=== PATIENT | female | born 1955 | race Caucasian/White ===

== ENCOUNTER → 2016-11-24 | Outpatient (CLI) | payer OTHER ==
[~2016-11-24] MED LIST: ABL5 PO; ADVIN50/60 INH; ALBU0.5N2 NEB; ALBU1.257 NEB; AMB5 PO; AMLO5TAB2 PO; ASPI-461 PO; ASPI81TA28 PO; ATOR-26 PO; BUPR-266 PO; CHLO1LIQ21 PO; CITA20TA9 PO; CLX/20 PO; CLX40 PO; CYCL10TA6 PO; DYZ PO; EPP3/2 IM; FLUT0.0529 NAE; FURO-85 PO; GUAISYP4 PO; IPRASOL4 NEB; LEVO75TA5 PO; LEVO88TA3 PO; LORA-741 PO; MIRT45TA3 PO; MONT1TAB3 PO; NAPR220T PO; ONDA4TAB46 PO; POLY335019 PO; POTA-327 PO; POTA10CA28 PO; POTA20TA16 PO; SPRIN/30 INH; TRAM-10 PO; TRIATAB3 PO; ZOLP5TAB PO
[2016-11-24 13:34] LABS: ALT/SGPT 36 U/L (12-78); AST/SGOT 42 U/L (15-37); BLOOD UREA NITROGEN 10 mg/dl (7-18); BUN/CREATININE RATIO 11.2 (10-20); CALCIUM 9.4 mg/dl (8.5-10.1); CARBON DIOXIDE 27 mmol/L (21-32); CHLORIDE 107 mmol/L (98-107); CREATININE 0.93 mg/dl (0.60-1.20); GLUCOSE 107 mg/dl (70-99); POTASSIUM 3.8 mmol/L (3.5-5.1); SODIUM 141 mmol/L (136-145)
[2016-11-24 13:37] LABS: ALB/GLOB RATIO 1.1 (0.9-2); ALKALINE PHOSPHATASE 118 U/L (45-117)
--- NOTE | 2016-11-24 13:46 | DIAGNOSTIC IMAGING REPORT ---
PA CHEST RADIOGRAPH AND UPRIGHT AND SUPINE AP RADIOGRAPHS OF THE ABDOMEN CLINICAL HISTORY: Abdominal pain, diarrhea and weight loss. COMPARISON STUDY: Chest radiograph July 04, [address] of the abdomen and pelvis March 25, 2015. FINDINGS: Lung volumes are normal. There is no consolidation or evidence of pulmonary edema. No pneumothorax or pleural effusions are present. Radiodensities projecting over the upper abdomen likely reflect ingested tablets within the stomach. There is no free air. There is no evidence for a bowel obstruction. IMPRESSION: 1. No free air or evidence of bowel obstruction. 2. No acute cardiopulmonary findings. Electronically signed by: Lex Stanton M.D. 11/24/2016 1:43 PM Dictated Date/Time: 11/24/2016 1:37 PM
== END | disposition home or self-care (01) ==
LOC: C.RAD 12:27
PROVIDERS: ATTEND Physician Assistant
DX: R10.9 Unspecified abdominal pain (principal)

== ENCOUNTER → 2016-11-28 | Outpatient (CLI) | payer OTHER ==
--- NOTE | 2016-11-28 12:52 | DIAGNOSTIC IMAGING REPORT ---
ABDOMEN COMPLETE (US) CLINICAL HISTORY: R10.9 Abdominal pain COMPARISON STUDY: Biliary ultrasound dated June 14, 2010, CT scan abdomen pelvis dated 03/25/2015 FINDINGS: There are 2 echogenic foci within the right lobe of the liver measuring 21 mm and 10 mm respectively. The findings are consistent with although not specific for hepatic hemangiomas. The larger the 2 lesions measured 18 mm on the 2009 ultrasound. The small the 2 lesions was not visualized on that study. The gallbladder appears sonographically normal. The pancreas appears sonographically normal. No splenic lesions are visualized. There is no ductal dilatation. The common buttock measures 4 mm The right kidney measures 9 cm in length. The left kidney measures 9.9 cm in length. No solid renal masses are visualized. No abnormalities of the IVC or aorta are visualized. IMPRESSION: 1. There are 2 echogenic foci within the liver. These are consistent with although not specific for hepatic hemangiomas 2. Ultrasonographically unremarkable gallbladder pancreas and spleen 3. No evidence of ductal dilatation Electronically signed by: Balaji Cheek M.D. 11/28/2016 12:50 PM Dictated Date/Time: 11/28/2016 12:47 PM
== END | disposition home or self-care (01) ==
LOC: C.ULTR 11:59
PROVIDERS: ATTEND Physician Assistant
DX: R10.9 Unspecified abdominal pain (principal); R93.2 Abnormal findings on diagnostic imaging of liver and biliary tract

== ENCOUNTER 2016-11-29 17:07 | Inpatient (IN) | payer OTHER ==
[~2016-11-29] VITALS: Ht 162.6 cm; Wt 72.0 kg
[~2016-11-29 17:07] MED LIST changes: -ABL5 PO; -ADVIN50/60 INH; -ALBU1.257 NEB; -AMB5 PO; -AMLO5TAB2 PO; -ASPI81TA28 PO; -ATOR-26 PO; -BUPR-266 PO; -CHLO1LIQ21 PO; -CLX/20 PO; -CLX40 PO; -CYCL10TA6 PO; -EPP3/2 IM; -GUAISYP4 PO; -IPRASOL4 NEB; -LEVO75TA5 PO; -LORA-741 PO; -MIRT45TA3 PO; -MONT1TAB3 PO; -NAPR220T PO; -ONDA4TAB46 PO; -POLY335019 PO; -POTA10CA28 PO; -POTA20TA16 PO; -TRAM-10 PO; -TRIATAB3 PO
[2016-11-29] MEDS ORDERED: SODIUM CHLORIDE 0.9% 1000ML 500 ML IV STA (17:24)
[2016-11-29] MEDS ORDERED: SODIUM CHLORIDE 0.9% 1000ML 1,000 ML IV STA (17:24)
[2016-11-29] MEDS ORDERED: ONDANSETRON INJ 2 MG/ML 2 ML VIAL IV STA ×2 (17:24→19:15)
[2016-11-29] MEDS ORDERED: HYDROmorphone INJ 2 MG/ML SYR/VIAL IV PRN (17:30)
--- NOTE | 2016-11-29 17:40 | DIAGNOSTIC IMAGING REPORT ---
CHEST ONE VIEW PORTABLE CLINICAL HISTORY: ABDOMINAL PAIN/GI pain. Nausea. COMPARISON STUDY: 11/24/2016 FINDINGS: The bones soft tissues and hemidiaphragms are normal. The cardiomediastinal silhouette is normal. The lungs are clear. The pulmonary vasculature is normal. IMPRESSION: Negative chest. Electronically signed by: Rocco Syed M.D. 11/29/2016 5:38 PM Dictated Date/Time: 11/29/2016 5:38 PM
--- NOTE | 2016-11-29 17:52 | EMERGENCY ROOM VISIT NOTE ---
History Report prepared by Jake: Deandre Branch Under the Supervision of: Dr. Roel Garber M.D. First contact with patient: 17:13 Chief Complaint: ABDOMINAL PAIN Stated Complaint: SOB, STOMACH PAIN- PHYSICIAN REFERRED Nursing Triage Summary: Pt presents with c/o pain from chest to mid abd for a couple weeks, feels worse today. N/V/D. Pt reports diarrhea x 3 weeks. States she has lost approx 30 lbs. History of Present Illness The patient is a 61 year old female who presents to the Emergency Room with complaints of persistent periumbilical abdominal pain for the past three weeks. The pain is rated 7/10 in severity and is worse after she eats. The pain has not worsened since onset, but does now radiate to her upper chest. She is also short of breath. The patient has had diarrhea since the onset of her abdominal pain. She notes that the stools are watery and she often feels the urge to go shortly after eating. She denies fevers or vomiting. The patient lost her voice today. The patient has lost 30 pounds since the onset of her symptoms, and she has not been trying to lose weight. She had a breathing treatment earlier today when she saw her primary doctor, who referred her to the ED to role out pancreatitis or a blood clot. She is not on any blood thinners other than aspirin. The patient denies having any unusual foods or drinking contaminated water recently, and she has not been out of the country. She has a history of acid reflux for which she has had surgery. She no longer takes any medications for reflux. She also has a history of gastroparesis and is s/p tubal ligation and hysterectomy. The patient additionally has a history of COPD and asthma. The patient was seen five days ago and had an X-ray that was negative for any acute abdominal findings. She had an Ultrasound yesterday that showed a normal gallbladder and pancreas. Her kidneys, spleen, and aorta were also unremarkable. She had small hemangiomas within the liver. Source of History: patient Onset: three weeks ago Position: abdomen Symptom Intensity: 7/10 Timing: other (persistent) Modifying Factors (Worsening): eating Associated Symptoms: + SOB, + chest pain, + diarrhea, No fevers, No vomiting Review of Systems See HPI for pertinent positives & negatives. A total of 10 systems reviewed and were otherwise negative. Past Medical & Surgical Medical Problems: (1) Asthma (2) Bilateral pneumonia (3) COPD exacerbation (4) DVT (deep venous thrombosis) (5) HTN (hypertension) (6) Hyperlipidemia (7) Pulmonary embolism Family History Diabetes mellitus Social History Smoking Status: Former Smoker Drug Use: none Marital Status: Housing Status: lives with significant other Occupation Status: employed Current/Historical Medications Scheduled Aspirin (Aspirin), 81 MG PO QAM Atorvastatin (Lipitor), 1 TAB PO HS Citalopram Hydrobromide (Celexa), 20 MG PO HS Fluticasone Prop/Salmeterol (Advair Diskus 500/50 60 Dose), 1 PUFF INH BID Furosemide (Lasix), 20 MG PO QAM Levothyroxine Sodium (Levothyroxine Sodium), 88 MCG PO DAILY Montelukast Sodium (Singulair), 10 MG PO HS Polyethylene Glycol 3350 (Miralax), 17 GM PO DAILY Potassium Ext Rel (Klor-Con), 30 MEQ PO BID Triamterene/Hctz (Triamterene/Hctz 37.5-25MG), 1 TAB PO QAM Scheduled PRN Albuterol 0.5% Soln (Ventolin 0.5% Soln), 1 VIAL NEB Q4 PRN for PRN Epinephrine (Epipen), 0.3 MG IM UD PRN for ALLERGIC REACTION Naproxen Sodium (Aleve), 440 MG PO DAILY PRN for Pain Zolpidem Tartrate (Ambien), 1 TAB PO HS PRN for Sleep Allergies Coded Allergies: BEE STING (Verified Allergy, Severe, swelling, 11/29/16) Shrimp (Verified Allergy, Severe, SEVERE., 11/29/16) Cefuroxime (Verified Allergy, Intermediate, rash, 11/29/16) Clindamycin (Verified Allergy, Intermediate, rash, 11/29/16) Morphine (Verified Allergy, Intermediate, RASH, on hycodan from [id number] home med, 11/29/16) Pregabalin (Verified Allergy, Intermediate, swelling, 11/29/16) Clavulanic Acid (Verified Allergy, Mild, 11/29/16) Ketorolac (Verified Allergy, Mild, RASH ON ABDOMEN,NAPROXEN ONLY NSAID SHE TOLERATES, 11/29/16) Penicillins (Verified Allergy, Mild, 11/29/16) Erythromycin (Verified Allergy, Unknown, 11/29/16) Ibuprofen (Verified Allergy, Unknown, RASH,NAPROXEN ONLY NSAID SHE TOLERATES, 11/29/16) Imipenem (Verified Allergy, Unknown, 11/29/16) Iodine (Verified Allergy, Unknown, 11/29/16) Macrolides and Ketolides (Unverified Allergy, Unknown, RASH, 11/29/16) macrolides Metoclopramide (Verified Allergy, Unknown, 11/29/16) Psyllium (Verified Allergy, Unknown, 11/29/16) Sulfa Antibiotics (Verified Allergy, Unknown, "SULFA": "RASH", 11/29/16) Uncoded Allergies: MARCOLIDES (Allergy, Intermediate, rash, 07/19/16) Physical Exam Vital Signs Date Time Temp Pulse Resp B/P Pulse Ox O2 Delivery O2 Flow Rate FiO2 11/30/16 00:09 69 20 132/72 97 Nasal Cannula 2.0 11/29/16 22:22 69 20 132/72 97 Nasal Cannula 2.0 11/29/16 20:53 82 20 151/85 97 Room Air 11/29/16 20:28 74 11/29/16 19:01 66 20 158/69 98 Room Air 11/29/16 18:27 68 11/29/16 18:21 68 22 154/58 99 Room Air 11/29/16 17:19 163/85 11/29/16 17:11 36.5 72 18 99 Room Air Physical Exam GENERAL: Patient is in no acute distress. HEENT: No acute trauma, normocephalic atraumatic, mucous membranes moist, no nasal congestion, no scleral icterus. NECK: No stridor, no adenopathy, no meningismus, trachea is midline. LUNGS: Diminished breath sounds bilaterally, breath sounds are equal, no wheezing or rhonchi, no respiratory distress. HEART: Without murmurs gallops or rubs, regular rate and rhythm. ABDOMEN: Soft, diffusely midly to moderately tender, bowel sounds positive and hyperactive, no hernias, no peritonitis. EXTREMITIES: No cyanosis or edema, full range of motion of all the joints without pain or difficulty, no signs for acute trauma. NEUROLOGIC: Oriented x 3, no acute motor or sensory deficits, no focal weakness. SKIN: No rash, no jaundice, no diaphoresis. Medical Decision & Procedures ER Provider Diagnostic Interpretation: X ray results and stated below per my interpretation and radiologist interpretation. Other radiology results and stated below per my review and radiologist interpretation: CHEST ONE VIEW PORTABLE CLINICAL HISTORY: ABDOMINAL PAIN/GI pain. Nausea. COMPARISON STUDY: 11/24/2016 FINDINGS: The bones soft tissues and hemidiaphragms are normal. The cardiomediastinal silhouette is normal. The lungs are clear. The pulmonary vasculature is normal. IMPRESSION: Negative chest. Electronically signed by: Rocco Syed M.D. 11/29/2016 5:38 PM Dictated Date/Time: 11/29/2016 5:38 PM ABDOMEN AND PELVIS CT WITH IV AND ORAL CONTRAST CT DOSE: 395.56 mGy.cm HISTORY: Pain ABDOMINAL PAIN/GI--? DIVERTICULITIS--GIVE PO AND IV CONTRAST TECHNIQUE: Multiaxial CT images of the abdomen and pelvis were performed following the use of intravenous and oral contrast. COMPARISON STUDY: 03/25/2015 FINDINGS: Chronic interstitial change right base. Lung bases otherwise are clear. Small benign hemangioma of the right hepatic lobe unchanged. There is otherwise uniform. Small hiatal hernia unchanged. Spleen and pancreas are unremarkable. Mild cortical scarring of the kidneys. No evidence renal hydronephrosis. Bowel pattern within the abdomen and pelvis is nonobstructive. The appendix is unremarkable. Bladder is midline. There is no significant free fluid within the pelvic cul-de-sac. IMPRESSION: No significant abnormality identified within the abdomen or pelvis. Electronically signed by: Rocco Syed M.D. 11/29/2016 9:07 PM Dictated Date/Time: 11/29/2016 9:02 PM Laboratory Results 11/29/16 17:56 Red Blood Count 4.83, Mean Corpuscular Volume 88.0, Mean Corpuscular Hemoglobin 30.0, Mean Corpuscular Hemoglobin Concent 34.1, Mean Platelet Volume 10.7, Neutrophils (%) (Auto) 67.1, Lymphocytes (%) (Auto) 23.1, Monocytes (%) (Auto) 8.3, Eosinophils (%) (Auto) 1.1, Basophils (%) (Auto) 0.3, Neutrophils # (Auto) 4.92, Lymphocytes # (Auto) 1.69, Monocytes # (Auto) 0.61, Eosinophils # (Auto) 0.08, Basophils # (Auto) 0.02 11/29/16 17:56 Test 11/29/16 17:56 11/29/16 18:15 White Blood Count 7.33 K/uL (4.8-10.8) Red Blood Count 4.83 M/uL (4.2-5.4) Hemoglobin 14.5 g/dL (12.0-16.0) Hematocrit 42.5 % (37-47) Mean Corpuscular Volume 88.0 fL (80-100) Mean Corpuscular Hemoglobin 30.0 pg (25-34) Mean Corpuscular Hemoglobin Concent 34.1 g/dl (32-36) Platelet Count 262 K/uL (130-400) Mean Platelet Volume 10.7 fL (7.4-10.4) Neutrophils (%) (Auto) 67.1 % Lymphocytes (%) (Auto) 23.1 % Monocytes (%) (Auto) 8.3 % Eosinophils (%) (Auto) 1.1 % Basophils (%) (Auto) 0.3 % Neutrophils # (Auto) 4.92 K/uL (1.4-6.5) Lymphocytes # (Auto) 1.69 K/uL (1.2-3.4) Monocytes # (Auto) 0.61 K/uL (0.11-0.59) Eosinophils # (Auto) 0.08 K/uL (0-0.5) Basophils # (Auto) 0.02 K/uL (0-0.2) RDW Standard Deviation 46.4 fL (36.4-46.3) RDW Coefficient of Variation 14.3 % (11.5-14.5) Immature Granulocyte % (Auto) 0.1 % Immature Granulocyte # (Auto) 0.01 K/uL (0.00-0.02) Prothrombin Time 9.7 SECONDS (9.0-12.0) Prothromb Time International Ratio 0.9 (0.9-1.1) Activated Partial Thromboplast Time 26.0 SECONDS (21.0-31.0) Partial Thromboplastin Ratio 1.0 Anion Gap 6.0 mmol/L (3-11) Est Creatinine Clear Calc Drug Dose 60.2 ml/min Estimated GFR () 74.4 Estimated GFR (Non- 64.2 BUN/Creatinine Ratio 10.0 (10-20) Lactic Acid Level 1.2 mmol/L (0.4-2.0) Calcium Level 9.4 mg/dl (8.5-10.1) Magnesium Level 2.0 mg/dl (1.8-2.4) Total Bilirubin 0.8 mg/dl (0.2-1) Aspartate Amino Transf (AST/SGOT) 54 U/L (15-37) Alanine Aminotransferase (ALT/SGPT) 47 U/L (12-78) Alkaline Phosphatase 109 U/L (45-117) Troponin I < 0.015 ng/ml (0-0.045) Total Protein 7.8 gm/dl (6.4-8.2) Albumin 3.8 gm/dl (3.4-5.0) Globulin 4.0 gm/dl (2.5-4.0) Albumin/Globulin Ratio 1.0 (0.9-2) Lipase 406 U/L (73-393) Thyroid Stimulating Hormone (TSH) 0.125 uIu/ml (0.300-4.500) Free Thyroxine 1.52 ng/dl (0.80-1.60) Urine Color YELLOW Urine Appearance CLEAR (CLEAR) Urine pH 5.0 (4.5-7.5) Urine Specific [place] 1.007 (1.000-1.030) Urine Protein NEG (NEG) Urine Glucose (UA) NEG (NEG) Urine Ketones NEG (NEG) Urine Occult Blood NEG (NEG) Urine Nitrite NEG (NEG) Urine Bilirubin NEG (NEG) Urine Urobilinogen NEG (NEG) Urine Leukocyte Esterase SMALL (NEG) Urine WBC (Auto) 1-5 /hpf (0-5) Urine RBC (Auto) 0-4 /hpf (0-4) Urine Hyaline Casts (Auto) 1-5 /lpf (0-5) Urine Epithelial Cells (Auto) 10-20 /lpf (0-5) Urine Bacteria (Auto) NEG (NEG) Laboratory results reviewed by me. Medications Administered Medications (Trade) Dose Ordered Sig/Vale Route Start Time Stop Time Status Last Admin Dose Admin Sodium Chloride (Nss 1000ml) 500 ml @ 999 mls/hr Q31M STAT IV 11/29/16 17:24 11/29/16 17:54 DC 11/29/16 18:10 999 MLS/HR Ondansetron HCl 4 mg 4 mg NOW STAT IV 11/29/16 17:24 11/29/16 17:27 DC 11/29/16 18:09 4 MG Sodium Chloride (Nss 1000ml) 1,000 ml @ 200 mls/hr Q5H STAT IV 11/29/16 17:24 11/29/16 22:23 DC 11/29/16 18:11 200 MLS/HR Hydromorphone HCl (Dilaudid Inj) 0.5 mg Q15M PRN IV 11/29/16 17:30 12/13/16 17:29 11/29/16 18:09 0.5 MG Ondansetron HCl (Zofran Inj) 4 mg NOW STAT IV 11/29/16 19:15 11/29/16 19:17 DC 11/29/16 19:15 4 MG Diphenhydramine HCl (Benadryl Inj) 50 mg NOW STAT IV 11/29/16 19:47 11/29/16 19:49 DC 11/29/16 20:00 50 MG Methylprednisolone Sodium Succinate (Solu-Medrol IV) 125 mg NOW STAT IV 11/29/16 19:47 11/29/16 19:49 DC 11/29/16 20:00 125 MG ECG Indication: chest pain Rate (beats per minute): 66 Rhythm: normal sinus Findings: no acute ischemic change, no ectopy ED Course 171: The patient was evaluated in room C3. A complete history and physical exam was performed. 1724: NSS 1000 ml @ 200 mls/hr, Zofran 4 mg IV, NSS 500 ml @ 999 mls/hr. 1730: Dilaudid 0.5 mg IV. 1914: Zofran 4 mg IV. 1954: Updated the patient. 1946: Solu-Medrol 125 mg IV, Benadryl 50 mg IV. 2131: Discussed the case with Dr. Liu, [facility]ist. The patient will be evaluated. 2154: Updated the patient. Medical Decision Differential diagnosis includes diverticulitis or colitis, appendicitis, pancreatitis, acute cholecystitis, reflux, cardiac ischemia, malignancy, bacterial intestinal infection, viral intestinal infection. There is no leukocytosis or concerning anemia. No significant electrolyte abnormality, kidney failure or hepatitis. Lipase is somewhat elevated consistent with possible early pancreatitis. Thyroid testing is consistent with someone using thyroid medication. Urinalysis does not show infection. Lactic acid level is not elevated making bowel ischemia less likely. Chest film shows no pneumonia or free air. EKG shows a normal sinus rhythm, no acute ischemia. Cardiac enzyme testing times one is not consistent with acute cardiac injury. Abdominal and pelvis CT does not show evidence for bowel obstruction, mass, diverticulitis or any acute surgical process. The patient has been having difficulty now for weeks. She has lost weight. She is failing outpatient treatment. She did receive IV saline, IV Dilaudid, IV Zofran. She required a second dose of IV Zofran. The patient did receive IV Solu-Medrol and IV Benadryl in preparation for her CT scan. The patient is still feeling poorly. I think admission/observation is warranted. Certainly, she may have pancreatitis. Her laboratories suggest pancreatitis and her history is somewhat suggestive of pancreatitis. I spoke to the patient and case management. The on-call hospitalist was consulted. Consults Time Called: 2124 Consulting Physician: Dr. Liu, [facility] Returned Call: [phone]: Discussed the case with Dr. Liu, [facility]ist. The patient will be evaluated. Impression Primary Impression: Dehydration Additional Impressions: Weight loss Pancreatitis Epigastric abdominal pain Scribe Attestation The scribe's documentation has been prepared under my direction and personally reviewed by me in its entirety. I confirm that the note above accurately reflects all work, treatment, procedures, and medical decision making performed by me. Departure Information Dispostion Being Evaluated By Hospitalist Referrals Gary Renteria M.D. (PCP) Patient Instructions My [facility] Problem Qualifiers
[2016-11-29 18:07] LABS: BASO % 0.3 %; BASO ABS # 0.02 K/uL (0-0.2); COMPLETE YES; EOS % 1.1 %; HEMATOCRIT 42.5 % (37-47); IG% 0.1 %; LYMPH % 23.1 %; LYMPH ABS # 1.69 K/uL (1.2-3.4); MEAN CORPUSCULAR HGB CONC 34.1 g/dl (32-36); MEAN PLATELET VOLUME 10.7 fL (7.4-10.4); MONO % 8.3 %; NEUT % 67.1 %; PLATELET COUNT 262 K/uL (130-400); RED BLOOD COUNT 4.83 M/uL (4.2-5.4); WHITE BLOOD COUNT 7.33 K/uL (4.8-10.8)
[2016-11-29 18:19] LABS: INR 0.9 (0.9-1.1); PROTHROMBIN TIME (PATIENT) 9.7 SECONDS (9.0-12.0)
[2016-11-29] MEDS ORDERED: POTA20TA16 PO (18:24)
[2016-11-29 18:25] LABS: BLOOD UREA NITROGEN 10 mg/dl (7-18); CALCIUM 9.4 mg/dl (8.5-10.1); CARBON DIOXIDE 29 mmol/L (21-32); CHLORIDE 104 mmol/L (98-107); CREATININE 0.95 mg/dl (0.60-1.20); GLUCOSE 100 mg/dl (70-99); POTASSIUM 3.4 mmol/L (3.5-5.1); SODIUM 139 mmol/L (136-145)
[2016-11-29 18:37] LABS: ALKALINE PHOSPHATASE 109 U/L (45-117); ALT/SGPT 47 U/L (12-78); AST/SGOT 54 U/L (15-37); THYROID STIMULATING HORMONE 0.125 uIu/ml (0.300-4.500)
[2016-11-29 18:37] LABS: URINE APPEARANCE CLEAR (CLEAR); URINE BILIRUBIN NEG (NEG); URINE COLOR YELLOW; URINE NITRITE NEG (NEG); URINE SPECIFIC GRAVITY 1.007 (1.000-1.030); UROBILINOGEN NEG (NEG); ZZUR CULT IF INDIC CLEAN CATCH NO
[2016-11-29 18:38] LABS: MANUAL MICROSCOPIC REQUIRED? NO; REVIEW REQ? NO
[2016-11-29] MEDS ORDERED: DiphenhydrAMINE HCL 50 MG/ML VIAL IV STA (19:47)
[2016-11-29] MEDS ORDERED: METHYLPREDNISOLONE 125 MG VIAL IV STA (19:47)
[2016-11-29] MEDS ORDERED: OPTIRAY 320 IV PRN (20:00)
--- NOTE | 2016-11-29 21:09 | DIAGNOSTIC IMAGING REPORT ---
ABDOMEN AND PELVIS CT WITH IV AND ORAL CONTRAST CT DOSE: 395.56 mGy.cm HISTORY: Pain ABDOMINAL PAIN/GI--? DIVERTICULITIS--GIVE PO AND IV CONTRAST TECHNIQUE: Multiaxial CT images of the abdomen and pelvis were performed following the use of intravenous and oral contrast. COMPARISON STUDY: 03/25/2015 FINDINGS: Chronic interstitial change right base. Lung bases otherwise are clear. Small benign hemangioma of the right hepatic lobe unchanged. There is otherwise uniform. Small hiatal hernia unchanged. Spleen and pancreas are unremarkable. Mild cortical scarring of the kidneys. No evidence renal hydronephrosis. Bowel pattern within the abdomen and pelvis is nonobstructive. The appendix is unremarkable. Bladder is midline. There is no significant free fluid within the pelvic cul-de-sac. IMPRESSION: No significant abnormality identified within the abdomen or pelvis. Electronically signed by: Rocco Syde M.D. 11/29/2016 9:07 PM Dictated Date/Time: 11/29/2016 9:02 PM
[2016-11-29] MEDS ORDERED: ALUMINUM/MAGNESIUM/SIMETH (MAALOX MAX) 30 ML UDC PO PRN (23:00)
[2016-11-29] MEDS ORDERED: MAGNESIUM HYDROXIDE SUSP 30 ML UDC PO PRN (23:00)
[2016-11-29] MEDS ORDERED: NITROGLYCERIN 0.4 MG SL PER TAB CHARGE SL PRN (23:00)
[2016-11-29] MEDS ORDERED: MoRPHine SULFATE 2 MG/ML CARP IV PRN (23:00)
[2016-11-29] MEDS ORDERED: POLYETHYLENE (MIRALAX) 17 GM PACK PO PRN (23:00)
[2016-11-29] MEDS ORDERED: ALBUTEROL 0.5% NEB SOLN 2.5 MG/0.5 ML VIAL INH PRN (23:15)
[2016-11-29] MEDS ORDERED: EPINEPHRINE ADULT AUTO-INJECT 0.3 MG SYR IM PRN (23:15)
[2016-11-29] MEDS ORDERED: ZOLPIDEM TARTRATE 5 MG TAB PO PRN (23:15)
--- NOTE | 2016-11-29 23:15 | History and Physical ---
History & Physical Date & Time of Service: Nov 29, 2016 at 23:14 Chief Complaint: Sob, Stomach Pain- Physician Referred Primary Care Physician: Gary Renteria M.D. History of Present Illness 61-year-old female with past medical history of asthma, COPD, gastroparesis, history of acid reflux surgery presented to the ER with complaints of periumbilical abdominal pain and diarrhea which started about 3 weeks ago and worsened this morning. The abdominal pain is periumbilical with no radiation, constant, 3/10 in severity and 7/10 when worse, worsened with food. She has also had diarrhea about 3-4 times per day, mostly watery and nonbloody which started about 3 weeks ago. She has some nausea and dry heaves but denied any vomiting. Denied any fevers with chills, coughing, upper respiratory infection. She was seen by her PCP today and was recommended to go to the ER to rule out pancreatitis. She denied any recent traveling, eating unusual food. She does have a history of gastroparesis and had used to domperidone in the past but is currently not using anything. She had" acid reflux surgery" for GERD. She was seen by her PCP 5 days ago for abdominal pain and her abdominal x-ray was negative for any acute findings. She also had an ultrasound yesterday that showed a normal gallbladder and pancreas. She denied any alcohol use but was a smoker and used to smoke 1-2 packs per day. Past Medical/Surgical History Medical Problems: (1) Asthma Status: Chronic (2) DVT (deep venous thrombosis) Status: Resolved (3) HTN (hypertension) Status: Chronic (4) Hyperlipidemia Status: Chronic (5) Pulmonary embolism Status: Resolved Family History Diabetes mellitus Social History Smoking Status: Former Smoker Drug Use: none Marital Status: Occupational Status: employed Immunizations History of Influenza Vaccine: Yes Influenza Vaccine Date: May 10, 2015 History of Tetanus Vaccine?: Yes Tetanus Immunization Date: Mar 26, 2014 History of Pneumococcal: Yes Pneumococcal Date: Jun 15, 2010 History of Hepatitis B Vaccine: Unknown Multi-Drug Resistant Organisms History of MDRO: No Allergies Coded Allergies: BEE STING (Verified Allergy, Severe, swelling, 11/29/16) Shrimp (Verified Allergy, Severe, SEVERE., 11/29/16) Cefuroxime (Verified Allergy, Intermediate, rash, 11/29/16) Clindamycin (Verified Allergy, Intermediate, rash, 11/29/16) Morphine (Verified Allergy, Intermediate, RASH, on hycodan from [id number] home med, 11/29/16) Pregabalin (Verified Allergy, Intermediate, swelling, 11/29/16) Clavulanic Acid (Verified Allergy, Mild, 11/29/16) Ketorolac (Verified Allergy, Mild, RASH ON ABDOMEN,NAPROXEN ONLY NSAID SHE TOLERATES, 11/29/16) Penicillins (Verified Allergy, Mild, 11/29/16) Erythromycin (Verified Allergy, Unknown, 11/29/16) Ibuprofen (Verified Allergy, Unknown, RASH,NAPROXEN ONLY NSAID SHE TOLERATES, 11/29/16) Imipenem (Verified Allergy, Unknown, 11/29/16) Iodine (Verified Allergy, Unknown, 11/29/16) Macrolides and Ketolides (Unverified Allergy, Unknown, RASH, 11/29/16) macrolides Metoclopramide (Verified Allergy, Unknown, 11/29/16) Psyllium (Verified Allergy, Unknown, 11/29/16) Sulfa Antibiotics (Verified Allergy, Unknown, "SULFA": "RASH", 11/29/16) Uncoded Allergies: MARCOLIDES (Allergy, Intermediate, rash, 07/19/16) Home Medications Scheduled Aspirin (Aspirin), 81 MG PO QAM Atorvastatin (Lipitor), 1 TAB PO HS Citalopram Hydrobromide (Celexa), 20 MG PO HS Fluticasone Prop/Salmeterol (Advair Diskus 500/50 60 Dose), 1 PUFF INH BID Furosemide (Lasix), 20 MG PO QAM Levothyroxine Sodium (Levothyroxine Sodium), 88 MCG PO DAILY Montelukast Sodium (Singulair), 10 MG PO HS Polyethylene Glycol 3350 (Miralax), 17 GM PO DAILY Potassium Ext Rel (Klor-Con), 30 MEQ PO BID Triamterene/Hctz (Triamterene/Hctz 37.5-25MG), 1 TAB PO QAM Scheduled PRN Albuterol 0.5% Soln (Ventolin 0.5% Soln), 1 VIAL NEB Q4 PRN for PRN Epinephrine (Epipen), 0.3 MG IM UD PRN for ALLERGIC REACTION Naproxen Sodium (Aleve), 440 MG PO DAILY PRN for Pain Zolpidem Tartrate (Ambien), 1 TAB PO HS PRN for Sleep Review of Systems Constitutional: + weight loss (30 pounds in about a month), No chills, No fever Eyes: No worsening of vision ENT: No hearing loss Respiratory: + problem reported (losing voice), + shortness of breath, No cough , No sputum Abdomen: + diarrhea, + nausea, + pain Genitourinary - Female: No dysuria, No urinary frequency, No urinary urgency Neurologic: No memory loss, No paralysis Psychiatric: No depression symptoms Endocrine: No fatigue Hematologic / Lymphatic: No abnormal bleeding/bruising Physical Exam Vital Signs Date Time Temp Pulse Resp B/P Pulse Ox O2 Delivery O2 Flow Rate FiO2 11/29/16 22:22 69 20 132/72 97 Nasal Cannula 2.0 11/29/16 20:53 82 20 151/85 97 Room Air 11/29/16 20:28 74 11/29/16 19:01 66 20 158/69 98 Room Air 11/29/16 18:27 68 11/29/16 18:21 68 22 154/58 99 Room Air 11/29/16 17:19 163/85 11/29/16 17:11 36.5 72 18 99 Room Air General Appearance: WD/WN, no apparent distress Head: normocephalic Eyes: normal inspection ENT: hearing grossly normal Neck: supple, no adenopathy Respiratory/Chest: chest non-tender, normal breath sounds, no respiratory distress, no accessory muscle use, + wheezing (scattered) Cardiovascular: regular rate, rhythm, + systolic murmur Abdomen/GI: normal bowel sounds, soft, + tenderness (mid abdominal area) Back: normal inspection Extremities/Musculoskelatal: normal inspection, no calf tenderness, normal range of motion Neurologic/Psych: alert, normal mood/affect, oriented x 3 Skin: normal color Diagnostics Laboratory Results Results Past 24 Hours Test 11/29/16 17:56 11/29/16 18:15 Range/Units White Blood Count 7.33 4.8-10.8 K/uL Red Blood Count 4.83 4.2-5.4 M/uL Hemoglobin 14.5 12.0-16.0 g/dL Hematocrit 42.5 37-47 % Mean Corpuscular Volume 88.0 80-100 fL Mean Corpuscular Hemoglobin 30.0 25-34 pg Mean Corpuscular Hemoglobin Concent 34.1 32-36 g/dl Platelet Count 262 130-400 K/uL Mean Platelet Volume 10.7 7.4-10.4 fL Neutrophils (%) (Auto) 67.1 % Lymphocytes (%) (Auto) 23.1 % Monocytes (%) (Auto) 8.3 % Eosinophils (%) (Auto) 1.1 % Basophils (%) (Auto) 0.3 % Neutrophils # (Auto) 4.92 1.4-6.5 K/uL Lymphocytes # (Auto) 1.69 1.2-3.4 K/uL Monocytes # (Auto) 0.61 0.11-0.59 K/uL Eosinophils # (Auto) 0.08 0-0.5 K/uL Basophils # (Auto) 0.02 0-0.2 K/uL RDW Standard Deviation 46.4 36.4-46.3 fL RDW Coefficient of Variation 14.3 11.5-14.5 % Immature Granulocyte % (Auto) 0.1 % Immature Granulocyte # (Auto) 0.01 0.00-0.02 K/uL Prothrombin Time 9.7 9.0-12.0 SECONDS Prothromb Time International Ratio 0.9 0.9-1.1 Activated Partial Thromboplast Time 26.0 21.0-31.0 SECONDS Partial Thromboplastin Ratio 1.0 Sodium Level 139 136-145 mmol/L Potassium Level 3.4 3.5-5.1 mmol/L Chloride Level 104 98-107 mmol/L Carbon Dioxide Level 29 21-32 mmol/L Anion Gap 6.0 3-11 mmol/L Blood Urea Nitrogen 10 7-18 mg/dl Creatinine 0.95 0.60-1.20 mg/dl Est Creatinine Clear Calc Drug Dose 60.2 ml/min Estimated GFR () 74.4 Estimated GFR (Non- 64.2 BUN/Creatinine Ratio 10.0 10-20 Random Glucose 100 70-99 mg/dl Lactic Acid Level 1.2 0.4-2.0 mmol/L Calcium Level 9.4 8.5-10.1 mg/dl Total Bilirubin 0.8 0.2-1 mg/dl Aspartate Amino Transf (AST/SGOT) 54 15-37 U/L Alanine Aminotransferase (ALT/SGPT) 47 12-78 U/L Alkaline Phosphatase 109 45-117 U/L Troponin I < 0.015 0-0.045 ng/ml Total Protein 7.8 6.4-8.2 gm/dl Albumin 3.8 3.4-5.0 gm/dl Globulin 4.0 2.5-4.0 gm/dl Albumin/Globulin Ratio 1.0 0.9-2 Lipase 406 73-393 U/L Thyroid Stimulating Hormone (TSH) 0.125 0.300-4.500 uIu/ml Free Thyroxine 1.52 0.80-1.60 ng/dl Urine Color YELLOW Urine Appearance CLEAR CLEAR Urine pH 5.0 4.5-7.5 Urine Specific [place] 1.007 1.000-1.030 Urine Protein NEG NEG Urine Glucose (UA) NEG NEG Urine Ketones NEG NEG Urine Occult Blood NEG NEG Urine Nitrite NEG NEG Urine Bilirubin NEG NEG Urine Urobilinogen NEG NEG Urine Leukocyte Esterase SMALL NEG Urine WBC (Auto) 1-5 0-5 /hpf Urine RBC (Auto) 0-4 0-4 /hpf Urine Hyaline Casts (Auto) 1-5 0-5 /lpf Urine Epithelial Cells (Auto) 10-20 0-5 /lpf Urine Bacteria (Auto) NEG NEG Microbiology Results 11/29/16 Shiga Toxin Test, Received Pending 11/29/16 Stool Culture, Received Pending 11/29/16 C.difficile Toxin B Gene (PCR) - Final, Complete No C. difficile toxin B gene detected Diagnostic Radiology [~ rep ct add3]] CHEST ONE VIEW PORTABLE CLINICAL HISTORY: ABDOMINAL PAIN/GI pain. Nausea. COMPARISON STUDY: 11/24/2016 FINDINGS: The bones soft tissues and hemidiaphragms are normal. The cardiomediastinal silhouette is normal. The lungs are clear. The pulmonary vasculature is normal. IMPRESSION: Negative chest. ABDOMEN AND PELVIS CT WITH IV AND ORAL CONTRAST CT DOSE: 395.56 mGy.cm HISTORY: Pain ABDOMINAL PAIN/GI--? DIVERTICULITIS--GIVE PO AND IV CONTRAST TECHNIQUE: Multiaxial CT images of the abdomen and pelvis were performed following the use of intravenous and oral contrast. COMPARISON STUDY: 03/25/2015 FINDINGS: Chronic interstitial change right base. Lung bases otherwise are clear. Small benign hemangioma of the right hepatic lobe unchanged. There is otherwise uniform. Small hiatal hernia unchanged. Spleen and pancreas are unremarkable. Mild cortical scarring of the kidneys. No evidence renal hydronephrosis. Bowel pattern within the abdomen and pelvis is nonobstructive. The appendix is unremarkable. Bladder is midline. There is no significant free fluid within the pelvic cul-de-sac. IMPRESSION: No significant abnormality identified within the abdomen or pelvis. CXR normal EKG Normal sinus rhythm Normal ECG When compared with ECG of 01-JUN-2016 19:28, No significant change was found Confirmed by VLADISLAV GARCIA ([id number]) on 2016 7:53:20 PM Impression Assessment and Plan 61-year-old female with past medical history of asthma, COPD, gastroparesis, history of acid reflux surgery presented to the ER with complaints of periumbilical abdominal pain and diarrhea which started about 3 weeks ago and worsened this morning. Ultrasound and CT abdomen are negative for pancreatitis or gallbladder disease. However her lipase is elevated at 406. She also had 30 pound weight loss within the last month - consider work up for any underlying malignancy. Periumbilical abdominal pain with persistent diarrhea: - Nothing by mouth - Ultrasound done yesterday by PCP: Negative - CT abdomen/pelvis : Negative - C. difficile negative -Stool culture pending -UA positive for small leuko esterase, urine culture pending -Lipase elevated at 406, trend lipase -Gastroenterology consult Unintentional weight loss: - Lost about 30 pounds in the last month - Consider Workup for underlying malignancy though CT abdomen and pelvis was negative COPD: - Continue home inhalers Possible UTI: - UA positive for small leuk esterase - Urine culture pending Chronic lower extremity swelling: - Uses Lasix and triamterene Hypothyroidism -Synthroid Depression: Continue Celexa Hyperlipidemia - Continue statin DVT prophylaxis: Heparin subcutaneous Full code Disposition: Admitted to telemetry. Level of Care Telemetry Advanced Directives Existing Living Will: Yes Resuscitation Status FULL RESUSCITATION VTE Prophylaxis VTE Risk Assessment Done? Y/N: Yes Risk Level: Moderate Given or contraindicated: Unfractionated heparin SQ Resident Tracking Resident Involvement: Resident Care Provided Care Provided: Adult [facility] Medicine Assessment and Plan Attending Addendum: I have physically seen and examined this patient, have directed their medical care, have supervised the medical residents activities, and agree with the H&P as noted above, with the following changes: NONE
[2016-11-30 00:48] VITALS: BP 139/76; PULSE 64; TEMP 36.6; O2SAT 97; Ht 162.6 cm; Wt 72.0 kg
[2016-11-30] MEDS ORDERED: PANTOprazole INJ 40 MG in SYRINGE 0 ML IV STA (00:59)
[2016-11-30] MEDS ORDERED: MoRPHine SULFATE 4 MG/ML 1 ML CARP\\VIAL IV PRN (01:00)
[2016-11-30] MEDS ORDERED: MoRPHine SULFATE 2 MG/ML CARP IV PRN (01:00)
[2016-11-30] MEDS ORDERED: HYDROmorphone INJ 1 MG/ML SYR IV PRN (01:15)
[2016-11-30] MEDS: ONDANSETRON INJ 2 MG/ML 2 ML VIAL IV PRN (01:19)
[2016-11-30] MEDS: NSS + 20MEQ KCL 1000ML 1,000 ML IV SCH ×3 (01:20→21:02)
[2016-11-30 04:00] VITALS: BP 110/56; PULSE 67; TEMP 36.5; O2SAT 95
[2016-11-30 05:41] LABS: COMPLETE YES; IG% 0.2 %; LYMPH % 9.2 %; LYMPH ABS # 0.42 K/uL (1.2-3.4); MEAN CELL VOLUME 89.6 fL (80-100); MEAN CORPUSCULAR HEMOGLOBIN 29.8 pg (25-34); MEAN CORPUSCULAR HGB CONC 33.3 g/dl (32-36); MEAN PLATELET VOLUME 11.2 fL (7.4-10.4); MONO % 0.4 %; NEUT % 90.2 %; PLATELET COUNT 223 K/uL (130-400); WHITE BLOOD COUNT 4.57 K/uL (4.8-10.8)
[2016-11-30 06:27] LABS: BLOOD UREA NITROGEN 9 mg/dl (7-18); BUN/CREATININE RATIO 9.5 (10-20); CALCIUM 8.6 mg/dl (8.5-10.1); CARBON DIOXIDE 29 mmol/L (21-32); CHLORIDE 107 mmol/L (98-107); CREATININE 0.96 mg/dl (0.60-1.20); GLUCOSE 160 mg/dl (70-99); POTASSIUM 4.5 mmol/L (3.5-5.1); SODIUM 143 mmol/L (136-145)
[2016-11-30] MEDS ORDERED: LEVOTHYROXINE 88 MCG TAB PO SCH (06:30)
[2016-11-30 07:25] VITALS: BP 122/72; PULSE 62; TEMP 36.5; O2SAT 93
[2016-11-30] MEDS: FLUTICASONE/SALMETEROL (ADVAIR) 500/50 INH 14 PUFF INH SCH ×2 (08:07→21:02)
[2016-11-30] MEDS: PANTOprazole INJ 40 MG in SYRINGE 0 ML IV SCH ×2 (08:07→21:02)
[2016-11-30] MEDS: LEVOTHYROXINE SODIUM INJ 44 MCG in SYRINGE 0 ML IV SCH (08:23)
[2016-11-30] MEDS: HEPARIN SOD 5000 UNIT/0.5 ML CARP SQ SCH ×2 (08:28→16:19)
[2016-11-30] MEDS ORDERED: FUROSEMIDE 20 MG TAB PO SCH (09:00)
[2016-11-30] MEDS ORDERED: TRIAMTERENE/HCTZ 37.5/25MG TAB PO SCH (09:00)
[2016-11-30] MEDS ORDERED: HEPARIN SOD 5000 UNIT/0.5 ML CARP SQ SCH (09:00)
[2016-11-30] MEDS ORDERED: POLYETHYLENE (MIRALAX) 17 GM PACK PO SCH (09:00)
[2016-11-30] MEDS: POTASSIUM CHLORIDE 10 MEQ TABCR PO SCH ×2 (10:12→21:04)
[2016-11-30] MEDS: ASPIRIN 81 MG ECTAB PO SCH (10:12)
[2016-11-30 11:16] VITALS: BP 107/64; PULSE 63; TEMP 36.5; O2SAT 98
[2016-11-30] MEDS ORDERED: LOPERAMIDE HCL 2 MG CAP PO PRN (12:15)
--- NOTE | 2016-11-30 12:23 | Gastrointestinal Consultation ---
Gastrointestinal Consultation Date of Consultation: Nov 30, 2016 Attending Physician: Galindo Kessler Consulting Physician: Flaquito aLm Reason for Consultation: Abd pain, diarrhea History of Present Illness Patient is a 61 year old female w PMHx of asthma, COPD, gastroparesis, Mitchell' s esophagus, GERD s/p lap Santos in 2005, DVT, HTN, hyperlipidemia, PE, Depression who presented to ED w c/o abd pain and diarrhea x 3 weeks. She experienced severe periumbilical abd pain about 30 mins after eating, pain would radiate up her abd area and to the upper quadrants. She has associated nausea but not vomiting. Denies reflux symptoms. She also have been having diarrhea for weeks. Denies any blood in stools. Denies any sick contact, recent antibx, travels. Appetite low, reportedly lost 30 lbs in 3-4 weeks. No fever, but having chills. She is also not sleeping very well and reported having more depressive symptoms lately. She is on Celexa 20mg daily. She feels that her nausea from gastroparesis was well controlled on Zofran. She has had multiple workup prior to admission including abd u/s and chest/abd xray which are unremarkable. Admission labs w/o signs of leukocytosis, anemia, coagulopathy. Normal LFTs, Lipase mildly up to 403 on admission now 130. CXR, CT abd/pelvis, Cdiff negative. Stool cx, urine culture pending. She is a smoker but quit for a while now, denies ETOH or illicit drugs intake. She had multiple EGD evals in the past which revealed gastritis, Micthell's esophagus. Last EGD in 2011. Also EUS on 07/22/12 + peripancreatic lymph nodes too small to FNA, gallbladder sludge. Colonoscopy in 2009, negative exam. Past Medical/Surgical History Medical Problems: (1) Acute chest pain Status: Acute (2) Acute kidney injury Status: Acute (3) Dehydration Status: Acute (4) Elevated d-dimer Status: Acute (5) Epigastric abdominal pain Status: Acute (6) Failure of outpatient treatment Status: Acute (7) Leukocytosis Status: Acute (8) Pancreatitis Status: Acute (9) Trapezius muscle strain Status: Acute (10) Weight loss Status: Acute Past Surgical History: BONE DEBRIDEMENT, FIRST 20 CM2 03/30/2014 DEBRIDEMENT SKIN SUBCUTANEOUS TISSUE MUSCLE AND BONE performed by Raudel Mock MD [place] [facility] [place] USING COMPUTER 05/14/08 STEREOTACTIC COMPUTER ASSISTED VOLUMETRIC PROCEDURE performed by GALINDO SOTO at [place] [facility] [place] PROCEDURE NEC wisdom teeth DRAINAGE OF FOREARM/WRIST LESION 03/27/2014 INCISION AND DRAINAGE FOREARM WRIST DEEP performed by Raudel Felder MD at [place] [facility] [place], W/ENDOSCOPIC US 07/22/2012 UPPER GI ENDOSCOPY ENDOSCOPIC ULTRASOUND performed by Redd Diego MD at [place] [facility] LIGATE/CUT OVIDUCT(S) 1977 MAXIL SINUS ENDOSCOPY W/TISS REMOVE 05/14/08 NASAL SINUS ENDOSCOPY MAXILLA ANTROSTOMY REMOVE TISSUE performed by GALINDO SOTO at [place] [facility] MISCELLANEOUS ORDER 01/02/07 EUA/Fistulotomy- NASAL ENDOSCOPY,TOTAL ETHMOIDECTOMY 05/14/08 NASAL SINUS ENDOSCOPY WITH ETHMOIDECTOMY TOTAL performed by GALINDO SOTO at [place] [facility] NASAL/SINUS ENDOSCOPY, SURGICAL 1999 NASAL/SINUS ENDOSCOPY, SURGICAL 05/14/08 NASAL SINUS ENDOSCOPY SURGICAL WITH SPHENOIDOTOMY performed by GALINDO SOTO at [place] [facility] [place]AL/SINUS ENDOSCOPY, SURGICAL 05/14/08 NASAL SINUS ENDOSCOPY FRONTAL SINUS EXPLORATION performed by GALINDO SOTO at [place] [facility] OTHER 12/15/05 allyssa Gordon OTHER 1989 Dr. Arvizu - fistula repair REMOVAL OF TONSILS, AGE 12+ TOTAL HYSTERECTOMY 1988 ovaries present, fibroids Family History Diabetes mellitus Social History Smoking Status: Former Smoker Drug Use: none Marital Status: Housing Status: lives with significant other Occupation Status: employed Allergies Coded Allergies: BEE STING (Verified Allergy, Severe, swelling, 11/29/16) Shrimp (Verified Allergy, Severe, SEVERE., 11/29/16) Cefuroxime (Verified Allergy, Intermediate, rash, 11/29/16) Clindamycin (Verified Allergy, Intermediate, rash, 11/29/16) Morphine (Verified Allergy, Intermediate, RASH, on hycodan from [id number] home med, 11/29/16) Pregabalin (Verified Allergy, Intermediate, swelling, 11/29/16) Clavulanic Acid (Verified Allergy, Mild, 11/29/16) Ketorolac (Verified Allergy, Mild, RASH ON ABDOMEN,NAPROXEN ONLY NSAID SHE TOLERATES, 11/29/16) Penicillins (Verified Allergy, Mild, 11/29/16) Erythromycin (Verified Allergy, Unknown, 11/29/16) Ibuprofen (Verified Allergy, Unknown, RASH,NAPROXEN ONLY NSAID SHE TOLERATES, 11/29/16) Imipenem (Verified Allergy, Unknown, 11/29/16) Iodine (Verified Allergy, Unknown, 11/29/16) Macrolides and Ketolides (Unverified Allergy, Unknown, RASH, 11/29/16) macrolides Metoclopramide (Verified Allergy, Unknown, 11/29/16) Psyllium (Verified Allergy, Unknown, 11/29/16) Sulfa Antibiotics (Verified Allergy, Unknown, "SULFA": "RASH", 11/29/16) Uncoded Allergies: MARCOLIDES (Allergy, Intermediate, rash, 07/19/16) Current Medications Home Meds and Scripts Medications Dose Route/Sig Max Daily Dose Days Date Category Klor-Con (Potassium Chloride) 20 Meq Tabcr 30 Meq PO BID 11/29/16 Reported Triamterene/Hctz 37.5-25MG (Triamterene/HCTZ) 1 Tab Tab 1 Tab PO QAM 11/29/16 Reported Ambien (Zolpidem Tartrate) 5 Mg Tab 1 Tab PO HS PRN 30 07/19/16 Reported Spiriva [place] (Tiotropium [place]) 30 Puff/540 Mcg Aerp 2 Puffs INH DAILY 30 07/19/16 Reported Aleve (Naproxen Sodium) 220 Mg Tab 440 Mg PO DAILY PRN 05/31/16 Reported Advair Diskus 500/50 60 Dose (Fluticasone Prop/Salmeterol) 1 Ea Aerp 1 Puff INH BID 05/31/16 Reported Levothyroxine Sodium 88 Mcg Tab 88 Mcg PO DAILY 05/31/16 Reported Lipitor (Atorvastatin Calcium) 80 Mg Tab 1 Tab PO HS 30 10/06/15 Reported Celexa (Citalopram Hydrobromide) 20 Mg Tab 20 Mg PO HS 06/27/15 Reported Singulair (Montelukast Sodium) 10 Mg Tab 10 Mg PO HS 03/02/15 Reported Miralax (Polyethylene Glycol 3350) 1 Pow Pow 17 Gm PO DAILY 03/02/15 Reported Ventolin 0.5% Soln (Albuterol Sulfate) Nebu 1 Vial NEB Q4 PRN 03/02/15 Reported Aspirin 81 Mg Tab 81 Mg PO QAM 10/26/13 Reported Lasix (Furosemide) 20 Mg Tab 20 Mg PO QAM 10/26/13 Reported Epipen (Epinephrine) 0.3 Mg/0.3 Ml Inj 0.3 Mg IM UD PRN 07/26/12 Reported Review of Systems Constitutional: + chills, No fever Respiratory: No cough, No shortness of breath Cardiac: No chest pain, No edema Abdomen: + diarrhea, + nausea, + pain, No GI bleeding, No vomiting Physical Exam Date Time Temp Pulse Resp B/P Pulse Ox O2 Delivery O2 Flow Rate FiO2 11/30/16 11:16 36.5 63 18 107/64 98 11/30/16 08:00 Room Air 11/30/16 07:25 36.5 62 18 122/72 93 11/30/16 04:05 Room Air 11/30/16 04:00 36.5 67 20 110/56 95 Room Air 11/30/16 00:48 36.6 64 18 139/76 97 Room Air 11/30/16 00:09 69 20 132/72 97 Nasal Cannula 2.0 11/29/16 22:22 69 20 132/72 97 Nasal Cannula 2.0 11/29/16 20:53 82 20 151/85 97 Room Air 11/29/16 20:28 74 11/29/16 19:01 66 20 158/69 98 Room Air 11/29/16 18:27 68 11/29/16 18:21 68 22 154/58 99 Room Air 11/29/16 17:19 163/85 11/29/16 17:11 36.5 72 18 99 Room Air General Appearance: WD/WN, no apparent distress Eyes: normal inspection, PERRL, EOMI Neck: supple, no JVD, trachea midline Respiratory/Chest: normal breath sounds, no respiratory distress, no accessory muscle use Cardiovascular: regular rate, rhythm, no gallop, no murmur Abdomen: normal bowel sounds, soft, + tenderness (periumbilical, epigastric) Neurologic/Psych: alert, normal mood/affect, oriented x 3 Skin: normal color, no jaundice, no rash Laboratory Results Last 24 Hours Test 11/29/16 17:56 11/29/16 18:15 11/30/16 05:26 White Blood Count 7.33 K/uL 4.57 K/uL Red Blood Count 4.83 M/uL 4.80 M/uL Hemoglobin 14.5 g/dL 14.3 g/dL Hematocrit 42.5 % 43.0 % Mean Corpuscular Volume 88.0 fL 89.6 fL Mean Corpuscular Hemoglobin 30.0 pg 29.8 pg Mean Corpuscular Hemoglobin Concent 34.1 g/dl 33.3 g/dl Platelet Count 262 K/uL 223 K/uL Mean Platelet Volume 10.7 fL 11.2 fL Neutrophils (%) (Auto) 67.1 % 90.2 % Lymphocytes (%) (Auto) 23.1 % 9.2 % Monocytes (%) (Auto) 8.3 % 0.4 % Eosinophils (%) (Auto) 1.1 % 0.0 % Basophils (%) (Auto) 0.3 % 0.0 % Neutrophils # (Auto) 4.92 K/uL 4.12 K/uL Lymphocytes # (Auto) 1.69 K/uL 0.42 K/uL Monocytes # (Auto) 0.61 K/uL 0.02 K/uL Eosinophils # (Auto) 0.08 K/uL 0.00 K/uL Basophils # (Auto) 0.02 K/uL 0.00 K/uL RDW Standard Deviation 46.4 fL 46.7 fL RDW Coefficient of Variation 14.3 % 14.1 % Immature Granulocyte % (Auto) 0.1 % 0.2 % Immature Granulocyte # (Auto) 0.01 K/uL 0.01 K/uL Prothrombin Time 9.7 SECONDS Prothromb Time International Ratio 0.9 Activated Partial Thromboplast Time 26.0 SECONDS Partial Thromboplastin Ratio 1.0 Sodium Level 139 mmol/L 143 mmol/L Potassium Level 3.4 mmol/L 4.5 mmol/L Chloride Level 104 mmol/L 107 mmol/L Carbon Dioxide Level 29 mmol/L 29 mmol/L Anion Gap 6.0 mmol/L 7.0 mmol/L Blood Urea Nitrogen 10 mg/dl 9 mg/dl Creatinine 0.95 mg/dl 0.96 mg/dl Est Creatinine Clear Calc Drug Dose 60.2 ml/min 59.1 ml/min Estimated GFR () 74.4 73.5 Estimated GFR (Non- 64.2 63.4 BUN/Creatinine Ratio 10.0 9.5 Random Glucose 100 mg/dl 160 mg/dl Lactic Acid Level 1.2 mmol/L Calcium Level 9.4 mg/dl 8.6 mg/dl Magnesium Level 2.0 mg/dl Total Bilirubin 0.8 mg/dl Aspartate Amino Transf (AST/SGOT) 54 U/L Alanine Aminotransferase (ALT/SGPT) 47 U/L Alkaline Phosphatase 109 U/L Troponin I < 0.015 ng/ml < 0.015 ng/ml Total Protein 7.8 gm/dl Albumin 3.8 gm/dl Globulin 4.0 gm/dl Albumin/Globulin Ratio 1.0 Lipase 406 U/L 130 U/L Thyroid Stimulating Hormone (TSH) 0.125 uIu/ml Free Thyroxine 1.52 ng/dl Urine Color YELLOW Urine Appearance CLEAR Urine pH 5.0 Urine Specific [place] 1.007 Urine Protein NEG Urine Glucose (UA) NEG Urine Ketones NEG Urine Occult Blood NEG Urine Nitrite NEG Urine Bilirubin NEG Urine Urobilinogen NEG Urine Leukocyte Esterase SMALL Urine WBC (Auto) 1-5 /hpf Urine RBC (Auto) 0-4 /hpf Urine Hyaline Casts (Auto) 1-5 /lpf Urine Epithelial Cells (Auto) 10-20 /lpf Urine Bacteria (Auto) NEG Chemistry Specimen Hemolysis Impression Patient is a 61 year old female w hx of GERD s/p lap Santos in 2005, Mitchell's esophagus, gastroparesis, gastritis currently admitted w postprandial periumbilical abd pain, nausea, diarrhea; reported weight loss of 30lbs in 3-4 weeks. Several diagnostic studies including Cdiff, abd u/s, CT abd/pelvis all unremarkable so far. Unclear etiology of symptoms. Differential diagnoses include: viral gastroenteritis, PUD, gastritis, Hpylori, mesentery artery stenosis, functional abd pain ? psych component. Plan - Protonix 40mg IV BID - NPO since she can't tolerate even water for now - Obtain mesentery u/s - Trial Dicyclomine 20mg BID - Imodium 2mg prn diarrhea, no more than 16mg a day - Symptomatic management - Offered psych eval for depression management and med adjustments if needed, but pt refused at this time. - Will discuss w Dr. Lam if EGD or Colonoscopy eval is indicated at this time. Addendum: U/S mesentery showed moderate velocity increase of the celiac axis and superior mesenteric arteries. Specific CT angiography is suggested as follow -up. CTA abd/pelvis w contrast ordered. No plans for inpt colonoscopy at this time; will help arrange in outpt setting once pt is discharged. I have personally seen and examined the patient with ROCÍO Farmer. Her note reflects my exam and findings. I agree with her impression and plan. Out patient colonoscopy and follow up CTA. Flaquito Lam M.D.
[2016-11-30] MEDS ORDERED: DICYCLOMINE HCL 20 MG TAB PO ONE (12:30)
--- NOTE | 2016-11-30 14:07 | DIAGNOSTIC IMAGING REPORT ---
Duplex mesenteric arterial Doppler DUPLEX MESENTERIC CLINICAL HISTORY: post prandial abd pain ; r/o mesentery artery stenosis TECHNIQUE: Doppler COMPARISON STUDY: None FINDINGS: Velocity increase involving the superior mesenteric and celiac axis as. This indicate a moderate degree of stenotic change. This is not well seen on the patient's CT study. CT angiography is suggested. IMPRESSION: Moderate velocity increase of the celiac axis and superior mesenteric arteries. Specific CT angiography is suggested as follow-up. Electronically signed by: Rocco Syed M.D. 11/30/2016 2:05 PM Dictated Date/Time: 11/30/2016 2:02 PM
[2016-11-30] MEDS ORDERED: HydrALAZINE HCL 20 MG/ML VIAL IV. PRN (14:30)
[2016-11-30 14:34] VITALS: BP 111/68; PULSE 61; TEMP 36.5; O2SAT 98
--- NOTE | 2016-11-30 14:35 | Hospitalist Progress Note ---
Hospitalist Progress Note Date of Service Nov 30, 2016. (Alexia Flores PA-C) Subjective Pt evaluation today including: conversation w/ patient, physical exam, chart review, lab review, review of studies, review of inpatient medication list Patient seen and evaluated. She reports feeling about the same as when she was admitted. She now reports the diarrhea has become so frequent that she has had some incontinence. She states the pain is present in the epigastric region with some radiation into the chest. She states yesterday the sensation made her short of breath but denies current SOB. She states pain worsens approximately 30 minutes after eating and therefore has decreased appetite. She does have intermittent nausea and dry heaves but no actual vomiting. Lipase was mildly elevated at 406 but repeat of 130. She denies knowledge of any similar symptoms. She denies personal history of ulcerative colitis/Crohn's. States her mother had colitis secondary to "complication of surgery" She has a history of gastroparesis but states this is normally controlled and doesn't feel like this. Additional Comments: REVIEW OF SYSTEMS: General/Constitutional: +chills, +unintentional weight loss; Denies fever, fatigue, weakness ENT: Denies visual changes, nasal drainage, hearing loss, sore throat, trouble swallowing Cardiovascular: Denies chest pain, palpitations, edema Respiratory: Denies cough, sputum, SOB, wheezing, orthopnea GI: +periumbilical abdominal pain with radiation into chest, +diarrhea, +loss of bowel control; Denies nausea, vomiting, constipation, melena/hematochezia : Denies dysuria, frequency, hematuria Musculoskeletal: Denies joint/muscle aches, weakness, swelling Neurologic: Denies dizziness/lightheadedness, numbness/tingling, weakness Psychiatric: Deferred Endocrine: Deferred Hematologic/Lymphatic: Denies bleeding/clotting abnormalities Skin: Denies rash, itch, new skin changes, easy bruising Allergy/Immunologic: Deferred (Alexia Flores, SONIDOC) Medications Current Inpatient Medications Medications (Trade) Dose Ordered Sig/Vale Route Start Time Stop Time Status Last Admin Dose Admin Ioversol 100 ml 100 ml UD PRN IV 11/29/16 20:00 12/03/16 19:59 Potassium Chloride/Sodium Chloride (Nss + 20meq KCl 1000ml) 1,000 ml @ 100 mls/hr Q10H IV 11/30/16 01:00 12/30/16 00:59 11/30/16 10:08 100 MLS/HR Acetaminophen (Tylenol Tab) 650 mg Q4H PRN PO 11/29/16 23:00 12/29/16 22:59 Al Hydrox/Mg Hydrox/Simethicone (Maalox Max Susp) 15 ml Q4H PRN PO 11/29/16 23:00 12/29/16 22:59 Magnesium Hydroxide (Milk Of Magnesia Susp) 30 ml Q12H PRN PO 11/29/16 23:00 12/29/16 22:59 Ondansetron HCl (Zofran Inj) 4 mg Q6H PRN IV 11/29/16 23:00 11/30/16 01:19 4 MG Nitroglycerin (Nitrostat Tab) 0.4 mg UD PRN SL 11/29/16 23:00 12/29/16 22:59 Albuterol Sulfate (Ventolin 0.5% 2.5MG/0.5ML Neb) 2 mg Q4 PRN INH 11/29/16 23:15 12/29/16 23:14 Aspirin (Ecotrin Tab) 81 mg QAM PO 11/30/16 09:00 12/30/16 08:59 11/30/16 10:12 81 MG Atorvastatin Calcium (Lipitor Tab) 80 mg HS PO 11/30/16 21:00 12/30/16 20:59 Citalopram Hydrobromide (celeXA TAB) 20 mg HS PO 11/30/16 21:00 12/30/16 20:59 Epinephrine (Epipen) 0.3 mg UD PRN IM 11/29/16 23:15 12/29/16 23:14 Salmeterol Xinafoate/ Fluticasone (Advair Diskus 500/50 Inh) 1 puff BID INH 11/30/16 09:00 12/30/16 08:59 11/30/16 08:07 1 PUFF Furosemide (Lasix Tab) 20 mg QAM PO 11/30/16 09:00 12/30/16 08:59 11/30/16 10:12 20 MG Levothyroxine Sodium (Synthroid Tab) 88 mcg DAILYBB PO 11/30/16 06:30 12/30/16 06:59 Future Hold Montelukast Sodium (Singulair Tab) 10 mg HS PO 11/30/16 21:00 12/30/16 20:59 Potassium Chloride (Klor-Con M10) 30 meq BID PO 11/30/16 09:00 12/30/16 08:59 11/30/16 10:12 30 MEQ Triamterene/HCTZ (Maxzide 37.5/25 Tab) 1 tab QAM PO 11/30/16 09:00 12/30/16 08:59 11/30/16 10:11 1 TAB Zolpidem Tartrate (Ambien Tab) 5 mg HS PRN PO 11/29/16 23:15 12/29/16 23:14 Polyethylene 17 gm 17 gm DAILY PO 11/30/16 09:00 12/30/16 08:59 Pantoprazole Sodium/Syringe (Protonix Inj/ Syringe) 10 ml @ 5 mls/min DAILY@,21 IV 11/30/16 09:00 12/30/16 08:59 11/30/16 08:07 5 MLS/MIN Hydromorphone HCl (Dilaudid Inj) 1 mg Q2H PRN IV 11/30/16 01:15 12/14/16 01:14 Hydromorphone HCl 0.5 mg 0.5 mg Q2H PRN IV 11/30/16 01:15 12/14/16 01:14 Levothyroxine Sodium/Syringe (Synthroid Inj/ Syringe) 2.2 ml @ 2 mls/min DAILY@09 IV 11/30/16 09:00 12/30/16 08:59 11/30/16 08:23 2 MLS/MIN Heparin Sodium (Porcine) (Heparin Sq 5000 Unit/0.5ml) 5,000 unit Q8H SQ 11/30/16 09:00 12/30/16 08:59 11/30/16 08:28 5,000 UNIT Dicyclomine HCl (Bentyl Tab) 20 mg BID PO 11/30/16 21:00 12/30/16 20:59 Loperamide HCl (Imodium Cap) 2 mg DAILY PRN PO 11/30/16 12:15 12/30/16 12:14 (Alexia Flores, MARINA) Objective Vital Signs Date Time Temp Pulse Resp B/P Pulse Ox O2 Delivery O2 Flow Rate FiO2 11/30/16 12:00 Room Air 11/30/16 11:16 36.5 63 18 107/64 98 11/30/16 08:00 Room Air 11/30/16 07:25 36.5 62 18 122/72 93 11/30/16 04:05 Room Air 11/30/16 04:00 36.5 67 20 110/56 95 Room Air 11/30/16 00:48 36.6 64 18 139/76 97 Room Air 11/30/16 00:09 69 20 132/72 97 Nasal Cannula 2.0 11/29/16 22:22 69 20 132/72 97 Nasal Cannula 2.0 11/29/16 20:53 82 20 151/85 97 Room Air 11/29/16 20:28 74 11/29/16 19:01 66 20 158/69 98 Room Air 11/29/16 18:27 68 11/29/16 18:21 68 22 154/58 99 Room Air 11/29/16 17:19 163/85 11/29/16 17:11 36.5 72 18 99 Room Air (Alexia Flores, PA-C) Physical Exam Notes: PHYSICAL EXAM:: General Appearance: WDWN in NAD who is A&O x 3; flat affect HEENT: Head is normocephalic/atraumatic; EOMI; PERRLA; Hearing grossly intact; Mucous membranes moist; Pharynx negative for exudate/lesions Neck: Supple; Trachea midline; Neg JVD; Neg lymphadenopathy Heart: RRR with systolic murmur II/ with no G/R Lungs: CTA in all lung barillas bilaterally; Respirations unlabored; Neg accessory muscle use Abdomen: Soft, mildly tender in epigastric region, non-distended; Positive BS x 4 quadrants; Neg organomegaly Extremities: Capillary refill < 2 seconds; Neg cyanosis or edema Neurological: Speech clear; Gross motor/sensory function intact; Neg focal neurologic deficits Psychiatric: Appropriate mood/affect Skin: Normal Color; Warm/Dry; Neg rashes, ecchymosis, lacerations/ulcerations (Alexia Flores, PA-C) Laboratory Results Last 24 Hours Test 11/29/16 17:56 11/29/16 18:15 11/30/16 05:26 11/30/16 12:45 White Blood Count 7.33 K/uL 4.57 K/uL Red Blood Count 4.83 M/uL 4.80 M/uL Hemoglobin 14.5 g/dL 14.3 g/dL Hematocrit 42.5 % 43.0 % Mean Corpuscular Volume 88.0 fL 89.6 fL Mean Corpuscular Hemoglobin 30.0 pg 29.8 pg Mean Corpuscular Hemoglobin Concent 34.1 g/dl 33.3 g/dl Platelet Count 262 K/uL 223 K/uL Mean Platelet Volume 10.7 fL 11.2 fL Neutrophils (%) (Auto) 67.1 % 90.2 % Lymphocytes (%) (Auto) 23.1 % 9.2 % Monocytes (%) (Auto) 8.3 % 0.4 % Eosinophils (%) (Auto) 1.1 % 0.0 % Basophils (%) (Auto) 0.3 % 0.0 % Neutrophils # (Auto) 4.92 K/uL 4.12 K/uL Lymphocytes # (Auto) 1.69 K/uL 0.42 K/uL Monocytes # (Auto) 0.61 K/uL 0.02 K/uL Eosinophils # (Auto) 0.08 K/uL 0.00 K/uL Basophils # (Auto) 0.02 K/uL 0.00 K/uL RDW Standard Deviation 46.4 fL 46.7 fL RDW Coefficient of Variation 14.3 % 14.1 % Immature Granulocyte % (Auto) 0.1 % 0.2 % Immature Granulocyte # (Auto) 0.01 K/uL 0.01 K/uL Prothrombin Time 9.7 SECONDS Prothromb Time International Ratio 0.9 Activated Partial Thromboplast Time 26.0 SECONDS Partial Thromboplastin Ratio 1.0 Sodium Level 139 mmol/L 143 mmol/L Potassium Level 3.4 mmol/L 4.5 mmol/L Chloride Level 104 mmol/L 107 mmol/L Carbon Dioxide Level 29 mmol/L 29 mmol/L Anion Gap 6.0 mmol/L 7.0 mmol/L Blood Urea Nitrogen 10 mg/dl 9 mg/dl Creatinine 0.95 mg/dl 0.96 mg/dl Est Creatinine Clear Calc Drug Dose 60.2 ml/min 59.1 ml/min Estimated GFR () 74.4 73.5 Estimated GFR (Non- 64.2 63.4 BUN/Creatinine Ratio 10.0 9.5 Random Glucose 100 mg/dl 160 mg/dl Lactic Acid Level 1.2 mmol/L Calcium Level 9.4 mg/dl 8.6 mg/dl Magnesium Level 2.0 mg/dl Total Bilirubin 0.8 mg/dl Aspartate Amino Transf (AST/SGOT) 54 U/L Alanine Aminotransferase (ALT/SGPT) 47 U/L Alkaline Phosphatase 109 U/L Troponin I < 0.015 ng/ml < 0.015 ng/ml < 0.015 ng/ml Total Protein 7.8 gm/dl Albumin 3.8 gm/dl Globulin 4.0 gm/dl Albumin/Globulin Ratio 1.0 Lipase 406 U/L 130 U/L Thyroid Stimulating Hormone (TSH) 0.125 uIu/ml Free Thyroxine 1.52 ng/dl Urine Color YELLOW Urine Appearance CLEAR Urine pH 5.0 Urine Specific [place] 1.007 Urine Protein NEG Urine Glucose (UA) NEG Urine Ketones NEG Urine Occult Blood NEG Urine Nitrite NEG Urine Bilirubin NEG Urine Urobilinogen NEG Urine Leukocyte Esterase SMALL Urine WBC (Auto) 1-5 /hpf Urine RBC (Auto) 0-4 /hpf Urine Hyaline Casts (Auto) 1-5 /lpf Urine Epithelial Cells (Auto) 10-20 /lpf Urine Bacteria (Auto) NEG Chemistry Specimen Hemolysis (Alexia Flores, PA-C) Assessment and Plan 61-year-old female with past medical history of asthma, COPD, gastroparesis, history of acid reflux surgery presented to the ER with complaints of periumbilical abdominal pain and diarrhea which started about 3 weeks ago and worsened this morning. Periumbilical Abdominal Pain with Persistent Diarrhea: Lipase Normalized - Continue trending lipase - home medications switched to IV as not tolerating oral intake - Mesentery U/S suggestive of stenosis - will order CTA for further evaluation - Protonix 40 mg IV BID - GI following - recommendations reviewed - Protonix BID, mesentery U/S, trial dicyclomine, Imodium -- Consideration for EGD/Colonoscopy Unintentional Weight Loss: Approx. 30 lbs - Will await imaging per GI and consideration for scope COPD without Exacerbation: - Ventolin Q4H PRN, Singulair 10 mg daily, and Advair 1 puff BID UTI?: - UA positive for small leuk esterase - UCx pending HTN/Chronic Lower Extremity Edema: - Hold Lasix and Maxide in setting of fluids ordered, diarrhea, and contrast Hypothyroidism: - Synthroid 44 mcg IV daily Depression: - Celexa 20 mg daily - reviewed GI note of worsening depression symptoms but no interest in psych referral for medication adjustments Hyperlipidemia: - Atorvastatin 80 mg daily DVT Prophylaxis: Heparin 5000 units SC Q8H Code Status: FULL RESUSCITATION Disposition: Transfer to Med/Surg - pending GI work-up possible D/C tomorrow Continued [facility] stay due to: multiple IV medications needed (Alexia Flores, PAMagdalenoC) PA Physician Supervision Note: I interviewed and examined the patient. Discussed with Alexia Flores PAC and agree with findings and plan as documented in the note. Any exceptions or clarifications are listed here: None Pt continues with abdominal pain, supra pubic and radiation to both lower quadrants, worsened with eating and associated with watery diarrhea vitals stable car reg lungs clear, no distress abd is with hyperactive BS soft and tender without rebound acute lower abdominal pain and diarrhea, c diff negative, pending stool cultures , GI eval ordered mesenteric dopplers with suggestion of SMA stenosis pending CT angiogram, supportive care Documented By: Galindo Kessler (Galindo Kessler M.D.) (Galindo Kessler M.D.)
[2016-11-30] MEDS ORDERED: DiphenhydrAMINE INJ 50 MG in SYRINGE 0 ML IV ONE (15:00)
[2016-11-30] MEDS ORDERED: METHYLPREDNISOLONE IV 125 MG in SYRINGE 0 ML IV SCH (16:00)
[2016-11-30] MEDS ORDERED: DiphenhydrAMINE HCL 50 MG/ML VIAL IV SCH (16:00)
[2016-11-30] MEDS: ACETAMINOPHEN 325 MG TAB PO PRN (19:49)
--- NOTE | 2016-11-30 20:50 | DIAGNOSTIC IMAGING REPORT ---
ABDOMEN AND PELVIS CTA WITH IV CONTRAST CT DOSE: 357.20 mGy.cm HISTORY: Abnormal ultrasound. Mesenteric artery stenosis. Generalized abdominal pain. TECHNIQUE: Multiaxial CT images of the abdomen and pelvis were performed following the use of intravenous contrast. COMPARISON STUDY: Duplex mesenteric ultrasound 11/30/2016. Abdomen and pelvis CT 11/29/2016. FINDINGS: Mild to moderate calcified plaque within the abdominal aorta. This results in approximately 30% narrowing at the distal abdominal aorta. The bilateral iliac arteries are patent. There is approximately 60-70% stenosis at the origin of the celiac artery. This is best seen on the coronal views. There is approximate 80% stenosis at the origin of the right renal artery. No significant stenosis within the left renal artery. No significant stenosis within the superior mesenteric artery and inferior mesenteric arteries. Mild dependent changes seen within the right lung base. Stable hypodense lesion within the right hepatic lobe which is incompletely characterized on this single phase study. The spleen, adrenal glands, and pancreas are unremarkable. Hyperdense material within the gallbladder likely represents vicarious excretion of contrast from the prior study. Bilateral cortical renal scarring. No hydronephrosis. Suggestion of prior Santos fundoplication. No retroperitoneal lymphadenopathy. Bladder is now well-distended. Hysterectomy. Trace pelvic free fluid. Colonic diverticulosis. No bowel wall thickening or obstruction. IMPRESSION: 1. 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 2. 80% stenosis at the origin of the right renal artery. 3. Mild narrowing at the distal abdominal aorta due to the atherosclerotic plaque. 4. No bowel wall thickening or obstruction. 5. Additional findings as described above. Electronically signed by: Jorge Tompkins M.D. 11/30/2016 8:48 PM Dictated Date/Time: 11/30/2016 8:39 PM
[2016-11-30] MEDS: DICYCLOMINE HCL 20 MG TAB PO SCH (21:02)
[2016-11-30] MEDS: MONTELUKAST SOD 10 MG TAB PO SCH (21:03)
[2016-11-30] MEDS: CITALOPRAM 20 MG TAB PO SCH (21:03)
[2016-11-30] MEDS: ATORVASTATIN 40 MG TAB PO SCH (21:03)
[2016-12-01 00:01] VITALS: BP 95/60; PULSE 66; TEMP 36.5; O2SAT 97
[2016-12-01] MEDS: HEPARIN SOD 5000 UNIT/0.5 ML CARP SQ SCH ×3 (02:07→17:06)
[2016-12-01] MEDS: NSS + 20MEQ KCL 1000ML 1,000 ML IV SCH ×2 (06:06→17:03)
[2016-12-01 07:39] VITALS: BP 124/67; PULSE 71; TEMP 36.5; O2SAT 99
[2016-12-01] MEDS: ONDANSETRON INJ 2 MG/ML 2 ML VIAL IV PRN (07:42)
[2016-12-01 07:46] LABS: HEMATOCRIT 45.1 % (37-47); MEAN CELL VOLUME 89.5 fL (80-100); MEAN CORPUSCULAR HEMOGLOBIN 30.6 pg (25-34); MEAN CORPUSCULAR HGB CONC 34.1 g/dl (32-36); MEAN PLATELET VOLUME 11.6 fL (7.4-10.4); PLATELET COUNT 231 K/uL (130-400); RED BLOOD COUNT 5.04 M/uL (4.2-5.4); WHITE BLOOD COUNT 8.89 K/uL (4.8-10.8)
[2016-12-01 08:00] VITALS: O2SAT 99
[2016-12-01 08:23] LABS: BUN/CREATININE RATIO 14.4 (10-20); POTASSIUM 4.3 mmol/L (3.5-5.1)
[2016-12-01 08:45] LABS: CALCIUM 9.2 mg/dl (8.5-10.1)
[2016-12-01] MEDS: FLUTICASONE/SALMETEROL (ADVAIR) 500/50 INH 14 PUFF INH SCH ×2 (09:02→21:15)
[2016-12-01] MEDS: PANTOprazole INJ 40 MG in SYRINGE 0 ML IV SCH ×2 (09:02→21:14)
[2016-12-01] MEDS: ASPIRIN 81 MG ECTAB PO SCH (09:03)
[2016-12-01] MEDS: POTASSIUM CHLORIDE 10 MEQ TABCR PO SCH ×2 (09:03→21:39)
[2016-12-01] MEDS: LEVOTHYROXINE SODIUM INJ 44 MCG in SYRINGE 0 ML IV SCH (09:04)
[2016-12-01] MEDS: DICYCLOMINE HCL 20 MG TAB PO SCH ×2 (09:05→21:40)
--- NOTE | 2016-12-01 09:08 | Gastroenterology Progress Note ---
Progress Note Date of Service: Dec 01, 2016 Subjective Pt evaluation today including: conversation w/ patient, physical exam, chart review, lab review, review of studies, review of inpatient medication list Pt appears comfortable laying in bed, but c/o nausea and diffuse abd pain. Still having loose stools w/o blood as well. Reviewed studies: 1. Mesentery u/s: Moderate velocity increase of the celiac axis and superior mesenteric arteries. Specific CT angiography is suggested as follow-up. 2. CTA abd/pelvis: 1. 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 2. 80% stenosis at the origin of the right renal artery. 3. Mild narrowing at the distal abdominal aorta due to the atherosclerotic plaque. 4. No bowel wall thickening or obstruction. Review of Systems Constitutional: No chills, No fever Respiratory: No cough, No shortness of breath Cardiac: No chest pain, No edema Abdomen: + diarrhea, + nausea, + pain, No vomiting Medications Current Inpatient Medications Medications (Trade) Dose Ordered Sig/Vale Route Start Time Stop Time Status Last Admin Dose Admin Ioversol 100 ml 100 ml UD PRN IV 11/29/16 20:00 12/03/16 19:59 Potassium Chloride/Sodium Chloride (Nss + 20meq KCl 1000ml) 1,000 ml @ 100 mls/hr Q10H IV 11/30/16 01:00 12/30/16 00:59 12/01/16 06:06 100 MLS/HR Acetaminophen (Tylenol Tab) 650 mg Q4H PRN PO 11/29/16 23:00 12/29/16 22:59 11/30/16 19:49 650 MG Al Hydrox/Mg Hydrox/Simethicone (Maalox Max Susp) 15 ml Q4H PRN PO 11/29/16 23:00 12/29/16 22:59 Magnesium Hydroxide (Milk Of Magnesia Susp) 30 ml Q12H PRN PO 11/29/16 23:00 12/29/16 22:59 Ondansetron HCl (Zofran Inj) 4 mg Q6H PRN IV 11/29/16 23:00 12/01/16 07:42 4 MG Nitroglycerin (Nitrostat Tab) 0.4 mg UD PRN SL 11/29/16 23:00 12/29/16 22:59 Albuterol Sulfate (Ventolin 0.5% 2.5MG/0.5ML Neb) 2 mg Q4 PRN INH 11/29/16 23:15 12/29/16 23:14 Aspirin (Ecotrin Tab) 81 mg QAM PO 11/30/16 09:00 12/30/16 08:59 11/30/16 10:12 81 MG Atorvastatin Calcium (Lipitor Tab) 80 mg HS PO 11/30/16 21:00 12/30/16 20:59 11/30/16 21:03 80 MG Citalopram Hydrobromide (celeXA TAB) 20 mg HS PO 11/30/16 21:00 12/30/16 20:59 11/30/16 21:03 20 MG Epinephrine (Epipen) 0.3 mg UD PRN IM 11/29/16 23:15 12/29/16 23:14 Salmeterol Xinafoate/ Fluticasone (Advair Diskus 500/50 Inh) 1 puff BID INH 11/30/16 09:00 12/30/16 08:59 11/30/16 21:02 1 PUFF Montelukast Sodium (Singulair Tab) 10 mg HS PO 11/30/16 21:00 12/30/16 20:59 11/30/16 21:03 10 MG Potassium Chloride (Klor-Con M10) 30 meq BID PO 11/30/16 09:00 12/30/16 08:59 11/30/16 21:04 30 MEQ Zolpidem Tartrate 5 mg 5 mg HS PRN PO 11/29/16 23:15 12/29/16 23:14 Pantoprazole Sodium/Syringe (Protonix Inj/ Syringe) 10 ml @ 5 mls/min DAILY@ IV 11/30/16 09:00 12/30/16 08:59 11/30/16 21:02 5 MLS/MIN Hydromorphone HCl (Dilaudid Inj) 1 mg Q2H PRN IV 11/30/16 01:15 12/14/16 01:14 Hydromorphone HCl 0.5 mg 0.5 mg Q2H PRN IV 11/30/16 01:15 12/14/16 01:14 Levothyroxine Sodium/Syringe (Synthroid Inj/ Syringe) 2.2 ml @ 2 mls/min DAILY@09 IV 11/30/16 09:00 12/30/16 08:59 11/30/16 08:23 2 MLS/MIN Heparin Sodium (Porcine) (Heparin Sq 5000 Unit/0.5ml) 5,000 unit Q8H SQ 11/30/16 09:00 12/30/16 08:59 12/01/16 02:07 5,000 UNIT Dicyclomine HCl (Bentyl Tab) 20 mg BID PO 11/30/16 21:00 12/30/16 20:59 11/30/16 21:02 20 MG Loperamide HCl (Imodium Cap) 2 mg DAILY PRN PO 11/30/16 12:15 12/30/16 12:14 11/30/16 19:44 2 MG Hydralazine HCl (HydrALAZINE INJ) 10 mg Q6 PRN IV. 11/30/16 14:30 12/30/16 14:29 Objective Vital Signs Date Time Temp Pulse Resp B/P Pulse Ox O2 Delivery O2 Flow Rate FiO2 12/01/16 07:39 36.5 71 18 124/67 99 12/01/16 00:05 Room Air 12/01/16 00:01 36.5 66 20 95/60 97 Room Air 11/30/16 17:35 Room Air 11/30/16 14:34 36.5 61 20 111/68 98 11/30/16 12:00 Room Air 11/30/16 11:16 36.5 63 18 107/64 98 Physical Exam General Appearance: WD/WN, no apparent distress Eyes: normal inspection, PERRL, EOMI Neck: supple, no JVD, trachea midline Respiratory/Chest: normal breath sounds, no respiratory distress, no accessory muscle use Cardiovascular: regular rate, rhythm, no gallop, no murmur Abdomen: soft, + abnormal bowel sounds (hypoactive), + tenderness (diffuse) Extremities: normal inspection, no pedal edema, no calf tenderness Neurologic/Psych: alert, normal mood/affect, oriented x 3 Skin: normal color, no jaundice, no rash Laboratory Results Last 24 Hours Test 11/30/16 12:45 12/01/16 07:16 Troponin I < 0.015 ng/ml White Blood Count 8.89 K/uL Red Blood Count 5.04 M/uL Hemoglobin 15.4 g/dL Hematocrit 45.1 % Mean Corpuscular Volume 89.5 fL Mean Corpuscular Hemoglobin 30.6 pg Mean Corpuscular Hemoglobin Concent 34.1 g/dl RDW Standard Deviation 47.3 fL RDW Coefficient of Variation 14.6 % Platelet Count 231 K/uL Mean Platelet Volume 11.6 fL Sodium Level 142 mmol/L Potassium Level 4.3 mmol/L Chloride Level 107 mmol/L Carbon Dioxide Level 28 mmol/L Anion Gap 7.0 mmol/L Blood Urea Nitrogen 14 mg/dl Creatinine 1.00 mg/dl Est Creatinine Clear Calc Drug Dose 56.7 ml/min Estimated GFR () 69.9 Estimated GFR (Non- 60.3 BUN/Creatinine Ratio 14.4 Random Glucose 138 mg/dl Calcium Level 9.2 mg/dl Total Bilirubin 0.6 mg/dl Aspartate Amino Transf (AST/SGOT) 33 U/L Alanine Aminotransferase (ALT/SGPT) 37 U/L Alkaline Phosphatase 100 U/L Total Protein 6.7 gm/dl Albumin 3.3 gm/dl Globulin 3.4 gm/dl Albumin/Globulin Ratio 1.0 Lipase 110 U/L Assessment and Plan Patient is a 61 year old female w hx of GERD s/p lap Santos in 2005, Mitchell's esophagus, gastroparesis, gastritis currently admitted w postprandial periumbilical abd pain, nausea, diarrhea; reported weight loss of 30lbs in 3-4 weeks. Several diagnostic studies including Cdiff, abd u/s, CT abd/pelvis all unremarkable so far. Unclear etiology of symptoms. Differential diagnoses include: viral gastroenteritis, PUD, gastritis, Hpylori, mesentery artery stenosis, functional abd pain ? psych component. 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 Plan - Protonix 40mg IV BID - NPO except sips and chips; may advance diet as tolerated if no procedures planned todya. - Consult Vascular Surgery for the celiac artery stenosis. ? contributing to her GI symptoms. - Continue Dicyclomine 20mg BID; Imodium 2mg prn diarrhea, no more than 16mg a day - Symptomatic management - Offered psych eval for depression management and med adjustments if needed, but pt refused at this time. - Outpt colonoscopy after discharged. I performed a history and physical examination of the patient. I have discussed the patient's case, impression and plan with ROCÍO Farmer. Her note reflects my findings and plan. CTA w/o significant occlusion. Out patient colonoscopy. Flaquito Lam MD
[2016-12-01] MEDS: ACETAMINOPHEN 325 MG TAB PO PRN (09:14)
[2016-12-01] MEDS ORDERED: ONDANSETRON INJ 2 MG/ML 2 ML VIAL IV ONE (10:30)
[2016-12-01] MEDS: PROMETHAZINE HCL INJ 12.5 MG in SODIUM CHLORIDE 0.9% 50ML 50 ML IV PRN ×2 (13:40→21:38)
--- NOTE | 2016-12-01 14:30 | Surgery Consultation ---
Consultation Date of Service Dec 01, 2016. Chief Complaint abd pain, celiac art stenosis History of Present Illness The patient is a 61 year old female with multiple medical problems, including carotid stenosis, severe GERD s/p funmi fundoplication, HTN, hypercholesterolemia, severe asthma, seen in consultation today during admission for abd pain. 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 States upper abd pain associated with nausea, dry heaves, and severe diarrhea. Seems to occur during/ after eating, however, pain lingers for hours after. States has not eaten anything for 48 hrs at this time, but continues to have the pain. Has had similar pains in past. States her overall appetite has been significantly decreased over past 1 month. Admits BLE calf claudication at 100 yds. Denies BARBOSA, fever, chills, chest pain, SOB, rest pain, ulcerations, other complaints. CTA demonstrates approx 60% stenosis of celiac art and 70% stenosis of renal art. Vitals Vital Signs Past 12 Hours Date Time Temp Pulse Resp B/P Pulse Ox O2 Delivery O2 Flow Rate FiO2 12/01/16 08:00 99 Room Air 2.0 12/01/16 07:39 36.5 71 18 124/67 99 Allergies Coded Allergies: BEE STING (Verified Allergy, Severe, swelling, 11/29/16) Shrimp (Verified Allergy, Severe, SEVERE., 11/29/16) Cefuroxime (Verified Allergy, Intermediate, rash, 11/29/16) Clindamycin (Verified Allergy, Intermediate, rash, 11/29/16) Morphine (Verified Allergy, Intermediate, RASH, on hycodan from [id number] home med, 11/29/16) Pregabalin (Verified Allergy, Intermediate, swelling, 11/29/16) Clavulanic Acid (Verified Allergy, Mild, 11/29/16) Ketorolac (Verified Allergy, Mild, RASH ON ABDOMEN,NAPROXEN ONLY NSAID SHE TOLERATES, 11/29/16) Penicillins (Verified Allergy, Mild, 11/29/16) Erythromycin (Verified Allergy, Unknown, 11/29/16) Ibuprofen (Verified Allergy, Unknown, RASH,NAPROXEN ONLY NSAID SHE TOLERATES, 11/29/16) Imipenem (Verified Allergy, Unknown, 11/29/16) Iodine (Verified Allergy, Unknown, 11/29/16) Macrolides and Ketolides (Unverified Allergy, Unknown, RASH, 11/29/16) macrolides Metoclopramide (Verified Allergy, Unknown, 11/29/16) Psyllium (Verified Allergy, Unknown, 11/29/16) Sulfa Antibiotics (Verified Allergy, Unknown, "SULFA": "RASH", 11/29/16) Uncoded Allergies: MARCOLIDES (Allergy, Intermediate, rash, 07/19/16) Home Medications Scheduled Aspirin (Aspirin), 81 MG PO QAM Atorvastatin (Lipitor), 1 TAB PO HS Citalopram Hydrobromide (Celexa), 20 MG PO HS Fluticasone Prop/Salmeterol (Advair Diskus 500/50 60 Dose), 1 PUFF INH BID Furosemide (Lasix), 20 MG PO QAM Levothyroxine Sodium (Levothyroxine Sodium), 88 MCG PO DAILY Montelukast Sodium (Singulair), 10 MG PO HS Polyethylene Glycol 3350 (Miralax), 17 GM PO DAILY Potassium Ext Rel (Klor-Con), 30 MEQ PO BID Triamterene/Hctz (Triamterene/Hctz 37.5-25MG), 1 TAB PO QAM Scheduled PRN Albuterol 0.5% Soln (Ventolin 0.5% Soln), 1 VIAL NEB Q4 PRN for PRN Epinephrine (Epipen), 0.3 MG IM UD PRN for ALLERGIC REACTION Naproxen Sodium (Aleve), 440 MG PO DAILY PRN for Pain Zolpidem Tartrate (Ambien), 1 TAB PO HS PRN for Sleep Problem List Medical Problems: (1) Asthma (2) Bilateral pneumonia (3) COPD exacerbation (4) DVT (deep venous thrombosis) (5) HTN (hypertension) (6) Hyperlipidemia (7) Pulmonary embolism Surgical / Medical History Hx Cardiac Surgery: No Hx Abdominal Surgery: Yes (See below) Hx Cancer Surgery: No Hx Thoracic Surgery: No Hx Orthopedic: Yes (See below) Hx Urinary Tract Surgery: No Past Medical/Surgical History: Asthma, High Cholesterol, Hypertension, Pulmonary Emboli Family History Diabetes mellitus Social History Smoking Status: Former Smoker Hx Tobacco Use In Past Year?: No Hx Alcohol Use - Type & Amnt: No Hx Substance Use -Type & Amnt: No Review of Systems Constitutional: + malaise, No chills, No fever Skin: No change in color Eyes: No visual changes ENMT: No sore throat Respiratory: No HEREDIA, No cough, No hemoptysis, No short of breath Cardiovascular: + intermittent claudication, No chest pain, No chest pressure, No edema, No palpitations, No syncope Gastrointestinal: + abdominal pain, + diarrhea, + nausea, + vomiting Genitourinary - Female: No dysuria, No hematuria Neurologic: + lethargy, No headache, No numbness, No tingling, No weakness Physical Exam Constitutional: General Apperance: well-nourished, well-developed Level of Distress: NAD, acutely ill Psychiatric: Mental Status: active & alert, normal mood, normal affect Orientation: oriented except where noted, to time, to place, to person Memory: recent memory normal, remote memory normal Head: normocephalic, atraumatic Eyes: EOM: EOMI ENMT: normal ENT inspection, hearing grossly normal Neck: supple, trachea midline Lungs: Respiratory effort: no dyspnea Auscultation: no wheezing, no rales/crackles, no rhonchi, decreased breath sounds Cardiovascular: Apical Impulse: not displaced Heart Auscultation: RRR, no murmurs, no rubs, no gallops Peripheral Pulses: Pulses: full and equal, in all extremities except if noted Bruits: none appreciated Carotid Pulse: normal on the left, normal on the right Brachial Pulses: normal on the left, normal on the right Radial Pulse: normal on the left, normal on the right Femoral Pulse: normal on the left, normal on the right Posterior Tibialis Pulse: decreased on the left, absent on the right Dorsalis Pedis Pulse: decreased on the left, absent on the right Abdomen: Bowel Sounds: normal Inspection & Palpation: soft, non-distended, pertinent finding (epigastric tenderness) Musculoskeletal: normal strength (5/5 throughout), normal tone Extremities: Upper Right: no cyanosis, no edema, no varicosities Upper Left: no cyanosis, no edema, no varicosities Lower Right: no cyanosis, no edema, no varicosities Lower Left: no cyanosis, no edema, no varicosities Neurologic: Cranial Nerves: grossly intact Sensation: grossly intact Assessment and Plan ASSESSMENT and PLAN: ABD pain celiac art stenosis renal art stenosis hx carotid stenosis, vertebral art stenosis, L subclavian art stenosis Claudication Pt with likely multiple vascular issues, none of which require urgent intervention at this time. Pt discussed at length with Dr Wick. Pt's sx and abd tenderness inconsistent with mesenteric ischemia. Recommends pt f/u with her regular vascular surgeon as scheduled and possibly take copies of her imaging with her to appt. Please call if needed.
[2016-12-01 14:47] VITALS: BP 95/59; PULSE 71; TEMP 36.7; O2SAT 98
--- NOTE | 2016-12-01 15:28 | Progress Note ---
Subjective Date of Service: Dec 01, 2016. Subjective pt is having intolerance of diet, initially no plan of inpatient workup per GI but that was before she was intolerant of diet, Dr Wick did see and recommends no intervention, pt previous follow up with vascular surgery in [facility] in december Problem List Medical Problems: (1) Acute chest pain Status: Acute (2) Acute kidney injury Status: Acute (3) Dehydration Status: Acute (4) Elevated d-dimer Status: Acute (5) Epigastric abdominal pain Status: Acute (6) Failure of outpatient treatment Status: Acute (7) Leukocytosis Status: Acute (8) Pancreatitis Status: Acute (9) Trapezius muscle strain Status: Acute (10) Weight loss Status: Acute Review of Systems Constitutional: + fatigue, + weakness, No chills, No fever ENT: No hearing loss, No unusual epistaxis Respiratory: No cough, No sputum Cardiac: No chest pain, No orthopnea Abdomen: + nausea, + pain Musculoskeletal: No joint pain, No muscle pain Female : No dysuria, No urinary frequency Neurologic: No memory loss, No paralysis Psychiatric: + depression symptoms, No anhedonism Objective Vital Signs Date Time Temp Pulse Resp B/P Pulse Ox O2 Delivery O2 Flow Rate FiO2 12/01/16 14:47 36.7 71 18 95/59 98 12/01/16 08:00 99 Room Air 2.0 12/01/16 07:39 36.5 71 18 124/67 99 12/01/16 00:05 Room Air 12/01/16 00:01 36.5 66 20 95/60 97 Room Air 11/30/16 17:35 Room Air Physical Exam General Appearance: WD/WN, + mild distress Neck: supple, no JVD Respiratory/Chest: chest non-tender, lungs clear, normal breath sounds Cardiovascular: regular rate, rhythm, no murmur Abdomen: + distended, + guarding, + tenderness Extremities: no pedal edema, no calf tenderness Neurologic/Psychiatric: alert, oriented x 3 Laboratory Results Last 24 Hours Test 12/01/16 07:16 White Blood Count 8.89 K/uL Red Blood Count 5.04 M/uL Hemoglobin 15.4 g/dL Hematocrit 45.1 % Mean Corpuscular Volume 89.5 fL Mean Corpuscular Hemoglobin 30.6 pg Mean Corpuscular Hemoglobin Concent 34.1 g/dl RDW Standard Deviation 47.3 fL RDW Coefficient of Variation 14.6 % Platelet Count 231 K/uL Mean Platelet Volume 11.6 fL Sodium Level 142 mmol/L Potassium Level 4.3 mmol/L Chloride Level 107 mmol/L Carbon Dioxide Level 28 mmol/L Anion Gap 7.0 mmol/L Blood Urea Nitrogen 14 mg/dl Creatinine 1.00 mg/dl Est Creatinine Clear Calc Drug Dose 56.7 ml/min Estimated GFR () 69.9 Estimated GFR (Non- 60.3 BUN/Creatinine Ratio 14.4 Random Glucose 138 mg/dl Calcium Level 9.2 mg/dl Total Bilirubin 0.6 mg/dl Aspartate Amino Transf (AST/SGOT) 33 U/L Alanine Aminotransferase (ALT/SGPT) 37 U/L Alkaline Phosphatase 100 U/L Total Protein 6.7 gm/dl Albumin 3.3 gm/dl Globulin 3.4 gm/dl Albumin/Globulin Ratio 1.0 Lipase 110 U/L Assessment and Plan 61-year-old female with past medical history of asthma, COPD, gastroparesis, history of acid reflux surgery presented to the ER with complaints of periumbilical abdominal pain and diarrhea which started about 3 weeks ago, pt found to have modest celiac artery stenosis and significant renal artery stenosis, without distress of renal function or bowel ischemia, maybe having intestinal angina Pt was intolerant of lunch 12/01 due to pain and nausea - Protonix 40 mg IV BID - GI following - recommendations reviewed - Protonix BID, trial dicyclomine, Imodium - stool cultures are negative, tenative plans for outpt colonoscopy COPD without Exacerbation:continues to be stable- Ventolin Q4H PRN, Singulair 10 mg daily, and Advair 1 puff BID HTN/Chronic Lower Extremity Edema:resume Lasix and Maxide on discharge or if edema returns, but since not eating continue fluids Hypothyroidism:- Synthroid 44 mcg IV daily Depression:- Celexa 20 mg daily - reviewed GI note of worsening depression symptoms but no interest in psych referral for medication adjustments Hyperlipidemia:- Atorvastatin 80 mg daily DVT Prophylaxis: Heparin 5000 units SC Q8H Code Status: FULL RESUSCITATION (Galindo Kessler M.D.) Continued [facility] stay due to: multiple IV medications needed
[2016-12-01 16:00] VITALS: O2SAT 99
[2016-12-01] MEDS: MONTELUKAST SOD 10 MG TAB PO SCH (21:40)
[2016-12-01] MEDS: CITALOPRAM 20 MG TAB PO SCH (21:41)
[2016-12-01] MEDS: ATORVASTATIN 40 MG TAB PO SCH (21:41)
[2016-12-02 00:30] VITALS: BP 98/49; PULSE 67; TEMP 36.5; O2SAT 96
[2016-12-02] MEDS: HEPARIN SOD 5000 UNIT/0.5 ML CARP SQ SCH ×3 (01:41→17:31)
[2016-12-02] MEDS: NSS + 20MEQ KCL 1000ML 1,000 ML IV SCH ×3 (03:26→22:07)
[2016-12-02 07:25] VITALS: BP 124/65; PULSE 68; TEMP 36.4; O2SAT 98
[2016-12-02] MEDS: DICYCLOMINE HCL 20 MG TAB PO SCH ×2 (08:12→21:11)
[2016-12-02] MEDS: ASPIRIN 81 MG ECTAB PO SCH (08:12)
[2016-12-02] MEDS: FLUTICASONE/SALMETEROL (ADVAIR) 500/50 INH 14 PUFF INH SCH ×2 (08:12→21:09)
[2016-12-02] MEDS: POTASSIUM CHLORIDE 10 MEQ TABCR PO SCH ×2 (08:13→21:10)
[2016-12-02] MEDS: ONDANSETRON INJ 2 MG/ML 2 ML VIAL IV PRN ×2 (08:13→22:06)
[2016-12-02] MEDS: PANTOprazole INJ 40 MG in SYRINGE 0 ML IV SCH ×2 (08:13→21:09)
[2016-12-02] MEDS: LEVOTHYROXINE SODIUM INJ 44 MCG in SYRINGE 0 ML IV SCH (08:39)
[2016-12-02 15:42] VITALS: BP 103/50; PULSE 63; TEMP 36.7; O2SAT 96
--- NOTE | 2016-12-02 15:51 | Progress Note ---
Subjective Date of Service: Dec 02, 2016. Problem List Medical Problems: (1) Acute chest pain Status: Acute (2) Acute kidney injury Status: Acute (3) Dehydration Status: Acute (4) Elevated d-dimer Status: Acute (5) Epigastric abdominal pain Status: Acute (6) Failure of outpatient treatment Status: Acute (7) Leukocytosis Status: Acute (8) Pancreatitis Status: Acute (9) Trapezius muscle strain Status: Acute (10) Weight loss Status: Acute Objective Vital Signs Date Time Temp Pulse Resp B/P Pulse Ox O2 Delivery O2 Flow Rate FiO2 12/02/16 15:42 36.7 63 16 103/50 96 12/02/16 08:00 Room Air 12/02/16 07:25 36.4 68 16 124/65 98 Room Air 12/02/16 00:30 36.5 67 18 98/49 96 Room Air 12/02/16 00:05 Room Air 12/01/16 20:05 Room Air 12/01/16 16:00 99 Room Air 2.0 Assessment and Plan 61 F PMHx of asthma, COPD, gastroparesis, Mitchell's esophagus, GERD s/p lap Santos in 2005, DVT, HTN, hyperlipidemia, PE, Depression who presented to ED w c /o abd pain and diarrhea x 3 weeks. She has had multiple workup prior to admission including abd u/s and chest/abd xray which are unremarkable. Admission labs w/o signs of leukocytosis, anemia, coagulopathy. Normal LFTs, Lipase mildly up to 403 on admission now 130. CXR, CT abd/pelvis, Cdiff negative. Stool cx, urine culture pending. 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% and 80 right renal artery stenosis evaluation but vascular surgery feels no immediate intervention needed, gi planning on c scope as outpt Pt was intolerant of liquid diet since admission, mostly due to pain - Protonix 40 mg IV BID - GI following - recommendations - Protonix BID, trial dicyclomine, Imodium - stool cultures are negative, I personally discussed with Dr Arguello on , he will see and decide if further treatment is available here such as using emend for nausea COPD without Exacerbation:continues to be stable- Ventolin Q4H PRN, Singulair 10 mg daily, and Advair 1 puff BID HTN/Chronic Lower Extremity Edema:resume Lasix and Maxide on discharge or if edema returns, but since not eating continue fluids Hypothyroidism:- Synthroid 44 mcg IV daily Depression:- Celexa 20 mg daily - reviewed GI note of worsening depression symptoms but no interest in psych referral for medication adjustments Hyperlipidemia:- Atorvastatin 80 mg daily DVT Prophylaxis: Heparin 5000 units SC Q8H Code Status: FULL RESUSCITATION (Galindo Kessler M.D.) Continued [facility] stay due to: multiple IV medications needed
[2016-12-02] MEDS ORDERED: FOSAPREPITANT DIMEGLUMINE INJ 150 MG in SODIUM CHLORIDE 0.9% 150ML 145 ML IV ONE ×2 (16:00→17:15)
--- NOTE | 2016-12-02 20:04 | Progress Note ---
Progress Note Date of Service Dec 02, 2016. Progress Note Pt continues to have immediate post prandial abd pain and loose urgent, frequent stool that is persistent despite fasting. Symptoms are different from her chronic gastroparesis symptoms - denies nausea. No relief with Lomotil. Exam unremarkable, labs urnemarkable. A/P: Etiology of her symptoms unclear - possible that she has functional disease/ dysmotility? Her symptoms may be c/w mesenteric angina, although imaging only shows single vessel disease. Differntial may includes obscure or uncommon conditions, such as Giardiasis, median arcuate ligament syndrome. Will cont Bentyl over the weekend, and add single dose of cholestyramine tonite. Would consider repeat EGD and cscopy on Sunday.
[2016-12-02] MEDS ORDERED: CHLORDIAZEPOXIDE/CLIDINIUM CAP PO ONE (20:30)
[2016-12-02] MEDS: CITALOPRAM 20 MG TAB PO SCH (21:11)
[2016-12-02] MEDS: MONTELUKAST SOD 10 MG TAB PO SCH (21:11)
[2016-12-02] MEDS: ATORVASTATIN 40 MG TAB PO SCH (21:12)
[2016-12-03 00:02] VITALS: BP 105/65; PULSE 65; TEMP 36.4; O2SAT 94
[2016-12-03] MEDS: HEPARIN SOD 5000 UNIT/0.5 ML CARP SQ SCH ×3 (01:18→16:35)
[2016-12-03 07:27] VITALS: BP 116/52; PULSE 75; TEMP 36.4; O2SAT 95
[2016-12-03] MEDS: DICYCLOMINE HCL 20 MG TAB PO SCH ×2 (07:56→21:28)
[2016-12-03] MEDS: POTASSIUM CHLORIDE 10 MEQ TABCR PO SCH ×2 (07:57→21:29)
[2016-12-03] MEDS: FLUTICASONE/SALMETEROL (ADVAIR) 500/50 INH 14 PUFF INH SCH ×2 (07:57→21:31)
[2016-12-03] MEDS: PANTOprazole INJ 40 MG in SYRINGE 0 ML IV SCH ×2 (07:57→21:27)
[2016-12-03] MEDS: ASPIRIN 81 MG ECTAB PO SCH (07:58)
[2016-12-03] MEDS: NSS + 20MEQ KCL 1000ML 1,000 ML IV SCH ×2 (07:58→17:58)
[2016-12-03] MEDS: LEVOTHYROXINE SODIUM INJ 44 MCG in SYRINGE 0 ML IV SCH (09:03)
[2016-12-03 15:02] VITALS: BP 137/63; PULSE 69; TEMP 36.4; O2SAT 94
--- NOTE | 2016-12-03 15:56 | Progress Note ---
Subjective Date of Service: Dec 03, 2016. Subjective pt states she may feels somewhat better and did tolerate some liquid po intake, Problem List Medical Problems: (1) Acute chest pain Status: Acute (2) Acute kidney injury Status: Acute (3) Dehydration Status: Acute (4) Elevated d-dimer Status: Acute (5) Epigastric abdominal pain Status: Acute (6) Failure of outpatient treatment Status: Acute (7) Leukocytosis Status: Acute (8) Pancreatitis Status: Acute (9) Trapezius muscle strain Status: Acute (10) Weight loss Status: Acute Review of Systems Constitutional: No chills, No fever Respiratory: No cough, No sputum Cardiac: No chest pain, No edema Abdomen: + diarrhea, + nausea, + pain, No constipation, No vomiting Musculoskeletal: No joint pain, No muscle pain Female : No dysuria, No urinary frequency Objective Vital Signs Date Time Temp Pulse Resp B/P Pulse Ox O2 Delivery O2 Flow Rate FiO2 12/03/16 15:45 Room Air 12/03/16 15:02 36.4 69 16 137/63 94 Room Air 12/03/16 08:00 Room Air 12/03/16 07:27 36.4 75 16 116/52 95 Room Air 12/03/16 00:05 Room Air 12/03/16 00:02 36.4 65 18 105/65 94 Room Air 12/02/16 20:05 Room Air Physical Exam General Appearance: WD/WN, + moderate distress Neck: supple, no JVD Respiratory/Chest: chest non-tender, lungs clear, normal breath sounds Cardiovascular: regular rate, rhythm, no murmur Abdomen: normal bowel sounds, soft, + guarding, + tenderness Extremities: no pedal edema, no calf tenderness Assessment and Plan 61 F PMHx of asthma, COPD, gastroparesis, Mitchell's esophagus, GERD s/p lap Santos in 2006, DVT, HTN, hyperlipidemia, PE, Depression who presented to ED w c /o abd pain and diarrhea x 3 weeks. She has had multiple workup prior to admission including abd u/s and chest/abd xray which are unremarkable. Admission labs w/o signs of leukocytosis, anemia, coagulopathy. Normal LFTs, Lipase mildly up to 403 on admission now 130. CXR, CT abd/pelvis, Cdiff negative. Stool cx, urine culture pending. 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% and 80 right renal artery stenosis evaluation but vascular surgery feels no immediate intervention needed, gi planning on c scope as outpt Dr Triana recommended Emend and some librax with mild symptom improvement 12/02-, will await further recommendations from him at this time - Protonix 40 mg IV BID - stool cultures are negative, awaiting additional testing results COPD without Exacerbation: remains stable- Ventolin Q4H PRN, Singulair 10 mg daily, and Advair 1 puff BID HTN/Chronic Lower Extremity Edema: stable Lasix and Maxide on discharge or if edema returns, but since not eating continue fluids Hypothyroidism:- clinically stable Synthroid 44 mcg IV daily Depression:- seems depressed but does not want med change unless may help primary problem, Celexa 20 mg daily - reviewed GI note of worsening depression symptoms but no interest in psych referral for medication adjustments Hyperlipidemia:- Atorvastatin 80 mg daily DVT Prophylaxis: Heparin 5000 units SC Q8H Code Status: FULL RESUSCITATION (Galindo Kessler M.D.) Continued [facility] stay due to: multiple IV medications needed
--- NOTE | 2016-12-03 16:57 | Progress Note ---
Progress Note Date of Service Dec 03, 2016. Progress Note Pt without pain or diarrhea today, however with minimal PO intake. On exam, she appears quite comfortable. Abd is soft and ND. A/P: Abdominal pain and diarrhea that most likely seem functional, possibly related to dysmotility. - Will begin scheduled Librax and decrease Bentyl dose. Adv diet as tolerated. Defer endoscopy for now.
[2016-12-03] MEDS: CHLORDIAZEPOXIDE/CLIDINIUM CAP PO SCH (21:28)
[2016-12-03] MEDS: ATORVASTATIN 40 MG TAB PO SCH (21:29)
[2016-12-03] MEDS: MONTELUKAST SOD 10 MG TAB PO SCH (21:30)
[2016-12-03] MEDS: CITALOPRAM 20 MG TAB PO SCH (21:30)
[2016-12-04 00:12] VITALS: BP 104/60; PULSE 65; TEMP 36.5; O2SAT 96
[2016-12-04] MEDS: HEPARIN SOD 5000 UNIT/0.5 ML CARP SQ SCH ×3 (01:00→17:28)
[2016-12-04] MEDS: NSS + 20MEQ KCL 1000ML 1,000 ML IV SCH ×2 (05:00→14:42)
[2016-12-04 07:38] VITALS: BP 120/55; PULSE 64; TEMP 36.5; O2SAT 95
[2016-12-04] MEDS: ONDANSETRON INJ 2 MG/ML 2 ML VIAL IV PRN (07:42)
[2016-12-04] MEDS: PANTOprazole INJ 40 MG in SYRINGE 0 ML IV SCH (08:27)
[2016-12-04] MEDS: CHLORDIAZEPOXIDE/CLIDINIUM CAP PO SCH ×2 (08:27→21:01)
[2016-12-04] MEDS: DICYCLOMINE HCL 20 MG TAB PO SCH ×3 (08:28→21:00)
[2016-12-04] MEDS: POTASSIUM CHLORIDE 10 MEQ TABCR PO SCH ×2 (08:29→21:01)
[2016-12-04] MEDS: FLUTICASONE/SALMETEROL (ADVAIR) 500/50 INH 14 PUFF INH SCH ×2 (08:29→21:00)
[2016-12-04] MEDS: ASPIRIN 81 MG ECTAB PO SCH (08:30)
[2016-12-04] MEDS: LEVOTHYROXINE SODIUM INJ 44 MCG in SYRINGE 0 ML IV SCH (09:05)
[2016-12-04] MEDS ORDERED: FOSAPREPITANT DIMEGLUMINE INJ 115 MG in SODIUM CHLORIDE 0.9% 100ML 111.2 ML IV ONE (14:00)
[2016-12-04 14:56] VITALS: BP 114/68; PULSE 78; TEMP 37; O2SAT 96
--- NOTE | 2016-12-04 16:36 | Gastroenterology Progress Note ---
Progress Note Date of Service: Dec 04, 2016 Subjective Pt evaluation today including: conversation w/ patient, physical exam, chart review, lab review, review of inpatient medication list Pt reports abd pain is improved, but still having some nausea, cannot tolerate much solid food. Diarrhea frequency slowed down though stools still liquid consistency. Review of Systems Constitutional: No chills, No fever Respiratory: No cough, No shortness of breath Cardiac: No chest pain, No edema Abdomen: + diarrhea, + nausea, No pain, No vomiting Medications Current Inpatient Medications Medications (Trade) Dose Ordered Sig/Vale Route Start Time Stop Time Status Last Admin Dose Admin Potassium Chloride/Sodium Chloride (Nss + 20meq KCl 1000ml) 1,000 ml @ 100 mls/hr Q10H IV 11/30/16 01:00 12/30/16 00:59 12/04/16 14:42 100 MLS/HR Acetaminophen (Tylenol Tab) 650 mg Q4H PRN PO 11/29/16 23:00 12/29/16 22:59 12/01/16 09:14 650 MG Al Hydrox/Mg Hydrox/Simethicone (Maalox Max Susp) 15 ml Q4H PRN PO 11/29/16 23:00 12/29/16 22:59 Magnesium Hydroxide (Milk Of Magnesia Susp) 30 ml Q12H PRN PO 11/29/16 23:00 12/29/16 22:59 Ondansetron HCl (Zofran Inj) 4 mg Q6H PRN IV 11/29/16 23:00 12/04/16 07:42 4 MG Nitroglycerin (Nitrostat Tab) 0.4 mg UD PRN SL 11/29/16 23:00 12/29/16 22:59 Albuterol Sulfate (Ventolin 0.5% 2.5MG/0.5ML Neb) 2 mg Q4 PRN INH 11/29/16 23:15 12/29/16 23:14 Aspirin (Ecotrin Tab) 81 mg QAM PO 11/30/16 09:00 12/30/16 08:59 12/04/16 08:30 81 MG Atorvastatin Calcium (Lipitor Tab) 80 mg HS PO 11/30/16 21:00 12/30/16 20:59 12/03/16 21:29 80 MG Citalopram Hydrobromide (celeXA TAB) 20 mg HS PO 11/30/16 21:00 12/30/16 20:59 12/03/16 21:30 20 MG Epinephrine (Epipen) 0.3 mg UD PRN IM 11/29/16 23:15 12/29/16 23:14 Salmeterol Xinafoate/ Fluticasone (Advair Diskus 500/50 Inh) 1 puff BID INH 11/30/16 09:00 12/30/16 08:59 12/04/16 08:29 1 PUFF Montelukast Sodium (Singulair Tab) 10 mg HS PO 11/30/16 21:00 12/30/16 20:59 12/03/16 21:30 10 MG Potassium Chloride (Klor-Con M10) 30 meq BID PO 11/30/16 09:00 12/30/16 08:59 12/04/16 08:29 30 MEQ Zolpidem Tartrate 5 mg 5 mg HS PRN PO 11/29/16 23:15 12/29/16 23:14 Pantoprazole Sodium/Syringe (Protonix Inj/ Syringe) 10 ml @ 5 mls/min DAILY@ IV 11/30/16 09:00 12/30/16 08:59 12/04/16 08:27 5 MLS/MIN Hydromorphone HCl (Dilaudid Inj) 1 mg Q2H PRN IV 11/30/16 01:15 12/14/16 01:14 Hydromorphone HCl 0.5 mg 0.5 mg Q2H PRN IV 11/30/16 01:15 12/14/16 01:14 Levothyroxine Sodium/Syringe (Synthroid Inj/ Syringe) 2.2 ml @ 2 mls/min DAILY@09 IV 11/30/16 09:00 12/30/16 08:59 12/04/16 09:05 2 MLS/MIN Heparin Sodium (Porcine) (Heparin Sq 5000 Unit/0.5ml) 5,000 unit Q8H SQ 11/30/16 09:00 12/30/16 08:59 12/04/16 08:32 5,000 UNIT Loperamide HCl (Imodium Cap) 2 mg DAILY PRN PO 11/30/16 12:15 12/30/16 12:14 11/30/16 19:44 2 MG Hydralazine HCl 10 mg 10 mg Q6 PRN IV. 11/30/16 14:30 12/30/16 14:29 Promethazine HCl/ Sodium Chloride (Phenergan Inj/ Nss 50ml) 50.5 ml @ 204 mls/hr Q6H PRN IV 12/01/16 10:30 12/31/16 10:29 12/01/16 21:38 204 MLS/HR Dicyclomine HCl (Bentyl Tab) 10 mg TID PO 12/03/16 21:00 01/02/17 20:59 12/04/16 13:51 10 MG Chlordiazepoxide/ Clidinium (Librax Cap) 1 cap BID PO 12/03/16 21:00 01/02/17 20:59 12/04/16 08:27 1 CAP Objective Vital Signs Date Time Temp Pulse Resp B/P Pulse Ox O2 Delivery O2 Flow Rate FiO2 12/04/16 14:56 37.0 78 18 114/68 96 Room Air 12/04/16 08:00 Room Air 12/04/16 07:38 36.5 64 16 120/55 95 Room Air 12/04/16 00:12 36.5 65 16 104/60 96 Room Air 12/04/16 00:05 Room Air 12/03/16 20:05 Room Air Physical Exam General Appearance: WD/WN, no apparent distress Eyes: normal inspection, PERRL, EOMI Neck: supple, no JVD, trachea midline Respiratory/Chest: normal breath sounds, no respiratory distress, no accessory muscle use Cardiovascular: regular rate, rhythm, no gallop, no murmur Abdomen: normal bowel sounds, soft, + tenderness (across mid abd) Extremities: normal inspection, no pedal edema, no calf tenderness Neurologic/Psych: alert, normal mood/affect, oriented x 3 Skin: normal color, no jaundice, no rash Laboratory Results Last 24 Hours Test 12/03/16 20:00 Assessment and Plan Patient is a 61 year old female w hx of GERD s/p lap Santos in 2005, Mitchell's esophagus, gastroparesis, gastritis currently admitted w postprandial periumbilical abd pain, nausea, diarrhea; reported weight loss of 30lbs in 3-4 weeks. Several diagnostic studies including Cdiff, abd u/s, CT abd/pelvis all unremarkable so far. Unclear etiology of symptoms. Differential diagnoses include: viral gastroenteritis, PUD, gastritis, Hpylori, mesentery artery stenosis, functional abd pain ? psych component. 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 Vascular surgery consulted - deferring intervention at this time. Plans - Protonix 40mg IV BID - OK to advance diet as tolerated. - Continue Dicyclomine and Librax as dosed - Add Emend 115mg IV x 1 dose for nausea today. She didn't get complete relief w Zofran or Phenergan. Hx of allergy reaction towards Reglan. - Symptomatic management - Offered psych eval for depression management and med adjustments if needed, but pt refused at this time. - Outpt colonoscopy after discharged. Will sign off at this time; pls call if new questions or concerns arise.
[2016-12-04] MEDS: HYDROmorphone INJ 0.5 MG/0.5 ML SYR IV PRN ×2 (17:24→23:43)
--- NOTE | 2016-12-04 18:47 | Hospitalist Progress Note ---
Hospitalist Progress Note Date of Service Dec 04, 2016. Subjective Pt evaluation today including: conversation w/ patient, physical exam, chart review poor oral intake. C/o Nausea. Occasional diarrhea Medications Medications (Trade) Dose Ordered Sig/Vale Route Start Time Stop Time Status Last Admin Dose Admin Dicyclomine HCl (Bentyl Tab) 10 mg TID PO 12/03/16 21:00 01/02/17 20:59 12/04/16 13:51 10 MG Chlordiazepoxide/ Clidinium 1 cap 1 cap BID PO 12/03/16 21:00 01/02/17 20:59 12/04/16 08:27 1 CAP Fosaprepitant/ Sodium Chloride (Emend Inj/Nss 100ml) 115.0333 ml @ 450 mls/hr ONE ONCE IV 12/04/16 14:00 12/04/16 14:15 DC 12/04/16 13:52 450 MLS/HR Objective Vital Signs Date Time Temp Pulse Resp B/P Pulse Ox O2 Delivery O2 Flow Rate FiO2 12/04/16 14:56 37.0 78 18 114/68 96 Room Air 12/04/16 08:00 Room Air 12/04/16 07:38 36.5 64 16 120/55 95 Room Air 12/04/16 00:12 36.5 65 16 104/60 96 Room Air 12/04/16 00:05 Room Air 12/03/16 20:05 Room Air Physical Exam General Appearance: WD/WN Eyes: normal inspection ENT: normal ENT inspection Neck: supple, no adenopathy, thyroid normal Respiratory/Chest: chest non-tender, lungs clear, normal breath sounds Cardiovascular: regular rate, rhythm, no edema, no gallop, no JVD Abdomen: normal bowel sounds, + tenderness (RLQ.) Extremities: normal range of motion Neurologic/Psychiatric: digital imager II-XII nml as tested, alert, normal mood/affect Laboratory Results Last 24 Hours Test 12/03/16 20:00 Assessment and Plan 61 F PMHx of asthma, COPD, gastroparesis, Mitchell's esophagus, GERD s/p lap Santos in 2006, DVT, HTN, hyperlipidemia, PE, Depression who presented to ED w c /o abd pain and diarrhea x 3 weeks. She has had multiple workup prior to admission including abd u/s and chest/abd xray which are unremarkable. Admission labs w/o signs of leukocytosis, anemia, coagulopathy. Normal LFTs, Lipase mildly up to 403 on admission now 130. CXR, CT abd/pelvis, Cdiff negative. Stool cx, urine culture pending. 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% and 80 right renal artery stenosis evaluation but vascular surgery feels no immediate intervention needed, gi planning on c scope as outpt Dr Triana recommended Emend and some librax with mild symptom improvement 12/02-, will await further recommendations from him at this time - Protonix 40 mg IV BID - stool cultures are negative, awaiting additional testing results COPD without Exacerbation: remains stable- Ventolin Q4H PRN, Singulair 10 mg daily, and Advair 1 puff BID HTN/Chronic Lower Extremity Edema: stable Lasix and Maxide on discharge or if edema returns, but since not eating continue fluids Hypothyroidism:- clinically stable Synthroid 44 mcg IV daily. Switch to oral tomorrow. Depression:- seems depressed but does not want med change unless may help primary problem, Celexa 20 mg daily - reviewed GI note of worsening depression symptoms but no interest in psych referral for medication adjustments Hyperlipidemia:- Atorvastatin 80 mg daily DVT Prophylaxis: Heparin 5000 units SC Q8H Code Status: FULL RESUSCITATION
[2016-12-04] MEDS: MONTELUKAST SOD 10 MG TAB PO SCH (21:02)
[2016-12-04] MEDS: CITALOPRAM 20 MG TAB PO SCH (21:03)
[2016-12-04] MEDS: ATORVASTATIN 40 MG TAB PO SCH (21:03)
[2016-12-04] MEDS: PANTOprazole SOD 40 MG TAB PO SCH (21:06)
[2016-12-05 00:28] VITALS: BP 125/62; PULSE 95; TEMP 38.4; O2SAT 89
[2016-12-05] MEDS: NSS + 20MEQ KCL 1000ML 1,000 ML IV SCH ×3 (00:36→21:11)
[2016-12-05] MEDS: HEPARIN SOD 5000 UNIT/0.5 ML CARP SQ SCH ×3 (00:36→18:36)
[2016-12-05 05:55] LABS: COMPLETE YES; EOS % 1.3 %; IG% 0.1 %; LYMPH ABS # 1.18 K/uL (1.2-3.4); MEAN CELL VOLUME 89.9 fL (80-100); MEAN CORPUSCULAR HEMOGLOBIN 28.8 pg (25-34); MEAN PLATELET VOLUME 11.4 fL (7.4-10.4); MONO % 7.2 %; NEUT % 74.4 %; PLATELET COUNT 206 K/uL (130-400); RED BLOOD COUNT 4.45 M/uL (4.2-5.4); WHITE BLOOD COUNT 6.95 K/uL (4.8-10.8)
[2016-12-05 06:36] LABS: BUN/CREATININE RATIO 5.6 (10-20); CALCIUM 7.6 mg/dl (8.5-10.1)
[2016-12-05 06:39] LABS: ALB/GLOB RATIO 0.9 (0.9-2)
[2016-12-05] MEDS: HYDROmorphone INJ 0.5 MG/0.5 ML SYR IV PRN ×2 (07:17→13:16)
[2016-12-05 07:41] VITALS: BP 91/55; PULSE 85; TEMP 36.6; O2SAT 98
[2016-12-05] MEDS: FLUTICASONE/SALMETEROL (ADVAIR) 500/50 INH 14 PUFF INH SCH ×2 (08:22→21:13)
[2016-12-05] MEDS: DICYCLOMINE HCL 20 MG TAB PO SCH ×3 (08:23→21:14)
[2016-12-05] MEDS: LEVOTHYROXINE SODIUM INJ 44 MCG in SYRINGE 0 ML IV SCH (08:23)
[2016-12-05] MEDS: ASPIRIN 81 MG ECTAB PO SCH (08:23)
[2016-12-05] MEDS: POTASSIUM CHLORIDE 10 MEQ TABCR PO SCH ×2 (08:24→21:15)
[2016-12-05] MEDS: CHLORDIAZEPOXIDE/CLIDINIUM CAP PO SCH ×2 (08:24→21:15)
[2016-12-05] MEDS: PANTOprazole SOD 40 MG TAB PO SCH ×2 (08:25→21:16)
[2016-12-05 15:49] VITALS: BP 110/66; PULSE 74; TEMP 36.8; O2SAT 96
[2016-12-05 16:00] VITALS: O2SAT 96
[2016-12-05 18:07] LABS: O&P GIARDIA AG NOT DETECTED (NOT DETECTED)
--- NOTE | 2016-12-05 18:40 | Hospitalist Progress Note ---
Hospitalist Progress Note Date of Service Dec 05, 2016. Subjective Pt evaluation today including: conversation w/ patient, physical exam, chart review noted erythematous rash over the trunk, abdomen and extremities. Occasional itching. No wheezing, sob, cp, stridor improved abd pain but poor oral intake Medications Medications (Trade) Dose Ordered Sig/Vale Route Start Time Stop Time Status Last Admin Dose Admin Pantoprazole Sodium (Protonix Tab) 40 mg BID PO 12/04/16 21:00 01/03/17 20:59 12/05/16 08:25 40 MG Objective Vital Signs Date Time Temp Pulse Resp B/P Pulse Ox O2 Delivery O2 Flow Rate FiO2 12/05/16 16:00 96 Room Air 12/05/16 15:49 36.8 74 18 110/66 96 Room Air 12/05/16 08:00 Room Air 12/05/16 07:41 36.6 85 16 91/55 98 Room Air 12/05/16 00:28 38.4 95 16 125/62 89 Room Air 12/05/16 00:05 Room Air 12/04/16 20:05 Room Air Physical Exam General Appearance: WD/WN Eyes: normal inspection ENT: normal ENT inspection Neck: supple, no adenopathy Respiratory/Chest: chest non-tender, lungs clear Cardiovascular: regular rate, rhythm, no edema Abdomen: normal bowel sounds, non tender, soft Extremities: normal range of motion Neurologic/Psychiatric: rug cleaner II-XII nml as tested, alert Skin: + rash (erythematous rash over the back, abdomen.) Laboratory Results Last 24 Hours Test 12/05/16 05:17 White Blood Count 6.95 K/uL Red Blood Count 4.45 M/uL Hemoglobin 12.8 g/dL Hematocrit 40.0 % Mean Corpuscular Volume 89.9 fL Mean Corpuscular Hemoglobin 28.8 pg Mean Corpuscular Hemoglobin Concent 32.0 g/dl Platelet Count 206 K/uL Mean Platelet Volume 11.4 fL Neutrophils (%) (Auto) 74.4 % Lymphocytes (%) (Auto) 17.0 % Monocytes (%) (Auto) 7.2 % Eosinophils (%) (Auto) 1.3 % Basophils (%) (Auto) 0.0 % Neutrophils # (Auto) 5.17 K/uL Lymphocytes # (Auto) 1.18 K/uL Monocytes # (Auto) 0.50 K/uL Eosinophils # (Auto) 0.09 K/uL Basophils # (Auto) 0.00 K/uL RDW Standard Deviation 49.5 fL RDW Coefficient of Variation 15.1 % Immature Granulocyte % (Auto) 0.1 % Immature Granulocyte # (Auto) 0.01 K/uL Sodium Level 142 mmol/L Potassium Level 4.0 mmol/L Chloride Level 109 mmol/L Carbon Dioxide Level 27 mmol/L Anion Gap 6.0 mmol/L Blood Urea Nitrogen 6 mg/dl Creatinine 1.00 mg/dl Est Creatinine Clear Calc Drug Dose 56.7 ml/min Estimated GFR () 69.9 Estimated GFR (Non- 60.3 BUN/Creatinine Ratio 5.6 Random Glucose 87 mg/dl Calcium Level 7.6 mg/dl Total Bilirubin 0.8 mg/dl Aspartate Amino Transf (AST/SGOT) 33 U/L Alanine Aminotransferase (ALT/SGPT) 37 U/L Alkaline Phosphatase 84 U/L Total Protein 5.0 gm/dl Albumin 2.4 gm/dl Globulin 2.6 gm/dl Albumin/Globulin Ratio 0.9 Assessment and Plan 61 F PMHx of asthma, COPD, gastroparesis, Mitchell's esophagus, GERD s/p lap Santos in 2005, DVT, HTN, hyperlipidemia, PE, Depression who presented to ED w c /o abd pain and diarrhea x 3 weeks. She has had multiple workup prior to admission including abd u/s and chest/abd xray which are unremarkable. Admission labs w/o signs of leukocytosis, anemia, coagulopathy. Normal LFTs, Lipase mildly up to 403 on admission now 130. CXR, CT abd/pelvis, Cdiff negative. Stool cx, urine culture pending. 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 No signs of anaphylaxis. Will monitor COPD without Exacerbation: remains stable- Ventolin Q4H PRN, Singulair 10 mg daily, and Advair 1 puff BID HTN/Chronic Lower Extremity Edema: stable Lasix and Maxide on discharge or if edema returns, but since not eating continue fluids Hypothyroidism:- clinically stable Synthroid 44 mcg IV daily. Switched to oral synthroid Depression:- seems depressed but does not want med change unless may help primary problem, Celexa 20 mg daily - reviewed GI note of worsening depression symptoms but no interest in psych referral for medication adjustments Hyperlipidemia:- Atorvastatin 80 mg daily DVT Prophylaxis: Heparin 5000 units SC Q8H Code Status: FULL RESUSCITATION
[2016-12-05] MEDS: CITALOPRAM 20 MG TAB PO SCH (21:14)
[2016-12-05] MEDS: ATORVASTATIN 40 MG TAB PO SCH (21:16)
[2016-12-05] MEDS: MONTELUKAST SOD 10 MG TAB PO SCH (21:16)
[2016-12-06] MEDS: HEPARIN SOD 5000 UNIT/0.5 ML CARP SQ SCH ×2 (00:41→08:34)
[2016-12-06] MEDS: NSS + 20MEQ KCL 1000ML 1,000 ML IV SCH (06:04)
[2016-12-06] MEDS: HYDROmorphone INJ 0.5 MG/0.5 ML SYR IV PRN (06:26)
[2016-12-06] MEDS ORDERED: LEVOTHYROXINE 88 MCG TAB PO SCH (06:30)
[2016-12-06 07:23] VITALS: BP 108/66; PULSE 81; TEMP 36.7; O2SAT 93
[2016-12-06] MEDS: FLUTICASONE/SALMETEROL (ADVAIR) 500/50 INH 14 PUFF INH SCH (08:25)
[2016-12-06] MEDS: ASPIRIN 81 MG ECTAB PO SCH (08:26)
[2016-12-06] MEDS: DICYCLOMINE HCL 20 MG TAB PO SCH ×2 (08:26→14:44)
[2016-12-06] MEDS: PANTOprazole SOD 40 MG TAB PO SCH (08:27)
[2016-12-06] MEDS: CHLORDIAZEPOXIDE/CLIDINIUM CAP PO SCH (08:27)
[2016-12-06] MEDS: POTASSIUM CHLORIDE 10 MEQ TABCR PO SCH (08:27)
--- NOTE | 2016-12-06 15:02 | Discharge Instructions ---
Discharge Instructions Date of Service Dec 06, 2016. Admission Reason for Admission: Abdominal Pain Discharge Discharge Diagnosis / Problem: Abdominal pain Discharge Goals Goal(s): Decrease discomfort Activity Recommendations Activity Limitations: resume your previous activity Lifting Limitations: gradually increase as tolerated Exercise/Sports Limitations: gradually increase as tolerated May Resume Sexual Activity: when tolerated Shower/Bathe: no limitations Driving or Machine Use: no limitations . Instructions / Follow-Up Instructions / Follow-Up GI in one to two weeks Current Hospital Diet Patient's current hospital diet: Low Lactose Diet, Regular Diet Discharge Diet Recommended Diet: Low Lactose Diet Pending Studies Studies pending at discharge: no Laboratory Results 12/05/16 05:17 Red Blood Count 4.45, Mean Corpuscular Volume 89.9, Mean Corpuscular Hemoglobin 28.8, Mean Corpuscular Hemoglobin Concent 32.0, Mean Platelet Volume 11.4, Neutrophils (%) (Auto) 74.4, Lymphocytes (%) (Auto) 17.0, Monocytes (%) (Auto) 7.2, Eosinophils (%) (Auto) 1.3, Basophils (%) (Auto) 0.0, Neutrophils # (Auto) 5.17, Lymphocytes # (Auto) 1.18, Monocytes # (Auto) 0.50, Eosinophils # (Auto) 0.09, Basophils # (Auto) 0.00 12/05/16 05:17 Test 11/29/16 17:56 11/29/16 18:15 11/30/16 05:26 11/30/16 12:45 Prothrombin Time 9.7 SECONDS (9.0-12.0) Prothromb Time International Ratio 0.9 (0.9-1.1) Activated Partial Thromboplast Time 26.0 SECONDS (21.0-31.0) Partial Thromboplastin Ratio 1.0 Lactic Acid Level 1.2 mmol/L (0.4-2.0) Magnesium Level 2.0 mg/dl (1.8-2.4) Thyroid Stimulating Hormone (TSH) 0.125 uIu/ml (0.300-4.500) Free Thyroxine 1.52 ng/dl (0.80-1.60) Urine Color YELLOW Urine Appearance CLEAR (CLEAR) Urine pH 5.0 (4.5-7.5) Urine Specific [place] 1.007 (1.000-1.030) Urine Protein NEG (NEG) Urine Glucose (UA) NEG (NEG) Urine Ketones NEG (NEG) Urine Occult Blood NEG (NEG) Urine Nitrite NEG (NEG) Urine Bilirubin NEG (NEG) Urine Urobilinogen NEG (NEG) Urine Leukocyte Esterase SMALL (NEG) Urine WBC (Auto) 1-5 /hpf (0-5) Urine RBC (Auto) 0-4 /hpf (0-4) Urine Hyaline Casts (Auto) 1-5 /lpf (0-5) Urine Epithelial Cells (Auto) 10-20 /lpf (0-5) Urine Bacteria (Auto) NEG (NEG) Chemistry Specimen Hemolysis Troponin I < 0.015 ng/ml (0-0.045) Test 12/01/16 07:16 12/03/16 20:00 12/05/16 05:17 Lipase 110 U/L (73-393) Giardia Antigen NOT DETECTED (NOT DETECTED) White Blood Count 6.95 K/uL (4.8-10.8) Red Blood Count 4.45 M/uL (4.2-5.4) Hemoglobin 12.8 g/dL (12.0-16.0) Hematocrit 40.0 % (37-47) Mean Corpuscular Volume 89.9 fL (80-100) Mean Corpuscular Hemoglobin 28.8 pg (25-34) Mean Corpuscular Hemoglobin Concent 32.0 g/dl (32-36) Platelet Count 206 K/uL (130-400) Mean Platelet Volume 11.4 fL (7.4-10.4) Neutrophils (%) (Auto) 74.4 % Lymphocytes (%) (Auto) 17.0 % Monocytes (%) (Auto) 7.2 % Eosinophils (%) (Auto) 1.3 % Basophils (%) (Auto) 0.0 % Neutrophils # (Auto) 5.17 K/uL (1.4-6.5) Lymphocytes # (Auto) 1.18 K/uL (1.2-3.4) Monocytes # (Auto) 0.50 K/uL (0.11-0.59) Eosinophils # (Auto) 0.09 K/uL (0-0.5) Basophils # (Auto) 0.00 K/uL (0-0.2) RDW Standard Deviation 49.5 fL (36.4-46.3) RDW Coefficient of Variation 15.1 % (11.5-14.5) Immature Granulocyte % (Auto) 0.1 % Immature Granulocyte # (Auto) 0.01 K/uL (0.00-0.02) Anion Gap 6.0 mmol/L (3-11) Est Creatinine Clear Calc Drug Dose 56.7 ml/min Estimated GFR () 69.9 Estimated GFR (Non- 60.3 BUN/Creatinine Ratio 5.6 (10-20) Calcium Level 7.6 mg/dl (8.5-10.1) Total Bilirubin 0.8 mg/dl (0.2-1) Aspartate Amino Transf (AST/SGOT) 33 U/L (15-37) Alanine Aminotransferase (ALT/SGPT) 37 U/L (12-78) Alkaline Phosphatase 84 U/L (45-117) Total Protein 5.0 gm/dl (6.4-8.2) Albumin 2.4 gm/dl (3.4-5.0) Globulin 2.6 gm/dl (2.5-4.0) Albumin/Globulin Ratio 0.9 (0.9-2) Date/Time Source Procedure Growth Status 11/29/16 18:15 Stool Shiga Toxin Test - Final No E. Coli shiga toxin 1 or shiga tox... Complete 11/29/16 18:15 Stool Stool Culture - Final NO SALMONELLA ISOLATED,... Complete 11/30/16 00:00 Urine , Clean Catch Urine Culture - Final MORE THAN THREE TYPES OF ORGANISMS AK... Complete Medical Emergencies . Who to Call and When: Medical Emergencies: If at any time you feel your situation is an emergency, please call 911 immediately. . Non-Emergent Contact Non-Emergency issues call your: Primary Care Provider . Past History Medical & Surgical History: (1) COPD exacerbation (2) DVT (deep venous thrombosis) (3) Pulmonary embolism (4) HTN (hypertension) (5) Hyperlipidemia . "Provider Documentation" section prepared by Lubna Garcia. . VTE Core Measure Inpt VTE Proph given/why not?: Unfractionated heparin SQ
[2016-12-06 15:22] VITALS: BP 108/66; PULSE 81; TEMP 36.7; O2SAT 93
--- NOTE | 2016-12-06 16:37 | Discharge Summary ---
Discharge Summary Date of Service Dec 06, 2016. Discharge Summary Admission Date: Nov 29, 2016 at 23:10 Discharge Date: Dec 06, 2016 Discharge Disposition: Home Principal Diagnosis: Abdominal pain Problems/Secondary Diagnoses: Renal artery stenosis Celiac artery stenosis Immunizations: Have You Had Influenza Vaccine: Yes Influenza Vaccine Date: May 10, 2015 History of Tetanus Vaccine?: Yes Tetanus Immunization Date: Mar 26, 2014 History of Pneumococcal: Yes Pneumococcal Date: Jun 15, 2010 History of Hepatitis B Vaccine: Unknown Consultations: Gastroenterology Vascular Surgery Medication Reconciliation Continued Medications: Albuterol 0.5% Soln (Ventolin 0.5% Soln) Nebu 1 VIAL NEB Q4 PRN for PRN, #0 VIAL Aspirin (Aspirin) 81 Mg Tab 81 MG PO QAM Atorvastatin (Lipitor) 80 Mg Tab 1 TAB PO HS for 30 Days, TAB 5 Refills Citalopram Hydrobromide (Celexa) 20 Mg Tab 20 MG PO HS, TAB Epinephrine (Epipen) 0.3 Mg/0.3 Ml Inj 0.3 MG IM UD PRN for ALLERGIC REACTION, INJ Fluticasone Prop/Salmeterol (Advair Diskus 500/50 60 Dose) 1 Ea Aerp 1 PUFF INH BID Furosemide (Lasix) 20 Mg Tab 20 MG PO QAM, TAB Levothyroxine Sodium (Levothyroxine Sodium) 88 Mcg Tab 88 MCG PO DAILY Montelukast Sodium (Singulair) 10 Mg Tab 10 MG PO HS, TAB Naproxen Sodium (Aleve) 220 Mg Tab 440 MG PO DAILY PRN for Pain, TAB Polyethylene Glycol 3350 (Miralax) 1 Pow Pow 17 GM PO DAILY, #0 GM Potassium Ext Rel (Klor-Con) 20 Meq Tabcr 30 MEQ PO BID, TAB Triamterene/Hctz (Triamterene/Hctz 37.5-25MG) 1 Tab Tab 1 TAB PO QAM, TAB Zolpidem Tartrate (Ambien) 5 Mg Tab 1 TAB PO HS PRN for Sleep for 30 Days, #30 TAB 2 Refills Discharge Exam Physical Exam: General Appearance: WD/WN Eyes: normal inspection ENT: normal ENT inspection Neck: supple Respiratory/Chest: chest non-tender, lungs clear Cardiovascular: regular rate, rhythm, no edema, no murmur Abdomen / GI: normal bowel sounds, non tender, soft Extremities: normal inspection, no calf tenderness Neurologic/Psychiatric: poolroom/poolhall manager II-XII nml as tested, alert, oriented x 3 Skin: normal color Lymphatic: no adenopathy Hospital Course 61 F PMHx of asthma, COPD, gastroparesis, Mitchell's esophagus, GERD s/p lap Santos in 2005, DVT, HTN, hyperlipidemia, PE, Depression who presented to ED w c /o abd pain and diarrhea x 3 weeks. She has had multiple workup prior to admission including abd u/s and chest/abd xray which are unremarkable. Admission labs w/o signs of leukocytosis, anemia, coagulopathy. Normal LFTs, Lipase mildly up to 403 on admission now 130. CXR, CT abd/pelvis, Cdiff negative. Stool cx, urine culture pending. 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 - stool cultures are negative. Erythematous Rash- Appears to be medication related. No signs of anaphylaxis. Will monitor COPD without Exacerbation: remains stable- Ventolin Q4H PRN, Singulair 10 mg daily, and Advair 1 puff BID HTN/Chronic Lower Extremity Edema: stable Lasix and Maxide on discharge or if edema returns, but since not eating continue fluids Hypothyroidism:- clinically stable Synthroid 44 mcg IV daily. Switched to oral synthroid Depression:- seems depressed but does not want med change unless may help primary problem, Celexa 20 mg daily - reviewed GI note of worsening depression symptoms but no interest in psych referral for medication adjustments Hyperlipidemia:- Atorvastatin 80 mg daily DVT Prophylaxis: Heparin 5000 units SC Q8H Code Status: FULL RESUSCITATION Total Time Spent: Greater than 30 minutes This includes examination of the patient, discharge planning, medication reconciliation, and communication with other providers. Discharge Instructions Please refer to the electronic Patient Visit Report (Discharge Instructions) for additional information. Follow-Up Gastroenterology
[2016-12-21] MEDS ORDERED: CLX/20 PO (08:21)
[2016-12-21] MEDS ORDERED: POTA10CA28 PO (08:21)
[2016-12-21] MEDS ORDERED: TRAM-10 PO (08:21)
[2016-12-21] MEDS ORDERED: GUAISYP4 PO (08:26)
[2016-12-21] MEDS ORDERED: CHLO1LIQ21 PO (08:26)
[2017-05-29] MEDS ORDERED: ONDA4TAB46 PO (08:21)
[2017-05-29] MEDS ORDERED: IPRASOL4 NEB (08:21)
[2017-05-29] MEDS ORDERED: ALBU1.257 NEB (08:21)
[2017-05-29] MEDS ORDERED: ATOR-26 PO (11:07)
[2017-05-29] MEDS ORDERED: MONT1TAB3 PO (11:35)
[2017-05-29] MEDS ORDERED: POLY335019 PO (11:35)
[2017-05-29] MEDS ORDERED: ADVIN50/60 INH (11:49)
[2017-05-29] MEDS ORDERED: NAPR220T PO (12:59)
[2017-05-29] MEDS ORDERED: EPP3/2 IM (13:23)
[2017-06-13] MEDS ORDERED: LORA-741 PO (18:35)
[2017-06-17] MEDS ORDERED: ABL5 PO (12:42)
[2017-06-17] MEDS ORDERED: CLX40 PO (12:42)
[2017-06-17] MEDS ORDERED: AMB5 PO (12:42)
[2017-06-17] MEDS ORDERED: CITA20TA9 PO (15:08)
== END 2016-12-06 16:30 | disposition home or self-care (01) | DRG 699 ==
LOC: ENRESERVTM → ENRESERVDT → C.EDB 17:09 → C.MED 23:10
PROVIDERS: ADMIT Family Medicine; ATTEND Internal Medicine
DX: I70.1 Atherosclerosis of renal artery (principal); I77.4 Celiac artery compression syndrome; R10.33 Periumbilical pain; R19.7 Diarrhea, unspecified; R74.8 Abnormal levels of other serum enzymes; K59.8 Other specified functional intestinal disorders; R60.0 Localized edema; R63.4 Abnormal weight loss; L27.0 Generalized skin eruption due to drugs and medicaments taken internally; T50.905A Adverse effect of unspecified drugs, medicaments and biological substances, initial encounter; I10 Essential (primary) hypertension; E78.5 Hyperlipidemia, unspecified; J44.9 Chronic obstructive pulmonary disease, unspecified; J45.909 Unspecified asthma, uncomplicated; E03.9 Hypothyroidism, unspecified; F32.9 Major depressive disorder, single episode, unspecified; Z51.81 Encounter for therapeutic drug level monitoring; Z79.899 Other long term (current) drug therapy; Z79.82 Long term (current) use of aspirin; Z86.711 Personal history of pulmonary embolism; Z87.891 Personal history of nicotine dependence; Z86.718 Personal history of other venous thrombosis and embolism; Z87.19 Personal history of other diseases of the digestive system; Z98.890 Other specified postprocedural states; Z83.3 Family history of diabetes mellitus; Y92.239 Unspecified place in hospital as the place of occurrence of the external cause; Y99.8 Other external cause status

== ENCOUNTER → 2016-12-12 | Outpatient (CLI) | payer OTHER ==
[~2016-12-12] MED LIST changes: +ABL5 PO; +ADVIN50/60 INH; +ALBU1.257 NEB; +AMB5 PO; +AMLO5TAB2 PO; +ASPI81TA28 PO; +ATOR-26 PO; +BUPR-266 PO; +CHLO1LIQ21 PO; +CLX/20 PO; +CLX40 PO; +CYCL10TA6 PO; -DYZ PO; +EPP3/2 IM; -FLUT0.0529 NAE; +GUAISYP4 PO; +IPRASOL4 NEB; +LEVO75TA5 PO; +LORA-741 PO; +MIRT45TA3 PO; +MONT1TAB3 PO; +NAPR220T PO; +ONDA4TAB46 PO; +POLY335019 PO; -POTA-327 PO; +POTA10CA28 PO; +POTA20TA16 PO; -SPRIN/30 INH; +TRAM-10 PO; +TRIATAB3 PO
[2016-12-12 14:59] LABS: BASO % 0.5 %; BASO ABS # 0.04 K/uL (0-0.2); COMPLETE YES; EOS % 1.2 %; HEMATOCRIT 43.7 % (37-47); IG% 0.3 %; LYMPH % 14.9 %; LYMPH ABS # 1.28 K/uL (1.2-3.4); MEAN CELL VOLUME 89.5 fL (80-100); MEAN CORPUSCULAR HEMOGLOBIN 29.7 pg (25-34); MEAN CORPUSCULAR HGB CONC 33.2 g/dl (32-36); MEAN PLATELET VOLUME 11.8 fL (7.4-10.4); MONO % 10.7 %; NEUT % 72.4 %; PLATELET COUNT 331 K/uL (130-400); RED BLOOD COUNT 4.88 M/uL (4.2-5.4); WHITE BLOOD COUNT 8.61 K/uL (4.8-10.8)
[2016-12-12 15:22] LABS: ALT/SGPT 57 U/L (12-78); AST/SGOT 47 U/L (15-37); BLOOD UREA NITROGEN 12 mg/dl (7-18); BUN/CREATININE RATIO 10.7 (10-20); CALCIUM 9.3 mg/dl (8.5-10.1); CARBON DIOXIDE 28 mmol/L (21-32); CHLORIDE 102 mmol/L (98-107); GLUCOSE 85 mg/dl (70-99); POTASSIUM 3.4 mmol/L (3.5-5.1); SODIUM 139 mmol/L (136-145)
[2016-12-12 15:24] LABS: ALB/GLOB RATIO 0.9 (0.9-2); ALKALINE PHOSPHATASE 125 U/L (45-117); AMYLASE 65 U/L (25-115)
[2016-12-13 08:08] LABS: ESTIMATED AVERAGE GLUCOSE 140 mg/dl; HA1C FLAG Normal (Normal)
== END | disposition home or self-care (01) ==
LOC: C.LAB1850 13:05
PROVIDERS: ATTEND Internal Medicine
DX: E11.9 Type 2 diabetes mellitus without complications (principal); K55.9 Vascular disorder of intestine, unspecified

== ENCOUNTER → 2016-12-29 | Day surgery (SDC) | payer OTHER ==
[2016-12-21 08:23] VITALS: Ht 162.6 cm; Wt 66.8 kg
[~2016-12-29] VITALS: Ht 162.6 cm; Wt 66.8 kg
[~2016-12-29] MED LIST changes: -ALBU0.5N2 NEB; +KETAMINE HCL INJ 50 MG/ML 10 ML VIAL ONE; +LIDOCAINE HCL 2% 2 ML VIAL (20MG/ML) ONE; +MIDAZOLAM HCL 1 MG/ML 2ML VIAL ONE; -POTA20TA16 PO; +PROPOFOL IV EMULSION 10 MG/ML 20 ML VIAL IV ONE; +SODIUM CHLORIDE 0.9% 500ML 500 ML IV ONE; -ZOLP5TAB PO
[2016-12-29 08:57] VITALS: TEMP 36.5
--- NOTE | 2016-12-29 09:42 | Endo History and Physical ---
History & Physical Date of Service: December 29, 2016. Chief Complaint: Abd pain, diarrhea Referring Physician: Dr Gary Renteria History of Present Illness Abdominal pain and diarrhea with 30 lb weight loss. Past Medical History Diabetes, Blood Dyscrasias, High Cholesterol, COPD, Thyroid Disease, Depression Past Surgical History Hx Cardiac Surgery: No Hx Internal Defibrillator: No Hx Pacemaker: No Hx Abdominal Surgery: Yes (SCOTT FUNDIPLICATION, HYSTER, TUBAL LIGATION) Hx of Implantable Prosthesis: No Hx Post-Op Nausea and Vomiting: No Hx Cancer Surgery: No Hx Thoracic Surgery: Yes (BRONCHOSCOPIES) Hx Orthopedic: Yes (I&D RT HAND S/P CAT BITE) Hx Urinary Tract Surgery: No Family History IBD Social History Smoking Status: Former Smoker Hx Substance Use: No Hx Alcohol Use: No Allergies Coded Allergies: BEE STING (Verified Allergy, Severe, LOCAL SWELLING AT SITE, 12/21/16) Shrimp (Verified Allergy, Severe, EYE SWELLING, 12/21/16) Cefuroxime (Verified Allergy, Intermediate, RASH, 12/21/16) Clindamycin (Verified Allergy, Intermediate, RASH, 12/21/16) Macrolides and Ketolides (Verified Allergy, Intermediate, RASH, 12/21/16) macrolides Morphine (Verified Allergy, Intermediate, RASH, on hycodan from [id number] home med, 12/21/16) Pregabalin (Verified Allergy, Intermediate, FEET AND ANKLE SWELLING, ) Amoxicillin (Unverified Allergy, Mild, RASH, 12/29/16) Clavulanic Acid (Verified Allergy, Mild, RASH, 12/21/16) Ketorolac (Verified Allergy, Mild, RASH ON ABDOMEN,NAPROXEN ONLY NSAID SHE TOLERATES, 12/21/16) Penicillins (Verified Allergy, Mild, RASH, 12/21/16) Aprepitant (Verified Allergy, Unknown, RASH, 12/21/16) Erythromycin (Verified Allergy, Unknown, RASH, 12/21/16) Ibuprofen (Verified Allergy, Unknown, RASH,NAPROXEN ONLY NSAID SHE TOLERATES, 12/21/16) Imipenem (Verified Allergy, Unknown, RASH, 12/21/16) Iodine (Verified Allergy, Unknown, DIFFICULTY BREATHING, COUGHING, SNEEZING, RASH, 12/21/16) Metoclopramide (Verified Allergy, Unknown, RASH, 12/21/16) Nickel (Verified Allergy, Unknown, RASH, 12/21/16) Psyllium (Verified Allergy, Unknown, RASH, 12/21/16) Sulfa Antibiotics (Verified Allergy, Unknown, RASH, 12/21/16) Uncoded Allergies: SULFA (Allergy, Mild, RASH, 12/29/16) Current Medications Reported Home Medications Medications Dose Route/Sig Max Daily Dose Days Date Category Robitussin Nighttime Coug 1-7.5 mg/5Ml (Chlorpheniramine-Dm) 1 Liq Liq 1 Tsp PO HS PRN 12/21/16 Reported Robitussin-Ac Syrup (Codeine Phosphate/Guaifenesin) Syrp 1 Tsp PO AFTERNOON PRN 12/21/16 Reported Zofran (Ondansetron HCl) 4 Mg Tab 4 Mg PO Q6H PRN 12/21/16 Reported Albuterol Sulfate 1.25 Mg/3 Ml Neb 1 Vial NEB Q4 PRN 12/21/16 Reported Duoneb (Ipratropium-Albuterol) 3 Ml Nebu 1 Treatment INH Q4H PRN 12/21/16 Reported Micro-K Ext Rel (Potassium Chloride) 10 Meq Capcr 3 Tabs PO BID 12/21/16 Reported Citalopram Hydrobromide (Citalopram) 20 Mg Tab 30 Mg PO HS 12/21/16 Reported Triamterene/Hctz 37.5-25MG (Triamterene/HCTZ) 1 Tab Tab 1 Tab PO QAM 11/29/16 Reported Aleve (Naproxen Sodium) 220 Mg Tab 440 Mg PO DAILY PRN 05/31/16 Reported Advair Diskus 500/50 60 Dose (Fluticasone Prop/Salmeterol) 1 Ea Aerp 1 Puff INH BID 05/31/16 Reported Levothyroxine Sodium 88 Mcg Tab 88 Mcg PO QAM 05/31/16 Reported Lipitor (Atorvastatin Calcium) 80 Mg Tab 1 Tab PO HS 10/06/15 Reported Singulair (Montelukast Sodium) 10 Mg Tab 10 Mg PO HS 03/02/15 Reported Miralax (Polyethylene Glycol 3350) 1 Pow Pow 17 Gm PO DAILY PRN 03/02/15 Reported Aspirin 81 Mg Tab 81 Mg PO QAM 10/26/13 Reported Lasix (Furosemide) 20 Mg Tab 20 Mg PO QAM 10/26/13 Reported Epipen (Epinephrine) 0.3 Mg/0.3 Ml Inj 0.3 Mg IM UD PRN 07/26/12 Reported Vital Signs Weight (Kilograms): 66.82 Height (Feet): 5 Height (Inches): 4 Date Time Temp Pulse Resp B/P Pulse Ox O2 Delivery O2 Flow Rate FiO2 12/29/16 08:57 36.5 76 20 147/59 93 Room Air Physical Exam General Appearance: WD/WN, no apparent distress Respiratory/Chest: Auscultation: breath sounds normal, no wheezing Cardiovascular: Heart Auscultation: RRR, no murmurs Assessment and Plan Colonoscopy today.
--- NOTE | 2016-12-29 10:21 | GI REPORT ---
Procedure Date: 12/29/2016 9:28 AM Procedure: Colonoscopy Indications: Abdominal pain, Chronic diarrhea, Weight loss Medicines: Monitored Anesthesia Care Complications: No immediate complications. Estimated blood loss: None. Estimated Blood Loss: Estimated blood loss: none. Procedure: Pre-Anesthesia Assessment: - Prior to the procedure, a History and Physical was performed, and patient medications, allergies and sensitivities were reviewed. The patient's tolerance of previous anesthesia was reviewed. - ASA Grade Assessment: III - A patient with severe systemic disease. After I obtained informed consent, the scope was passed under direct vision. Throughout the procedure, the patient's blood pressure, pulse, and oxygen saturations were monitored continuously. The scope was introduced through the anus and advanced to the terminal ileum, with identification of the appendiceal orifice and IC valve. The colonoscopy was performed without difficulty. The patient tolerated the procedure well. The quality of the bowel preparation was fair. The bowel preparation used was split dose MIralax. Findings: Normal mucosa was found in the entire colon. Biopsies for histology were taken with a cold forceps from the entire colon for evaluation of microscopic colitis. Fluid aspiration was performed through the scope suction channel. The amount of fluid collected was 10 mL. Sample(s) were sent for bacterial cultures, Clostridium difficile and ova and parasites. Internal hemorrhoids were found during retroflexion. The hemorrhoids were small. Anal papilla(e) were hypertrophied. Verification of patient identification for the specimen was done by the physician and nurse using the patient's name, date and medical record number. Impression: - Normal mucosa in the entire examined colon to the terminal ileum. Biopsied. Fluid aspiration performed. - Internal hemorrhoids. - Anal papilla(e) were hypertrophied. Recommendation: - Await pathology results. - Discharge patient to home (with escort). Gary Molina M.D. Gary Molina MD 12/29/2016 10:22:18 AM This report has been signed electronically. Note Initiated On: 12/29/2016 9:28 AM I attest to the content of the Intraoperative Record and orders documented therein, exceptions below
--- NOTE | 2016-12-29 10:25 | Discharge Instructions ---
Endoscopy Patient Instructions Date / Procedure(s) Performed December 29, 2016. Colonoscopy Allergy Information Coded Allergies: BEE STING (Verified Allergy, Severe, LOCAL SWELLING AT SITE, 12/21/16) Shrimp (Verified Allergy, Severe, EYE SWELLING, 12/21/16) Cefuroxime (Verified Allergy, Intermediate, RASH, 12/21/16) Clindamycin (Verified Allergy, Intermediate, RASH, 12/21/16) Macrolides and Ketolides (Verified Allergy, Intermediate, RASH, 12/21/16) macrolides Morphine (Verified Allergy, Intermediate, RASH, on hycodan from [id number] home med, 12/21/16) Pregabalin (Verified Allergy, Intermediate, FEET AND ANKLE SWELLING, ) Amoxicillin (Unverified Allergy, Mild, RASH, 12/29/16) Clavulanic Acid (Verified Allergy, Mild, RASH, 12/21/16) Ketorolac (Verified Allergy, Mild, RASH ON ABDOMEN,NAPROXEN ONLY NSAID SHE TOLERATES, 12/21/16) Penicillins (Verified Allergy, Mild, RASH, 12/21/16) Aprepitant (Verified Allergy, Unknown, RASH, 12/21/16) Erythromycin (Verified Allergy, Unknown, RASH, 12/21/16) Ibuprofen (Verified Allergy, Unknown, RASH,NAPROXEN ONLY NSAID SHE TOLERATES, 12/21/16) Imipenem (Verified Allergy, Unknown, RASH, 12/21/16) Iodine (Verified Allergy, Unknown, DIFFICULTY BREATHING, COUGHING, SNEEZING, RASH, 12/21/16) Metoclopramide (Verified Allergy, Unknown, RASH, 12/21/16) Nickel (Verified Allergy, Unknown, RASH, 12/21/16) Psyllium (Verified Allergy, Unknown, RASH, 12/21/16) Sulfa Antibiotics (Verified Allergy, Unknown, RASH, 12/21/16) Uncoded Allergies: SULFA (Allergy, Mild, RASH, 12/29/16) Discharge Date / Findings December 29, 2016. Small internal hemorrhoids with hypertrophied anal papilla, Normal mucosa of colon and terminal ileum. Stool specimens sent for microbiology. Random colon biopsies pending. Medication Instructions Restart Stopped Medication(s): Restart all medications today. Provider Instructions Activity Restrictions - No exercising or heavy lifting for 24 hours. - Do not drink alcohol the day of the procedure. - Do not drive a car or operate machinery until the day after the procedure. - Do not make any important decisions or sign important papers in 24 hours after the procedure. Following Day: - Return to full activity which may include returning to work/school. Diet Start your diet with liquids and light foods (jello, soup, juice, toast). Then eat your usual diet if not nauseated. Treatment For Common After Affects For mild abdominal pain, bloating, or excessive gas: - Rest - Eat lightly - Lie on right side Follow-Up Information Follow-up with Dr Gary Renteria as scheduled Anesthesia Information What You Should Know You have had a procedure that required some medicine to reduce anxiety and discomfort. This treatment is called moderate sedation. After receiving the treatment, you may be sleepy, but you will be able to breathe on your own. The effects of the treatment may last for several hours. Follow these instructions along with Activity/Diet recommendations noted above: * Do NOT do anything where dizziness or clumsiness would be dangerous. * Rest quietly at home today, then you can be up and about tomorrow. * Have a responsible person stay with you the rest of today. * You may have had an I.V. today. If so, you may take the dressing off later today. Recommendations Call your doctor if: * Trouble breathing * Continuous vomiting for more than 24 hours * Temperature above 101 degrees * Severe abdominal pain or bloating * Pain not relieved by pain medicine ordered * There is increased drainage or redness from any incision * A large amount of rectal bleeding greater than 2-3 tablespoons. (If you had a polyp/s removed or have hemorrhoids, a small amount of blood - from the rectum is to be expected.) * You have any unanswered questions or concerns. IN THE EVENT OF A SERIOUS EMERGENCY, GO TO THE NEAREST EMERGENCY ROOM Your discharge instructions were prepared by provider Gary Molina. Patient Instructions Signature Page Mandy Simmsn Patient (or Guardian) Signature/Date: I have read and understand the instructions given to me by my caregivers. Caregiver/RN/Doctor Signature/Date: The above-named patient and/or guardian has received patient instructions on this date. + Original Patient Signature Page (only) stays with chart. Please make copy for patient.
[2016-12-29 10:37] VITALS: BP 119/51; PULSE 59; O2SAT 98
--- NOTE | 2016-12-29 13:45 | Anesthesiology Progress Note ---
Anesthesia Post Op Note Date & Time December 29, 2016 at 13:45 Vital Signs Pain Intensity: 0 Vital Signs Past 12 Hours Date Time Temp Pulse Resp B/P Pulse Ox O2 Delivery O2 Flow Rate FiO2 12/29/16 10:37 59 20 119/51 98 Room Air 12/29/16 10:28 62 20 120/47 96 Room Air 12/29/16 10:20 66 20 112/49 93 Room Air 12/29/16 08:57 36.5 76 20 147/59 93 Room Air Notes Mental Status: alert / awake / arousable, participated in evaluation Pt Amnestic to Procedure: Yes Nausea / Vomiting: adequately controlled Pain: adequately controlled Airway Patency, RR, SpO2: stable & adequate BP & HR: stable & adequate Hydration State: stable & adequate Anesthetic Complications: no major complications apparent
== END | disposition home or self-care (01) ==
LOC: C.GI 08:26
PROVIDERS: ATTEND Internal Medicine Gastroenterology
DX: R10.9 Unspecified abdominal pain (principal); D12.6 Benign neoplasm of colon, unspecified; R19.7 Diarrhea, unspecified; K64.8 Other hemorrhoids; D12.9 Benign neoplasm of anus and anal canal; E11.9 Type 2 diabetes mellitus without complications; E78.00 Pure hypercholesterolemia, unspecified; J44.9 Chronic obstructive pulmonary disease, unspecified; F32.9 Major depressive disorder, single episode, unspecified; E07.9 Disorder of thyroid, unspecified; Z90.710 Acquired absence of both cervix and uterus; Z87.891 Personal history of nicotine dependence

== ENCOUNTER 2016-12-31 14:27 | Emergency (ER) | payer OTHER ==
[~2016-12-31] VITALS: Ht 162.6 cm; Wt 71.9 kg
[~2016-12-31 14:27] MED LIST changes: -ABL5 PO; -ADVIN50/60 INH; -ALBU1.257 NEB; -AMB5 PO; -AMLO5TAB2 PO; -ASPI81TA28 PO; -ATOR-26 PO; -BUPR-266 PO; -CITA20TA9 PO; -CLX40 PO; -CYCL10TA6 PO; -EPP3/2 IM; -IPRASOL4 NEB; -KETAMINE HCL INJ 50 MG/ML 10 ML VIAL ONE; -LEVO75TA5 PO; -LIDOCAINE HCL 2% 2 ML VIAL (20MG/ML) ONE; -LORA-741 PO; -MIDAZOLAM HCL 1 MG/ML 2ML VIAL ONE; -MIRT45TA3 PO; -MONT1TAB3 PO; -NAPR220T PO; -ONDA4TAB46 PO; -POLY335019 PO; -PROPOFOL IV EMULSION 10 MG/ML 20 ML VIAL IV ONE; -SODIUM CHLORIDE 0.9% 500ML 500 ML IV ONE; -TRIATAB3 PO
[2016-12-31 14:58] VITALS: TEMP 36.7; Ht 162.6 cm; Wt 71.9 kg
[2016-12-31] MEDS ORDERED: CEFAZOLIN SOD 1000MG/55 ML D5W IV STA (15:11)
[2016-12-31] MEDS ORDERED: DIPHTHERIA/TETANUS/PERTUSSIS 0.5 ML SYR/VIAL IM. ONE (15:15)
[2016-12-31] MEDS ORDERED: FENTANYL CITRATE INJ 50 MCG/1 ML 2 ML VIAL IV STA ×2 (15:18→16:53)
[2016-12-31] MEDS ORDERED: ONDANSETRON INJ 2 MG/ML 2 ML VIAL IV STA (15:27)
[2016-12-31] MEDS ORDERED: ONDANSETRON INJ 2 MG/ML 2 ML VIAL ONE (15:29)
[2016-12-31 15:36] LABS: BASO % 0.1 %; BASO ABS # 0.01 K/uL (0-0.2); COMPLETE YES; EOS % 0.8 %; HEMATOCRIT 44.2 % (37-47); IG% 0.6 %; LYMPH % 12.8 %; MEAN CELL VOLUME 88.9 fL (80-100); MEAN CORPUSCULAR HEMOGLOBIN 28.8 pg (25-34); MEAN CORPUSCULAR HGB CONC 32.4 g/dl (32-36); MEAN PLATELET VOLUME 10.8 fL (7.4-10.4); MONO % 7.4 %; NEUT % 78.3 %; PLATELET COUNT 321 K/uL (130-400); RED BLOOD COUNT 4.97 M/uL (4.2-5.4); WHITE BLOOD COUNT 13.25 K/uL (4.8-10.8)
[2016-12-31 15:49] LABS: INR 0.9 (0.9-1.1); PARTIAL THROMBOPLASTIN RATIO 0.9
[2016-12-31 15:50] LABS: ALT/SGPT 34 U/L (12-78); AST/SGOT 36 U/L (15-37); BLOOD UREA NITROGEN 12 mg/dl (7-18); CALCIUM 8.9 mg/dl (8.5-10.1); CARBON DIOXIDE 31 mmol/L (21-32); CHLORIDE 103 mmol/L (98-107); GLUCOSE 129 mg/dl (70-99); SODIUM 141 mmol/L (136-145)
[2016-12-31 15:55] LABS: ALKALINE PHOSPHATASE 127 U/L (45-117); CKMB/CK RATIO 0.8 (0-3.0)
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
[2016-12-31 16:46] VITALS: BP 156/60; O2SAT 94
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
[2016-12-31 17:50] VITALS: PULSE 84
[2016-12-31 18:50] LABS: ISTAT CREATININE 1.4 mg/dl (0.6-1.3); ISTAT IONIZED CALCIUM 1.11 mmol/l (1.12-1.32)
[2017-05-29] MEDS ORDERED: ONDA4TAB46 PO (08:21)
[2017-05-29] MEDS ORDERED: ALBU1.257 NEB (08:21)
[2017-05-29] MEDS ORDERED: IPRASOL4 NEB (08:21)
[2017-05-29] MEDS ORDERED: ATOR-26 PO (11:07)
[2017-05-29] MEDS ORDERED: POLY335019 PO (11:35)
[2017-05-29] MEDS ORDERED: MONT1TAB3 PO (11:35)
[2017-05-29] MEDS ORDERED: ADVIN50/60 INH (11:49)
[2017-05-29] MEDS ORDERED: NAPR220T PO (12:59)
[2017-05-29] MEDS ORDERED: EPP3/2 IM (13:23)
[2017-06-13] MEDS ORDERED: LORA-741 PO (18:35)
[2017-06-17] MEDS ORDERED: ABL5 PO (12:42)
[2017-06-17] MEDS ORDERED: AMB5 PO (12:42)
[2017-06-17] MEDS ORDERED: CLX40 PO (12:42)
[2017-06-17] MEDS ORDERED: CITA20TA9 PO (15:08)
== END 2016-12-31 17:55 | disposition short-term general hospital (02) ==
LOC: EDBD 14:27 → C.EDC 14:28
DX: S22.43XA Multiple fractures of ribs, bilateral, initial encounter for closed fracture (principal); S22.20XA Unspecified fracture of sternum, initial encounter for closed fracture; J98.2 Interstitial emphysema; S27.321A Contusion of lung, unilateral, initial encounter; S32.019A Unspecified fracture of first lumbar vertebra, initial encounter for closed fracture; S32.029A Unspecified fracture of second lumbar vertebra, initial encounter for closed fracture; S32.039A Unspecified fracture of third lumbar vertebra, initial encounter for closed fracture; S32.049A Unspecified fracture of fourth lumbar vertebra, initial encounter for closed fracture; S81.012A Laceration without foreign body, left knee, initial encounter; S30.1XXA Contusion of abdominal wall, initial encounter; V43.62XA Car passenger injured in collision with other type car in traffic accident, initial encounter; Y92.410 Unspecified street and highway as the place of occurrence of the external cause; J45.909 Unspecified asthma, uncomplicated; Z87.01 Personal history of pneumonia (recurrent); J44.1 Chronic obstructive pulmonary disease with (acute) exacerbation; I10 Essential (primary) hypertension; E78.5 Hyperlipidemia, unspecified; Z86.718 Personal history of other venous thrombosis and embolism; Z86.711 Personal history of pulmonary embolism; Z83.3 Family history of diabetes mellitus; Z87.891 Personal history of nicotine dependence; Z79.82 Long term (current) use of aspirin; Z79.899 Other long term (current) drug therapy

== ENCOUNTER → 2017-03-07 | Outpatient (CLI) | payer OTHER ==
[~2017-03-07] MED LIST changes: +ADVIN50/60 INH; +ALBU1.257 NEB; +ATOR-26 PO; +EPP3/2 IM; +IPRASOL4 INH; +MONT1TAB3 PO; +NAPR220T PO; +ONDA4TAB46 PO; +POLY335019 PO; -TRAM-10 PO; +TRIATAB3 PO
[2017-03-07 13:25] LABS: HEMATOCRIT 39.4 % (37-47); MEAN CELL VOLUME 92.1 fL (80-100); MEAN CORPUSCULAR HGB CONC 31.5 g/dl (32-36); PLATELET COUNT 321 K/uL (130-400); RED BLOOD COUNT 4.28 M/uL (4.2-5.4); WHITE BLOOD COUNT 6.46 K/uL (4.8-10.8)
[2017-03-07 13:46] LABS: ESTIMATED AVERAGE GLUCOSE 123 mg/dl; HA1C FLAG Normal (Normal)
[2017-03-07 14:06] LABS: BLOOD UREA NITROGEN 12 mg/dl (7-18); BUN/CREATININE RATIO 10.2 (10-20); CALCIUM 9.5 mg/dl (8.5-10.1); CARBON DIOXIDE 31 mmol/L (21-32); CHLORIDE 102 mmol/L (98-107); GLUCOSE 71 mg/dl (70-99); POTASSIUM 3.2 mmol/L (3.5-5.1); SODIUM 141 mmol/L (136-145)
[2017-03-07 14:17] LABS: THYROID STIMULATING HORMONE 0.066 uIu/ml (0.300-4.500)
== END | disposition home or self-care (01) ==
LOC: C.LAB1850 11:34
PROVIDERS: ATTEND Internal Medicine
DX: E11.9 Type 2 diabetes mellitus without complications (principal); E53.8 Deficiency of other specified B group vitamins; S32.009A Unspecified fracture of unspecified lumbar vertebra, initial encounter for closed fracture; X58.XXXA Exposure to other specified factors, initial encounter; E03.9 Hypothyroidism, unspecified

== ENCOUNTER → 2017-04-05 | Outpatient (CLI) | payer OTHER ==
--- NOTE | 2017-04-06 13:35 | MAMMOGRAPHY REPORT ---
BILATERAL DIGITAL SCREENING MAMMOGRAM TOMOSYNTHESIS WITH CAD: 04/05/2017 CLINICAL HISTORY: Routine screening. Patient has no complaints. TECHNIQUE: Breast tomosynthesis in addition to standard 2D mammography was performed. Current study was also evaluated with a Computer Aided Detection (CAD) system. COMPARISON: Comparison is made to exams dated: 02/23/2016 mammogram, 02/17/2015 mammogram, 02/10/2014 [place] mogram, 02/05/2013 mammogram, 02/08/2012 mammogram, and 02/01/2012 mammogram - [facility]. BREAST COMPOSITION: The tissue of both breasts is heterogeneously dense, which may obscure small mas ses. FINDINGS: No suspicious masses, calcifications, or areas of architectural distortion are noted in ei ther breast. There has been no significant interval change compared to prior exams. IMPRESSION: ACR BI-RADS CATEGORY 1: NEGATIVE There is no mammographic evidence of malignancy. A 1 year screening mammogram is recommended. The pa tient will receive written notification of the results. Approximately 10% of breast cancers are not detected with mammography. A negative mammographic report should not delay biopsy if a clinically suggestive mass is present. Aissatou Gracia M.D. ah/:04/05/2017 16:22:12 Memory Care Director: Moraima Mcgowan RT([place])(Deep)(BD), [facility] letter sent: Normal 1/2 BI-RADS Code: ACR BI-RADS Category 1: Negative
== END | disposition home or self-care (01) ==
LOC: C.MAMM 15:18
PROVIDERS: ATTEND Internal Medicine
DX: Z12.31 Encounter for screening mammogram for malignant neoplasm of breast (principal)

== ENCOUNTER → 2017-04-05 | Outpatient (CLI) | payer OTHER ==
[2017-04-05 17:19] LABS: BLOOD UREA NITROGEN 15 mg/dl (7-18); BUN/CREATININE RATIO 11.5 (10-20); CALCIUM 9.2 mg/dl (8.5-10.1); CARBON DIOXIDE 28 mmol/L (21-32); CHLORIDE 106 mmol/L (98-107); GLUCOSE 141 mg/dl (70-99); POTASSIUM 3.4 mmol/L (3.5-5.1); SODIUM 139 mmol/L (136-145)
[2017-04-05 17:29] LABS: THYROID STIMULATING HORMONE 0.362 uIu/ml (0.300-4.500)
== END | disposition home or self-care (01) ==
LOC: C.LAB1850 15:03
PROVIDERS: ATTEND Internal Medicine
DX: E87.6 Hypokalemia (principal); E03.9 Hypothyroidism, unspecified

== ENCOUNTER 2017-05-29 18:11 | Emergency (ER) | payer OTHER ==
[~2017-05-29] VITALS: Ht 162.6 cm; Wt 68.0 kg
[~2017-05-29 18:11] MED LIST changes: -IPRASOL4 INH; +IPRASOL4 NEB; -TRIATAB3 PO
[2017-05-29 18:24] VITALS: TEMP 36.8; Ht 162.6 cm; Wt 68.0 kg
[2017-05-29] MEDS ORDERED: TRIATAB3 PO (18:24)
[2017-05-29] MEDS ORDERED: FENTANYL CITRATE INJ 50 MCG/1 ML 2 ML VIAL IV STA ×2 (19:05→21:03)
[2017-05-29] MEDS ORDERED: ONDANSETRON INJ 2 MG/ML 2 ML VIAL ONE (19:28)
[2017-05-29] MEDS ORDERED: ONDANSETRON INJ 2 MG/ML 2 ML VIAL IV STA ×2 (19:32→22:23)
[2017-05-29] MEDS ORDERED: ASPI81TA28 PO (19:41)
[2017-05-29] MEDS ORDERED: AMLO5TAB2 PO (19:41)
[2017-05-29] MEDS ORDERED: LEVO75TA5 PO (19:41)
[2017-05-29] MEDS ORDERED: MIRT45TA3 PO (19:41)
[2017-05-29] MEDS ORDERED: BUPR-266 PO (19:41)
[2017-05-29 19:43] LABS: ISTAT CREATININE 1.2 mg/dl (0.6-1.3); ISTAT HEMOGLOBIN 15.6 g/dl (12.0-16.0); ISTAT IONIZED CALCIUM 1.18 mmol/l (1.12-1.32)
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
[2017-05-29] MEDS ORDERED: CYCL10TA6 PO (22:49)
[2017-05-29 22:55] VITALS: BP 159/66; PULSE 69; O2SAT 99
== END 2017-05-29 22:56 | disposition home or self-care (01) ==
LOC: C.EDB 18:13 → C.EDC 22:56
DX: M54.2 Cervicalgia (principal); M54.9 Dorsalgia, unspecified; V43.52XA Car driver injured in collision with other type car in traffic accident, initial encounter; I10 Essential (primary) hypertension; E78.5 Hyperlipidemia, unspecified; J44.9 Chronic obstructive pulmonary disease, unspecified; J45.909 Unspecified asthma, uncomplicated; Z86.711 Personal history of pulmonary embolism; Z86.718 Personal history of other venous thrombosis and embolism; Z87.891 Personal history of nicotine dependence; Z79.82 Long term (current) use of aspirin; Z79.899 Other long term (current) drug therapy; Z88.0 Allergy status to penicillin; Z88.2 Allergy status to sulfonamides; Z88.1 Allergy status to other antibiotic agents; Z88.3 Allergy status to other anti-infective agents; Z88.5 Allergy status to narcotic agent; Z88.8 Allergy status to other drugs, medicaments and biological substances; Z91.018 Allergy to other foods; Z91.030 Bee allergy status; Z83.3 Family history of diabetes mellitus

== ENCOUNTER → 2017-06-27 | Outpatient (CLI) | payer OTHER ==
[~2017-06-27] MED LIST changes: +ABL5 PO; -ADVIN50/60 INH; +AMB5 PO; +AMLO5TAB2 PO; -ASPI-461 PO; +ASPI81TA28 PO; -CHLO1LIQ21 PO; +CITA20TA9 PO; -CLX/20 PO; -FURO-85 PO; -GUAISYP4 PO; +LEVO75TA5 PO; -LEVO88TA3 PO; +LORA-741 PO; +MIRT45TA3 PO; -POTA10CA28 PO; +TRIATAB3 PO
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
[2017-06-27 17:30] LABS: BASO % 0.5 %; BASO ABS # 0.04 K/uL (0-0.2); COMPLETE YES; EOS % 3.5 %; HEMATOCRIT 41.8 % (37-47); IG% 0.1 %; LYMPH % 19.7 %; LYMPH ABS # 1.46 K/uL (1.2-3.4); MEAN CELL VOLUME 91.5 fL (80-100); MEAN CORPUSCULAR HEMOGLOBIN 30.2 pg (25-34); MEAN PLATELET VOLUME 11.2 fL (7.4-10.4); MONO % 9.6 %; NEUT % 66.6 %; PLATELET COUNT 336 K/uL (130-400); RED BLOOD COUNT 4.57 M/uL (4.2-5.4); WHITE BLOOD COUNT 7.43 K/uL (4.8-10.8)
[2017-06-27 17:55] LABS: ALT/SGPT 31 U/L (12-78); BLOOD UREA NITROGEN 17 mg/dl (7-18); BUN/CREATININE RATIO 16.4 (10-20); CALCIUM 9.5 mg/dl (8.5-10.1); CARBON DIOXIDE 31 mmol/L (21-32); CHLORIDE 103 mmol/L (98-107); CREATININE 1.04 mg/dl (0.60-1.20); GLUCOSE 101 mg/dl (70-99); POTASSIUM 3.2 mmol/L (3.5-5.1); SODIUM 142 mmol/L (136-145)
[2017-06-27 18:04] LABS: ALKALINE PHOSPHATASE 127 U/L (45-117); AST/SGOT 27 U/L (15-37); TOTAL IRON BINDING CAPACITY 358 mcg/dl (250-450)
== END | disposition home or self-care (01) ==
LOC: C.LAB1850 15:57
PROVIDERS: ATTEND Physician Assistant
DX: S20.212A Contusion of left front wall of thorax, initial encounter (principal); X58.XXXA Exposure to other specified factors, initial encounter; F41.9 Anxiety disorder, unspecified; K55.1 Chronic vascular disorders of intestine

== ENCOUNTER → 2017-06-27 | Outpatient (CLI) | payer OTHER ==
[2017-06-27 09:59] LABS: GLUCOSE,FASTING 95 mg/dl (70-99)
[2017-06-27 10:05] LABS: CHOLESTEROL 171 mg/dl (0-200); HDL CHOLESTEROL 77 mg/dl; TRIGLYCERIDES 110 mg/dl (0-150)
== END | disposition home or self-care (01) ==
LOC: C.LAB1850 08:49
PROVIDERS: ATTEND Psychiatry & Neurology Psychiatry
DX: Z51.81 Encounter for therapeutic drug level monitoring (principal); Z79.899 Other long term (current) drug therapy

== ENCOUNTER → 2017-07-18 | Outpatient (CLI) | payer OTHER ==
[2017-07-18 18:00] LABS: URINE APPEARANCE CLEAR (CLEAR); URINE BILIRUBIN NEG (NEG); URINE COLOR YELLOW; URINE NITRITE NEG (NEG); URINE PH 5.5 (4.5-7.5); UROBILINOGEN NEG (NEG)
[2017-07-18 18:01] LABS: MANUAL MICROSCOPIC REQUIRED? NO; REVIEW REQ? NO
== END | disposition home or self-care (01) ==
LOC: C.LAB1850 17:05
PROVIDERS: ATTEND Physician Assistant
DX: R30.0 Dysuria (principal)

== ENCOUNTER → 2017-08-16 | Outpatient (CLI) | payer OTHER ==
[~2017-08-16] MED LIST changes: +IPRA-64 NEB; -IPRASOL4 NEB; +NAPR-1264 PO; -NAPR220T PO
== END | disposition home or self-care (01) ==
LOC: C.LAB1850 13:30
PROVIDERS: ATTEND Physician Assistant
DX: R30.0 Dysuria (principal)

== ENCOUNTER → 2017-08-30 | Outpatient (CLI) | payer OTHER ==
[~2017-08-30] MED LIST changes: -IPRA-64 NEB; +IPRASOL4 NEB; -NAPR-1264 PO; +NAPR220T PO
[2017-08-30 14:50] LABS: HEMATOCRIT 41.2 % (37-47); HEMOGLOBIN 13.6 g/dL (12.0-16.0); MEAN CELL VOLUME 91.6 fL (80-100); MEAN CORPUSCULAR HEMOGLOBIN 30.2 pg (25-34); MEAN PLATELET VOLUME 11.8 fL (7.4-10.4); PLATELET COUNT 263 K/uL (130-400); RED CELL DISTRIBUTION WIDTH CV 14.5 % (11.5-14.5); WHITE BLOOD COUNT 8.97 K/uL (4.8-10.8)
[2017-08-30 14:54] LABS: ALBUMIN 3.5 gm/dl (3.4-5.0); AST/SGOT 26 U/L (15-37); BLOOD UREA NITROGEN 15 mg/dl (7-18); CALCIUM 9.1 mg/dl (8.5-10.1); CARBON DIOXIDE 29 mmol/L (21-32); GLUCOSE 97 mg/dl (70-99); POTASSIUM 3.5 mmol/L (3.5-5.1); SODIUM 138 mmol/L (136-145)
[2017-08-30 15:05] LABS: ALKALINE PHOSPHATASE 113 U/L (45-117); ALT/SGPT 23 U/L (12-78); TOTAL PROTEIN 7.2 gm/dl (6.4-8.2)
[2017-08-31 06:22] LABS: HEMOGLOBIN A1C 5.9 % (4.5-5.6)
== END | disposition home or self-care (01) ==
LOC: C.LAB1850 13:23
PROVIDERS: ATTEND Internal Medicine
DX: E11.40 Type 2 diabetes mellitus with diabetic neuropathy, unspecified (principal); E03.9 Hypothyroidism, unspecified

== ENCOUNTER → 2017-09-10 | Outpatient (CLI) | payer OTHER ==
--- NOTE | 2017-09-10 14:01 | DIAGNOSTIC IMAGING REPORT ---
R EXTREMITY NONVASCULAR LIMITED CLINICAL HISTORY: 61 years-old Female presenting with R22.30 Skin lump of arm, unspecified lateralityRIGHT SHOULDERULT. TECHNIQUE: Real-time grayscale ultrasound imaging of the right shoulder was performed. Color Doppler was also performed. COMPARISON: Plain radiographs from 05/29/2017. FINDINGS: Centered in the subcutaneous fat of the right shoulder region at the site of clinical concern, a well-defined hypoechoic ovoid lesion is noted, which may have a fatty hilum. This is superficial to the right shoulder musculature. No associated hyperemia. No fluid collection. IMPRESSION: 1. Findings could represent a prominent superficial lymph node versus less likely a lipoma. A sebaceous cyst is felt to be unlikely given the lack of clear continuity with the overlying cutis. Electronically signed by: Arturo Brink M.D. 09/10/2017 2:00 PM Dictated Date/Time: 09/10/2017 1:58 PM
== END | disposition home or self-care (01) ==
LOC: C.ULTR 13:21
PROVIDERS: ATTEND Internal Medicine
DX: R22.30 Localized swelling, mass and lump, unspecified upper limb (principal)

== ENCOUNTER → 2017-10-30 | Outpatient (CLI) | payer OTHER ==
[2017-10-30 10:49] LABS: BLOOD UREA NITROGEN 20 mg/dl (7-18); CALCIUM 9.3 mg/dl (8.5-10.1); CARBON DIOXIDE 29 mmol/L (21-32); GLUCOSE 76 mg/dl (70-99); POTASSIUM 3.7 mmol/L (3.5-5.1); SODIUM 139 mmol/L (136-145)
== END | disposition home or self-care (01) ==
LOC: C.LAB1850 09:14
PROVIDERS: ATTEND Internal Medicine
DX: E87.70 Fluid overload, unspecified (principal)

== ENCOUNTER → 2017-12-25 | Outpatient (CLI) | payer OTHER ==
[~2017-12-25] MED LIST changes: +NAPR-1264 PO; -NAPR220T PO
[2017-12-25 10:14] LABS: HEMATOCRIT 40.7 % (37-47); HEMOGLOBIN 13.4 g/dL (12.0-16.0); MEAN CELL VOLUME 89.8 fL (80-100); MEAN CORPUSCULAR HEMOGLOBIN 29.6 pg (25-34); MEAN CORPUSCULAR HGB CONC 32.9 g/dl (32-36); MEAN PLATELET VOLUME 11.5 fL (7.4-10.4); PLATELET COUNT 248 K/uL (130-400); RED CELL DISTRIBUTION WIDTH CV 15.1 % (11.5-14.5); RED CELL DISTRIBUTION WIDTH SD 49.6 fL (36.4-46.3); WHITE BLOOD COUNT 7.03 K/uL (4.8-10.8)
[2017-12-25 11:44] LABS: HEMOGLOBIN A1C 6.1 % (4.5-5.6)
[2017-12-25 13:33] LABS: ALBUMIN 3.5 gm/dl (3.4-5.0); ALKALINE PHOSPHATASE 142 U/L (45-117); ALT/SGPT 19 U/L (12-78); AST/SGOT 17 U/L (15-37); BLOOD UREA NITROGEN 25 mg/dl (7-18); CARBON DIOXIDE 28 mmol/L (21-32); CHOLESTEROL 152 mg/dl (0-200); GLUCOSE 71 mg/dl (70-99); LDL CHOLESTEROL CALCULATED 70 mg/dl; POTASSIUM 3.8 mmol/L (3.5-5.1); SODIUM 142 mmol/L (136-145); TOTAL PROTEIN 7.2 gm/dl (6.4-8.2)
== END | disposition home or self-care (01) ==
LOC: C.LAB1850 09:15
PROVIDERS: ATTEND Internal Medicine
DX: E78.5 Hyperlipidemia, unspecified (principal); K55.9 Vascular disorder of intestine, unspecified; E03.9 Hypothyroidism, unspecified; G62.9 Polyneuropathy, unspecified; E11.9 Type 2 diabetes mellitus without complications

== ENCOUNTER → 2018-03-14 | Outpatient (CLI) | payer OTHER ==
[~2018-03-14] MED LIST changes: +IPRA-64 NEB; -IPRASOL4 NEB
[2018-03-14 17:51] LABS: ALBUMIN 3.5 gm/dl (3.4-5.0); TOTAL PROTEIN 7.4 gm/dl (6.4-8.2)
== END | disposition home or self-care (01) ==
LOC: C.LABPVFM 15:25
PROVIDERS: ATTEND Internal Medicine
DX: Z86.39 Personal history of other endocrine, nutritional and metabolic disease (principal)

== ENCOUNTER → 2018-04-08 | Outpatient (CLI) | payer OTHER ==
--- NOTE | 2018-04-09 14:47 | MAMMOGRAPHY REPORT ---
BILATERAL DIGITAL SCREENING MAMMOGRAM TOMOSYNTHESIS WITH CAD: 04/08/2018 CLINICAL HISTORY: Routine screening. Patient has no complaints. TECHNIQUE: Breast tomosynthesis in addition to standard 2D mammography was performed. Current study w as also evaluated with a Computer Aided Detection (CAD) system. COMPARISON: Comparison is made to exams dated: 04/05/2017 mammogram, 02/23/2016 mammogram, 02/17/2015 ma mmogram, 02/05/2013 mammogram, 02/08/2012 mammogram, and 02/08/2012 ultrasound - [facility] enter. BREAST COMPOSITION: The tissue of both breasts is heterogeneously dense, which may obscure small mass es. FINDINGS: No suspicious masses, calcifications, or areas of architectural distortion are noted in either breast . There has been no significant interval change compared to prior exams. IMPRESSION: ACR BI-RADS CATEGORY 1: NEGATIVE There is no mammographic evidence of malignancy. A 1 year screening mammogram is recommended.( 019) The patient will receive written notification of the results. Some breast cancers are not detected with mammography. A negative mammographic report should not toby y biopsy if a clinically suggestive mass is present. Aissatou Gracia M.D. ah/:04/08/2018 15:43:07 [place] Developer: [employer])(M), [facility] letter sent: Normal 1/2 BI-RADS Code: ACR BI-RADS Category 1: Negative
== END | disposition home or self-care (01) ==
LOC: C.MAMM 14:45
PROVIDERS: ATTEND Internal Medicine
DX: Z12.31 Encounter for screening mammogram for malignant neoplasm of breast (principal)

== ENCOUNTER 2020-08-08 12:15 | Inpatient (IN) ==
[2020-08-08] MEDS ORDERED: DEXAMETHASONE SOD INJ 10 MG/ML VIAL IV ONE (12:31)
[2020-08-08] MEDS ORDERED: SODIUM CHLORIDE 0.9% 1000ML 1,000 ML IV ONE (12:32)
[2020-08-08] MEDS ORDERED: levoFLOXacin/D5W 750 MG/150 ML BAG IV STA (12:32)
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
--- NOTE | 2020-08-08 13:11 | Electrocardiogram Report ---
Test Reason : Blood Pressure : / mmHG Vent. Rate : 064 BPM Atrial Rate : 064 BPM P-R Int : 140 ms QRS Dur : 078 ms QT Int : 416 ms P-R-T Axes : 038 043 033 degrees QTc Int : 429 ms Poor data quality, interpretation may be adversely affected Normal sinus rhythm Nonspecific T wave abnormality Abnormal ECG When compared with ECG of 16-DEC-2019 13:05, Significant changes have occurred Confirmed by Gary Soler ([id number]) on 08/08/2020 1:10:37 PM Referred By: ED Confirmed By:Gary Soler
[2020-08-08 13:54] LABS: Basophils # (auto) 0.01 K/uL (0-0.2); Basophils % (auto) 0.1 %; Hematocrit (blood only) 47.5 % (37-47); Hemoglobin 15.9 g/dL (12.0-16.0); Immature Granulocytes # (auto) 0.01 K/uL (0.00-0.02); Immature Granulocytes % (auto) 0.1 %; Lymphocytes # (auto) 0.97 K/uL (1.2-3.4); Lymphocytes % (auto) 9.6 %; Mean Corpuscular Hemoglobin 29.7 pg (25-34); Mean Corpuscular Hgb Conc 33.5 g/dL (32-36); Mean Corpuscular Volume 88.6 fL (80-100); Mean Platelet Volume 10.5 fL (7.4-10.4); Monocytes # (auto) 0.35 K/uL (0.11-0.59); Monocytes % (auto) 3.5 %; Neutrophils % (auto) 86.7 %; Platelet Count 225 K/uL (130-400); RDW Coefficient of Variation 14.8 % (11.5-14.5); Red Blood Count 5.36 M/uL (4.2-5.4); White Blood Count 10.14 K/uL (4.8-10.8)
[2020-08-08 14:04] LABS: iSTAT Creatinine 1.3 mg/dl (0.6-1.3); iSTAT Hemoglobin 15.3 g/dl (12.0-16.0); iSTAT Ionized Calcium 0.99 mmol/l (1.12-1.32); iSTAT Potassium 4.1 mmol/L (3.3-5.0)
--- NOTE | 2020-08-08 14:10 | XRay Report ---
XR chest 1V portable CLINICAL HISTORY: SEPSIS COMPARISON STUDY: 05/12/2020 FINDINGS: The heart is mildly enlarged. There are multifocal airspace opacities, most pronounced the left lung base. The findings are consistent with a multifocal pneumonia. Correlation with Covid 19 te sting is recommended. There are no significant pleural effusions.[ IMPRESSION: Multifocal airspace opacities, suspicious for a multifocal pneumonia ACT 112: Negative or not required by law. Electronically signed by: Balaji Cheek M.D. 08/08/2020 2:09 PM
[2020-08-08 14:12] LABS: Alanine Aminotransferase 30 U/L (12-78); Albumin Level 2.8 gm/dl (3.4-5.0); Aspartate Aminotransferase 68 U/L (15-37); BUN Creatinine Ratio 19.6 (10-20); Blood Urea Nitrogen 26 mg/dl (7-18); Calcium 8.4 mg/dl (8.5-10.1); Carbon Dioxide 29 mmol/L (21-32); Chloride 102 mmol/L (98-107); Est GFR (African American) 47.6; Est GFR (Non-African American) 41.1; Glucose 106 mg/dl (70-99); Magnesium 2.3 mg/dl (1.8-2.4); Potassium 4.1 mmol/L (3.5-5.1); Sodium 137 mmol/L (136-145)
[2020-08-08] MEDS ORDERED: ALBUTEROL 0.083% NEBU SOLN 3 ML VIAL NEB STA (14:12)
[2020-08-08 14:17] LABS: Albumin Globulin Ratio 0.6 (0.9-2); Alkaline Phosphatase 129 U/L (45-117); Bilirubin,Total 0.4 mg/dl (0.2-1); Globulin 4.5 gm/dl (2.5-4.0); Total Protein 7.3 gm/dl (6.4-8.2); Troponin I 0.021 ng/ml (0-0.045)
[2020-08-08 14:22] LABS: Partial Thromboplastin Time 27.3 Seconds (21.0-31.0); Prothrombin Time 10.3 Seconds (9.0-12.0)
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
[2020-08-08 15:17] LABS: HCO3 VBG 27 mmol/L; PCO2 VBG 49 mmHg (38-50); PO2 VBG 23 mmHg; pH VBG 7.36 (7.36-7.41)
[2020-08-08 15:24] LABS: Oxygen Saturation VBG < 60.0 %
[2020-08-08 15:31] LABS: D Dimer 960 ug/L FEU (0-500)
[2020-08-08 17:11] LABS: Appearance Urine Clear (Clear); Bilirubin Urine Negative (Negative); Blood Urine Negative (Negative); Color Urine Yellow; Glucose Urine UA Negative (Negative); Ketones Urine Negative (Negative); Leukocyte Esterase Urine Negative (Negative); Nitrite Urine Negative (Negative); Protein Urine Negative (Negative); Specific Gravity Urine 1.014 (1.000-1.030); Urobilinogen Urine Negative (Negative)
[2020-08-08] MEDS: ASCORBIC ACID 500 MG TAB PO SCH (19:07)
[2020-08-08] MEDS: ZINC SULFATE 220 MG CAPSULE PO SCH (19:07)
[2020-08-09] MEDS ORDERED: OPTIRAY 320 125ml IV ONE (00:19)
[2020-08-09 01:11] LABS: iSTAT Arterial Blood Gas HCO3 25 meg/L (19-24); iSTAT Arterial Blood Gas pCO2 38 mmHg (35-46); iSTAT Arterial Blood Gas pH 7.43 (7.35-7.45); iSTAT Arterial Blood Gas pO2 82 mmHg (80-95); iSTAT Carbon Dioxide 26 mmol/L (24-31); iSTAT Hematocrit 46 % (37-47); iSTAT Hemoglobin 15.6 g/dl (12.0-16.0); iSTAT Potassium 4.2 mmol/L (3.3-5.0); iSTAT Sodium 139 mmol/L (135-144)
[2020-08-09] MEDS ORDERED: LACTATED RINGER'S 1,000 ML IV ONE (01:55)
[2020-08-09] MEDS ORDERED: ONDANSETRON INJ 2 MG/ML 2 ML VIAL IV PRN (01:55)
[2020-08-09] MEDS ORDERED: ALBUTEROL 0.083% NEBU SOLN 3 ML VIAL INH PRN (01:55)
[2020-08-09] MEDS ORDERED: POLYETHYLENE (MIRALAX) 17 GM PACK PO PRN (01:55)
[2020-08-09] MEDS ORDERED: ONDANSETRON 4 MG OD TAB PO PRN (02:08)
[2020-08-09] MEDS: ARIPiprazole 5 MG TAB PO SCH ×2 (02:37→20:46)
[2020-08-09] MEDS: MONTELUKAST SODIUM 10 MG TABLET PO SCH ×2 (02:38→20:46)
[2020-08-09] MEDS: NORMOSOL-R 1,000 ML IV SCH ×2 (02:38→15:42)
[2020-08-09] MEDS: ATORVASTATIN 40 MG TAB PO SCH ×2 (02:38→20:46)
[2020-08-09] MEDS: dexAMETHasone 6 MG in SYRINGE 0 ML IV SCH ×2 (02:38→08:25)
[2020-08-09] MEDS ORDERED: REMDESIVIR 200 MG in SODIUM CHLORIDE 0.9% 210 ML IV ONE (03:00)
[2020-08-09] MEDS: LEVOTHYROXINE SODIUM 100 MCG TABLET PO SCH (05:54)
[2020-08-09] MEDS: LEVOTHYROXINE SODIUM 50 MCG TABLET PO SCH (05:54)
[2020-08-09 07:24] LABS: Base Excess ABG 1.1 mEq/L (-9-1.8); HCO3 ABG 25 mmol/L (19-24); Oxygen Saturation ABG 95.3 % (90-95); PCO2 ABG 37 mmHg (35-46); PO2 ABG 76 mmHg (80-95); pH ABG 7.45 (7.35-7.45)
[2020-08-09 07:25] LABS: Alanine Aminotransferase 24 U/L (12-78); Albumin Level 2.4 gm/dl (3.4-5.0); Alkaline Phosphatase 113 U/L (45-117); Aspartate Aminotransferase 57 U/L (15-37); BUN Creatinine Ratio 26.9 (10-20); Bilirubin,Total 0.6 mg/dl (0.2-1); Blood Urea Nitrogen 25 mg/dl (7-18); Calcium 8.2 mg/dl (8.5-10.1); Carbon Dioxide 24 mmol/L (21-32); Chloride 108 mmol/L (98-107); Creatinine Clr Calc Pharmacy 65.6 ml/min; Est GFR (African American) 74.7; Est GFR (Non-African American) 64.5; Glucose 132 mg/dl (70-99); Lipase 51 U/L (73-393); Magnesium 2.2 mg/dl (1.8-2.4); Phosphorus 2.6 mg/dl (2.5-4.9); Potassium 4.1 mmol/L (3.5-5.1); Sodium 140 mmol/L (136-145); Total Protein 6.6 gm/dl (6.4-8.2); Troponin I < 0.015 ng/ml (0-0.045)
[2020-08-09 07:26] LABS: Hematocrit (blood only) 43.9 % (37-47); Hemoglobin 14.7 g/dL (12.0-16.0); Immature Granulocytes # (auto) 0.02 K/uL (0.00-0.02); Immature Granulocytes % (auto) 0.3 %; Lymphocytes # (auto) 0.45 K/uL (1.2-3.4); Lymphocytes % (auto) 7.5 %; Mean Corpuscular Hemoglobin 29.3 pg (25-34); Mean Corpuscular Volume 87.5 fL (80-100); Mean Platelet Volume 10.6 fL (7.4-10.4); Monocytes # (auto) 0.26 K/uL (0.11-0.59); Monocytes % (auto) 4.3 %; Neutrophils # (auto) 5.28 K/uL (1.4-6.5); Neutrophils % (auto) 87.9 %; Platelet Count 240 K/uL (130-400); RDW Coefficient of Variation 14.6 % (11.5-14.5); RDW Standard Deviation 47.2 fL (36.4-46.3); Red Blood Count 5.02 M/uL (4.2-5.4); White Blood Count 6.01 K/uL (4.8-10.8)
[2020-08-09 07:38] LABS: Mean Corpuscular Hgb Conc 33.5 g/dL (32-36)
[2020-08-09 07:42] LABS: Allen Test Pos (Pos)
--- NOTE | 2020-08-09 08:02 | Hospitalist Progress Note ---
Date of Service August 09, 2020 Assessment & Plan (1) Pneumonia due to 2019 novel coronavirus: Noninvasive Positive pressure ventilation -BiPAP 14/10 FiO2 40% Steroids: Decadron 6 mg p.o.while hypoxic Remdesivir started 08/08/20 -Patient declined convalescent plasma at this time Vitamin C thiamine zinc procalcitonin is negative supporting this being viral pneumonia (2) Respiratory failure with hypoxia: CPAP as tolerated to switch with high flow nasal cannula (3) Factor V Leiden mutation: Lovenox 40 twice daily dosing (4) Acute kidney injury: Gentle hydration 1 L LR bolus followed by Normosol 80 mL's per hour (5) Type 2 diabetes mellitus: this is by history without medication will check A1c and watch for steroids to increase, if so will use ssi (6) Depression: continues on citalopram (7) Chronic obstructive pulmonary disease: remains on singulair, was on breo, will have duonebs used prn Admission and Anticipated Discharge Date Admission Date: August 08, 2020 Subjective pt feels somewhat better, she is able to transition to nc oxygen from bipap, she still is very short of breath, still non productive cough Review of Systems Review of Systems: moderate distress and fatigue no headache, blurry or double vision no speech or swallowing issues no chest pain, pressure or palpitations c/o shortness of breath, non producitve cough no wheezes no abdominal pain, nausea or vomiting, diarrhea or constipation no dysuria, hematuria or frequency no focal joint pain or swelling no back pain, CVA tenderness or radicular pain no bruising, bleeding or rashes no focal signs of weakness or numbness or altered sensation no complaints of anxiety or depression.. Physical Exam Physical Exam: The patient appeared ill but improved from initial evaluation Vital signs as documented. Lungs are coarse bibasilar Cardiac exam, Rhythm is regular.. No murmurs, rubs or gallops. Abdominal exam reveals normal bowel sounds, soft non tender, no masses Extremities are nonedematous and both pedal pulses are normal. Neurologic exam is alert and oriented, no focal loss of strength or sensation Skin is without bruises or rashes Psychologically is without concerns for anxiety or depression. Results & Data Results & Data ([facility]) Vital Signs (Past 12 Hours) Vital Signs Temp Pulse Pulse Resp BP BP Pulse Ox 08/09/20 07:30 97.9 F 61 30 H 149/66 H 94 08/09/20 07:27 61 08/09/20 07:26 64 36 H 96 08/09/20 06:36 34 H 94 08/09/20 04:55 60 39 H 95 08/09/20 04:36 30 H 95 08/09/20 04:30 51 L 33 H 94 08/09/20 04:01 58 L 29 H 94 08/09/20 04:00 61 26 H 154/64 H 95 08/09/20 03:30 58 L 33 H 96 08/09/20 03:01 55 L 33 H 95 08/09/20 03:00 59 L 34 H 140/65 96 08/09/20 02:30 67 34 H 94 08/09/20 02:01 60 33 H 92 08/09/20 02:00 98.2 F 63 32 H 139/62 92 08/09/20 01:47 65 25 H 95 08/09/20 01:46 65 27 H 170/70 H 94 08/09/20 01:42 66 10 L 08/09/20 01:01 62 31 H 94 08/09/20 01:00 62 34 H 144/67 H 94 08/09/20 00:30 64 37 H 148/65 H 94 08/09/20 00:00 60 41 H 134/65 95 08/08/20 23:58 59 L 40 H 96 08/08/20 23:30 68 43 H 148/86 H 93 08/08/20 23:00 59 L 36 H 160/86 H 93 08/08/20 22:31 63 28 H 179/96 H 95 08/08/20 22:07 62 30 H 94 08/08/20 22:01 58 L 28 H 136/95 93 08/08/20 21:31 61 28 H 94 08/08/20 21:30 61 28 H 184/90 H 93 08/08/20 21:01 63 28 H 158/97 H 92 08/08/20 20:31 65 28 H 118/68 94 08/08/20 20:00 64 28 H 149/88 H 91 08/08/20 19:53 92 PG Care Time/CCT Total # of Minutes Spent Total Time Spent with Patient: Total time spent is greater than 50% in coordination of care (as documented) at patient's floor/unit and/or counseling patient: Coding Level of Care Code 01830 Subseq Hosp Care Lvl 3 Diagnoses Pneumonia due to 2019 novel coronavirus U07.1; J12.89 Respiratory failure with hypoxia J96.91 Chronicity: unspecified Factor V Leiden mutation D68.51 Acute kidney injury N17.9 Type 2 diabetes mellitus E11.9 Depression F32.9 Chronic obstructive pulmonary disease J44.9 (1) Respiratory failure with hypoxia Chronicity: unspecified Qualified Code(s): J96.91 - Respiratory failure, unspecified with hypoxia
[2020-08-09] MEDS: TRIAMTERENE/HCTZ 37.5/25MG CAP PO SCH (08:23)
[2020-08-09] MEDS: THIAMINE HCL 100 MG in SYRINGE 9 ML IV SCH (08:24)
[2020-08-09] MEDS: ENOXAPARIN INJ 40 MG/0.4 ML SYR SQ SCH ×2 (08:24→20:47)
[2020-08-09] MEDS: ASPIRIN 81 MG ECTAB PO SCH (08:24)
[2020-08-09] MEDS: FUROSEMIDE 20 MG TAB PO SCH (08:24)
[2020-08-09] MEDS: CITALOPRAM 40 MG TAB PO SCH (08:24)
[2020-08-09] MEDS: ZINC SULFATE 220 MG CAPSULE PO SCH (08:24)
[2020-08-09] MEDS: ASCORBIC ACID 500 MG TAB PO SCH (08:24)
--- NOTE | 2020-08-09 08:55 | XRay Report ---
XR chest 1V portable HISTORY: 64 years-old Female intubation follow-up study in a patient with acute respiratory failure COMPARISON: Chest radiograph 08/08/2018, chest CT 01/20/2020 TECHNIQUE: Portable AP view of the chest FINDINGS: Cardiac silhouette is mildly enlarged. Unchanged right hemidiaphragmatic elevation. Calcified plaque of the thoracic aorta. Bilateral interstitial opacities redemonstrated. There is mildly improved aera tion of the left lung base. No pneumothorax or large pleural effusion. Degenerative changes of the sh oulders and spine. IMPRESSION: Bilateral ill-defined pulmonary opacities with mildly improved aeration of the left lung base. ACT 112: Negative or not required by law. The above report was generated using voice recognition software. It may contain grammatical, syntax o r spelling errors. Electronically signed by: Nilton Craft M.D. 08/09/2020 8:53 AM
[2020-08-10] MEDS: LEVOTHYROXINE SODIUM 100 MCG TABLET PO SCH (05:23)
[2020-08-10] MEDS: NORMOSOL-R 1,000 ML IV SCH (05:23)
[2020-08-10] MEDS: LEVOTHYROXINE SODIUM 50 MCG TABLET PO SCH (05:23)
[2020-08-10 06:48] LABS: Albumin Level 2.7 gm/dl (3.4-5.0); BUN Creatinine Ratio 24.3 (10-20); Bilirubin Direct 0.1 mg/dl (0-0.2); Calcium 8.3 mg/dl (8.5-10.1); Est GFR (African American) 59.1; Magnesium 2.9 mg/dl (1.8-2.4); Potassium 4.1 mmol/L (3.5-5.1)
[2020-08-10 06:50] LABS: Bilirubin,Total 0.7 mg/dl (0.2-1); Phosphorus 2.5 mg/dl (2.5-4.9); Total Protein 7.1 gm/dl (6.4-8.2)
[2020-08-10 07:05] LABS: Basophils # (auto) 0.01 K/uL (0-0.2); Basophils % (auto) 0.1 %; Hematocrit (blood only) 46.7 % (37-47); Hemoglobin 15.6 g/dL (12.0-16.0); Immature Granulocytes # (auto) 0.02 K/uL (0.00-0.02); Immature Granulocytes % (auto) 0.2 %; Lymphocytes # (auto) 0.93 K/uL (1.2-3.4); Mean Corpuscular Hemoglobin 29.2 pg (25-34); Mean Corpuscular Volume 87.3 fL (80-100); Mean Platelet Volume 10.8 fL (7.4-10.4); Monocytes # (auto) 1.18 K/uL (0.11-0.59); Monocytes % (auto) 10.2 %; Neutrophils # (auto) 9.43 K/uL (1.4-6.5); Neutrophils % (auto) 81.5 %; Platelet Count 278 K/uL (130-400); RDW Coefficient of Variation 14.6 % (11.5-14.5); RDW Standard Deviation 46.8 fL (36.4-46.3); Red Blood Count 5.35 M/uL (4.2-5.4); White Blood Count 11.57 K/uL (4.8-10.8)
[2020-08-10 07:47] LABS: Mean Corpuscular Hgb Conc 33.4 g/dL (32-36)
--- NOTE | 2020-08-10 08:11 | XRay Report ---
SINGLE VIEW CHEST CLINICAL HISTORY: Respiratory failure. FINDINGS: An AP, portable, upright chest radiograph is compared to study dated 08/09/2020 and correla kenisha with chest CT dated 10/10/2019. The cardiomediastinal silhouette is unremarkable. There is chronic elevation of the right hemidiaphragm. Interstitial airspace consolidation is seen throughout both alfonzo ngs. No large pleural effusion or pneumothorax is seen. The skeletal structures are osteopenic. The b riley thorax is grossly intact. IMPRESSION: Bilateral interstitial airspace opacities are similar to previous. ACT 112: Negative or not required by law. Electronically signed by: Roel Jalloh M.D. 08/10/2020 8:10 AM
[2020-08-10] MEDS: ENOXAPARIN INJ 40 MG/0.4 ML SYR SQ SCH ×2 (08:53→20:22)
[2020-08-10] MEDS: THIAMINE HCL 100 MG in SYRINGE 9 ML IV SCH (08:53)
[2020-08-10] MEDS: dexAMETHasone 6 MG in SYRINGE 0 ML IV SCH (08:53)
[2020-08-10] MEDS: ASPIRIN 81 MG ECTAB PO SCH (08:55)
[2020-08-10] MEDS: FUROSEMIDE 20 MG TAB PO SCH (08:55)
[2020-08-10] MEDS: CITALOPRAM 40 MG TAB PO SCH (08:55)
[2020-08-10] MEDS: TRIAMTERENE/HCTZ 37.5/25MG CAP PO SCH (08:55)
[2020-08-10] MEDS: ASCORBIC ACID 500 MG TAB PO SCH (08:55)
[2020-08-10] MEDS: ZINC SULFATE 220 MG CAPSULE PO SCH (08:56)
[2020-08-10] MEDS: REMDESIVIR 100mg: Days 2-5 IV SCH (12:13)
--- NOTE | 2020-08-10 17:32 | Hospitalist Progress Note ---
Date of Service August 10, 2020 Assessment & Plan (1) Pneumonia due to 2019 novel coronavirus: patient is transition to nasal cannula oxygen Steroids: Decadron 6 mg p.o.while hypoxic Remdesivir started 08/08/20 -Patient declined convalescent plasma Vitamin C thiamine zinc procalcitonin is negative supporting this being viral pneumonia (2) Respiratory failure with hypoxia: Patient on nasal cannula oxygen with backup of BiPAP when needed (3) Factor V Leiden mutation: Lovenox 40 twice daily dosing (4) Acute kidney injury: Resolved held hydration as it may have a negative impact in her oxygenation (5) Type 2 diabetes mellitus: this is by history without medication will check A1c and watch for steroid s to increase, if so will use ssi (6) Depression: continues on citalopram (7) Chronic obstructive pulmonary disease: remains on singulair, was on breo, will have duonebs used prn Admission and Anticipated Discharge Date Admission Date: August 08, 2020 Subjective pt feels somewhat better, she is able to transition to nc oxygen from bipap, she had episode of hypoxia this morning which required return to BiPAP briefly. She continues to have very bothersome cough which is nonproductive she is agreeable to some cough medication. Overall is very worn out tired and weak. Review of Systems Review of Systems: moderate distress and fatigue no headache, blurry or double vision no speech or swallowing issues no chest pain, pressure or palpitations c/o shortness of breath, non producitve cough no wheezes no abdominal pain, nausea or vomiting, diarrhea or constipation no dysuria, hematuria or frequency no focal joint pain or swelling no back pain, CVA tenderness or radicular pain no bruising, bleeding or rashes no focal signs of weakness or numbness or altered sensation no complaints of anxiety or depression.. Physical Exam Physical Exam: The patient appeared ill she appears to be moderately fatigued Vital signs as documented. Lungs are coarse bibasilar no real improvement from 08/09 Cardiac exam, Rhythm is regular.. No murmurs, rubs or gallops. Abdominal exam reveals normal bowel sounds, soft non tender, no masses Extremities are nonedematous and both pedal pulses are normal. Neurologic exam is alert and oriented, no focal loss of strength or sensation Skin is without bruises or rashes Psychologically is without concerns for anxiety or depression. Results & Data Results & Data ([facility]) Vital Signs (Past 12 Hours) Vital Signs Temp Pulse Pulse Resp BP BP Pulse Ox 08/10/20 16:16 97.9 F 69 29 H 154/93 H 93 08/10/20 16:00 37 H 94 08/10/20 14:00 39 H 94 08/10/20 12:00 39 H 96 08/10/20 11:00 59 L 39 H 95 08/10/20 10:58 97.9 F 65 20 137/61 95 08/10/20 10:57 64 31 H 137/61 95 08/10/20 10:00 61 31 H 94 08/10/20 09:01 65 20 94 08/10/20 09:00 67 39 H 156/71 H 94 08/10/20 08:17 08/10/20 08:01 63 38 H 177/82 H 89 L 08/10/20 08:00 71 33 H 87 L 08/10/20 07:01 55 L 27 H 94 08/10/20 07:00 55 L 29 H 141/61 H 94 Pulse Ox 08/10/20 16:16 08/10/20 16:00 08/10/20 14:00 08/10/20 12:00 08/10/20 11:00 08/10/20 10:58 08/10/20 10:57 08/10/20 10:00 08/10/20 09:01 08/10/20 09:00 08/10/20 08:17 92 08/10/20 08:01 08/10/20 08:00 08/10/20 07:01 08/10/20 07:00 PG Care Time/CCT Total # of Minutes Spent Total Time Spent with Patient: Total time spent is greater than 50% in coordination of care (as documented) at patient's floor/unit and/or counseling patient: Coding Level of Care Code 91738 Subseq Hosp Care Lvl 3 Diagnoses Pneumonia due to 2019 novel coronavirus U07.1; J12.89 Respiratory failure with hypoxia J96.91 Chronicity: unspecified Factor V Leiden mutation D68.51 Acute kidney injury N17.9 Type 2 diabetes mellitus E11.9 Depression F32.9 Chronic obstructive pulmonary disease J44.9 (1) Respiratory failure with hypoxia Chronicity: unspecified Qualified Code(s): J96.91 - Respiratory failure, unspecified with hypoxia
[2020-08-10] MEDS: MONTELUKAST SODIUM 10 MG TABLET PO SCH (20:18)
[2020-08-10] MEDS: ZONISAMIDE PO SCH (20:18)
[2020-08-10] MEDS: ATORVASTATIN 40 MG TAB PO SCH (20:21)
[2020-08-10] MEDS: ARIPiprazole 5 MG TAB PO SCH (20:22)
[2020-08-10] MEDS: PROMETHAZINE HCL 12.5 MG/10 ML UDP PO PRN (20:23)
[2020-08-11] MEDS: LEVOTHYROXINE SODIUM 50 MCG TABLET PO SCH (05:59)
[2020-08-11] MEDS: LEVOTHYROXINE SODIUM 100 MCG TABLET PO SCH (05:59)
--- NOTE | 2020-08-11 08:29 | Hospitalist Progress Note ---
Date of Service August 11, 2020 Assessment & Plan (1) Pneumonia due to 2019 novel coronavirus: patient is transition to oxymask Steroids: Decadron 6 mg p.o.while hypoxic Remdesivir started 08/08/20 -Patient continues to decline convalescent plasma Vitamin C thiamine zinc procalcitonin is negative supporting this being viral pneumonia (2) Respiratory failure with hypoxia: Patient on nasal cannula oxygen with backup of BiPAP when needed (3) Factor V Leiden mutation: Lovenox 40 twice daily dosing (4) Acute kidney injury: Resolved held hydration as it may have a negative impact in her oxygenation (5) Type 2 diabetes mellitus: this is by history without medication will check A1c and watch for steroid s to increase, if so will use ssi (6) Depression: continues on citalopram (7) Chronic obstructive pulmonary disease: remains on singulair, was on breo, will have duonebs used prn Admission and Anticipated Discharge Date Admission Date: August 08, 2020 Subjective once again intermittently requiring bipap, she once again had episode of hypoxia this morning which required return to BiPAP, she now returns to oxymask, She continues to have very bothersome cough which is nonproductive she is agreeable to some cough medication. added tessalon and cough drops today. Overall is very worn out tired and weak. Review of Systems Review of Systems: moderate distress and fatigue no headache, blurry or double vision no speech or swallowing issues no chest pain, pressure or palpitations c/o shortness of breath, non producitve cough no wheezes no abdominal pain, nausea or vomiting, diarrhea or constipation no dysuria, hematuria or frequency no focal joint pain or swelling no back pain, CVA tenderness or radicular pain no bruising, bleeding or rashes no focal signs of weakness or numbness or altered sensation no complaints of anxiety or depression.. Physical Exam Physical Exam: The patient appeared ill she appears to be moderately fatigued Vital signs as documented. Lungs are coarse bibasilar no real improvement from 08/09 Cardiac exam, Rhythm is regular.. No murmurs, rubs or gallops. Abdominal exam reveals normal bowel sounds, soft non tender, no masses Extremities are nonedematous and both pedal pulses are normal. Neurologic exam is alert and oriented, no focal loss of strength or sensation Skin is without bruises or rashes Psychologically is without concerns for anxiety or depression. Results & Data Results & Data ([facility]) Vital Signs (Past 12 Hours) Vital Signs Temp Pulse Pulse Resp BP Pulse Ox Pulse Ox 08/11/20 08:18 97.5 F L 71 36 H 149/70 H 97 08/11/20 06:00 42 H 94 08/11/20 05:00 59 L 134/79 95 08/11/20 04:19 168/68 H 08/11/20 04:11 69 42 H 98 08/11/20 04:00 38 H 95 08/11/20 03:42 97.7 F 70 20 97 08/11/20 02:00 30 H 92 08/11/20 01:00 92 08/11/20 00:36 71 40 H 95 08/11/20 00:34 74 40 H 93 08/11/20 00:00 38 H 89 L 08/10/20 23:10 98.8 F 57 L 19 146/59 H 94 08/10/20 22:00 21 92 PG Care Time/CCT Total # of Minutes Spent Total Time Spent with Patient: Total time spent is greater than 50% in coordination of care (as documented) at patient's floor/unit and/or counseling patient: Coding Level of Care Code 61338 Subseq Hosp Care Lvl 3 Diagnoses Pneumonia due to 2019 novel coronavirus U07.1; J12.89 Respiratory failure with hypoxia J96.91 Chronicity: unspecified Factor V Leiden mutation D68.51 Acute kidney injury N17.9 Type 2 diabetes mellitus E11.9 Depression F32.9 Chronic obstructive pulmonary disease J44.9 (1) Respiratory failure with hypoxia Chronicity: unspecified Qualified Code(s): J96.91 - Respiratory failure, unspecified with hypoxia
[2020-08-11] MEDS: dexAMETHasone 6 MG in SYRINGE 0 ML IV SCH (08:54)
[2020-08-11] MEDS: PROMETHAZINE HCL 12.5 MG/10 ML UDP PO PRN ×2 (08:54→13:35)
[2020-08-11] MEDS: THIAMINE HCL 100 MG in SYRINGE 9 ML IV SCH (08:54)
[2020-08-11] MEDS: ZINC SULFATE 220 MG CAPSULE PO SCH (08:55)
[2020-08-11] MEDS: CITALOPRAM 40 MG TAB PO SCH (08:55)
[2020-08-11] MEDS: ASCORBIC ACID 500 MG TAB PO SCH (08:55)
[2020-08-11] MEDS: TRIAMTERENE/HCTZ 37.5/25MG CAP PO SCH (08:55)
[2020-08-11] MEDS: ENOXAPARIN INJ 40 MG/0.4 ML SYR SQ SCH ×2 (08:55→20:12)
[2020-08-11] MEDS: FUROSEMIDE 20 MG TAB PO SCH (08:55)
[2020-08-11] MEDS: ZONISAMIDE PO SCH ×2 (08:56→20:11)
[2020-08-11] MEDS: ASPIRIN 81 MG ECTAB PO SCH (08:56)
--- NOTE | 2020-08-11 08:58 | XRay Report ---
XR chest 1V portable HISTORY: intubation COMPARISON: Chest 08/10/2020. FINDINGS: Faint peripheral hazy airspace opacities are again noted. This is similar to the prior stud y. No pneumothorax or no pleural effusions. Mild elevation the right hemidiaphragm, unchanged. The he art remains borderline enlarged. IMPRESSION: No significant change in the hazy bilateral airspace opacities consistent with a multifocal pneumonia . ACT 112: Negative or not required by law. Electronically signed by: Jorge Tompkins M.D. 08/11/2020 8:57 AM
[2020-08-11 11:17] LABS: Hematocrit (blood only) 46.2 % (37-47); Hemoglobin 15.7 g/dL (12.0-16.0); Mean Corpuscular Hemoglobin 29.6 pg (25-34); Mean Platelet Volume 11.8 fL (7.4-10.4); Platelet Count 291 K/uL (130-400); RDW Coefficient of Variation 14.7 % (11.5-14.5); RDW Standard Deviation 47.1 fL (36.4-46.3); Red Blood Count 5.31 M/uL (4.2-5.4)
[2020-08-11 11:33] LABS: Albumin Level 2.5 gm/dl (3.4-5.0); BUN Creatinine Ratio 36.2 (10-20); Calcium 8.1 mg/dl (8.5-10.1); Creatinine Clr Calc Pharmacy 61.1 ml/min; Est GFR (African American) 68.5; Est GFR (Non-African American) 59.1; Magnesium 2.6 mg/dl (1.8-2.4); Potassium 3.7 mmol/L (3.5-5.1)
[2020-08-11 11:36] LABS: Bilirubin,Total 0.8 mg/dl (0.2-1); Phosphorus 2.4 mg/dl (2.5-4.9); Total Protein 6.5 gm/dl (6.4-8.2)
[2020-08-11] MEDS: REMDESIVIR 100mg: Days 2-5 IV SCH (11:53)
[2020-08-11 12:10] LABS: Basophils # (auto) 0.02 K/uL (0-0.2); Basophils % (auto) 0.2 %; Eosinophils # (auto) 0.01 K/uL (0-0.5); Eosinophils % (auto) 0.1 %; Immature Granulocytes # (auto) 0.02 K/uL (0.00-0.02); Immature Granulocytes % (auto) 0.2 %; Lymphocytes # (auto) 1.31 K/uL (1.2-3.4); Lymphocytes % (auto) 10.2 %; Monocytes # (auto) 0.93 K/uL (0.11-0.59); Monocytes % (auto) 7.3 %; Neutrophils # (auto) 10.51 K/uL (1.4-6.5)
[2020-08-11 12:33] LABS: Bilirubin Direct 0.2 mg/dl (0-0.2)
[2020-08-11] MEDS ORDERED: BENZONATATE 100 MG CAPSULE PO ONE (15:18)
[2020-08-11] MEDS ORDERED: COUGH DROP (SUGAR FREE) LOZ 24 LOZ/1 BOX BUCCAL PRN (15:18)
[2020-08-11] MEDS: BENZONATATE 100 MG CAPSULE PO SCH (20:11)
[2020-08-11] MEDS: ATORVASTATIN 40 MG TAB PO SCH (20:11)
[2020-08-11] MEDS: MONTELUKAST SODIUM 10 MG TABLET PO SCH (20:12)
[2020-08-11] MEDS: ARIPiprazole 5 MG TAB PO SCH (20:12)
[2020-08-12] MEDS: LORazepam 0.5 MG TAB PO PRN (03:26)
[2020-08-12] MEDS: LEVOTHYROXINE SODIUM 50 MCG TABLET PO SCH (05:00)
[2020-08-12] MEDS: LEVOTHYROXINE SODIUM 100 MCG TABLET PO SCH (05:00)
[2020-08-12 07:21] LABS: Hematocrit (blood only) 49.1 % (37-47); Hemoglobin 16.7 g/dL (12.0-16.0); Mean Corpuscular Hemoglobin 29.5 pg (25-34); Mean Corpuscular Volume 86.6 fL (80-100); Mean Platelet Volume 11.4 fL (7.4-10.4); Platelet Count 274 K/uL (130-400); RDW Coefficient of Variation 14.5 % (11.5-14.5); RDW Standard Deviation 46.4 fL (36.4-46.3); Red Blood Count 5.67 M/uL (4.2-5.4); White Blood Count 12.15 K/uL (4.8-10.8)
[2020-08-12 07:46] LABS: Basophils # (auto) 0.04 K/uL (0-0.2); Basophils % (auto) 0.3 %; Immature Granulocytes # (auto) 0.04 K/uL (0.00-0.02); Immature Granulocytes % (auto) 0.3 %; Lymphocytes # (auto) 1.11 K/uL (1.2-3.4); Lymphocytes % (auto) 9.1 %; Monocytes # (auto) 0.77 K/uL (0.11-0.59); Monocytes % (auto) 6.3 %; Neutrophils # (auto) 10.19 K/uL (1.4-6.5); Toxic Vacuolation 1+
[2020-08-12 07:54] LABS: Albumin Level 2.5 gm/dl (3.4-5.0); BUN Creatinine Ratio 37.2 (10-20); Calcium 8.6 mg/dl (8.5-10.1); Creatinine Clr Calc Pharmacy 62.3 ml/min; Est GFR (African American) 70.2; Est GFR (Non-African American) 60.5; Magnesium 2.6 mg/dl (1.8-2.4); Potassium 3.8 mmol/L (3.5-5.1)
[2020-08-12 07:58] LABS: Bilirubin Direct 0.3 mg/dl (0-0.2); Bilirubin,Total 1.3 mg/dl (0.2-1); Total Protein 6.6 gm/dl (6.4-8.2)
[2020-08-12] MEDS: THIAMINE HCL 100 MG in SYRINGE 9 ML IV SCH (08:14)
[2020-08-12] MEDS: dexAMETHasone 6 MG in SYRINGE 0 ML IV SCH (08:14)
[2020-08-12] MEDS: ENOXAPARIN INJ 40 MG/0.4 ML SYR SQ SCH ×2 (08:15→19:14)
[2020-08-12] MEDS: ZINC SULFATE 220 MG CAPSULE PO SCH (08:17)
[2020-08-12] MEDS: ZONISAMIDE PO SCH ×2 (08:17→19:14)
[2020-08-12] MEDS: ASCORBIC ACID 500 MG TAB PO SCH (08:17)
[2020-08-12] MEDS: ASPIRIN 81 MG ECTAB PO SCH (08:17)
[2020-08-12] MEDS: TRIAMTERENE/HCTZ 37.5/25MG CAP PO SCH (08:18)
[2020-08-12] MEDS: FUROSEMIDE 20 MG TAB PO SCH (08:18)
[2020-08-12] MEDS: CITALOPRAM 40 MG TAB PO SCH (08:18)
[2020-08-12] MEDS: BENZONATATE 100 MG CAPSULE PO SCH ×3 (08:21→19:24)
[2020-08-12] MEDS: REMDESIVIR 100mg: Days 2-5 IV SCH (12:07)
--- NOTE | 2020-08-12 15:41 | Hospitalist Progress Note ---
Date of Service August 12, 2020 Assessment & Plan (1) Pneumonia due to 2019 novel coronavirus: patient is transition to oxymask during the day and bipap at night Steroids: Decadron 6 mg p.o.while hypoxic Remdesivir started 08/08/20 -Patient previously has declined convalescent plasma Vitamin C thiamine zinc procalcitonin is negative supporting this being viral pneumonia (2) Respiratory failure with hypoxia: Patient on nasal cannula oxygen with backup of BiPAP when needed (3) Factor V Leiden mutation: Lovenox 40 twice daily dosing (4) Acute kidney injury: Resolved held hydration as it may have a negative impact in her oxygenation (5) Type 2 diabetes mellitus: this is by history without medication will check A1c and watch for steroids to increase, if so will use ssi (6) Depression: continues on citalopram (7) Chronic obstructive pulmonary disease: remains on singulair, was on breo, will have duonebs used prn Admission and Anticipated Discharge Date Admission Date: August 08, 2020 Subjective She was on bipap overnight and not NC during the day at higher flow rates, She continues to have very bothersome cough which is nonproductive improved at times with cough medication, tessalon and cough drops today. Overall continues to be worn out tired and weak. Review of Systems Review of Systems: moderate distress and fatigue no headache, blurry or double vision no speech or swallowing issues no chest pain, pressure or palpitations c/o shortness of breath, non producitve cough no wheezes no abdominal pain, nausea or vomiting, diarrhea or constipation no dysuria, hematuria or frequency no focal joint pain or swelling no back pain, CVA tenderness or radicular pain no bruising, bleeding or rashes no focal signs of weakness or numbness or altered sensation no complaints of anxiety or depression.. Physical Exam Physical Exam: The patient appeared ill she appears to be moderately fatigued Vital signs as documented. Lungs are coarse bibasilar no real improvement from 08/09 Cardiac exam, Rhythm is regular.. No murmurs, rubs or gallops. Abdominal exam reveals normal bowel sounds, soft non tender, no masses Extremities are nonedematous and both pedal pulses are normal. Neurologic exam is alert and oriented, no focal loss of strength or sensation Skin is without bruises or rashes Psychologically is without concerns for anxiety or depression. Results & Data Results & Data ([facility]) Vital Signs (Past 12 Hours) Vital Signs Temp Pulse Pulse Resp BP Pulse Ox 08/12/20 11:33 97.9 F 60 29 H 152/58 H 93 08/12/20 08:00 58 L 96 08/12/20 07:35 97.9 F 63 32 H 142/55 H 95 08/12/20 05:56 93 08/12/20 04:02 61 32 H 92 08/12/20 04:00 94 08/12/20 03:51 98.8 F 67 28 H 156/81 H 89 L PG Care Time/CCT Total # of Minutes Spent Total Time Spent with Patient: Total time spent is greater than 50% in coordination of care (as documented) at patient's floor/unit and/or counseling patient: Coding Level of Care Code 41006 Subseq Hosp Care Lvl 3 Diagnoses Pneumonia due to 2019 novel coronavirus U07.1; J12.89 Respiratory failure with hypoxia J96.91 Chronicity: unspecified Factor V Leiden mutation D68.51 Acute kidney injury N17.9 Type 2 diabetes mellitus E11.9 Depression F32.9 Chronic obstructive pulmonary disease J44.9 (1) Respiratory failure with hypoxia Chronicity: unspecified Qualified Code(s): J96.91 - Respiratory failure, unspecified with hypoxia
[2020-08-12] MEDS: ARIPiprazole 5 MG TAB PO SCH (19:13)
[2020-08-12] MEDS: MONTELUKAST SODIUM 10 MG TABLET PO SCH (19:14)
[2020-08-12] MEDS: ATORVASTATIN 40 MG TAB PO SCH (19:14)
[2020-08-12] MEDS: ZOLPIDEM TARTRATE 5 MG TAB PO PRN (19:24)
[2020-08-13] MEDS: LEVOTHYROXINE SODIUM 100 MCG TABLET PO SCH (05:16)
[2020-08-13] MEDS: LEVOTHYROXINE SODIUM 50 MCG TABLET PO SCH (05:16)
--- NOTE | 2020-08-13 06:49 | Communication Note ---
Date of Service: August 13, 2020 Patient with large melanotic bowel movement. Hemoccult ordered, holding therapeutic lovenox.
--- NOTE | 2020-08-13 07:59 | Hospitalist Progress Note ---
Date of Service August 13, 2020 Assessment & Plan (1) Pneumonia due to 2019 novel coronavirus: patient is transition to high flow oxygen Steroids: Decadron 6 mg p.o.while hypoxic Remdesivir started 08/08/20 -Patient previously has declined convalescent plasma Overall she is progressing with increasing oxygen demands making me concerned that she will have a longer inpatient course. I desperately would like to call her family she denies me the ability to when I asked her on a daily basis procalcitonin is negative supporting this being viral pneumonia (2) Respiratory failure with hypoxia: Patient on nasal cannula oxygen with backup of BiPAP when needed (3) Factor V Leiden mutation: Lovenox 40 twice daily dosing (4) Acute kidney injury: Resolved held hydration as it may have a negative impact in her oxygenation (5) Type 2 diabetes mellitus: this is by history without medication will check A1c and watch for steroids to increase, if so will use ssi (6) Depression: continues on citalopram (7) Chronic obstructive pulmonary disease: remains on singulair, was on breo, continues duonebs used prn Admission and Anticipated Discharge Date Admission Date: August 08, 2020 Subjective Patient appears depressed and withdrawn she requests a sleeping aid tonight she does not me to call her family Review of Systems Review of Systems: moderate distress and fatigue no headache, blurry or double vision no speech or swallowing issues no chest pain, pressure or palpitations Continues to c/o shortness of breath, non productive cough no wheezes no abdominal pain, nausea or vomiting, diarrhea or constipation no dysuria, hematuria or frequency no focal joint pain or swelling no back pain, CVA tenderness or radicular pain no bruising, bleeding or rashes no focal signs of weakness or numbness or altered sensation no complaints of anxiety or depression.. Physical Exam Physical Exam: The patient appeared ill she appears to be moderately fatigued Vital signs as documented. Lungs are coarse bibasilar no real improvement from 08/09 Cardiac exam, Rhythm is regular.. No murmurs, rubs or gallops. Abdominal exam reveals normal bowel sounds, soft non tender, no masses Extremities are nonedematous and both pedal pulses are normal. Neurologic exam is alert and oriented, no focal loss of strength or sensation Skin is without bruises or rashes Psychologically is without concerns for anxiety or depression. Results & Data Results & Data ([facility]) Vital Signs (Past 12 Hours) Vital Signs Temp Pulse Pulse Resp BP BP Pulse Ox 08/13/20 07:33 97.9 F 79 19 137/71 90 08/13/20 07:00 30 H 90 08/13/20 05:00 28 H 94 08/13/20 04:03 98.6 F 81 31 H 139/63 89 L 08/13/20 03:37 25 H 90 08/13/20 03:00 71 23 86 L 08/13/20 02:00 67 36 H 89 L 08/13/20 01:00 67 35 H 89 L 08/13/20 00:00 67 17 88 L 08/12/20 23:59 77 08/12/20 23:32 86 29 H 157/56 H 81 L 08/12/20 23:30 97.7 F 62 22 157/56 H 89 L 08/12/20 23:01 29 H 90 08/12/20 23:00 62 18 90 08/12/20 21:00 29 H 90 08/12/20 20:22 Pulse Ox 08/13/20 07:33 08/13/20 07:00 08/13/20 05:00 08/13/20 04:03 08/13/20 03:37 08/13/20 03:00 08/13/20 02:00 08/13/20 01:00 90 08/13/20 00:00 08/12/20 23:59 08/12/20 23:32 08/12/20 23:30 08/12/20 23:01 08/12/20 23:00 08/12/20 21:00 08/12/20 20:22 90 PG Care Time/CCT Total # of Minutes Spent Total Time Spent with Patient: Total time spent is greater than 50% in coordination of care (as documented) at patient's floor/unit and/or counseling patient: Coding Level of Care Code 72053 Subseq Hosp Care Lvl 3 Diagnoses Pneumonia due to 2019 novel coronavirus U07.1; J12.89 Respiratory failure with hypoxia J96.91 Chronicity: unspecified Factor V Leiden mutation D68.51 Acute kidney injury N17.9 Type 2 diabetes mellitus E11.9 Depression F32.9 Chronic obstructive pulmonary disease J44.9 (1) Respiratory failure with hypoxia Chronicity: unspecified Qualified Code(s): J96.91 - Respiratory failure, unspecified with hypoxia
[2020-08-13] MEDS: FUROSEMIDE 20 MG TAB PO SCH (08:36)
[2020-08-13] MEDS: ASPIRIN 81 MG ECTAB PO SCH (08:36)
[2020-08-13] MEDS: ZINC SULFATE 220 MG CAPSULE PO SCH (08:36)
[2020-08-13] MEDS: TRIAMTERENE/HCTZ 37.5/25MG CAP PO SCH (08:36)
[2020-08-13] MEDS: THIAMINE HCL 100 MG in SYRINGE 9 ML IV SCH (08:36)
[2020-08-13] MEDS: dexAMETHasone 6 MG in SYRINGE 0 ML IV SCH (08:36)
[2020-08-13] MEDS: ASCORBIC ACID 500 MG TAB PO SCH (08:36)
[2020-08-13] MEDS: CITALOPRAM 40 MG TAB PO SCH (08:36)
[2020-08-13] MEDS: BENZONATATE 100 MG CAPSULE PO SCH ×3 (08:36→21:29)
[2020-08-13] MEDS: ZONISAMIDE PO SCH ×2 (08:37→21:29)
[2020-08-13] MEDS: REMDESIVIR 100mg: Days 2-5 IV SCH (11:15)
[2020-08-13] MEDS: ARIPiprazole 5 MG TAB PO SCH (21:27)
[2020-08-13] MEDS: ATORVASTATIN 40 MG TAB PO SCH (21:28)
[2020-08-13] MEDS: MONTELUKAST SODIUM 10 MG TABLET PO SCH (21:28)
[2020-08-13] MEDS: ZOLPIDEM TARTRATE 5 MG TAB PO PRN (21:35)
[2020-08-14] MEDS: LEVOTHYROXINE SODIUM 50 MCG TABLET PO SCH (05:57)
[2020-08-14] MEDS: LEVOTHYROXINE SODIUM 100 MCG TABLET PO SCH (05:57)
[2020-08-14 08:44] LABS: Albumin Globulin Ratio 0.6 (0.9-2); Albumin Level 2.4 gm/dl (3.4-5.0); BUN Creatinine Ratio 48.8 (10-20); Bilirubin,Total 1.1 mg/dl (0.2-1); Calcium 9.4 mg/dl (8.5-10.1); Creatinine Clr Calc Pharmacy 61.2 ml/min; Est GFR (African American) 70.2; Est GFR (Non-African American) 60.5; Globulin 4.2 gm/dl (2.5-4.0); Total Protein 6.6 gm/dl (6.4-8.2)
[2020-08-14 08:45] LABS: Hematocrit (blood only) 46.7 % (37-47); Hemoglobin 16.1 g/dL (12.0-16.0); Mean Corpuscular Hemoglobin 29.7 pg (25-34); Mean Corpuscular Hgb Conc 34.5 g/dL (32-36); Mean Corpuscular Volume 86.2 fL (80-100); Mean Platelet Volume 11.3 fL (7.4-10.4); Platelet Count 393 K/uL (130-400); RDW Coefficient of Variation 14.4 % (11.5-14.5); RDW Standard Deviation 45.2 fL (36.4-46.3); Red Blood Count 5.42 M/uL (4.2-5.4)
--- NOTE | 2020-08-14 08:45 | XRay Report ---
SINGLE VIEW CHEST CLINICAL HISTORY: Hypoxia. FINDINGS: An AP, portable, semierect chest radiograph is compared to study dated 08/11/2020 and corre lated with chest CT dated 10/10/2019. The cardiomediastinal silhouette is unremarkable noting atherosc lerotic calcification of the thoracic aorta. There is chronic elevation of the right hemidiaphragm. I nterstitial airspace consolidation is seen throughout both lungs. No large pleural effusion or pneumo thorax is seen. The skeletal structures are osteopenic. The bony thorax is grossly intact. IMPRESSION: Bilateral interstitial airspace opacities have modestly increased as compared to previous . ACT 112: Negative or not required by law. Electronically signed by: Roel Jalloh M.D. 08/14/2020 8:44 AM
[2020-08-14 09:01] LABS: Potassium 3.5 mmol/L (3.5-5.1)
[2020-08-14] MEDS ORDERED: levoFLOXacin/D5W 750 MG/150 ML BAG IV SCH (10:00)
[2020-08-14] MEDS ORDERED: FUROSEMIDE 20 MG in SYRINGE 0 ML IV ONE (10:00)
[2020-08-14] MEDS: dexAMETHasone 6 MG in SYRINGE 0 ML IV SCH (10:16)
[2020-08-14] MEDS: THIAMINE HCL 100 MG in SYRINGE 9 ML IV SCH (10:17)
[2020-08-14] MEDS ORDERED: ACETAMINOPHEN 325 MG TAB PO ONE (11:21)
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
[2020-08-14] MEDS ORDERED: FUROSEMIDE 40 MG in SYRINGE 0 ML IV ONE (11:51)
[2020-08-14] MEDS ORDERED: FUROSEMIDE 40 MG/4 ML VIAL IV ONE (12:15)
[2020-08-14] MEDS: ASPIRIN 81 MG ECTAB PO SCH (12:48)
[2020-08-14] MEDS: FUROSEMIDE 20 MG TAB PO SCH (12:48)
[2020-08-14] MEDS: TRIAMTERENE/HCTZ 37.5/25MG CAP PO SCH (12:48)
[2020-08-14] MEDS: CITALOPRAM 40 MG TAB PO SCH (12:48)
[2020-08-14] MEDS: BENZONATATE 100 MG CAPSULE PO SCH ×3 (12:49→22:15)
[2020-08-14] MEDS: ZINC SULFATE 220 MG CAPSULE PO SCH (12:49)
[2020-08-14] MEDS: ZONISAMIDE PO SCH ×2 (12:51→20:18)
[2020-08-14] MEDS: ASCORBIC ACID 500 MG TAB PO SCH (12:52)
--- NOTE | 2020-08-14 13:19 | Hospitalist Progress Note ---
Date of Service August 14, 2020 Assessment & Plan (1) Pneumonia due to 2019 novel coronavirus: patient is transition to high flow oxygen Steroids: Decadron 6 mg p.o.while hypoxic Remdesivir started 08/08/20 -Patient previously has declined convalescent plasma, consented and ordered 08/14/19 Overall she is progressing with increasing oxygen demands making me concerned that she will have a longer inpatient course. I was permitted to call her family today and updated her 08/14/19 procalcitonin is negative supporting this being viral pneumonia, however with increased work of breathing, and elevated wbc, will start levaquin given her allergies, check mrsa nasal swab and ua cx (2) Respiratory failure with hypoxia: Patient on nasal cannula oxygen with backup of BiPAP when needed (3) Factor V Leiden mutation: Lovenox 40 twice daily dosing, 0.5mg/kg bid (4) Acute kidney injury: Resolved held hydration as it may have a negative impact in her oxygenation (5) Type 2 diabetes mellitus: this is by history without medication will check A1c and watch for steroids to increase, if so will use ssi (6) Depression: continues on citalopram (7) Chronic obstructive pulmonary disease: remains on singulair, was on breo, continues duonebs used prn Admission and Anticipated Discharge Date Admission Date: August 08, 2020 Subjective Patient appears depressed and withdrawn, she is more short of breath, she is on Bipap, we did discuss intubation and she was non committal on her decision and so was her when I called him. she is agreeable and consented to convalescent plasma and will be ordered although is later in the time course. Was seen by Dr Brower today 08/14/19 Review of Systems Review of Systems: moderate distress and fatigue no headache, blurry or double vision no speech or swallowing issues no chest pain, pressure or palpitations Continues to c/o shortness of breath, non productive cough no wheezes no abdominal pain, nausea or vomiting, diarrhea or constipation no dysuria, hematuria or frequency no focal joint pain or swelling no back pain, CVA tenderness or radicular pain no bruising, bleeding or rashes no focal signs of weakness or numbness or altered sensation no complaints of anxiety or depression.. Physical Exam Physical Exam: The patient appeared ill she appears to be moderately fatigued Vital signs as documented. Lungs are coarse bibasilar no real improvement from 08/09, remains tachypneic but does not sense it Cardiac exam, Rhythm is regular.. No murmurs, rubs or gallops. Abdominal exam reveals normal bowel sounds, soft non tender, no masses Extremities are nonedematous and both pedal pulses are normal. Neurologic exam is alert and oriented, no focal loss of strength or sensation Skin is without bruises or rashes Psychologically is without concerns for anxiety or depression. Results & Data Results & Data ([facility]) Vital Signs (Past 12 Hours) Vital Signs Temp Pulse Pulse Resp BP Pulse Ox 08/14/20 11:10 87 30 H 94 08/14/20 10:51 97.9 F 86 24 152/83 H 94 08/14/20 07:46 68 28 H 92 08/14/20 07:31 97.5 F L 71 26 H 179/98 H 90 08/14/20 05:36 72 38 H 90 08/14/20 05:00 33 H 74 L 08/14/20 03:46 98.6 F 60 30 H 141/70 H 91 08/14/20 03:00 20 PG Care Time/CCT Total # of Minutes Spent Total Time Spent with Patient: Total time spent is greater than 50% in coordination of care (as documented) at patient's floor/unit and/or counseling patient: Coding Level of Care Code 44400 Subseq Hosp Care Lvl 3 Diagnoses Pneumonia due to 2019 novel coronavirus U07.1; J12.89 Respiratory failure with hypoxia J96.91 Chronicity: unspecified Factor V Leiden mutation D68.51 Acute kidney injury N17.9 Type 2 diabetes mellitus E11.9 Depression F32.9 Chronic obstructive pulmonary disease J44.9 (1) Respiratory failure with hypoxia Chronicity: unspecified Qualified Code(s): J96.91 - Respiratory failure, unspecified with hypoxia
[2020-08-14] MEDS: MONTELUKAST SODIUM 10 MG TABLET PO SCH (20:17)
[2020-08-14] MEDS: ARIPiprazole 5 MG TAB PO SCH (20:17)
[2020-08-14] MEDS: ENOXAPARIN INJ 40 MG/0.4 ML SYR SQ SCH (20:18)
[2020-08-14] MEDS: ATORVASTATIN 40 MG TAB PO SCH (20:18)
[2020-08-15] MEDS: LEVOTHYROXINE SODIUM 50 MCG TABLET PO SCH (06:14)
[2020-08-15] MEDS: LEVOTHYROXINE SODIUM 100 MCG TABLET PO SCH (06:14)
[2020-08-15] MEDS: CITALOPRAM 40 MG TAB PO SCH (07:57)
[2020-08-15] MEDS: ASPIRIN 81 MG ECTAB PO SCH (07:58)
[2020-08-15] MEDS: TRIAMTERENE/HCTZ 37.5/25MG CAP PO SCH (07:58)
[2020-08-15] MEDS: ZINC SULFATE 220 MG CAPSULE PO SCH (07:58)
[2020-08-15] MEDS: FUROSEMIDE 20 MG TAB PO SCH (07:59)
[2020-08-15] MEDS: dexAMETHasone 6 MG in SYRINGE 0 ML IV SCH (07:59)
[2020-08-15] MEDS: ZONISAMIDE PO SCH ×2 (08:00→20:33)
[2020-08-15] MEDS: ENOXAPARIN INJ 40 MG/0.4 ML SYR SQ SCH ×2 (08:00→20:34)
[2020-08-15] MEDS: BENZONATATE 100 MG CAPSULE PO SCH ×3 (08:02→20:33)
[2020-08-15] MEDS ORDERED: FUROSEMIDE 40 MG in SYRINGE 0 ML IV ONE (10:29)
--- NOTE | 2020-08-15 10:33 | Pulmonology Progress Note ---
Date of Service August 15, 2020 Assessment & Plan (1) Pneumonia due to 2019 novel coronavirus: 64-year-old female with a history of obesity, grade 1 diastolic dysfunction, restrictive lung disease due to right hemidiaphragmatic elevation, obstructive sleep apnea on CPAP and asthma presenting to the hospital due to COVID-19 inflammation and infection. She is currently hypoxic requiring BiPAP support. Her oxygenation status is improved today. She is currently requiring 15 L of oxygen. She is refusing self proning. I do think she responded to 40 mg of IV Lasix yesterday. We will give another dose of 40 mg IV Lasix today. Follow creatinine and electrolytes closely. Continue dexamethasone 6 mg daily for total of 10 days. Levaquin was discontinued yesterday. I do not think she has bacterial pneumonia at this time. Procalcitonin was within normal limits yesterday. Additionally, I think anxiety does play a role in her tachypnea. I would recommend use of anxiolytics very judiciously in this patient with a tenuous respiratory status. I also think that the right hemidiaphragmatic paralysis is playing a role in her hypoxia and causing intrapulmonary shunt from atelectasis. Notably, I do not think that she has COPD. I did review her previous PFTs which suggest restrictive lung disease with minimal postbronchodilator response. Her DLCO was in fact low, but did correct for alveolar volume which would be consistent with her obesity and diaphragmatic paralysis. She has also had a previous high- resolution CT scan which did not demonstrate any significant emphysema or interstitial lung disease. Pulmonary will continue to follow along with you. Case was discussed with the bedside RN and and the hospitalist, Dr. Medley. (2) Respiratory failure with hypoxia: Chronicity: unspecified Qualified Code(s): J96.91 - Respiratory failure, unspecified with hypoxia (3) Diaphragm dysfunction: (4) Diastolic CHF, acute on chronic: Admission and Anticipated Discharge Date Admission Date: August 08, 2020 Subjective Patient is feeling less short of breath today. She is currently on 15 L of oxygen saturating in the low 90s. She continues to have a nonproductive cough. She denies any chest pain. Review of Systems Review of Systems: All systems reviewed & are unremarkable except as noted in HPI & below Physical Exam Constitutional: well developed and + acute distress Eyes: PERRL, conjunctivae normal, anicteric sclerae Neck: + thick neck Respiratory: + labored breathing, + cough, + abnormal respiratory pattern and + tachypneic Auscultation: lungs clear to auscultation bilaterally Cardiovascular: RRR, no murmur, no edema Gastrointestinal (Abdomen): normal bowel sounds, soft, nontender, no hepatosplenomegaly Musculoskeletal: no cyanosis or clubbing, extremities motor strength 5/5 Skin: no rashes, warm and dry Neurologic: PERRL, EOMI, accommodation nl, no face palsy, no dysarthria Psychiatric: Orientation: alert and oriented x 3 Affect: + anxious affect Results & Data Results & Data ([facility]) Vital Signs (Past 12 Hours) Vital Signs Temp Pulse Pulse Resp BP Pulse Ox Pulse Ox 08/15/20 08:04 98.5 F 88 26 H 123/57 L 90 08/15/20 05:29 98.2 F 53 L 21 149/68 H 93 08/15/20 04:53 22 93 08/15/20 02:51 22 94 08/15/20 01:00 22 94 94 08/14/20 23:59 59 L 08/14/20 23:31 98.6 F 64 21 148/70 H 95 08/14/20 23:00 18 94 I reviewed the vital signs, labs and imaging PG Care Time/CCT Total # of Minutes Spent Total Time Spent with Patient: Total time spent is greater than 50% in coordination of care (as documented) at patient's floor/unit and/or counseling patient: Coding Level of Care Code 29639 Subseq Hosp Care Lvl 3 Diagnoses Pneumonia due to 2019 novel coronavirus U07.1; J12.89 Respiratory failure with hypoxia J96.91 Chronicity: unspecified Diaphragm dysfunction J98.6 Diastolic CHF, acute on chronic I50.33
[2020-08-15 10:36] LABS: Hematocrit (blood only) 42.6 % (37-47); Hemoglobin 14.4 g/dL (12.0-16.0); Mean Corpuscular Hemoglobin 29.2 pg (25-34); Mean Corpuscular Hgb Conc 33.8 g/dL (32-36); Mean Corpuscular Volume 86.4 fL (80-100); Mean Platelet Volume 11.5 fL (7.4-10.4); Platelet Count 427 K/uL (130-400); RDW Coefficient of Variation 14.2 % (11.5-14.5); RDW Standard Deviation 44.5 fL (36.4-46.3); Red Blood Count 4.93 M/uL (4.2-5.4); White Blood Count 25.28 K/uL (4.8-10.8)
[2020-08-15] MEDS ORDERED: FUROSEMIDE 40 MG/4 ML VIAL IV ONE (10:45)
[2020-08-15 10:53] LABS: BUN Creatinine Ratio 39.4 (10-20); Calcium 8.7 mg/dl (8.5-10.1); Creatinine Clr Calc Pharmacy 50.9 ml/min; Est GFR (Non-African American) 48.4; Potassium 2.9 mmol/L (3.5-5.1)
[2020-08-15 10:58] LABS: Basophils # (auto) 0.01 K/uL (0-0.2); Immature Granulocytes # (auto) 0.09 K/uL (0.00-0.02); Immature Granulocytes % (auto) 0.4 %; Lymphocytes % (auto) 1.6 %; Monocytes # (auto) 0.95 K/uL (0.11-0.59); Monocytes % (auto) 3.8 %; Neutrophils # (auto) 23.83 K/uL (1.4-6.5); Neutrophils % (auto) 94.2 %
[2020-08-15] MEDS: POTASSIUM CHLORIDE CRTAB 20 MEQ TABCR PO SCH ×2 (14:00→20:32)
--- NOTE | 2020-08-15 14:50 | Hospitalist Progress Note ---
Date of Service August 15, 2020 Assessment & Plan (1) Pneumonia due to 2019 novel coronavirus: patient stable on high flow today, 15L via wall unit, not requiring vapotherm for time being Decadron 6 mg PO daily for 10 days Remdesivir started 08/08/20 -Patient previously has declined convalescent plasma, consented and ordered 08/14/19 responded well to Lasix 40mg IV on 08/14 and again today, 08/15, try to keep lungs dry encourage proning, patient cannot do it certainly her right hemidiaphragm dysfunction does not help, contributes to her shunt physiology guarded prognosis, she is not working too hard to breathe today (2) Respiratory failure with hypoxia: requiring High flow nasal canula cause is COVID pneumonia with some mild acute on chronic diastolic CHF no signs of bacterial infection (3) Diastolic CHF, acute on chronic: evaluate each day need for Lasix, difficult to tell due to body habitus and laying in bed responded well to Lasix 40mg IV on 08/14 and again on 08/15 reassess tomorrow (4) Hypokalemia: low at 2.9, due to K losses with Lasix start on 20mEq of KCl TID repeat BMP in the morning (5) Factor V Leiden mutation: Lovenox 40 twice daily dosing, 0.5mg/kg bid (6) Acute kidney injury: Resolved held hydration as it may have a negative impact in her oxygenation (7) Type 2 diabetes mellitus: this is by history without medication sugars have been below 200 even on decadron (8) Depression: continues on citalopram (9) Chronic obstructive pulmonary disease: remains on singulair, was on breo, continues duonebs used prn (10) Diaphragm dysfunction: chronic issue, right sided makes shunt physiology more difficult to manage Admission and Anticipated Discharge Date Admission Date: August 08, 2020 Subjective patient says she is feeling better overall today, breathing easier she is on 15L high flow from the wall, no distress, she desaturates when she coughs, takes a few moments for saturations to improve responded well to Lasix yesterday, responded well again today, 1200mL out already discussed with Dr. Brower, appreciate his input on the patient she is eating well, no GI symptoms, no fever, no chest pain she is sleeping okay Review of Systems Review of Systems: All systems reviewed & are unremarkable except as noted in Subjective Respiratory: + cough, + dyspnea and + dyspnea on exertion Physical Exam Constitutional: well developed, well nourished and + overweight; no acute distress Neck: trachea midline, no thyromegaly Respiratory: normal respiratory effort, lungs clear to auscultation Cardiovascular: RRR, no murmur, no edema Gastrointestinal (Abdomen): normal bowel sounds, soft, nontender, no hepatosplenomegaly Musculoskeletal: no cyanosis or clubbing, extremities motor strength 5/5 Skin: no rashes, warm and dry Neurologic: patellar DTR's 2+ bilat, sensation intact and PERRL, EOMI, accommodation nl, no face palsy, no dysarthria Psychiatric: A+Ox3, euthymic affect Lymphatic: no cervical or axillary lymphadenopathy Results & Data Results & Data ([facility]) Vital Signs (Past 12 Hours) Vital Signs Temp Pulse Resp BP Pulse Ox 08/15/20 13:50 72 18 94 08/15/20 11:40 36.9 C 67 22 158/72 H 96 08/15/20 08:04 36.9 C 88 26 H 123/57 L 90 08/15/20 07:00 26 H 08/15/20 05:29 36.8 C 53 L 21 149/68 H 93 08/15/20 04:53 22 93 08/15/20 02:51 22 94 Laboratory Results Laboratory Results - last 24 hr 08/14/20 08/15/20 08/15/20 08:12 05:30 09:50 WBC 25.28 H RBC 4.93 Hgb 14.4 Hct 42.6 MCV 86.4 MCH 29.2 MCHC 33.8 RDW Std Deviation 44.5 RDW Coeff of Ernesto 14.2 Plt Count 427 H MPV 11.5 H Immature Gran % (Auto) 0.4 Neut % (Auto) 94.2 Lymph % (Auto) 1.6 Henderson % (Auto) 3.8 Eos % (Auto) 0.0 Baso % (Auto) 0.0 Neut # (Auto) 23.83 H Lymph # (Auto) 0.40 L Henderson # (Auto) 0.95 H Eos # (Auto) 0.00 Baso # (Auto) 0.01 Immature Gran # (Auto) 0.09 H Sodium Potassium Chloride Carbon Dioxide Anion Gap BUN Creatinine Est Cr Clr Drug Dosing Est GFR ( Amer) Est GFR (Non-Af Amer) BUN/Creatinine Ratio Glucose Calcium Nasal Screen MRSA (PCR) Negative Blood Type A Positive Antibody Screen NEGATIVE 08/15/20 09:50 WBC RBC Hgb Hct MCV MCH MCHC RDW Std Deviation RDW Coeff of Ernesto Plt Count MPV Immature Gran % (Auto) Neut % (Auto) Lymph % (Auto) Henderson % (Auto) Eos % (Auto) Baso % (Auto) Neut # (Auto) Lymph # (Auto) Henderson # (Auto) Eos # (Auto) Baso # (Auto) Immature Gran # (Auto) Sodium 137 Potassium 2.9 L D Chloride 99 Carbon Dioxide 31 Anion Gap 7.0 BUN 47 H Creatinine 1.18 Est Cr Clr Drug Dosing 50.9 Est GFR ( Amer) 56.0 Est GFR (Non-Af Amer) 48.4 BUN/Creatinine Ratio 39.4 H Glucose 182 H Calcium 8.7 Nasal Screen MRSA (PCR) Blood Type Antibody Screen Medications Administered Current Inpatient Medications Acetaminophen (Acetaminophen 325 Mg Tab) 650 mg PO Q4H PRN PRN Reason: pain/fever Stop: 09/08/20 01:54 Albuterol (Albuterol 0.083% Nebu Soln 3 Ml Vial) 5 mg INH Q4H PRN PRN Reason: shortness of breath or wheezing Stop: 09/08/20 01:54 Last Admin: 08/11/20 00:33 Dose: 2.5 mg Documented by: Albuterol (Albut/Ipratrop 3mg/0.5mg Neb 3 Ml Vial) 3 ml INH QID PRN PRN Reason: shortness of breath or wheezing Stop: 09/08/20 01:54 Aripiprazole (Aripiprazole 5 Mg Tab) 2.5 mg PO [facility] Stop: 09/08/20 01:54 Last Admin: 08/14/20 20:17 Dose: 2.5 mg Documented by: Aspirin (Aspirin 81 Mg Ectab) 81 mg PO [facility] Stop: 09/08/20 08:59 Last Admin: 08/15/20 07:58 Dose: 81 mg Documented by: Atorvastatin Calcium (Atorvastatin 40 Mg Tab) 80 mg PO [facility] Stop: 09/08/20 01:54 Last Admin: 08/14/20 20:18 Dose: 80 mg Documented by: Benzonatate (Benzonatate 100 Mg Capsule) 100 mg PO TID [facility] Stop: 09/10/20 20:59 Last Admin: 08/15/20 14:00 Dose: 100 mg Documented by: Citalopram Hydrobromide (Citalopram 40 Mg Tab) 40 mg PO QAM [facility] Stop: 09/08/20 08:59 Last Admin: 08/15/20 07:57 Dose: 40 mg Documented by: Enoxaparin Sodium (Enoxaparin Inj 40 Mg/0.4 Ml Syr) 40 mg SQ Q12H [facility] Stop: 09/08/20 08:59 Last Admin: 08/15/20 08:00 Dose: 40 mg Documented by: Furosemide ([facility] 20 Mg Tab) [facility] Stop: 09/08/20 08:59 Last Admin: 08/15/20 07:59 Dose: 20 mg Documented by: Dexamethasone 6 mg/ Syringe 1.5 mls @ 1 mls/min IV DAILY [facility] Stop: 08/19/20 01:54 Last Admin: 08/15/20 07:59 Dose: 1 mls/min Documented by: Levothyroxine Sodium (Levothyroxine Sodium 100 Mcg Tablet) [facility] Stop: 09/08/20 06:29 Last Admin: 08/15/20 06:14 Dose: 100 mcg Documented by: Levothyroxine Sodium (Levothyroxine Sodium 50 Mcg Tablet) [facility] Stop: 09/08/20 06:29 Last Admin: 08/15/20 06:14 Dose: 50 mcg Documented by: Lorazepam (Lorazepam 0.5 Mg Tab) 0.5 mg PO DAILY PRN PRN Reason: Anxiety Stop: 09/08/20 01:54 Last Admin: 08/12/20 03:26 Dose: 0.5 mg Documented by: Menthol (Cough Drop (Sugar Free) Gucci 24 Gucci/1 Box) 1 gucci BUCCAL Q1H PRN PRN Reason: Sore Throat Stop: 09/10/20 15:17 Last Admin: 08/12/20 01:01 Dose: 1 gucci Documented by: Montelukast Sodium (Montelukast Sodium 10 Mg Tablet) 10 mg PO [facility] Stop: 09/08/20 01:54 Last Admin: 08/14/20 20:17 Dose: 10 mg Documented by: Ondansetron HCl (Ondansetron 4 Mg Od Tab) 4 mg PO Q6 PRN PRN Reason: Nausea Stop: 09/08/20 02:07 Ondansetron HCl (Ondansetron Inj 2 Mg/Ml 2 Ml Vial) 4 mg IV Q6H PRN PRN Reason: Nausea Stop: 09/08/20 01:54 Polyethylene Glycol (Polyethylene (Miralax) 17 Gm Pack) 17 gm PO DAILY PRN PRN Reason: Constipation Stop: 09/08/20 01:54 Potassium Chloride (Potassium Chloride Crtab 20 Meq Tabcr) 20 meq PO TID [facility] Stop: 09/14/20 13:59 Last Admin: 08/15/20 14:00 Dose: 20 meq Documented by: Promethazine HCl (Promethazine Hcl 12.5 Mg/10 Ml Udp) 12.5 mg PO Q6H PRN PRN Reason: Cough Stop: 09/09/20 17:27 Last Admin: 08/11/20 13:35 Dose: 12.5 mg Documented by: Zinc Sulfate (Zinc Sulfate 220 Mg Capsule) 220 mg PO QAM [facility] Stop: 09/07/20 19:14 Last Admin: 08/15/20 07:58 Dose: 220 mg Documented by: Zolpidem Tartrate (Zolpidem Tartrate 5 Mg Tab) 5 mg PO HS PRN PRN Reason: Sleep Stop: 09/08/20 01:54 Last Admin: 08/13/20 21:35 Dose: 5 mg Documented by: Zolpidem Tartrate (Zolpidem Tartrate 10 Mg Tab) 10 mg PO HS PRN PRN Reason: Sleep Stop: 09/12/20 15:14 Zonisamide (Zonisamide) 1 ea PO BID [facility] Stop: 09/09/20 21:29 Last Admin: 08/15/20 08:00 Dose: 1 ea Documented by: PG Care Time/CCT Total # of Minutes Spent Total Time Spent with Patient: Total time spent is greater than 50% in coordination of care (as documented) at patient's floor/unit and/or counseling patient: Coding Level of Care Code 57619 Subseq Hosp Care Lvl 3 Diagnoses Pneumonia due to 2019 novel coronavirus U07.1; J12.89 Respiratory failure with hypoxia J96.91 Chronicity: unspecified Diastolic CHF, acute on chronic I50.33 Hypokalemia E87.6 Factor V Leiden mutation D68.51 Acute kidney injury N17.9 Type 2 diabetes mellitus E11.9 Depression F32.9 Chronic obstructive pulmonary disease J44.9 Diaphragm dysfunction J98.6 (1) Respiratory failure with hypoxia Chronicity: unspecified Qualified Code(s): J96.91 - Respiratory failure, unspecified with hypoxia
[2020-08-15] MEDS: ARIPiprazole 5 MG TAB PO SCH (20:31)
[2020-08-15] MEDS: MONTELUKAST SODIUM 10 MG TABLET PO SCH (20:32)
[2020-08-15] MEDS: ATORVASTATIN 40 MG TAB PO SCH (20:32)
[2020-08-16] MEDS: LEVOTHYROXINE SODIUM 100 MCG TABLET PO SCH (06:20)
[2020-08-16] MEDS: LEVOTHYROXINE SODIUM 50 MCG TABLET PO SCH (06:20)
[2020-08-16] MEDS ORDERED: POTASSIUM CHLORIDE / WTR 10 MEQ/100 ML PLCT IV SCH (07:30)
[2020-08-16 08:26] LABS: Hematocrit (blood only) 45.5 % (37-47); Hemoglobin 15.3 g/dL (12.0-16.0); Mean Corpuscular Hemoglobin 29.3 pg (25-34); Mean Corpuscular Hgb Conc 33.6 g/dL (32-36); Mean Platelet Volume 11.4 fL (7.4-10.4); Platelet Count 513 K/uL (130-400); RDW Coefficient of Variation 13.9 % (11.5-14.5); RDW Standard Deviation 44.5 fL (36.4-46.3); Red Blood Count 5.23 M/uL (4.2-5.4)
[2020-08-16] MEDS: ZINC SULFATE 220 MG CAPSULE PO SCH (08:35)
[2020-08-16] MEDS: dexAMETHasone 6 MG in SYRINGE 0 ML IV SCH (08:36)
[2020-08-16] MEDS: FUROSEMIDE 20 MG TAB PO SCH (08:36)
[2020-08-16] MEDS: ASPIRIN 81 MG ECTAB PO SCH (08:36)
[2020-08-16] MEDS: ZONISAMIDE PO SCH ×2 (08:36→19:58)
[2020-08-16] MEDS: POTASSIUM CHLORIDE CRTAB 20 MEQ TABCR PO SCH ×3 (08:36→20:00)
[2020-08-16] MEDS: CITALOPRAM 40 MG TAB PO SCH (08:36)
[2020-08-16] MEDS: BENZONATATE 100 MG CAPSULE PO SCH ×3 (08:36→20:00)
[2020-08-16] MEDS: ENOXAPARIN INJ 40 MG/0.4 ML SYR SQ SCH ×2 (08:36→19:56)
[2020-08-16 09:19] LABS: BUN Creatinine Ratio 39.7 (10-20); Calcium 9.6 mg/dl (8.5-10.1); Creatinine Clr Calc Pharmacy 51.6 ml/min; Est GFR (African American) 57.2; Est GFR (Non-African American) 49.4; Potassium 3.4 mmol/L (3.5-5.1)
[2020-08-16] MEDS ORDERED: FUROSEMIDE 20 MG in SYRINGE 0 ML IV ONE (12:28)
--- NOTE | 2020-08-16 12:35 | Hospitalist Progress Note ---
Date of Service August 16, 2020 Assessment & Plan (1) Pneumonia due to 2019 novel coronavirus: patient placed on Vapotherm, stable on 30L and 60% FiO2 today Decadron 6 mg PO daily for 10 days Remdesivir started 08/08/20 -Patient previously has declined convalescent plasma, consented and ordered 08/14/19 responded well to Lasix 40mg IV on 08/14 and again, 08/15, try to keep lungs dry will give one more dose of Lasix 20mg IV today in addition to the 20mg PO she got encourage proning, patient cannot do it certainly her right hemidiaphragm dysfunction does not help, contributes to her shunt physiology continues with guarded prognosis but seems to be doing better today no increased work of breathing, eating and drinking well (2) Respiratory failure with hypoxia: requiring high flow at 30L and 60% FiO2 cause is COVID pneumonia with some mild acute on chronic diastolic CHF no signs of bacterial infection (3) Diastolic CHF, acute on chronic: evaluate each day need for Lasix, difficult to tell due to body habitus and laying in bed responded well to Lasix 40mg IV on 08/14 and again on 08/15 negative fluid balance the past two days, Cr is stable will give Lasix 20mg IV today to see if she has further fluid to give (4) Hypokalemia: low at 2.9 on 08/15, due to K losses with Lasix started on 20mEq of KCl TID K up to 3.4, continue supplementation, especially with further Lasix planned (5) Factor V Leiden mutation: Lovenox 40 twice daily dosing, 0.5mg/kg bid (6) Acute kidney injury: Resolved, Cr is 1.1 even on Lasix IV held hydration as it may have a negative impact in her oxygenation (7) Type 2 diabetes mellitus: this is by history without medication sugars have been below 200 even on decadron (8) Depression: continues on citalopram (9) Chronic obstructive pulmonary disease: remains on singulair, was on breo, continues duonebs used prn (10) Diaphragm dysfunction: chronic issue, right sided makes shunt physiology more difficult to manage Admission and Anticipated Discharge Date Admission Date: August 08, 2020 Subjective patient doing well, breathing easier, oxygen requirements down to 30L and 60% FiO2 reviewed labs, WBC is 24k, plts 513, K 3.4, Cr 1.16, BUN 46 she does not have any fever/chills, no sweats, no chest pain has a dry cough no vomiting, no diarrhea called her to provide an update Review of Systems Review of Systems: All systems reviewed & are unremarkable except as noted in Subjective Constitutional: + fatigue and + weakness; no fever, no chills and no sweats Respiratory: + cough, + dyspnea and + dyspnea on exertion; no sputum production Cardiovascular: + edema (trace); no chest pain Gastrointestinal: no abdominal pain, no nausea, no vomiting, no constipation and no diarrhea/loose stools Physical Exam Constitutional: well developed, well nourished and + overweight; no acute distress Neck: trachea midline, no thyromegaly Respiratory: normal respiratory effort, lungs clear to auscultation Cardiovascular: RRR, no murmur, no edema Gastrointestinal (Abdomen): normal bowel sounds, soft, nontender, no hepatosplenomegaly Musculoskeletal: no cyanosis or clubbing, extremities motor strength 5/5 Skin: no rashes, warm and dry Neurologic: patellar DTR's 2+ bilat, sensation intact and PERRL, EOMI, accommodation nl, no face palsy, no dysarthria Psychiatric: A+Ox3, euthymic affect Lymphatic: no cervical or axillary lymphadenopathy Results & Data Results & Data ([facility]) Vital Signs (Past 12 Hours) Vital Signs Temp Pulse Resp BP Pulse Ox Pulse Ox 08/16/20 11:17 65 22 99 08/16/20 09:00 22 95 08/16/20 08:07 67 24 90 08/16/20 07:18 36.8 C 69 16 144/78 H 97 08/16/20 05:00 96 08/16/20 03:00 18 94 08/16/20 02:55 36.5 C 60 17 136/80 93 08/16/20 01:00 93 Laboratory Results Laboratory Results - last 24 hr 08/16/20 08/16/20 08:04 08:04 WBC 24.00 H RBC 5.23 Hgb 15.3 Hct 45.5 MCV 87.0 MCH 29.3 MCHC 33.6 RDW Std Deviation 44.5 RDW Coeff of Ernesto 13.9 Plt Count 513 H MPV 11.4 H Sodium 135 L Potassium 3.4 L D Chloride 98 Carbon Dioxide 29 Anion Gap 8.0 BUN 46 H Creatinine 1.16 Est Cr Clr Drug Dosing 51.6 Est GFR ( Amer) 57.2 Est GFR (Non-Af Amer) 49.4 BUN/Creatinine Ratio 39.7 H Glucose 118 H Calcium 9.6 Medications Administered Current Inpatient Medications Acetaminophen (Acetaminophen 325 Mg Tab) 650 mg PO Q4H PRN PRN Reason: pain/fever Stop: 09/08/20 01:54 Albuterol (Albuterol 0.083% Nebu Soln 3 Ml Vial) 5 mg INH Q4H PRN PRN Reason: shortness of breath or wheezing Stop: 09/08/20 01:54 Last Admin: 08/11/20 00:33 Dose: 2.5 mg Documented by: Albuterol (Albut/Ipratrop 3mg/0.5mg Neb 3 Ml Vial) 3 ml INH QID PRN PRN Reason: shortness of breath or wheezing Stop: 09/08/20 01:54 Aripiprazole (Aripiprazole 5 Mg Tab) 2.5 mg PO [facility] Stop: 09/08/20 01:54 Last Admin: 08/15/20 20:31 Dose: 2.5 mg Documented by: Aspirin (Aspirin 81 Mg Ectab) [facility] Stop: 09/08/20 08:59 Last Admin: 08/16/20 08:36 Dose: 81 mg Documented by: Atorvastatin Calcium (Atorvastatin 40 Mg Tab) 80 mg PO [facility] Stop: 09/08/20 01:54 Last Admin: 08/15/20 20:32 Dose: 80 mg Documented by: Benzonatate (Benzonatate 100 Mg Capsule) 100 mg PO TID [facility] Stop: 09/10/20 20:59 Last Admin: 08/16/20 08:36 Dose: 100 mg Documented by: Citalopram Hydrobromide (Citalopram 40 Mg Tab) 40 mg PO QAM [facility] Stop: 09/08/20 08:59 Last Admin: 08/16/20 08:36 Dose: 40 mg Documented by: Enoxaparin Sodium (Enoxaparin Inj 40 Mg/0.4 Ml Syr) 40 mg SQ Q12H [facility] Stop: 09/08/20 08:59 Last Admin: 08/16/20 08:36 Dose: 40 mg Documented by: Furosemide (Furosemide 20 Mg Tab) 20 mg PO QAM [facility] Stop: 09/08/20 08:59 Last Admin: 08/16/20 08:36 Dose: 20 mg Documented by: Dexamethasone 6 mg/ Syringe 1.5 mls @ 1 mls/min IV DAILY [facility] Stop: 08/19/20 01:54 Last Admin: 08/16/20 08:36 Dose: 1 mls/min Documented by: Furosemide 20 mg/ Syringe 2 mls @ 4 mls/min IV ONE ONE Stop: 08/16/20 12:29 Levothyroxine Sodium (Levothyroxine Sodium 100 Mcg Tablet) [facility]: 09/08/20 06:29 Last Admin: 08/16/20 06:20 Dose: 100 mcg Documented by: Levothyroxine Sodium (Levothyroxine Sodium 50 Mcg Tablet) [facility] Stop: 09/08/20 06:29 Last Admin: 08/16/20 06:20 Dose: 50 mcg Documented by: Lorazepam (Lorazepam 0.5 Mg Tab) 0.5 mg PO DAILY PRN PRN Reason: Anxiety Stop: 09/08/20 01:54 Last Admin: 08/12/20 03:26 Dose: 0.5 mg Documented by: Menthol (Cough Drop (Sugar Free) Gucci 24 Gucci/1 Box) 1 gucci BUCCAL Q1H PRN PRN Reason: Sore Throat Stop: 09/10/20 15:17 Last Admin: 08/12/20 01:01 Dose: 1 gucci Documented by: Montelukast Sodium (Montelukast Sodium 10 Mg Tablet) 10 mg PO [facility] Stop: 09/08/20 01:54 Last Admin: 08/15/20 20:32 Dose: 10 mg Documented by: Ondansetron HCl (Ondansetron 4 Mg Od Tab) 4 mg PO Q6 PRN PRN Reason: Nausea Stop: 09/08/20 02:07 Ondansetron HCl (Ondansetron Inj 2 Mg/Ml 2 Ml Vial) 4 mg IV Q6H PRN PRN Reason: Nausea Stop: 09/08/20 01:54 Polyethylene Glycol (Polyethylene (Miralax) 17 Gm Pack) 17 gm PO DAILY PRN PRN Reason: Constipation Stop: 09/08/20 01:54 Potassium Chloride (Potassium Chloride Crtab 20 Meq Tabcr) 20 meq PO TID [facility] Stop: 09/14/20 13:59 Last Admin: 08/16/20 08:36 Dose: 20 meq Documented by: Promethazine HCl (Promethazine Hcl 12.5 Mg/10 Ml Udp) 12.5 mg PO Q6H PRN PRN Reason: Cough Stop: 09/09/20 17:27 Last Admin: 08/11/20 13:35 Dose: 12.5 mg Documented by: Zinc Sulfate (Zinc Sulfate 220 Mg Capsule) 220 mg PO QAM [facility] Stop: 09/07/20 19:14 Last Admin: 08/16/20 08:35 Dose: 220 mg Documented by: Zolpidem Tartrate (Zolpidem Tartrate 5 Mg Tab) 5 mg PO HS PRN PRN Reason: Sleep Stop: 09/08/20 01:54 Last Admin: 08/13/20 21:35 Dose: 5 mg Documented by: Zolpidem Tartrate (Zolpidem Tartrate 10 Mg Tab) 10 mg PO HS PRN PRN Reason: Sleep Stop: 09/12/20 15:14 Zonisamide (Zonisamide) 1 ea PO BID [facility] Stop: 09/09/20 21:29 Last Admin: 08/16/20 08:36 Dose: 1 ea Documented by: PG Care Time/CCT Total # of Minutes Spent Total Time Spent with Patient: Total time spent is greater than 50% in coordination of care (as documented) at patient's floor/unit and/or counseling patient: Coding Level of Care Code 74344 Subseq Hosp Care Lvl 3 Diagnoses Pneumonia due to 2019 novel coronavirus U07.1; J12.89 Respiratory failure with hypoxia J96.91 Chronicity: unspecified Diastolic CHF, acute on chronic I50.33 Hypokalemia E87.6 Factor V Leiden mutation D68.51 Acute kidney injury N17.9 Type 2 diabetes mellitus E11.9 Depression F32.9 Chronic obstructive pulmonary disease J44.9 Diaphragm dysfunction J98.6 (1) Respiratory failure with hypoxia Chronicity: unspecified Qualified Code(s): J96.91 - Respiratory failure, unspecified with hypoxia
[2020-08-16] MEDS ORDERED: FUROSEMIDE 40 MG/4 ML VIAL IV ONE (12:45)
--- NOTE | 2020-08-16 18:57 | Pulmonology Progress Note ---
Date of Service August 16, 2020 Assessment & Plan (1) Diastolic CHF, acute on chronic: (2) Diaphragm dysfunction: (3) Respiratory failure with hypoxia: --Acute hypoxic respiratory failure Secondary to multilobar COVID-19 pneumonia On top of stage I diastolic CHF Complete the course of dexamethasone for total of 10 days Continue with O2 supplementation to keep oxygen saturation 90-92% Recommend alternating between high flow and BiPAP. Incentive spirometry, guaifenesin. Lovenox 40 mg every 12 --Elevated right hemidiaphragm Chronic --History of asthma Following with vocational adviser [facility] Plan: Continue with diuresis as tolerated to keep the patient negative balance Continue with dexamethasone to complete the course of 10 days We are making progress when it comes to her oxygen requirement. We will gradually titrate down to nasal cannula as possible the next couple of days. Physical therapy will be helpful for the patient. Please note the above document was generated using voice recognition software. It may contain grammatical, syntax or spelling errors.Any formal questions or concerns about the content, text or information contained within the body of this dictation should be directly addressed to the provider for clarification. Chronicity: unspecified Qualified Code(s): J96.91 - Respiratory failure, unspecified with hypoxia (4) Pneumonia due to 2019 novel coronavirus: Admission and Anticipated Discharge Date Admission Date: August 08, 2020 Subjective Patient seen and examined at bedside. No acute distress, no adverse events overnight. Patient was on high flow 30 L, 60% saturating 95% at rest. Went down to 40%. Patient states that she is feeling better. Denies any chest pain. No headache, no nausea, no vomiting. Patient is started to eat well now. Review of Systems Review of Systems: All systems reviewed & are unremarkable except as noted in Subjective Physical Exam Physical Exam: Constitutional: No acute distress HEENT: EOMI, PERRLA Respiratory system: Decreased air entry bilaterally, no wheeze, no rhonchi, positive crackles bilateral lower lobes CVS: S1-S2 positive, no murmurs or gallops Abdomen: Soft, nontender, nondistended, positive bowel sounds x4 Extremities: +2 pulses bilaterally radialis/ dorsalis pedis, no cyanosis, no edema Neuro: Awake alert oriented x3 Psych: Normal mood and affect G/U: Positive Bautista Results & Data Results & Data ([facility]) Vital Signs (Past 12 Hours) Vital Signs Temp Pulse Pulse Resp BP Pulse Ox Pulse Ox 08/16/20 18:43 20 92 08/16/20 15:54 94 08/16/20 15:26 61 08/16/20 15:25 36.6 C 65 20 138/81 93 08/16/20 11:30 36.6 C 65 20 139/78 94 08/16/20 11:17 65 22 99 08/16/20 09:00 22 95 08/16/20 08:52 66 08/16/20 08:07 67 24 90 08/16/20 07:18 36.8 C 69 16 144/78 H 97 08/16/20 08:04 08/16/20 08:04 PG Care Time/CCT Total # of Minutes Spent Total Time Spent with Patient: Total time spent is greater than 50% in coordination of care (as documented) at patient's floor/unit and/or counseling patient: Coding Level of Care Code 02706 Subseq Hosp Care Lvl 3 Diagnoses Diastolic CHF, acute on chronic I50.33 Diaphragm dysfunction J98.6 Respiratory failure with hypoxia J96.91 Chronicity: unspecified Pneumonia due to 2019 novel coronavirus U07.1; J12.89
[2020-08-16] MEDS: ATORVASTATIN 40 MG TAB PO SCH (19:56)
[2020-08-16] MEDS: MONTELUKAST SODIUM 10 MG TABLET PO SCH (19:57)
[2020-08-16] MEDS: ARIPiprazole 5 MG TAB PO SCH (19:57)
[2020-08-16] MEDS: ZOLPIDEM TARTRATE 5 MG TAB PO PRN (20:08)
[2020-08-17] MEDS: LEVOTHYROXINE SODIUM 100 MCG TABLET PO SCH (05:46)
[2020-08-17] MEDS: LEVOTHYROXINE SODIUM 50 MCG TABLET PO SCH (05:46)
[2020-08-17] MEDS: ASPIRIN 81 MG ECTAB PO SCH (08:49)
[2020-08-17] MEDS: POTASSIUM CHLORIDE CRTAB 20 MEQ TABCR PO SCH ×3 (08:49→20:13)
[2020-08-17] MEDS: ENOXAPARIN INJ 40 MG/0.4 ML SYR SQ SCH ×2 (08:50→20:14)
[2020-08-17] MEDS: CITALOPRAM 40 MG TAB PO SCH (08:50)
[2020-08-17] MEDS: ZINC SULFATE 220 MG CAPSULE PO SCH (08:50)
[2020-08-17] MEDS: dexAMETHasone 6 MG in SYRINGE 0 ML IV SCH (08:50)
[2020-08-17] MEDS: FUROSEMIDE 20 MG TAB PO SCH (08:50)
[2020-08-17] MEDS: ZONISAMIDE PO SCH ×2 (08:50→20:13)
[2020-08-17] MEDS: BENZONATATE 100 MG CAPSULE PO SCH ×3 (08:54→20:16)
--- NOTE | 2020-08-17 10:09 | Hospitalist Progress Note ---
Date of Service August 17, 2020 Assessment & Plan (1) Pneumonia due to 2019 novel coronavirus: patient placed on Vapotherm, increased requirements at 40L and 80% FiO2 today no distress Decadron 6 mg PO daily, today is day 10, will continue a little longer since she is requiring high flow Remdesivir started 08/08/20 -Patient previously has declined convalescent plasma, consented and ordered 08/14/19 responded well to Lasix 40mg IV on 08/14 and again, 08/15, try to keep lungs dry gave one more dose of Lasix 20mg IV 08/16 in addition to the 20mg PO she got not as much diuresis, hold on dose today and re-evaluate tomorrow encourage proning, patient cannot do it but will lay on her side certainly her right hemidiaphragm dysfunction does not help, contributes to her shunt physiology continues with guarded prognosis no increased work of breathing, eating and drinking okay (2) Respiratory failure with hypoxia: requiring high flow at 40L and 80% FiO2 cause is COVID pneumonia with some mild acute on chronic diastolic CHF no signs of bacterial infection slightly worse today, guarded prognosis (3) Diastolic CHF, acute on chronic: evaluate each day need for Lasix, difficult to tell due to body habitus and laying in bed responded well to Lasix 40mg IV on 08/14 and again on 08/15 negative fluid balance the past three days, Cr is stable no lasix today, reassess tomorrow follow up BMP (4) Hypokalemia: low at 2.9 on 08/15, due to K losses with Lasix started on 20mEq of KCl TID K up to 3.4 on 08/16, continue supplementation, especially with further Lasix pl anned follow up on BMP today, still not drawn this morning (5) Factor V Leiden mutation: Lovenox 40 twice daily dosing, 0.5mg/kg bid (6) Acute kidney injury: Resolved, Cr is 1.1 on 08/16 even on Lasix IV (7) Type 2 diabetes mellitus: this is by history without medication sugars have been below 200 even on decadron (8) Depression: continues on citalopram (9) Chronic obstructive pulmonary disease: remains on singulair, was on breo, continues duonebs used prn (10) Diaphragm dysfunction: chronic issue, right sided makes shunt physiology more difficult to manage Admission and Anticipated Discharge Date Admission Date: August 08, 2020 Subjective patient feels about the same, said she slept okay last night ate a little bit, not very hungry this morning no fever, no sweats, no cough, does not feel short of breath laying flat she says she can try to lay on her side today no labs she is on 40L and 80% FiO2 and saturations 92% she is depressed, says she wants to go home discussed that she will be in the hospital for at least another week if not more, need to stay strong mentally Review of Systems Review of Systems: All systems reviewed & are unremarkable except as noted in Subjective Physical Exam Constitutional: well developed, well nourished and + overweight; no acute distress Neck: trachea midline, no thyromegaly Respiratory: normal respiratory effort, lungs clear to auscultation Cardiovascular: RRR, no murmur, no edema Gastrointestinal (Abdomen): normal bowel sounds, soft, nontender, no hepatosplenomegaly Musculoskeletal: no cyanosis or clubbing, extremities motor strength 5/5 Skin: no rashes, warm and dry Neurologic: patellar DTR's 2+ bilat, sensation intact and PERRL, EOMI, accommodation nl, no face palsy, no dysarthria Psychiatric: A+Ox3, euthymic affect Lymphatic: no cervical or axillary lymphadenopathy Results & Data Results & Data ([facility]) Vital Signs (Past 12 Hours) Vital Signs Temp Pulse Pulse Resp BP Pulse Ox 08/17/20 07:41 56 L 16 94 08/17/20 06:00 20 89 L 08/17/20 04:58 36.7 C 54 L 20 138/78 94 08/17/20 04:00 20 90 08/17/20 03:34 56 L 20 93 08/17/20 02:00 20 93 08/17/20 01:00 36.7 C 62 20 138/77 90 08/17/20 00:46 59 L 20 89 L 08/17/20 00:00 18 93 08/16/20 23:59 57 L Medications Administered Current Inpatient Medications Acetaminophen (Acetaminophen 325 Mg Tab) 650 mg PO Q4H PRN PRN Reason: pain/fever Stop: 09/08/20 01:54 Albuterol (Albuterol 0.083% Nebu Soln 3 Ml Vial) 5 mg INH Q4H PRN PRN Reason: shortness of breath or wheezing Stop: 09/08/20 01:54 Last Admin: 08/11/20 00:33 Dose: 2.5 mg Documented by: Albuterol (Albut/Ipratrop 3mg/0.5mg Neb 3 Ml Vial) 3 ml INH QID PRN PRN Reason: shortness of breath or wheezing Stop: 09/08/20 01:54 Aripiprazole (Aripiprazole 5 Mg Tab) 2.5 mg PO [facility] Stop: 09/08/20 01:54 Last Admin: 08/16/20 19:57 Dose: 2.5 mg Documented by: Aspirin (Aspirin 81 Mg Ectab) 81 mg PO [facility] Stop: 09/08/20 08:59 Last Admin: 08/17/20 08:49 Dose: 81 mg Documented by: Atorvastatin Calcium (Atorvastatin 40 Mg Tab) 80 mg PO [facility] Stop: 09/08/20 01:54 Last Admin: 08/16/20 19:56 Dose: 80 mg Documented by: Benzonatate (Benzonatate 100 Mg Capsule) 100 mg PO TID [facility] Stop: 09/10/20 20:59 Last Admin: 08/17/20 08:54 Dose: 100 mg Documented by: Citalopram Hydrobromide (Citalopram 40 Mg Tab) 40 mg PO [facility] Stop: 09/08/20 08:59 Last Admin: 08/17/20 08:50 Dose: 40 mg Documented by: Enoxaparin Sodium (Enoxaparin Inj 40 Mg/0.4 Ml Syr) 40 mg SQ Q12H [facility] Stop: 09/08/20 08:59 Last Admin: 08/17/20 08:50 Dose: 40 mg Documented by: Furosemide (Furosemide 20 Mg Tab) 20 mg PO [facility] Stop: 09/08/20 08:59 Last Admin: 08/17/20 08:50 Dose: 20 mg Documented by: Dexamethasone 6 mg/ Syringe 1.5 mls @ 1 mls/min IV DAILY [facility] Stop: 08/19/20 01:54 Last Admin: 08/17/20 08:50 Dose: 1 mls/min Documented by: Levothyroxine Sodium (Levothyroxine Sodium 100 Mcg Tablet) [facility] Stop: 09/08/20 06:29 Last Admin: 08/17/20 05:46 Dose: 100 mcg Documented by: Levothyroxine Sodium (Levothyroxine Sodium 50 Mcg Tablet) 50 mcg PO DAILYBB [facility] Stop: 09/08/20 06:29 Last Admin: 08/17/20 05:46 Dose: 50 mcg Documented by: Lorazepam (Lorazepam 0.5 Mg Tab) 0.5 mg PO DAILY PRN PRN Reason: Anxiety Stop: 09/08/20 01:54 Last Admin: 08/12/20 03:26 Dose: 0.5 mg Documented by: Menthol (Cough Drop (Sugar Free) Gucci 24 Gucci/1 Box) 1 gucci BUCCAL Q1H PRN PRN Reason: Sore Throat Stop: 09/10/20 15:17 Last Admin: 08/12/20 01:01 Dose: 1 gucci Documented by: Montelukast Sodium (Montelukast Sodium 10 Mg Tablet) 10 mg PO HS [facility] Stop: 09/08/20 01:54 Last Admin: 08/16/20 19:57 Dose: 10 mg Documented by: Ondansetron HCl (Ondansetron 4 Mg Od Tab) 4 mg PO Q6 PRN PRN Reason: Nausea Stop: 09/08/20 02:07 Ondansetron HCl (Ondansetron Inj 2 Mg/Ml 2 Ml Vial) 4 mg IV Q6H PRN PRN Reason: Nausea Stop: 09/08/20 01:54 Polyethylene Glycol (Polyethylene (Miralax) 17 Gm Pack) 17 gm PO DAILY PRN PRN Reason: Constipation Stop: 09/08/20 01:54 Potassium Chloride (Potassium Chloride Crtab 20 Meq Tabcr) 20 meq PO TID [facility] Stop: 09/14/20 13:59 Last Admin: 08/17/20 08:49 Dose: 20 meq Documented by: Promethazine HCl (Promethazine Hcl 12.5 Mg/10 Ml Udp) 12.5 mg PO Q6H PRN PRN Reason: Cough Stop: 09/09/20 17:27 Last Admin: 08/11/20 13:35 Dose: 12.5 mg Documented by: Zinc Sulfate (Zinc Sulfate 220 Mg Capsule) 220 mg PO QAM [facility] Stop: 09/07/20 19:14 Last Admin: 08/17/20 08:50 Dose: 220 mg Documented by: Zolpidem Tartrate (Zolpidem Tartrate 5 Mg Tab) 5 mg PO HS PRN PRN Reason: Sleep Stop: 09/08/20 01:54 Last Admin: 08/16/20 20:08 Dose: 5 mg Documented by: Zolpidem Tartrate (Zolpidem Tartrate 10 Mg Tab) 10 mg PO HS PRN PRN Reason: Sleep Stop: 09/12/20 15:14 Zonisamide (Zonisamide) 1 ea PO BID [facility] Stop: 09/09/20 21:29 Last Admin: 08/17/20 08:50 Dose: 1 ea Documented by: PG Care Time/CCT Total # of Minutes Spent Total Time Spent with Patient: Total time spent is greater than 50% in coordination of care (as documented) at patient's floor/unit and/or counseling patient: Coding Level of Care Code 26477 Subseq Hosp Care Lvl 3 Diagnoses Pneumonia due to 2019 novel coronavirus U07.1; J12.89 Respiratory failure with hypoxia J96.91 Chronicity: unspecified Diastolic CHF, acute on chronic I50.33 Hypokalemia E87.6 Factor V Leiden mutation D68.51 Acute kidney injury N17.9 Type 2 diabetes mellitus E11.9 Depression F32.9 Chronic obstructive pulmonary disease J44.9 Diaphragm dysfunction J98.6 (1) Respiratory failure with hypoxia Chronicity: unspecified Qualified Code(s): J96.91 - Respiratory failure, u nspecified with hypoxia
[2020-08-17 11:25] LABS: Hematocrit (blood only) 42.2 % (37-47); Hemoglobin 14.6 g/dL (12.0-16.0); Mean Corpuscular Hemoglobin 29.4 pg (25-34); Mean Corpuscular Hgb Conc 34.6 g/dL (32-36); Mean Corpuscular Volume 85.1 fL (80-100); Mean Platelet Volume 11.9 fL (7.4-10.4); Nucleated RBC # (auto) 0.02 K/uL (0-0); Nucleated RBC % (auto) 0.1 %; Platelet Count 432 K/uL (130-400); RDW Standard Deviation 43.4 fL (36.4-46.3); Red Blood Count 4.96 M/uL (4.2-5.4)
[2020-08-17 11:44] LABS: Calcium 9.5 mg/dl (8.5-10.1); Creatinine Clr Calc Pharmacy 56.5 ml/min; Est GFR (African American) 63.8; Est GFR (Non-African American) 55.1; Potassium 3.8 mmol/L (3.5-5.1)
--- NOTE | 2020-08-17 13:13 | Pulmonology Progress Note ---
Date of Service August 17, 2020 Assessment & Plan (1) Diastolic CHF, acute on chronic: (2) Diaphragm dysfunction: (3) Respiratory failure with hypoxia: --Acute hypoxic respiratory failure Secondary to multilobar COVID-19 pneumonia On top of stage I diastolic CHF Complete the course of dexamethasone for total of 10 days Continue with O2 supplementation to keep oxygen saturation 90-92% Recommend alternating between high flow and BiPAP. Incentive spirometry, guaifenesin. Lovenox 40 mg every 12 --Elevated right hemidiaphragm Chronic --History of asthma Following with jewel blocker and sawyer On [facility] Plan: In/out: -100 mL Compared to yesterday patient's oxygen requirement has gone up. Patient is not in distress when it comes to her respiratory rate. Although the nasal cannula was not in place could be one of the reasons of her needing high oxygen. I will repeat a chest x-ray today. Can alternate between high flow and BiPAP if need be. Although I do doubt the patient will tolerate BiPAP given the history of anxiety she has. Please note the above document was generated using voice recognition software. It may contain grammatical, syntax or spelling errors.Any formal questions or concerns about the content, text or information contained within the body of this dictation should be directly addressed to the provider for clarification. Chronicity: unspecified Qualified Code(s): J96.91 - Respiratory failure, unspecified with hypoxia (4) Pneumonia due to 2019 novel coronavirus: Admission and Anticipated Discharge Date Admission Date: August 08, 2020 Subjective Patient seen and examined at bedside. At the time of examination patient was saturating 94% on 90% FiO2 and 35 l high flow. She was not in distress. The high flow cannula was not in her nose. She was having breakfast at the time of examination. She denied any chest pain. Says that she is feeling the same when it comes to her breathing. Has been afebrile. Review of Systems Review of Systems: All systems reviewed & are unremarkable except as noted in Subjective Physical Exam Physical Exam: Constitutional: No acute distress HEENT: EOMI, PERRLA Respiratory system: Decreased air entry bilaterally, no wheeze, no rhonchi, positive crackles bilateral lower lobes CVS: S1-S2 positive, no murmurs or gallops Abdomen: Soft, nontender, nondistended, positive bowel sounds x4 Extremities: +2 pulses bilaterally radialis/ dorsalis pedis, no cyanosis, no edema Neuro: Awake alert oriented x3 Psych: Normal mood and affect G/U: Positive Bautista Results & Data Results & Data ([facility]) Vital Signs (Past 12 Hours) Vital Signs Temp Pulse Resp BP Pulse Ox 08/17/20 12:02 36.6 C 60 18 132/67 94 08/17/20 11:23 63 18 94 08/17/20 08:00 36.6 C 69 18 145/68 H 97 08/17/20 07:41 56 L 16 94 08/17/20 06:00 20 89 L 08/17/20 04:58 36.7 C 54 L 20 138/78 94 08/17/20 04:00 20 90 08/17/20 03:34 56 L 20 93 08/17/20 02:00 20 93 08/17/20 10:48 08/17/20 10:48 PG Care Time/CCT Total # of Minutes Spent Total Time Spent with Patient: Total time spent is greater than 50% in coordination of care (as documented) at patient's floor/unit and/or counseling patient: Coding Level of Care Code 98248 Subseq Hosp Care Lvl 3 Diagnoses Diastolic CHF, acute on chronic I50.33 Diaphragm dysfunction J98.6 Respiratory failure with hypoxia J96.91 Chronicity: unspecified Pneumonia due to 2019 novel coronavirus U07.1; J12.89
--- NOTE | 2020-08-17 14:19 | XRay Report ---
XR chest 1V portable HISTORY: Shortness of breath. Pneumonia. Follow-up. COMPARISON: Chest 08/14/2020. FINDINGS: No pneumothorax. No pleural effusions. The heart remains mildly enlarged. There is mild josue vation the right hemidiaphragm, unchanged. Patchy peripheral and bibasilar airspace opacities have pr ogressed. IMPRESSION: Moderate multifocal airspace opacities have progressed. This is consistent with a pneumonia. ACT 112: Negative or not required by law. Electronically signed by: Jorge Tompkins M.D. 08/17/2020 2:18 PM
[2020-08-17] MEDS: ARIPiprazole 5 MG TAB PO SCH (20:14)
[2020-08-17] MEDS: MONTELUKAST SODIUM 10 MG TABLET PO SCH (20:14)
[2020-08-17] MEDS: ATORVASTATIN 40 MG TAB PO SCH (20:15)
[2020-08-18] MEDS: ALBUT/IPRATROP 3MG/0.5MG NEB 3 ML VIAL INH PRN ×2 (02:08→06:37)
[2020-08-18] MEDS: LEVOTHYROXINE SODIUM 50 MCG TABLET PO SCH (02:54)
[2020-08-18] MEDS: ZOLPIDEM TARTRATE 5 MG TAB PO PRN ×2 (02:54→21:23)
[2020-08-18] MEDS: LEVOTHYROXINE SODIUM 100 MCG TABLET PO SCH (02:54)
[2020-08-18 09:21] LABS: Hematocrit (blood only) 42.1 % (37-47); Hemoglobin 14.2 g/dL (12.0-16.0); Mean Corpuscular Hgb Conc 33.7 g/dL (32-36); Mean Corpuscular Volume 86.1 fL (80-100); Mean Platelet Volume 11.4 fL (7.4-10.4); Platelet Count 420 K/uL (130-400); RDW Coefficient of Variation 13.9 % (11.5-14.5); RDW Standard Deviation 43.5 fL (36.4-46.3); Red Blood Count 4.89 M/uL (4.2-5.4); White Blood Count 17.87 K/uL (4.8-10.8)
[2020-08-18] MEDS: ZINC SULFATE 220 MG CAPSULE PO SCH (09:59)
[2020-08-18] MEDS: CITALOPRAM 40 MG TAB PO SCH (09:59)
[2020-08-18] MEDS: dexAMETHasone 6 MG in SYRINGE 0 ML IV SCH (09:59)
[2020-08-18] MEDS: ASPIRIN 81 MG ECTAB PO SCH (09:59)
[2020-08-18] MEDS: FUROSEMIDE 20 MG TAB PO SCH (09:59)
[2020-08-18] MEDS: POTASSIUM CHLORIDE CRTAB 20 MEQ TABCR PO SCH ×3 (10:00→21:17)
[2020-08-18] MEDS: ENOXAPARIN INJ 40 MG/0.4 ML SYR SQ SCH ×2 (10:00→21:18)
[2020-08-18] MEDS: BENZONATATE 100 MG CAPSULE PO SCH ×3 (10:00→21:17)
[2020-08-18] MEDS: ZONISAMIDE PO SCH ×2 (10:01→21:17)
--- NOTE | 2020-08-18 10:02 | Pulmonology Progress Note ---
Date of Service August 18, 2020 Assessment & Plan (1) Diastolic CHF, acute on chronic: (2) Diaphragm dysfunction: (3) Respiratory failure with hypoxia: --Acute hypoxic respiratory failure Secondary to multilobar COVID-19 pneumonia On top of stage I diastolic CHF Complete the course of dexamethasone for total of 10 days Continue with O2 supplementation to keep oxygen saturation 90-92% Recommend alternating between high flow and BiPAP. Incentive spirometry, guaifenesin. Lovenox 40 mg every 12 --Elevated right hemidiaphragm Chronic --History of [facility] Plan: In/out: -1260, urine output 1500 mL Continue with diuresis. We have made progress again when it comes to her breathing. Patient is -1260 I think that is also playing a role. Whenever patient coughs her saturation goes down which is predicted. Add antitussive medications [id number]. Follow-up chest x-ray in the morning Please note the above document was generated using voice recognition software. It may contain grammatical, syntax or spelling errors.Any formal questions or concerns about the content, text or information contained within the body of this dictation should be directly addressed to the provider for clarification. Chronicity: unspecified Qualified Code(s): J96.91 - Respiratory failure, unspecified with hypoxia Admission and Anticipated Discharge Date Admission Date: August 08, 2020 Subjective Patient seen and examined at bedside. No acute distress, no adverse events overnight. Patient did say that she was coughing a lot at night. Not bringing up much phlegm. Patient was saturating 94% on 65% FiO2, 30 L. She was breathing in the high teens to low 20s. Good appetite. Denies any chest pain, no dizziness. No nausea or vomiting. Review of Systems Review of Systems: All systems reviewed & are unremarkable except as noted in Subjective Physical Exam Physical Exam: Constitutional: No acute distress HEENT: EOMI, PERRLA Respiratory system: Decreased air entry bilaterally, no wheeze, no rhonchi, positive crackles bilateral lower lobes CVS: S1-S2 positive, no murmurs or gallops Abdomen: Soft, nontender, nondistended, positive bowel sounds x4 Extremities: +2 pulses bilaterally radialis/ dorsalis pedis, no cyanosis, no edema Neuro: Awake alert oriented x3 Psych: Normal mood and affect G/U: Positive Bautista Skin: no rashes, warm and dry Lymphatic: no cervical or axillary lymphadenopathy Results & Data Results & Data ([facility]) Vital Signs (Past 12 Hours) Vital Signs Temp Pulse Pulse Resp BP Pulse Ox Pulse Ox 08/18/20 09:58 96 08/18/20 08:24 90 08/18/20 08:23 70 L 08/18/20 07:57 36.6 C 69 28 H 151/77 H 94 08/18/20 06:39 66 20 92 08/18/20 06:37 66 20 92 08/18/20 05:53 94 08/18/20 04:40 60 20 94 08/18/20 03:15 36.7 C 66 20 142/76 H 90 08/18/20 02:08 57 L 22 93 08/18/20 00:35 54 L 20 93 08/17/20 23:59 59 L 08/17/20 23:42 36.5 C 66 20 139/73 88 L 08/18/20 09:06 08/18/20 09:06 PG Care Time/CCT Total # of Minutes Spent Total Time Spent with Patient: Total time spent is greater than 50% in coordination of care (as documented) at patient's floor/unit and/or counseling patient: Coding Level of Care Code 89220 Subseq Hosp Care Lvl 3 Diagnoses Diastolic CHF, acute on chronic I50.33 Diaphragm dysfunction J98.6 Respiratory failure with hypoxia J96.91 Chronicity: unspecified
[2020-08-18 10:04] LABS: BUN Creatinine Ratio 33.6 (10-20); Calcium 8.9 mg/dl (8.5-10.1); Creatinine Clr Calc Pharmacy 65.8 ml/min; Est GFR (African American) 76.7; Est GFR (Non-African American) 66.2
--- NOTE | 2020-08-18 10:07 | Hospitalist Progress Note ---
Date of Service August 18, 2020 Assessment & Plan (1) Pneumonia due to 2019 novel coronavirus: patient placed on Vapotherm, increased requirements at 30L and 60% FiO2 today no distress Decadron 6 mg PO daily, today is day 11, will stop after tomorrow as improving Remdesivir started 08/08/20 -Patient previously has declined convalescent plasma, consented and ordered 08/14/19 responded well to Lasix 40mg IV on 08/14 and again, 08/15, try to keep lungs dry give Lasix 40mg IV this morning, Cr is stable, watch response encourage proning, patient cannot do it but will lay on her side certainly her right hemidiaphragm dysfunction does not help, contributes to her shunt physiology continues with guarded prognosis but slowly improving no increased work of breathing, eating and drinking okay (2) Respiratory failure with hypoxia: requiring high flow at 30L and 60% FiO2 cause is COVID pneumonia with some mild acute on chronic diastolic CHF no signs of bacterial infection slightly better today, continue to try to wean oxygen (3) Diastolic CHF, acute on chronic: evaluate each day need for Lasix, difficult to tell due to body habitus and laying in bed responded well to Lasix 40mg IV on 08/14 and again on 08/15 negative fluid balance the past three days, Cr is stable will give Lasix 40mg IV this morning, follow again for response (4) Hypokalemia: low at 2.9 on 08/15, due to K losses with Lasix started on 20mEq of KCl TID K up to 4.0 today (5) Factor V Leiden mutation: Lovenox 40 twice daily dosing, 0.5mg/kg bid (6) Acute kidney injury: Resolved, Cr is 0.91 (7) Type 2 diabetes mellitus: this is by history without medication sugars have been below 200 even on decadron, sugar 123 this morning (8) Depression: continues on citalopram (9) Chronic obstructive pulmonary disease: remains on singulair, was on breo, continues duonebs used prn (10) Diaphragm dysfunction: chronic issue, right sided makes shunt physiology more difficult to manage Admission and Anticipated Discharge Date Admission Date: August 08, 2020 Subjective patient feels a little better this morning down to 30L and 60% FiO2, no distress making adequate urine in miguel eating a little, not great main complaint is her cough, difficult to help because she is allergic to morphine, Hycodan in the past, causes her a rash she confirms that she cannot take morphine Cr is normal, BUN 30, will give her a dose of Lasix 40 IV and see if she responds again Review of Systems Review of Systems: All systems reviewed & are unremarkable except as noted in Subjective Constitutional: + fatigue and + weakness; no fever, no chills and no sweats Respiratory: + cough, + dyspnea and + dyspnea on exertion; no sputum production Cardiovascular: no chest pain, no syncope and no edema Gastrointestinal: no abdominal pain, no nausea, no vomiting, no constipation and no diarrhea/loose stools Physical Exam Constitutional: well developed, well nourished and + overweight; no acute distress Neck: trachea midline, no thyromegaly Respiratory: normal respiratory effort, lungs clear to auscultation Cardiovascular: RRR, no murmur, no edema Gastrointestinal (Abdomen): normal bowel sounds, soft, nontender, no hepatosplenomegaly Musculoskeletal: no cyanosis or clubbing, extremities motor strength 5/5 Skin: no rashes, warm and dry Neurologic: patellar DTR's 2+ bilat, sensation intact and PERRL, EOMI, accommodation nl, no face palsy, no dysarthria Psychiatric: A+Ox3, euthymic affect Lymphatic: no cervical or axillary lymphadenopathy Results & Data Results & Data ([facility]) Vital Signs (Past 12 Hours) Vital Signs Temp Pulse Pulse Resp BP Pulse Ox Pulse Ox 08/18/20 10:03 92 08/18/20 09:58 96 08/18/20 08:24 90 08/18/20 08:23 70 L 08/18/20 07:57 36.6 C 69 28 H 151/77 H 94 08/18/20 06:39 66 20 92 08/18/20 06:37 66 20 92 08/18/20 05:53 94 08/18/20 04:40 60 20 94 08/18/20 03:15 36.7 C 66 20 142/76 H 90 08/18/20 02:08 57 L 22 93 08/18/20 00:35 54 L 20 93 08/17/20 23:59 59 L 08/17/20 23:42 36.5 C 66 20 139/73 88 L Laboratory Results Laboratory Results - last 24 hr 08/17/20 08/17/20 08/18/20 10:48 10:48 09:06 WBC 20.80 H 17.87 H RBC 4.96 4.89 Hgb 14.6 14.2 Hct 42.2 42.1 MCV 85.1 86.1 MCH 29.4 29.0 MCHC 34.6 33.7 RDW Std Deviation 43.4 43.5 RDW Coeff of Ernesto 14.0 13.9 Plt Count 432 H 420 H MPV 11.9 H 11.4 H Absolute Nucleated RBC 0.02 H Nucleated RBC % (auto) 0.1 Sodium 133 L Potassium 3.8 Chloride 98 Carbon Dioxide 30 Anion Gap 6.0 BUN 40 H Creatinine 1.06 Est Cr Clr Drug Dosing 56.5 Est GFR ( Amer) 63.8 Est GFR (Non-Af Amer) 55.1 BUN/Creatinine Ratio 38.0 H Glucose 172 H Calcium 9.5 08/18/20 09:06 WBC RBC Hgb Hct MCV MCH MCHC RDW Std Deviation RDW Coeff of Ernesto Plt Count MPV Absolute Nucleated RBC Nucleated RBC % (auto) Sodium 136 Potassium 4.0 Chloride 102 Carbon Dioxide 28 Anion Gap 6.0 BUN 31 H Creatinine 0.91 Est Cr Clr Drug Dosing 65.8 Est GFR ( Amer) 76.7 Est GFR (Non-Af Amer) 66.2 BUN/Creatinine Ratio 33.6 H Glucose 123 H Calcium 8.9 Medications Administered Current Inpatient Medications Acetaminophen (Acetaminophen 325 Mg Tab) 650 mg PO Q4H PRN PRN Reason: pain/fever Stop: 09/08/20 01:54 Albuterol (Albuterol 0.083% Nebu Soln 3 Ml Vial) 5 mg INH Q4H PRN PRN Reason: shortness of breath or wheezing Stop: 09/08/20 01:54 Last Admin: 08/11/20 00:33 Dose: 2.5 mg Documented by: Albuterol (Albut/Ipratrop 3mg/0.5mg Neb 3 Ml Vial) 3 ml INH QID PRN PRN Reason: shortness of breath or wheezing Stop: 09/08/20 01:54 Last Admin: 08/18/20 06:37 Dose: 3 ml Documented by: Aripiprazole (Aripiprazole 5 Mg Tab) 2.5 mg PO HS [facility] Stop: 09/08/20 01:54 Last Admin: 08/17/20 20:14 Dose: 2.5 mg Documented by: Aspirin (Aspirin 81 Mg Ectab) 81 mg PO QAM [facility] Stop: 09/08/20 08:59 Last Admin: 08/18/20 09:59 Dose: 81 mg Documented by: Atorvastatin Calcium (Atorvastatin 40 Mg Tab) 80 mg PO [facility] Stop: 09/08/20 01:54 Last Admin: 08/17/20 20:15 Dose: 80 mg Documented by: Benzonatate (Benzonatate 100 Mg Capsule) 100 mg PO TID [facility] Stop: 09/10/20 20:59 Last Admin: 08/18/20 10:00 Dose: 100 mg Documented by: Citalopram Hydrobromide (Citalopram 40 Mg Tab) 40 mg PO QAM [facility] Stop: 09/08/20 08:59 Last Admin: 08/18/20 09:59 Dose: 40 mg Documented by: Enoxaparin Sodium (Enoxaparin Inj 40 Mg/0.4 Ml Syr) 40 mg SQ Q12H [facility] Stop: 09/08/20 08:59 Last Admin: 08/18/20 10:00 Dose: 40 mg Documented by: Furosemide (Furosemide 20 Mg Tab) 20 mg PO QAM [facility] Stop: 09/08/20 08:59 Last Admin: 08/18/20 09:59 Dose: 20 mg Documented by: Dexamethasone 6 mg/ Syringe 1.5 mls @ 1 mls/min IV DAILY [facility] Stop: 08/19/20 01:54 Last Admin: 08/18/20 09:59 Dose: 1 mls/min Documented by: Levothyroxine Sodium ([facility]othyroxine S[facility] 100 Mcg Tablet) [facility] Stop: 09/08/20 06:29 Last Admin: 08/18/20 02:54 Dose: 100 mcg Documented by: Levothyroxine Sodium (Levothyroxine Sodium 50 Mcg Tablet) [facility] Stop: 09/08/20 06:29 Last Admin: 08/18/20 02:54 Dose: 50 mcg Documented by: Lorazepam (Lorazepam 0.5 Mg Tab) 0.5 mg PO DAILY PRN PRN Reason: Anxiety Stop: 09/08/20 01:54 Last Admin: 08/12/20 03:26 Dose: 0.5 mg Documented by: Menthol (Cough Drop (Sugar Free) Gucci 24 Gucci/1 Box) 1 gucci BUCCAL Q1H PRN PRN Reason: Sore Throat Stop: 09/10/20 15:17 Last Admin: 08/12/20 01:01 Dose: 1 gucci Documented by: Montelukast Sodium (Montelukast Sodium 10 Mg Tablet) 10 mg PO HS [facility] Stop: 09/08/20 01:54 Last Admin: 08/17/20 20:14 Dose: 10 mg Documented by: Ondansetron HCl (Ondansetron 4 Mg Od Tab) 4 mg PO Q6 PRN PRN Reason: Nausea Stop: 09/08/20 02:07 Ondansetron HCl (Ondansetron Inj 2 Mg/Ml 2 Ml Vial) 4 mg IV Q6H PRN PRN Reason: Nausea Stop: 09/08/20 01:54 Polyethylene Glycol (Polyethylene (Miralax) 17 Gm Pack) 17 gm PO DAILY PRN PRN Reason: Constipation Stop: 09/08/20 01:54 Potassium Chloride (Potassium Chloride Crtab 20 Meq Tabcr) 20 meq PO TID [facility] Stop: 09/14/20 13:59 Last Admin: 08/18/20 10:00 Dose: 20 meq Documented by: Promethazine HCl (Promethazine Hcl 12.5 Mg/10 Ml Udp) 12.5 mg PO Q6H PRN PRN Reason: Cough Stop: 09/09/20 17:27 Last Admin: 08/11/20 13:35 Dose: 12.5 mg Documented by: Zinc Sulfate (Zinc Sulfate 220 Mg Capsule) 220 mg PO QAM [facility] Stop: 09/07/20 19:14 Last Admin: 08/18/20 09:59 Dose: 220 mg Documented by: Zolpidem Tartrate (Zolpidem Tartrate 5 Mg Tab) 5 mg PO HS PRN PRN Reason: Sleep Stop: 09/08/20 01:54 Last Admin: 08/18/20 02:54 Dose: 5 mg Documented by: Zolpidem Tartrate (Zolpidem Tartrate 10 Mg Tab) 10 mg PO HS PRN PRN Reason: Sleep Stop: 09/12/20 15:14 Zonisamide (Zonisamide) 1 ea PO BID [facility] Stop: 01/28/21 21:29 Last Admin: 08/18/20 10:01 Dose: 1 ea Documented by: PG Care Time/CCT Total # of Minutes Spent Total Time Spent with Patient: Total time spent is greater than 50% in coordination of care (as documented) at patient's floor/unit and/or counseling patient: Coding Level of Care Code 36798 Subseq Hosp Care Lvl 3 Diagnoses Pneumonia due to 2019 novel coronavirus U07.1; J12.89 Respiratory failure with hypoxia J96.91 Chronicity: unspecified Diastolic CHF, acute on chronic I50.33 Hypokalemia E87.6 Factor V Leiden mutation D68.51 Acute kidney injury N17.9 Type 2 diabetes mellitus E11.9 Depression F32.9 Chronic obstructive pulmonary disease J44.9 Diaphragm dysfunction J98.6 (1) Respiratory failure with hypoxia Chronicity: unspecified Qualified Code(s): J96.91 - Respiratory failure, unspecified with hypoxia
[2020-08-18] MEDS ORDERED: FUROSEMIDE 40 MG/4 ML VIAL IV ONE (10:15)
[2020-08-18] MEDS ORDERED: FUROSEMIDE 40 MG in SYRINGE 0 ML IV ONE (10:15)
[2020-08-18] MEDS: ARIPiprazole 5 MG TAB PO SCH (21:17)
[2020-08-18] MEDS: MONTELUKAST SODIUM 10 MG TABLET PO SCH (21:17)
[2020-08-18] MEDS: ATORVASTATIN 40 MG TAB PO SCH (21:17)
[2020-08-19] MEDS: LEVOTHYROXINE SODIUM 100 MCG TABLET PO SCH (05:19)
[2020-08-19] MEDS: LEVOTHYROXINE SODIUM 50 MCG TABLET PO SCH (05:21)
--- NOTE | 2020-08-19 08:12 | Pulmonology Progress Note ---
Date of Service August 19, 2020 Assessment & Plan (1) Diastolic CHF, acute on chronic: (2) Diaphragm dysfunction: (3) Respiratory failure with hypoxia: --Acute hypoxic respiratory failure Secondary to multilobar COVID-19 pneumonia On top of stage I diastolic CHF Complete the course of dexamethasone for total of 10 days Continue with O2 supplementation to keep oxygen saturation 90-92% Recommend alternating between high flow and BiPAP. Incentive spirometry, guaifenesin. 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 CXR from today shows good inspiratory effort. Infiltrates persists. Mild improvement in aeration I think we are making progress when it comes to her oxygen requirement. She was on high flow yesterday but she is tolerating nasal cannula today. Would continue with diuresis. Recommend physical therapy now. Importance of incentive spirometry explained to the patient in depth. Please note the above document was generated using voice recognition software. It may contain grammatical, syntax or spelling errors.Any formal questions or concerns about the content, text or information contained within the body of this dictation should be directly addressed to the provider for clarification. Chronicity: unspecified Qualified Code(s): J96.91 - Respiratory failure, unspecified with hypoxia Admission and Anticipated Discharge Date Admission Date: August 08, 2020 Subjective Patient seen and examined at bedside. No acute distress, no adverse events overnight. Patient was on nasal cannula at the time of examination she was on 12 L saturating 92%. She used high flow overnight. She states that she is feeling better compared to before. She does complain of cough. Denies any chest pain Good appetite. No nausea or vomiting. Review of Systems Review of Systems: All systems reviewed & are unremarkable except as noted in Subjective Physical Exam Physical Exam: Constitutional: No acute distress HEENT: EOMI, PERRLA Respiratory system: Decreased air entry bilaterally, no wheeze, no rhonchi, positive crackles bilateral lower lobes CVS: S1-S2 positive, no murmurs or gallops Abdomen: Soft, nontender, nondistended, positive bowel sounds x4 Extremities: +2 pulses bilaterally radialis/ dorsalis pedis, no cyanosis, no edema Neuro: Awake alert oriented x3 Psych: Normal mood and affect G/U: Positive Bautista Skin: no rashes, warm and dry Lymphatic: no cervical or axillary lymphadenopathy Results & Data Results & Data ([facility]) Vital Signs (Past 12 Hours) Vital Signs Temp Pulse Pulse Pulse Resp BP Pulse Ox 08/19/20 08:09 63 18 95 08/19/20 08:05 36.5 C 54 L 20 121/76 93 08/19/20 05:00 08/19/20 03:33 36.5 C 55 L 20 125/73 91 08/19/20 01:15 80 L 08/18/20 23:59 56 L 08/18/20 23:28 36.7 C 62 20 127/68 92 Pulse Ox 08/19/20 08:09 08/19/20 08:05 08/19/20 05:00 93 08/19/20 03:33 08/19/20 01:15 08/18/20 23:59 08/18/20 23:28 08/18/20 09:06 PG Care Time/CCT Total # of Minutes Spent Total Time Spent with Patient: Total time spent is greater than 50% in coordination of care (as documented) at patient's floor/unit and/or counseling patient: Coding Level of Care Code 96452 Subseq Hosp Care Lvl 3 Diagnoses Diastolic CHF, acute on chronic I50.33 Diaphragm dysfunction J98.6 Respiratory failure with hypoxia J96.91 Chronicity: unspecified
[2020-08-19 08:31] LABS: BUN Creatinine Ratio 34.4 (10-20); Creatinine Clr Calc Pharmacy 71.3 ml/min; Est GFR (African American) 84.5; Est GFR (Non-African American) 72.9; Potassium 4.2 mmol/L (3.5-5.1)
--- NOTE | 2020-08-19 08:45 | XRay Report ---
XR chest 1V portable HISTORY: 64 years-old Female f/u follow-up study in a patient with pneumonia. COVID Positive. COMPARISON: Chest radiograph 08/17/2020 TECHNIQUE: Portable AP view of the chest FINDINGS: Unchanged right hemidiaphragmatic elevation. Cardiac silhouette is again enlarged. Calcified plaque o f the thoracic aorta. No pneumothorax or large pleural effusion. Patchy bilateral airspace opacities are again noted which are most pronounced in the left lung base and peripheral right lung. There is m ild progression of the right lung airspace opacities. Degenerative changes of the shoulders and spine . IMPRESSION: Moderate bilateral airspace opacities compatible with multifocal pneumonia redemonstrated , mildly progressed on the right. ACT 112: Negative or not required by law. The above report was generated using voice recognition software. It may contain grammatical, syntax o r spelling errors. Electronically signed by: Nilton Craft M.D. 08/19/2020 8:44 AM
[2020-08-19] MEDS: BENZONATATE 100 MG CAPSULE PO SCH ×3 (08:49→20:38)
[2020-08-19] MEDS: ZONISAMIDE PO SCH ×2 (08:49→20:34)
[2020-08-19] MEDS: ZINC SULFATE 220 MG CAPSULE PO SCH (08:49)
[2020-08-19] MEDS: ENOXAPARIN INJ 40 MG/0.4 ML SYR SQ SCH ×2 (08:49→20:33)
[2020-08-19] MEDS: FUROSEMIDE 20 MG TAB PO SCH (08:50)
[2020-08-19] MEDS: POTASSIUM CHLORIDE CRTAB 20 MEQ TABCR PO SCH ×2 (08:50→16:02)
[2020-08-19] MEDS: CITALOPRAM 40 MG TAB PO SCH (08:51)
[2020-08-19] MEDS: ASPIRIN 81 MG ECTAB PO SCH (08:51)
--- NOTE | 2020-08-19 09:17 | Hospitalist Progress Note ---
Date of Service August 19, 2020 Assessment & Plan (1) Pneumonia due to 2019 novel coronavirus: patient titrated down to wall high flow, 12L, doing well, no distress Decadron 6 mg PO daily, today is day 12, stop today Remdesivir started 08/08/20 -Patient previously has declined convalescent plasma, consented and ordered 08/14/19 responding well to Lasix 40mg IV daily, continue on a PRN basis, will stop if Cr rises encourage proning, patient cannot do it but will lay on her side certainly her right hemidiaphragm dysfunction does not help, contributes to her shunt physiology continues with guarded prognosis but slowly improving no increased work of breathing, eating and drinking okay start some therapy on her today (2) Respiratory failure with hypoxia: improving, off of Vapotherm and stable on 12L high flow from wall cause is COVID pneumonia with some mild acute on chronic diastolic CHF no signs of bacterial infection (3) Diastolic CHF, acute on chronic: evaluate each day need for Lasix, difficult to tell due to body habitus and laying in bed responding well to Lasix 40mg IV daily negative fluid balance the past four days, Cr is stable this morning will give Lasix 40mg IV this morning, follow again for response (4) Hypokalemia: low at 2.9 on 08/15, due to K losses with Lasix K up to 4.2 today will change supplementation to BID (5) Factor V Leiden mutation: Lovenox 40 twice daily dosing, 0.5mg/kg bid (6) Acute kidney injury: Resolved, Cr is 0.8 (7) Type 2 diabetes mellitus: this is by history without medication sugars have been below 200 even on decadron, sugar 127 this morning (8) Depression: continues on citalopram (9) Chronic obstructive pulmonary disease: remains on singulair, was on breo, continues duonebs used prn (10) Diaphragm dysfunction: chronic issue, right sided makes shunt physiology more difficult to manage Admission and Anticipated Discharge Date Admission Date: August 08, 2020 Subjective patient doing well this morning, just got washed up, feeling good has a dry cough but it does not last long breathing easier, titrated down to 12L wall high flow eating okay, not a big breakfast person but she is eating well for lunch and dinner Cr is stable and she responded well to Lasix yesterday discussed with Dr. Soler, will keep using Lasix until Cr rises or she stops diuresing, it is really helping her breathing right now Review of Systems Review of Systems: All systems reviewed & are unremarkable except as noted in Subjective Physical Exam Constitutional: well developed, well nourished and + overweight; no acute distress Neck: trachea midline, no thyromegaly Respiratory: normal respiratory effort, lungs clear to auscultation Cardiovascular: RRR, no murmur, no edema Gastrointestinal (Abdomen): normal bowel sounds, soft, nontender, no hepatosplenomegaly Musculoskeletal: no cyanosis or clubbing, extremities motor strength 5/5 Skin: no rashes, warm and dry Neurologic: patellar DTR's 2+ bilat, sensation intact and PERRL, EOMI, a ccommodation nl, no face palsy, no dysarthria Psychiatric: A+Ox3, euthymic affect Lymphatic: no cervical or axillary lymphadenopathy Results & Data Results & Data ([facility]) Vital Signs (Past 12 Hours) Vital Signs Temp Pulse Pulse Pulse Resp BP Pulse Ox 08/19/20 08:53 91 08/19/20 08:09 63 18 95 08/19/20 08:05 36.5 C 54 L 20 121/76 93 08/19/20 05:00 08/19/20 03:33 36.5 C 55 L 20 125/73 91 08/19/20 01:15 80 L 08/18/20 23:59 56 L 08/18/20 23:28 36.7 C 62 20 127/68 92 Pulse Ox 08/19/20 08:53 08/19/20 08:09 08/19/20 08:05 08/19/20 05:00 93 08/19/20 03:33 08/19/20 01:15 08/18/20 23:59 08/18/20 23:28 Laboratory Results Laboratory Results - last 24 hr 08/18/20 08/18/20 08/19/20 09:06 09:06 07:20 WBC 17.87 H RBC 4.89 Hgb 14.2 Hct 42.1 MCV 86.1 MCH 29.0 MCHC 33.7 RDW Std Deviation 43.5 RDW Coeff of Ernesto 13.9 Plt Count 420 H MPV 11.4 H Sodium 136 137 Potassium 4.0 4.2 Chloride 102 103 Carbon Dioxide 28 28 Anion Gap 6.0 6.0 BUN 31 H 29 H Creatinine 0.91 0.84 Est Cr Clr Drug Dosing 65.8 71.3 Est GFR ( Amer) 76.7 84.5 Est GFR (Non-Af Amer) 66.2 72.9 BUN/Creatinine Ratio 33.6 H 34.4 H Glucose 123 H 127 H Calcium 8.9 9.0 Medications Administered Current Inpatient Medications Acetaminophen (Acetaminophen 325 Mg Tab) 650 mg PO Q4H PRN PRN Reason: pain/fever Stop: 09/08/20 01:54 Albuterol (Albuterol 0.083% Nebu Soln 3 Ml Vial) 5 mg INH Q4H PRN PRN Reason: shortness of breath or wheezing Stop: 09/08/20 01:54 Last Admin: 08/11/20 00:33 Dose: 2.5 mg Documented by: Albuterol (Albut/Ipratrop 3mg/0.5mg Neb 3 Ml Vial) 3 ml INH QID PRN PRN Reason: shortness of breath or wheezing Stop: 09/08/20 01:54 Last Admin: 08/18/20 06:37 Dose: 3 ml Documented by: Aripiprazole (Aripiprazole 5 Mg Tab) 2.5 mg PO [facility] Stop: 09/08/20 01:54 Last Admin: 08/18/20 21:17 Dose: 2.5 mg Documented by: Aspirin (Aspirin 81 Mg Ectab) 81 mg PO [facility] Stop: 09/08/20 08:59 Last Admin: 08/19/20 08:51 Dose: 81 mg Documented by: Atorvastatin Calcium (Atorvastatin 40 Mg Tab) 80 mg PO [facility] Stop: 09/08/20 01:54 Last Admin: 08/18/20 21:17 Dose: 80 mg Documented by: Benzonatate (Benzonatate 100 Mg Capsule) 100 mg PO TID [facility] Stop: 09/10/20 20:59 Last Admin: 08/19/20 08:49 Dose: 100 mg Documented by: Citalopram Hydrobromide (Citalopram 40 Mg Tab) 40 mg PO [facility] Stop: 09/08/20 08:59 Last Admin: 08/19/20 08:51 Dose: 40 mg Documented by: Enoxaparin Sodium (Enoxaparin Inj 40 Mg/0.4 Ml Syr) 40 mg SQ Q12H [facility] Stop: 09/08/20 08:59 Last Admin: 08/19/20 08:49 Dose: 40 mg Documented by: Furosemide (Furosemide 20 Mg Tab) 20 mg PO QAM [facility] Stop: 09/08/20 08:59 Last Admin: 08/19/20 08:50 Dose: 20 mg Documented by: Guaifenesin/Dextromethorphan (Guaifenesin/Dextrom Syrup 200mg/20mg 10ml Udc) 10 ml PO Q8 PRN PRN Reason: Cough Stop: 09/17/20 15:55 Furosemide 40 mg/ Syringe 4 mls @ 4 mls/min IV ONE ONE Stop: 08/19/20 09:17 Levothyroxine Sodium (Levothyroxine Sodium 100 Mcg Tablet) [facility] Stop: 09/08/20 06:29 Last Admin: 08/19/20 05:19 Dose: 100 mcg Documented by: Levothyroxine Sodium (Levothyroxine Sodium 50 Mcg Tablet) [facility] Stop: 09/08/20 06:29 Last Admin: 08/19/20 05:21 Dose: 50 mcg Documented by: Lorazepam (Lorazepam 0.5 Mg Tab) 0.5 mg PO DAILY PRN PRN Reason: Anxiety Stop: 09/08/20 01:54 Last Admin: 08/12/20 03:26 Dose: 0.5 mg Documented by: Menthol (Cough Drop (Sugar Free) Gucci 24 Gucci/1 Box) 1 gucci BUCCAL Q1H PRN PRN Reason: Sore Throat Stop: 09/10/20 15:17 Last Admin: 08/12/20 01:01 Dose: 1 gucci Documented by: Montelukast Sodium (Montelukast Sodium 10 Mg Tablet) 10 mg PO [facility] Stop: 09/08/20 01:54 Last Admin: 08/18/20 21:17 Dose: 10 mg Documented by: Ondansetron HCl (Ondansetron 4 Mg Od Tab) 4 mg PO Q6 PRN PRN Reason: Nausea Stop: 09/08/20 02:07 Ondansetron HCl (Ondansetron Inj 2 Mg/Ml 2 Ml Vial) 4 mg IV Q6H PRN PRN Reason: Nausea Stop: 09/08/20 01:54 Polyethylene Glycol (Polyethylene (Miralax) 17 Gm Pack) 17 gm PO DAILY PRN PRN Reason: Constipation Stop: 09/08/20 01:54 Potassium Chloride (Potassium Chloride Crtab 20 Meq Tabcr) 20 meq PO TID [facility] Stop: 09/14/20 13:59 Last Admin: 08/19/20 08:50 Dose: 20 meq Documented by: Promethazine HCl (Promethazine Hcl 12.5 Mg/10 Ml Udp) 12.5 mg PO Q6H PRN PRN Reason: Cough Stop: 09/09/20 17:27 Last Admin: 08/11/20 13:35 Dose: 12.5 mg Documented by: Zinc Sulfate (Zinc Sulfate 220 Mg Capsule) 220 mg PO QAM [facility] Stop: 09/07/20 19:14 Last Admin: 08/19/20 08:49 Dose: 220 mg Documented by: Zolpidem Tartrate (Zolpidem Tartrate 5 Mg Tab) 5 mg PO HS PRN PRN Reason: Sleep Stop: 09/08/20 01:54 Last Admin: 08/18/20 21:23 Dose: 5 mg Documented by: Zolpidem Tartrate (Zolpidem Tartrate 10 Mg Tab) 10 mg PO HS PRN PRN Reason: Sleep Stop: 09/12/20 15:14 Zonisamide (Zonisamide) 1 ea PO BID [facility] Stop: 09/09/20 21:29 Last Admin: 08/19/20 08:49 Dose: 1 ea Documented by: PG Care Time/CCT Total # of Minutes Spent Total Time Spent with Patient: Total time spent is greater than 50% in coordination of care (as documented) at patient's floor/unit and/or counseling patient: Coding Level of Care Code 69938 Subseq Hosp Care Lvl 3 Diagnoses Pneumonia due to 2019 novel coronavirus U07.1; J12.89 Respiratory failure with hypoxia J96.91 Chronicity: unspecified Diastolic CHF, acute on chronic I50.33 Hypokalemia E87.6 Factor V Leiden mutation D68.51 Acute kidney injury N17.9 Type 2 diabetes mellitus E11.9 Depression F32.9 Chronic obstructive pulmonary disease J44.9 Diaphragm dysfunction J98.6 (1) Respiratory failure with hypoxia Chronicity: unspecified Qualified Code(s): J96.91 - Respiratory failure, unspecified with hypoxia
[2020-08-19] MEDS ORDERED: FUROSEMIDE 40 MG in SYRINGE 0 ML IV ONE (09:30)
[2020-08-19] MEDS: ARIPiprazole 5 MG TAB PO SCH (20:32)
[2020-08-19] MEDS: ATORVASTATIN 40 MG TAB PO SCH (20:32)
[2020-08-19] MEDS: MONTELUKAST SODIUM 10 MG TABLET PO SCH (20:33)
[2020-08-20] MEDS ORDERED: methylPREDNISolone 125 MG in SYRINGE 0 ML IV STA (03:30)
[2020-08-20] MEDS ORDERED: VANCOMYCIN CONSULT ACTIVE PRN (03:30)
[2020-08-20] MEDS ORDERED: FUROSEMIDE 40 MG in SYRINGE 0 ML IV ONE (03:39)
[2020-08-20] MEDS ORDERED: fentaNYL citrate 100 MCG/2 ML VIAL ONE ×2 (03:55→06:39)
[2020-08-20 03:58] LABS: iSTAT Allen Test Pass; iSTAT Art Bld Gas pCO2 Correct 41 mmHg (35-46); iSTAT Art Bld Gas pH Corrected 7.439 (7.35-7.45); iSTAT Arterial Blood Gas HCO3 28 meg/L (19-24); iSTAT Arterial Blood Gas pCO2 40 mmHg (35-46); iSTAT Arterial Blood Gas pH 7.44 (7.35-7.45); iSTAT Arterial Blood Gas pO2 46 mmHg (80-95); iSTAT Arterial Blood Gas pO2 C 46; iSTAT Carbon Dioxide 29 mmol/L (24-31); iSTAT FiO2 100 %; iSTAT Hematocrit 47 % (37-47); iSTAT Potassium 4.3 mmol/L (3.3-5.0); iSTAT Site R Brachial; iSTAT Sodium 135 mmol/L (135-144)
[2020-08-20] MEDS ORDERED: VANCOMYCIN HCL 2,000 MG in SODIUM CHLORIDE 0.9% 500 ML IV SCH (04:00)
[2020-08-20] MEDS ORDERED: RAPID SEQUENCE INDUCTION BAG ONE ×2 (04:05→05:57)
[2020-08-20 05:09] LABS: iSTAT Art Bld Gas pCO2 Correct 49 mmHg (35-46); iSTAT Art Bld Gas pH Corrected 7.391 (7.35-7.45); iSTAT Arterial Blood Gas HCO3 30 meg/L (19-24); iSTAT Arterial Blood Gas pCO2 49 mmHg (35-46); iSTAT Arterial Blood Gas pH 7.39 (7.35-7.45); iSTAT Arterial Blood Gas pO2 89 mmHg (80-95); iSTAT Arterial Blood Gas pO2 C 90; iSTAT Carbon Dioxide 31 mmol/L (24-31); iSTAT FiO2 100 %; iSTAT Hematocrit 46 % (37-47); iSTAT Hemoglobin 15.6 g/dl (12.0-16.0); iSTAT Potassium 3.8 mmol/L (3.3-5.0); iSTAT Site Art Line; iSTAT Sodium 135 mmol/L (135-144)
--- NOTE | 2020-08-20 05:37 | Procedure Note ---
Procedure Note Date of Service August 20, 2020 Procedure: Arterial Line Placement Attending: Dr. Perales APC: Nathan Dumont PA-C Indication: Monitoring on Pressors Anesthesia: Lidocaine 1% Emergent consent implied in the setting of rapid respiratory decompensation and need for close hemodynamic monitoring as well as frequent ABGs. A time-out was completed verifying correct patient, procedure, site, positioning, and implant(s) or special equipment if applicable. Allens test was performed to ensure adequate perfusion. Patients LEFT wrist was prepped and draped in the usual sterile fashion. Ultrasound guidance was used to aid needle placement. A 20g Arrow arterial line was introduced into the LEFT Radial artery. Catheter was threaded, and the needle was removed with appropriate blood return. Good waveform was observed. The patient tolerated the procedure well. Confirmation of placement with ultrasound. Blood Loss: Minimal Complications: None Procedural Ultrasound Guidance: Procedure Date: 08/20/2019 Indication: Frequent ABGs, respiratory failure, COVID Pneumonia Attending: APC: Nathan Dumont PA-C Artery Identified: YES Line confirmed in Artery with ultrasound: YES Complications: NONE Patient tolerated procedure: WELL Coding CPT Codes Tubes, Drains, and Vasc Access - Tubes, Drains, and Vasc Access: [id number] Place Catheter In Artery ([id number]) [facility] [place] Procedure Codes (Charges) Tubes, Drains, and Vasc Access Procedure 1: Tubes, Drains, and Vasc Access: [id number] Place Catheter In Artery
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
[2020-08-20] MEDS ORDERED: diphenhydrAMINE 50 MG/ML VIAL IV STA (05:47)
[2020-08-20] MEDS ORDERED: FAMOTIDINE 20 MG in SYRINGE 3 ML IV ONE (06:00)
[2020-08-20] MEDS ORDERED: PROPOFOL IV EMULSION 10 MG/ML 100 ML VIAL IV ONE ×2 (06:00→08:46)
[2020-08-20] MEDS ORDERED: SUCCINYLCHOLINE CHLORIDE 20 MG/ML 10 ML VIAL IV ONE (06:40)
[2020-08-20] MEDS ORDERED: ETOMIDATE 2 MG/ML 20 ML VIAL IV ONE (06:40)
--- NOTE | 2020-08-20 06:44 | Procedure Note ---
Procedure Note Date of Service August 20, 2020 Procedure: Internal Jugular Central Line Placement Attending: Dr. Perales APC: Nathan Dumont PA-C Indication: Central Drug Administration, Poor Venous Access, Multiple Lab Draws Necessary, etc. Anesthesia: Lidocaine 1% Verbal consent obtained by my attending physician in emergent fashion as patient is without substantial peripheral venous access and is in need of CTA requiring larger gauge IV as well as need for multiple drips. A time-out was completed verifying correct patient, procedure, site, positioning, and implants(s) or special equipment if applicable. Patients LEFT Neck was cleansed and draped in the typical sterile fashion using Chloraprep. The Internal Jugular Vein and Carotid Artery were identified using ultrasound. The superficial tissue was anesthetized using 3.0 mL of 1% lidocaine without epinephrine under direct visualization with the ultrasound. After adequate anesthetization was achieved, the Internal Jugular vein was cannulated under direct ultrasound guidance using an introducer needle on a syringe. Good venous blood return was maintained prior to removal of syringe from introducer needle. Using Seldinger Technique, a guide wire was advanced through the introducer needle without resistance. The introducer needle was removed and ultrasound images were obtained of the guide wire within the Internal Jugular Vein and saved to the patients medical record. The dilator was advanced to the vessel without resistance. The dilator was exchanged for the triple lumen catheter which was advanced into the vessel without resistance. The guide wire was removed intact from the catheter without issue. Claves were placed on each catheter tip with confirmation of good blood flow from each lumen. Each port was easily flushed with sterile saline. The catheter was placed at 16 cm and sutured in place. BioPatch was applied to the catheter and a sterile Tegaderm dressing was applied over the catheter with careful attention to sterility. Patient tolerated procedure well. No immediate complications were met. Post procedure x-ray was completed, placement was appropriate and no pneumothorax was noted. Images obtained are saved for permanent record Procedural Ultrasound Guidance: Procedure Date: 08/20/2020 Indication: Poor peripheral access, frequent lab draws, need for central access Attending: Dr. Perales APC: Nathan Dumont PA-C Artery AND Vein visualized: YES Compressible Vein: YES Guidewire or Short Catheter seen in vein prior to dilation: YES Line confirmed in Vein with ultrasound: YES Images obtained are saved for permanent record. Coding CPT Codes Tubes, Drains, and Vasc Access - Tubes, Drains, and Vasc Access: [id number] Insertion Of Non-tunneled Catheter Age 4 Yrs> ([id number]) Tubes, Drains, and Vasc Access - Tubes, Drains, and Vasc Access: [id number] Ultrasound Guidance For Vascular ([id number]) [facility] [place] Procedure Codes (Charges) Tubes, Drains, and Vasc Access Procedure 2: Tubes, Drains, and Vasc Access: [id number] Insertion Of Non-tunneled Catheter Age 4 Yrs> Procedure 3: Tubes, Drains, and Vasc Access: [id number] Ultrasound Guidance For Vascular
[2020-08-20] MEDS ORDERED: OPTIRAY 320 125ml IV ONE (07:05)
[2020-08-20] MEDS ORDERED: SODIUM CHLORIDE 0.9% 1000ML 1,000 ML IV ONE (07:07)
[2020-08-20] MEDS: POTASSIUM CHLORIDE CRTAB 20 MEQ TABCR PO SCH (07:42)
[2020-08-20] MEDS: ASPIRIN 81 MG ECTAB PO SCH (07:42)
[2020-08-20 07:45] LABS: Calcium 8.9 mg/dl (8.5-10.1); Creatinine Clr Calc Pharmacy 49.9 ml/min; Est GFR (African American) 54.9; Est GFR (Non-African American) 47.4; Potassium 3.7 mmol/L (3.5-5.1)
[2020-08-20] MEDS: BENZONATATE 100 MG CAPSULE PO SCH ×3 (07:45→19:42)
--- NOTE | 2020-08-20 07:54 | CT Scan Report ---
CT ANGIOGRAPHY OF THE CHEST, PULMONARY EMBOLUS PROTOCOL CLINICAL HISTORY: PE COMPARISON STUDY: Chest radiograph August 2020 at 3:[address] October 10, 2019. TECHNIQUE: Following IV administration of 95 mL of Optiray-320, helical axial images of the chest wer e obtained utilizing the pulmonary embolus protocol. Maximal intensity projections and sagittal and coronal reformats were viewed on an independent 3D workstation. IV contrast was administered without complication. Automated exposure control was utilized for the study. A dose lowering technique was utilized adhering to the principles of ALARA. CT DOSE: 555.66 mGycm FINDINGS: The tip of the endotracheal tube is 3 cm above the angelia. Left internal jugular central l ine is in place. Tip of nasogastric tube is within the gastric fundus. No pulmonary emboli are identi fied although the segmental and subsegmental pulmonary arteries are suboptimally assessed due to resp iratory motion on this examination. There is no thoracic aortic dissection. Size of the heart is norm al. There is no pericardial effusion. Note is made of moderate pneumomediastinum. This extends into t he neck. The soft tissue gas within the neck is partially imaged on this examination. There is a smal l left pneumothorax. No pleural effusion is noted. Moderate to severe multifocal groundglass opacitie s and consolidation within the lungs are noted. Lungs are suboptimally assessed given respiratory mot ion. A gallstone within the gallbladder is noted. IMPRESSION: 1. No pulmonary emboli identified although segmental and central segmental pulmonary arteries subopti gustavo assessed given respiratory motion artifact. 2. Moderate pneumomediastinum extending into the neck. Small left pneumothorax. 3. Tip of endotracheal tube 3 cm above the angelia. 4. Moderate to severe multifocal consolidation and groundglass opacities within the lungs consistent with an infectious process. ACT 112: Negative or not required by law. Electronically signed by: Lex Stanton M.D. 08/20/2020 7:52 AM
[2020-08-20] MEDS ORDERED: STAT IV Infusion **Titration per Protocol STA ×2 (08:06→09:09)
[2020-08-20] MEDS ORDERED: fentaNYL DRIP 1,250 MCG/250 ML BAG IV SCH (08:15)
[2020-08-20] MEDS: levoFLOXacin/D5W 750 MG/150 ML BAG IV SCH (08:26)
[2020-08-20] MEDS: CITALOPRAM 40 MG TAB PO SCH (08:27)
[2020-08-20] MEDS: LEVOTHYROXINE SODIUM 50 MCG TABLET PO SCH (08:27)
[2020-08-20] MEDS: ENOXAPARIN INJ 40 MG/0.4 ML SYR SQ SCH ×2 (08:27→19:43)
[2020-08-20] MEDS: LEVOTHYROXINE SODIUM 100 MCG TABLET PO SCH (08:27)
[2020-08-20] MEDS: ZINC SULFATE 220 MG CAPSULE PO SCH (08:28)
[2020-08-20] MEDS: ZONISAMIDE PO SCH ×2 (08:28→19:42)
--- NOTE | 2020-08-20 08:30 | Hospitalist Progress Note ---
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 prior CTA chest shows moderate pneumomediastinum and apical pneumothorax no pulmonary embolism seen (2) Pneumonia due to 2019 novel coronavirus: patient titrated down to low flow on 08/19 but then rapidly decompensated morning of 08/20 requiring intubation Decadron 6 mg PO daily, completed 12 days on 08/19 and it was stopped Remdesivir started 08/08/20 -Patient previously has declined convalescent plasma, consented and ordered 08/14/19 responding well to Lasix 40mg IV daily, Cr is stable, defer to ICU on further diuresis prognosis now worse that she required intubation started on Levaquin last night for possible bacterial infection (3) Diastolic CHF, acute on chronic: evaluate each day need for Lasix, difficult to tell due to body habitus and laying in bed responding well to Lasix 40mg IV daily negative fluid balance the past four days, Cr continues to be stable hold on Lasix this morning, defer to ICU team (4) Hypokalemia: stable at 3.7, was on oral supplementation prior to intubation (5) Factor V Leiden mutation: Lovenox 40 twice daily dosing, 0.5mg/kg bid CTA chest on 08/20, NO PULMONARY EMBOLISM (6) Acute kidney injury: Resolved, Cr is 1.2 (7) Type 2 diabetes mellitus: this is by history without medication sugar up to 218 this morning but she received Solu Medrol 125mg IV this morning after she decompensated (8) Depression: continues on citalopram (9) Chronic obstructive pulmonary disease: remains on singulair, was on breo, continues duonebs used prn (10) Diaphragm dysfunction: chronic issue, right sided makes shunt physiology more difficult to manage Admission and Anticipated Discharge Date Admission Date: August 08, 2020 Subjective patient was doing really well yesterday, titrated down to 2L nasal canula apparently early this morning she had a coughing spell, desaturated and became more tachypneic and could not recover she was moved to room 208 and placed on BIPAP but continued to have increased work of breathing she was intubated early this morning currently she is sedated, on PEEP of 8 and FiO2 of 70% and saturations are 100%, she is supine labs early this morning show Hb 15, pH 7.39 PaO2 89 and CO2 49 while on BIPAP 100% FiO2 Cr 1.2, K 3.7 CTA chest shows moderate pneumomediastinum and left apical pneumothorax, no pulmonary embolism, multifocal pneumonia consistent with COVID Review of Systems Review of Systems: Unobtainable due to endotracheal tube and Unobtainable due to reduced consciousness Physical Exam Constitutional: well developed, well nourished, + mechanically ventilated and + overweight; no acute distress Neck: trachea midline, no thyromegaly Respiratory: symmetric chest movement Auscultation: lungs clear to auscultation bilaterally Cardiovascular: RRR, no murmur, no edema Gastrointestinal (Abdomen): normal bowel sounds, soft, nontender, no hepatosplenomegaly Musculoskeletal: no cyanosis or clubbing, extremities motor strength 5/5 Skin: no rashes, warm and dry Neurologic: CN's II-XI intact bilaterally and + obtunded; no focal motor deficits Psychiatric: Orientation: + not alert Lymphatic: no cervical or axillary lymphadenopathy Results & Data Results & Data ([facility]) Vital Signs (Past 12 Hours) Vital Signs Temp Pulse Pulse Resp BP BP Pulse Ox 08/20/20 07:20 83 38 H 91 08/20/20 06:25 95 H 18 92 08/20/20 05:00 122 H 175/94 H 91 08/20/20 04:46 116 H 166/101 H 97 08/20/20 04:33 112 H 93 08/20/20 03:25 110 H 40 H 86 L 08/20/20 03:17 164/76 H 87 L 08/20/20 03:00 136/70 78 L 08/20/20 00:16 61 08/19/20 23:36 36.0 C L 64 20 130/69 89 L Laboratory Results Laboratory Results - last 24 hr 08/19/20 08/20/20 08/20/20 07:20 03:40 04:45 POC Hgb 16.0 15.6 POC Hct 47 46 Sample Site R Brachial Art Line POC pH 7.44 7.39 POC pCO2 40 49 H POC pO2 46 L 89 POC HCO3 28 H 30 H POC Total CO2 29 31 POC Base Excess 3.0 H 5.0 H ABG pH (Temp Correct) 7.439 7.391 ABG pCO2 (Temp Corrct 41 49 H POC ABG pO2 at Pt Temp 46 90 POC ABG O2 Sat 83.0 L 97.0 H Geremias Test Pass NA O2 Delivery Device BIPAP BIPAP POC O2 Rate 8 10 POC FiO2 100 100 IPAP 16 20 POC Sodium 135 135 Sodium 137 POC Potassium 4.3 3.8 Potassium 4.2 Chloride 103 Carbon Dioxide 28 Anion Gap 6.0 BUN 29 H Creatinine 0.84 Est Cr Clr Drug Dosing 71.3 Est GFR ( Amer) 84.5 Est GFR (Non-Af Amer) 72.9 BUN/Creatinine Ratio 34.4 H Glucose 127 H Calcium 9.0 Specimen Hemolysis 08/20/20 06:34 POC Hgb POC Hct Sample Site POC pH POC pCO2 POC pO2 POC HCO3 POC Total CO2 POC Base Excess ABG pH (Temp Correct) ABG pCO2 (Temp Corrct POC ABG pO2 at Pt Temp POC ABG O2 Sat Geremias Test O2 Delivery Device POC O2 Rate POC FiO2 IPAP POC Sodium Sodium 135 L POC Potassium Potassium 3.7 Chloride 100 Carbon Dioxide 25 Anion Gap 10.0 BUN 34 H Creatinine 1.20 D Est Cr Clr Drug Dosing 49.9 Est GFR ( Amer) 54.9 Est GFR (Non-Af Amer) 47.4 BUN/Creatinine Ratio 28.0 H Glucose 218 H Calcium 8.9 Specimen Hemolysis Diagnostic Findings CTA chest IMPRESSION: 1. No pulmonary emboli identified although segmental and central segmental pulmonary arteries suboptimally assessed given respiratory motion artifact. 2. Moderate pneumomediastinum extending into the neck. Small left pneumothorax. 3. Tip of endotracheal tube 3 cm above the angelia. 4. Moderate to severe multifocal consolidation and groundglass opacities within the lungs consistent with an infectious process. Medications Administered Current Inpatient Medications Acetaminophen (Acetaminophen 325 Mg Tab) 650 mg PO Q4H PRN PRN Reason: pain/fever Stop: 09/08/20 01:54 Albuterol (Albuterol 0.083% Nebu Soln 3 Ml Vial) 5 mg INH Q4H PRN PRN Reason: shortness of breath or wheezing Stop: 09/08/20 01:54 Last Admin: 08/11/20 00:33 Dose: 2.5 mg Documented by: Albuterol (Albut/Ipratrop 3mg/0.5mg Neb 3 Ml Vial) 3 ml INH QID PRN PRN Reason: shortness of breath or wheezing Stop: 09/08/20 01:54 Last Admin: 08/18/20 06:37 Dose: 3 ml Documented by: Aripiprazole (Aripiprazole 5 Mg Tab) 2.5 mg PO [facility] Stop: 09/08/20 01:54 Last Admin: 08/19/20 20:32 Dose: 2.5 mg Documented by: Aspirin (Aspirin 81 Mg Ectab) 81 mg PO QAM [facility] Stop: 09/08/20 08:59 Last Admin: 08/20/20 07:42 Dose: Not Given Documented by: Atorvastatin Calcium (Atorvastatin 40 Mg Tab) 80 mg PO [facility] Stop: 09/08/20 01:54 Last Admin: 08/19/20 20:32 Dose: 80 mg Documented by: Benzonatate (Benzonatate 100 Mg Capsule) 100 mg PO TID [facility] Stop: 09/10/20 20:59 Last Admin: 08/20/20 07:45 Dose: Not Given Documented by: Citalopram Hydrobromide (Citalopram 40 Mg Tab) 40 mg PO QAM [facility] Stop: 09/08/20 08:59 Last Admin: 08/20/20 08:27 Dose: 40 mg Documented by: Enoxaparin Sodium (Enoxaparin Inj 40 Mg/0.4 Ml Syr) 40 mg SQ Q12H [facility] Stop: 09/08/20 08:59 Last Admin: 08/20/20 08:27 Dose: 40 mg Documented by: Fentanyl Citrate (Fentanyl Bolus From Bag) 50 mcg IV Q60M PRN PRN Reason: Pain or Agitation Stop: 09/03/20 08:05 Guaifenesin/Dextromethorphan (Guaifenesin/Dextrom Syrup 200mg/20mg 10ml Udc) 10 ml PO Q8 PRN PRN Reason: Cough Stop: 09/17/20 15:55 Levofloxacin/Dextrose (Levaquin/D5w) 750 mg in 150 mls @ 100 mls/hr IV Q24H [facility] Stop: 08/27/20 05:59 Last Admin: 08/20/20 08:26 Dose: 100 mls/hr Documented by: Fentanyl Citrate (Fentanyl Drip) 1,250 mcg in 250 mls @ 5 mls/hr IV .Q50H [facility]; Protocol Stop: 09/03/20 08:14 Last Admin: 08/20/20 08:26 Dose: Not Given Documented by: Levothyroxine Sodium (Levothyroxine Sodium 100 Mcg Tablet) [facility] Stop: 09/08/20 06:29 Last Admin: 08/20/20 08:27 Dose: 100 mcg Documented by: Levothyroxine Sodium (Levothyroxine Sodium 50 Mcg Tablet) [facility] Stop: 09/08/20 06:29 Last Admin: 08/20/20 08:27 Dose: 50 mcg Documented by: Lorazepam (Lorazepam 0.5 Mg Tab) 0.5 mg PO DAILY PRN PRN Reason: Anxiety Stop: 09/08/20 01:54 Last Admin: 08/12/20 03:26 Dose: 0.5 mg Documented by: Menthol (Cough Drop (Sugar Free) Shannon 24 Shannon/1 Box) 1 shannon BUCCAL Q1H PRN PRN Reason: Sore Throat Stop: 09/10/20 15:17 Last Admin: 08/12/20 01:01 Dose: 1 shannon Documented by: Miscellaneous Information (Vancomycin Consult Active) 1 ea N/A UD PRN PRN Reason: Consult Stop: 09/19/20 03:29 Montelukast Sodium (Montelukast Sodium 10 Mg Tablet) 10 mg PO [facility] Stop: 09/08/20 01:54 Last Admin: 08/19/20 20:33 Dose: 10 mg Documented by: Ondansetron HCl (Ondansetron 4 Mg Od Tab) 4 mg PO Q6 PRN PRN Reason: Nausea Stop: 09/08/20 02:07 Ondansetron HCl (Ondansetron Inj 2 Mg/Ml 2 Ml Vial) 4 mg IV Q6H PRN PRN Reason: Nausea Stop: 09/08/20 01:54 Polyethylene Glycol (Polyethylene (Miralax) 17 Gm Pack) 17 gm PO DAILY PRN PRN Reason: Constipation Stop: 09/08/20 01:54 Potassium Chloride (Potassium Chloride Crtab 20 Meq Tabcr) 20 meq PO BID17 [facility] Stop: 09/18/20 16:59 Last Admin: 08/20/20 07:42 Dose: Not Given Documented by: Promethazine HCl (Promethazine Hcl 12.5 Mg/10 Ml Udp) 12.5 mg PO Q6H PRN PRN Reason: Cough Stop: 09/09/20 17:27 Last Admin: 08/11/20 13:35 Dose: 12.5 mg Documented by: Zinc Sulfate (Zinc Sulfate 220 Mg Capsule) 220 mg PO QAM [facility] Stop: 09/07/20 19:14 Last Admin: 08/20/20 08:28 Dose: 220 mg Documented by: Zolpidem Tartrate (Zolpidem Tartrate 5 Mg Tab) 5 mg PO HS PRN PRN Reason: Sleep Stop: 09/08/20 01:54 Last Admin: 08/18/20 21:23 Dose: 5 mg Documented by: Zolpidem Tartrate (Zolpidem Tartrate 10 Mg Tab) 10 mg PO HS PRN PRN Reason: Sleep Stop: 09/12/20 15:14 Zonisamide (Zonisamide) 1 ea PO BID [facility] Stop: 09/09/20 21:29 Last Admin: 08/20/20 08:28 Dose: 1 ea Documented by: PG Care Time/CCT Total # of Minutes Spent Total Time Spent with Patient: Total time spent is greater than 50% in coordination of care (as documented) at patient's floor/unit and/or counseling patient: Coding Level of Care Code 32826 Subseq Hosp Care Lvl 3 Diagnoses Respiratory failure with hypoxia J96.91 Chronicity: unspecified Pneumonia due to 2019 novel coronavirus U07.1; J12.89 Diastolic CHF, acute on chronic I50.33 Hypokalemia E87.6 Factor V Leiden mutation D68.51 Acute kidney injury N17.9 Type 2 diabetes mellitus E11.9 Depression F32.9 Chronic obstructive pulmonary disease J44.9 Diaphragm dysfunction J98.6 (1) Respiratory failure with hypoxia Chronicity: unspecified Qualified Code(s): J96.91 - Respiratory failure, unspecified with hypoxia
--- NOTE | 2020-08-20 08:37 | XRay Report ---
SINGLE VIEW CHEST CLINICAL HISTORY: Hypoxia. FINDINGS: An AP, portable, semierect chest radiograph is compared to study dated 08/19/2020 and correla kenisha with chest CT dated 10/10/2019. The cardiomediastinal silhouette is unremarkable noting atheroscle rotic calcification of the thoracic aorta. There is chronic elevation of the right hemidiaphragm. Mul tifocal airspace consolidation has not significant change from yesterday. No large pleural effusion o r pneumothorax is seen. The skeletal structures are osteopenic. The bony thorax is grossly intact. IMPRESSION: Multifocal airspace consolidation has not significantly changed from yesterday. ACT 112: Negative or not required by law. Electronically signed by: Roel Jalloh M.D. 08/20/2020 8:35 AM
[2020-08-20] MEDS ORDERED: VANCOMYCIN HCL 1,000 MG in SODIUM CHLORIDE 0.9% 250 ML IV SCH (09:00)
[2020-08-20] MEDS ORDERED: PROPOFOL BOLUS FROM BAG IV PRN (09:09)
[2020-08-20] MEDS ORDERED: propofoL 1,000 MG/100 ML VIAL IV SCH (09:15)
[2020-08-20] MEDS: ACETAMINOPHEN 325 MG TAB PO PRN (11:41)
--- NOTE | 2020-08-20 13:02 | Communication Note ---
Date of Service: August 20, 2020 With regards to acute worsening of hypoxia and multiple allergies I felt safest approach was to intubate the patient for airway protection should she suffer a severe allergic reaction. She was given 125 mg Solu-Medrol 20 Pepcid and 40 mg Benadryl prior to receiving IV contrast to exclude pulmonary embolism. She does have risk factors which increase her risk with COVID-19. She does not appear to have suffered any ill effects. There is no evidence of pulmonary embolism, I believe the patient's anxiety and coughing caused some aspect of bronchospasm and she has minimal respiratory reserve. Patient was successfully extubated at 12 PM. Critical care will sign off please call if patient again suffers severe hypoxemia and is not responsive to rescue maneuvers. Coding Level of Care Code None
--- NOTE | 2020-08-20 13:06 | Procedure Note ---
Procedure Note Date of Service August 20, 2020 Procedure Date: Noted above Procedure: Endotracheal intubation Pre-procedure Diagnosis: Acute hypoxic respiratory failure Post-procedure Diagnosis: same as above Prior to Procedure: Informed Consent: emergent Attending Staff: Berkley Perales DO The identity of the patient was confirmed and a bedside time out was performed. Description of Procedure: Patient was evaluated and required intubation for impending respiratory failure. The patient was prepared in the usual fashion. A 3 video laryngoscope was used. A 7.5 mm inner diameter endotrachial tube was placed endotracheally to 22 cm at the teeth. A grade 1 view was obtained. The endotracheal tube was noted to pass through the vocal cords. Chest rise was bilateral. Bilateral breath sounds were heard without air sounds in the abdomen. Mist was noted in the endotracheal tube. End-tidal CO2 measurement was positive. Chest x-ray shows proper endotracheal tube placement. Complications: None Findings: Not applicable Specimens: Not applicable Estimated blood loss: Zero Coding CPT Codes Resuscitation - Resuscitation: 37540 Endotracheal Intubation, emergency ([id number]) [facility] Procedure Codes ([place]) Resuscitation Resuscitation: 48090 Endotracheal Intubation, emergency
[2020-08-20] MEDS ORDERED: GLUCOSE 10 TABS/TUBE PO PRN (14:15)
[2020-08-20] MEDS ORDERED: DEXTROSE 50% 50 ML SYRINGE IV PRN (14:15)
[2020-08-20] MEDS ORDERED: GLUCOSE 40% GEL 15 GM TUBE PO PRN (14:15)
[2020-08-20] MEDS ORDERED: CARBOHYDRATES FOR HYPOGLYCEMIA PO PRN (14:15)
[2020-08-20] MEDS ORDERED: GLUCAGON FOR INJ 1 MG VIAL IM PRN (14:15)
--- NOTE | 2020-08-20 15:42 | Pulmonology Progress Note ---
Date of Service August 20, 2020 Assessment & Plan (1) Diastolic CHF, acute on chronic: (2) Diaphragm dysfunction: (3) Respiratory failure with hypoxia: --Acute hypoxic respiratory failure Secondary to multilobar COVID-19 pneumonia On top of stage I diastolic CHF Complete the course of dexamethasone for total of 10 days Continue with O2 supplementation to keep oxygen saturation 90-92% Recommend alternating between high flow and BiPAP. Incentive spirometry, guaifenesin. 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 At the time of examination she was saturating 93-94% on 50% FiO2 on vent. For the pneumomediastinum I think continue with the current management I do not think any intervention is needed The left pneumothorax I think is extension of pneumomediastinum would not consider putting a chest tube. Would recommend [id number] antitussive whenever the patient is extubated. Please note the above document was generated using voice recognition software. It may contain grammatical, syntax or spelling errors.Any formal questions or concerns about the content, text or information contained within the body of this dictation should be directly addressed to the provider for clarification. Chronicity: unspecified Qualified Code(s): J96.91 - Respiratory failure, unspecified with hypoxia Admission and Anticipated Discharge Date Admission Date: August 08, 2020 Subjective Patient seen and examined at bedside. Date last night patient was actually on 4 L saturating well but she had a coughing fit which resulted in desaturation was put on high flow but did not improve was put on BiPAP and her respiratory rate had significantly increased and she was ultimately intubated. Patient is sedated Review of Systems Review of Systems: Unobtainable due to endotracheal tube Physical Exam Physical Exam: Constitutional: No acute distress HEENT: EOMI, PERRLA, positive subcu emphysema Respiratory system: Decreased air entry bilaterally, no wheeze, no rhonchi, positive crackles bilateral lower lobes CVS: S1-S2 positive, no murmurs or gallops Abdomen: Soft, nontender, nondistended, positive bowel sounds x4 Extremities: +2 pulses bilaterally radialis/ dorsalis pedis, no cyanosis, no edema Neuro: Sedated Psych: Unable to assess G/U: Positive Bautista Skin: no rashes, warm and dry Lymphatic: no cervical or axillary lymphadenopathy Results & Data Results & Data ([facility]) Vital Signs (Past 12 Hours) Vital Signs Pulse Resp BP BP Pulse Ox 08/20/20 14:56 116/64 08/20/20 14:00 59 L 111/50 L 94 08/20/20 13:50 60 114/58 L 95 08/20/20 13:40 60 109/52 L 95 08/20/20 13:30 61 115/55 L 95 08/20/20 13:20 64 126/58 L 93 08/20/20 13:10 60 109/52 L 95 08/20/20 13:00 61 104/57 L 95 08/20/20 12:50 61 105/51 L 95 08/20/20 12:40 61 111/52 L 95 08/20/20 12:30 61 104/51 L 95 08/20/20 12:20 62 109/56 L 96 08/20/20 12:10 65 120/60 95 08/20/20 12:00 70 124/49 L 93 08/20/20 11:50 66 115/59 L 94 08/20/20 11:40 64 109/53 L 94 08/20/20 11:30 62 102/55 L 94 08/20/20 11:20 63 111/48 L 94 08/20/20 11:10 67 102/51 L 95 08/20/20 11:05 23 08/20/20 11:00 64 106/43 L 94 08/20/20 10:59 62 22 95 08/20/20 10:50 67 102/52 L 95 08/20/20 10:40 69 105/49 L 96 08/20/20 10:30 69 102/47 L 94 08/20/20 10:21 69 97/50 L 96 08/20/20 10:10 66 87/54 L 96 08/20/20 10:01 67 89/48 L 95 08/20/20 10:00 70 95 08/20/20 09:50 69 111/49 L 96 08/20/20 09:48 68 95/57 L 96 08/20/20 09:00 73 111/59 L 96 08/20/20 08:00 77 111/54 L 100 08/20/20 07:20 83 38 H 91 08/20/20 07:17 91 H 134/62 88 L 08/20/20 07:10 88 08/20/20 06:25 95 H 18 92 08/20/20 05:00 122 H 175/94 H 91 08/20/20 04:46 116 H 166/101 H 97 08/20/20 04:33 112 H 93 08/18/20 09:06 08/20/20 06:34 PG Care Time/CCT Total # of Minutes Spent Total Time Spent with Patient: Total time spent is greater than 50% in coordination of care (as documented) at patient's floor/unit and/or counseling patient: Coding Level of Care Code 62113 Subseq Hosp Care Lvl 3 Diagnoses Diastolic CHF, acute on chronic I50.33 Diaphragm dysfunction J98.6 Respiratory failure with hypoxia J96.91 Chronicity: unspecified
[2020-08-20] MEDS: POTASSIUM CHLORIDE 20 MEQ/15 ML UDC PO SCH (17:19)
[2020-08-20] MEDS: INSULIN ASPART 100 UNITS/ML 3 ML PEN SC SCH ×2 (17:19→21:29)
[2020-08-20] MEDS: guaiFENesin/DEXTROM SYRUP 200MG/20MG 10ML UDC PO PRN (19:42)
[2020-08-20] MEDS: ARIPiprazole 5 MG TAB PO SCH (19:44)
[2020-08-20] MEDS: ATORVASTATIN 40 MG TAB PO SCH (19:44)
[2020-08-20] MEDS: MONTELUKAST SODIUM 10 MG TABLET PO SCH (19:45)
[2020-08-20] MEDS ORDERED: VANCOMYCIN HCL 1,250 MG in SODIUM CHLORIDE 0.9% 250 ML IV SCH (20:00)
[2020-08-21] MEDS: levoFLOXacin/D5W 750 MG/150 ML BAG IV SCH (05:48)
[2020-08-21] MEDS: LEVOTHYROXINE SODIUM 50 MCG TABLET PO SCH (06:46)
[2020-08-21] MEDS: LEVOTHYROXINE SODIUM 100 MCG TABLET PO SCH (06:46)
[2020-08-21 06:51] LABS: Basophils # (auto) 0.01 K/uL (0-0.2); Basophils % (auto) 0.1 %; Hematocrit (blood only) 35.4 % (37-47); Hemoglobin 11.8 g/dL (12.0-16.0); Immature Granulocytes # (auto) 0.06 K/uL (0.00-0.02); Immature Granulocytes % (auto) 0.3 %; Lymphocytes # (auto) 0.93 K/uL (1.2-3.4); Lymphocytes % (auto) 4.7 %; Mean Corpuscular Hemoglobin 29.2 pg (25-34); Mean Corpuscular Hgb Conc 33.3 g/dL (32-36); Mean Corpuscular Volume 87.6 fL (80-100); Mean Platelet Volume 11.3 fL (7.4-10.4); Monocytes # (auto) 1.16 K/uL (0.11-0.59); Monocytes % (auto) 5.8 %; Neutrophils % (auto) 89.1 %; Platelet Count 393 K/uL (130-400); RDW Coefficient of Variation 14.3 % (11.5-14.5); RDW Standard Deviation 46.2 fL (36.4-46.3); Red Blood Count 4.04 M/uL (4.2-5.4); White Blood Count 19.86 K/uL (4.8-10.8)
[2020-08-21 07:24] LABS: BUN Creatinine Ratio 31.5 (10-20); Calcium 8.1 mg/dl (8.5-10.1); Creatinine Clr Calc Pharmacy 74.8 ml/min; Est GFR (African American) 89.7; Est GFR (Non-African American) 77.4; Magnesium 2.3 mg/dl (1.8-2.4); Phosphorus 2.3 mg/dl (2.5-4.9); Potassium 3.6 mmol/L (3.5-5.1)
[2020-08-21] MEDS: ZINC SULFATE 220 MG CAPSULE PO SCH (08:09)
[2020-08-21] MEDS: ENOXAPARIN INJ 40 MG/0.4 ML SYR SQ SCH ×2 (08:09→21:03)
[2020-08-21] MEDS: BENZONATATE 100 MG CAPSULE PO SCH ×3 (08:09→21:08)
[2020-08-21] MEDS: CITALOPRAM 40 MG TAB PO SCH (08:09)
[2020-08-21] MEDS: ZONISAMIDE PO SCH ×2 (08:11→21:04)
[2020-08-21] MEDS: ASPIRIN 81 MG CHEW PO SCH (08:14)
[2020-08-21] MEDS: POTASSIUM CHLORIDE 20 MEQ/15 ML UDC PO SCH (08:14)
[2020-08-21] MEDS: INSULIN ASPART 100 UNITS/ML 3 ML PEN SC SCH ×4 (08:56→20:58)
--- NOTE | 2020-08-21 09:02 | XRay Report ---
XR chest 1V portable HISTORY: 64 years-old Female f/u follow-up study in a patient with pulmonary opacities COMPARISON: Chest radiograph and CTA chest 08/20/2020 TECHNIQUE: Portable AP view of the chest FINDINGS: Cardiac silhouette is mildly enlarged, unchanged. Right hemidiaphragmatic elevation. Interval placeme nt of a left IJ central venous catheter distal tip terminating in the expected location of the left b rachiocephalic vein. No postprocedural pneumothorax. Progressively worsened patchy bilateral airspace opacities, most pronounced in a subpleural distribution. Decreased amount of pneumomediastinum. Bone s appear grossly intact. IMPRESSION: 1. Mildly progressed bilateral airspace opacities with interstitial coarsening. 2. Pneumomediastinum redemonstrated. 3. Left IJ central venous catheter distal tip terminates in the expected location of the left brachio cephalic vein. No definite pneumothorax. ACT 112: Negative or not required by law. The above report was generated using voice recognition software. It may contain grammatical, syntax o r spelling errors. Electronically signed by: Nilton Craft M.D. 08/21/2020 9:00 AM
[2020-08-21] MEDS ORDERED: FUROSEMIDE 40 MG in SYRINGE 0 ML IV ONE (09:36)
[2020-08-21] MEDS ORDERED: FUROSEMIDE 40 MG/4 ML VIAL IV ONE (09:45)
--- NOTE | 2020-08-21 09:49 | Hospitalist Progress Note ---
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 08/20, had a coughing spell, desaturated quickly placed on BIPAP but could not recover, required emergent intubation intubated for < 12 hours, extubated at noon on 08/20, doing well for past 24 hours breathing 8L NC, no distress, minimal cough CTA chest 08/20 showed moderate pneumomediastinum and apical pneumothorax no pulmonary embolism seen (2) Pneumonia due to 2019 novel coronavirus: patient titrated down to low flow on 08/19 but then rapidly decompensated morning of 08/20 requiring intubation Decadron 6 mg PO daily, completed 12 days on 08/19 and it was stopped Remdesivir started 08/08/20 -Patient previously has declined convalescent plasma, consented and ordered 08/14/19 responding well to Lasix 40mg IV daily, Cr is stable, continue this until Cr rises or diuresis stops (3) Diastolic CHF, acute on chronic: evaluate each day need for Lasix, difficult to tell due to body habitus and laying in bed responding well to Lasix 40mg IV daily, continue today negative fluid balance the past five days, Cr continues to be stable at 0.8 this morning (4) Hypokalemia: stable at 3.6, continue oral supplementation (5) Factor V Leiden mutation: Lovenox 40 twice daily dosing, 0.5mg/kg bid CTA chest on 08/20, NO PULMONARY EMBOLISM (6) Acute kidney injury: Resolved, Cr is 0.8 (7) Type 2 diabetes mellitus: this is by history without medication sugar stable this morning, no further steroids planned (8) Depression: continues on citalopram (9) Chronic obstructive pulmonary disease: remains on singulair, was on breo, continues duonebs used prn (10) Diaphragm dysfunction: chronic issue, right sided makes shunt physiology more difficult to manage Admission and Anticipated Discharge Date Admission Date: August 08, 2020 Subjective patient doing much better today, RR in the teens, no distress, she is texting on her phone he ate half of her breakfast no coughing spells today, she agrees to try Codeine if she has one reviewed labs, WBC is 19k likely from Solu Medrol Hb 11.8, Cr 0.8, BuN 25, K 3.6 Review of Systems Review of Systems: All systems reviewed & are unremarkable except as noted in Subjective Constitutional: + weakness; no fever, no chills, no sweats and no fatigue Respiratory: + cough and + dyspnea on exertion; no dyspnea Cardiovascular: no chest pain and no edema Gastrointestinal: no abdominal pain, no nausea, no vomiting, no constipation and no diarrhea/loose stools Physical Exam Constitutional: well developed, well nourished and + overweight; no acute distress Neck: trachea midline, no thyromegaly Respiratory: normal respiratory effort, lungs clear to auscultation + cough Cardiovascular: RRR, no murmur, no edema Gastrointestinal (Abdomen): normal bowel sounds, soft, nontender, no hepatosplenomegaly Musculoskeletal: no cyanosis or clubbing, extremities motor strength 5/5 Skin: no rashes, warm and dry Neurologic: patellar DTR's 2+ bilat, sensation intact and PERRL, EOMI, accommodation nl, no face palsy, no dysarthria no focal motor deficits Psychiatric: A+Ox3, euthymic affect Lymphatic: no cervical or axillary lymphadenopathy Results & Data Results & Data ([facility]) Vital Signs (Past 12 Hours) Vital Signs Temp Pulse Pulse Pulse Resp BP BP 08/21/20 07:40 36.7 C 54 L 27 H 131/46 L 08/21/20 07:00 37.3 C 52 L 24 118/60 08/21/20 06:00 37.3 C 53 L 24 119/55 L 08/21/20 05:00 37.3 C 51 L 26 H 117/58 L 08/21/20 04:00 37.3 C 54 L 27 H 127/56 L 08/21/20 03:00 37.4 C 55 L 24 127/55 L 08/21/20 02:00 37.6 C H 56 L 27 H 113/55 L 08/21/20 01:00 37.6 C H 59 L 26 H 118/56 L 08/21/20 00:00 37.7 C H 58 L 30 H 107/58 L 08/20/20 23:59 55 L 08/20/20 23:09 36.8 C 75 30 H 08/20/20 23:00 37.5 C 58 L 10 L 120/68 08/20/20 22:00 37.7 C H 55 L 25 H 122/56 L BP Pulse Ox 08/21/20 07:40 96 08/21/20 07:00 95 08/21/20 06:00 95 08/21/20 05:00 95 08/21/20 04:00 95 08/21/20 03:00 94 08/21/20 02:00 93 08/21/20 01:00 92 08/21/20 00:00 90 08/20/20 23:59 08/20/20 23:09 120/68 08/20/20 23:00 93 08/20/20 22:00 93 Laboratory Results Laboratory Results - last 24 hr 08/20/20 08/20/20 08/20/20 13:15 16:32 20:03 WBC RBC Hgb Hct MCV MCH MCHC RDW Std Deviation RDW Coeff of Ernesto Plt Count MPV Immature Gran % (Auto) Neut % (Auto) Lymph % (Auto) [place] % (Auto) Eos % (Auto) Baso % (Auto) Neut # (Auto) Lymph # (Auto) [place] # (Auto) Eos # (Auto) Baso # (Auto) Immature Gran # (Auto) Sodium Potassium Chloride Carbon Dioxide Anion Gap BUN Creatinine Est Cr Clr Drug Dosing Est GFR ( Amer) Est GFR (Non-Af Amer) BUN/Creatinine Ratio Glucose POC Glucose 214 H 190 H Calcium Phosphorus Magnesium Nasal Screen MRSA (PCR) Negative 08/21/20 08/21/20 08/21/20 06:19 06:19 07:39 WBC 19.86 H RBC 4.04 L Hgb 11.8 L Hct 35.4 L MCV 87.6 MCH 29.2 MCHC 33.3 RDW Std Deviation 46.2 RDW Coeff of Ernesto 14.3 Plt Count 393 MPV 11.3 H Immature Gran % (Auto) 0.3 Neut % (Auto) 89.1 Lymph % (Auto) 4.7 [place] % (Auto) 5.8 Eos % (Auto) 0.0 Baso % (Auto) 0.1 Neut # (Auto) 17.70 H Lymph # (Auto) 0.93 L [place] # (Auto) 1.16 H Eos # (Auto) 0.00 Baso # (Auto) 0.01 Immature Gran # (Auto) 0.06 H Sodium 139 Potassium 3.6 Chloride 104 Carbon Dioxide 30 Anion Gap 4.0 BUN 25 H Creatinine 0.80 D Est Cr Clr Drug Dosing 74.8 Est GFR ( Amer) 89.7 Est GFR (Non-Af Amer) 77.4 BUN/Creatinine Ratio 31.5 H Glucose 144 H POC Glucose 139 H Calcium 8.1 L Phosphorus 2.3 L Magnesium 2.3 Nasal Screen MRSA (PCR) Medications Administered Current Inpatient Medications Acetaminophen (Acetaminophen 325 Mg Tab) 650 mg PO Q4H PRN PRN Reason: pain/fever Stop: 09/08/20 01:54 Last Admin: 08/20/20 11:41 Dose: 650 mg Documented by: Albuterol (Albuterol 0.083% Nebu Soln 3 Ml Vial) 5 mg INH Q4H PRN PRN Reason: shortness of breath or wheezing Stop: 09/08/20 01:54 Last Admin: 08/11/20 00:33 Dose: 2.5 mg Documented by: Albuterol (Albut/Ipratrop 3mg/0.5mg Neb 3 Ml Vial) 3 ml INH QID PRN PRN Reason: shortness of breath or wheezing Stop: 09/08/20 01:54 Last Admin: 08/18/20 06:37 Dose: 3 ml Documented by: Aripiprazole (Aripiprazole 5 Mg Tab) 2.5 mg PO [facility] Stop: 09/08/20 01:54 Last Admin: 08/20/20 19:44 Dose: 2.5 mg Documented by: Aspirin (Aspirin 81 Mg Chew) 81 mg PO [facility] Stop: 09/20/20 08:59 Last Admin: 08/21/20 08:14 Dose: 81 mg Documented by: Atorvastatin Calcium (Atorvastatin 40 Mg Tab) 80 mg PO [facility] Stop: 09/08/20 01:54 Last Admin: 08/20/20 19:44 Dose: 80 mg Documented by: Benzonatate (Benzonatate 100 Mg Capsule) 100 mg PO TID [facility] Stop: 09/10/20 20:59 Last Admin: 08/21/20 08:09 Dose: 100 mg Documented by: Citalopram Hydrobromide (Citalopram 40 Mg Tab) 40 mg PO [facility] Stop: 09/08/20 08:59 Last Admin: 08/21/20 08:09 Dose: 40 mg Documented by: Dextrose (Dextrose 50% 50 Ml Syringe) 25 - 50 ml IV UD PRN; Protocol PRN Reason: Hypoglycemia Protocol Stop: 09/19/20 14:14 Enoxaparin Sodium (Enoxaparin Inj 40 Mg/0.4 Ml Syr) 40 mg SQ Q12H [facility] Stop: 09/08/20 08:59 Last Admin: 08/21/20 08:09 Dose: 40 mg Documented by: Glucagon (Glucagon For Inj 1 Mg Vial) 1 mg IM UD PRN; Protocol PRN Reason: Hypoglycemia Protocol Stop: 09/19/20 14:14 Glucose (Glucose 40% Gel 15 Gm Tube) 15 - 30 gm PO UD PRN; Protocol PRN Reason: Hypoglycemia Protocol Stop: 09/19/20 14:14 Glucose (Glucose 10 Tabs/Tube) 4 - 8 tabs PO UD PRN; Protocol PRN Reason: Hypoglycemia Protocol Stop: 09/19/20 14:14 Guaifenesin/Codeine Phosphate (Guaifenesin/Codeine 200mg/20mg 10ml Udc) 10 ml PO Q6H PRN PRN Reason: Cough Stop: 09/20/20 09:35 Guaifenesin/Dextromethorphan (Guaifenesin/Dextrom Syrup 200mg/20mg 10ml Udc) 10 ml PO Q8 PRN PRN Reason: Cough Stop: 09/17/20 15:55 Last Admin: 08/20/20 19:42 Dose: 10 ml Documented by: Levofloxacin/Dextrose (Levaquin/D5w) 750 mg in 150 mls @ 100 mls/hr IV Q24H [facility] Stop: 08/27/20 05:59 Last Infusion: 08/21/20 07:41 Dose: Infused Documented by: Insulin Aspart (Insulin Aspart 100 Units/Ml 3 Ml Pen) 0 units SC ACHS [facility] Stop: 09/19/20 16:29 Last Admin: 08/21/20 08:56 Dose: 3 units Documented by: Levothyroxine Sodium (Levothyroxine Sodium 100 Mcg Tablet) 100 mcg PO DAILYBB [facility] Stop: 09/08/20 06:29 Last Admin: 08/21/20 06:46 Dose: 100 mcg Documented by: Levothyroxine Sodium (Levothyroxine Sodium 50 Mcg Tablet) 50 mcg PO DAILYBB [facility] Stop: 09/08/20 06:29 Last Admin: 08/21/20 06:46 Dose: 50 mcg Documented by: Lorazepam (Lorazepam 0.5 Mg Tab) 0.5 mg PO DAILY PRN PRN Reason: Anxiety Stop: 09/08/20 01:54 Last Admin: 08/12/20 03:26 Dose: 0.5 mg Documented by: Menthol (Cough Drop (Sugar Free) Gucci 24 Gucci/1 Box) 1 gucci BUCCAL Q1H PRN PRN Reason: Sore Throat Stop: 09/10/20 15:17 Last Admin: 08/12/20 01:01 Dose: 1 gucci Documented by: Miscellaneous (Carbohydrates For Hypoglycemia ) 15 - 30 gm PO UD PRN PRN Reason: Hypoglycemia Treatment Stop: 09/19/20 14:14 Montelukast Sodium (Montelukast Sodium 10 Mg Tablet) 10 mg PO HS [facility] Stop: 09/08/20 01:54 Last Admin: 08/20/20 19:45 Dose: 10 mg Documented by: Ondansetron HCl (Ondansetron 4 Mg Od Tab) 4 mg PO Q6 PRN PRN Reason: Nausea Stop: 09/08/20 02:07 Ondansetron HCl (Ondansetron Inj 2 Mg/Ml 2 Ml Vial) 4 mg IV Q6H PRN PRN Reason: Nausea Stop: 09/08/20 01:54 Polyethylene Glycol (Polyethylene (Miralax) 17 Gm Pack) 17 gm PO DAILY PRN PRN Reason: Constipation Stop: 09/08/20 01:54 Potassium Chloride (Potassium Chloride 20 Meq/15 Ml Udc) 20 meq PO BID17 [facility] Stop: 09/19/20 16:59 Last Admin: 08/21/20 08:14 Dose: 20 meq Documented by: Promethazine HCl (Promethazine Hcl 12.5 Mg/10 Ml Udp) 12.5 mg PO Q6H PRN PRN Reason: Cough Stop: 09/09/20 17:27 Last Admin: 08/11/20 13:35 Dose: 12.5 mg Documented by: Zinc Sulfate (Zinc Sulfate 220 Mg Capsule) 220 mg PO QAM [facility] Stop: 09/07/20 19:14 Last Admin: 08/21/20 08:09 Dose: 220 mg Documented by: Zolpidem Tartrate (Zolpidem Tartrate 5 Mg Tab) 5 mg PO HS PRN PRN Reason: Sleep Stop: 09/08/20 01:54 Last Admin: 08/18/20 21:23 Dose: 5 mg Documented by: Zolpidem Tartrate (Zolpidem Tartrate 10 Mg Tab) 10 mg PO HS PRN PRN Reason: Sleep Stop: 09/12/20 15:14 Zonisamide (Zonisamide) 1 ea PO BID [facility] Stop: 09/09/20 21:29 Last Admin: 08/21/20 08:11 Dose: 1 ea Documented by: PG Care Time/CCT Total # of Minutes Spent Total Time Spent with Patient: Total time spent is greater than 50% in coordination of care (as documented) at patient's floor/unit and/or counseling patient: Coding Level of Care Code 58382 Subseq Hosp Care Lvl 3 Diagnoses Respiratory failure with hypoxia J96.91 Chronicity: unspecified Pneumonia due to 2019 novel coronavirus U07.1; J12.89 Diastolic CHF, acute on chronic I50.33 Hypokalemia E87.6 Factor V Leiden mutation D68.51 Acute kidney injury N17.9 Type 2 diabetes mellitus E11.9 Depression F32.9 Chronic obstructive pulmonary disease J44.9 Diaphragm dysfunction J98.6 (1) Respiratory failure with hypoxia Chronicity: unspecified Qualified Code(s): J96.91 - Respiratory failure, unspecified with hypoxia
--- NOTE | 2020-08-21 10:15 | Communication Note ---
Date of Service: August 21, 2020 Patient extubated and maintaining airway, stable for downgrade out of ICU. Critical care will sign off. Please reconsult if any additional issues. Coding Level of Care Code None
--- NOTE | 2020-08-21 10:15 | Pulmonology Progress Note ---
Date of Service August 21, 2020 Assessment & Plan (1) Diastolic CHF, acute on chronic: (2) Diaphragm dysfunction: (3) Respiratory failure with hypoxia: --Acute hypoxic respiratory failure Secondary to multilobar COVID-19 pneumonia On top of stage I diastolic CHF Complete the course of dexamethasone for total of 10 days Continue with O2 supplementation to keep oxygen saturation 90-92% Incentive spirometry, guaifenesin. 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 Titrate down oxygen to keep O2 saturation greater than 90% Continue with [id number] antitussive medications Pneumomediastinum will resolve on its own. No intervention needed. Cough suppression as above No further recommendation from pulmonary perspective. Will sign off. Recall. Please note the above document was generated using voice recognition software. It may contain grammatical, syntax or spelling errors.Any formal questions or concerns about the content, text or information contained within the body of this dictation should be directly addressed to the provider for clarification. Chronicity: unspecified Qualified Code(s): J96.91 - Respiratory failure, unspecified with hypoxia Admission and Anticipated Discharge Date Admission Date: August 08, 2020 Subjective Patient seen and examined at bedside. No acute distress, no adverse events overnight Patient was extubated 08/20/2020 At the time of examination patient was saturating 96% on 6 L nasal cannula. Wean down to 4 L. Review of Systems Review of Systems: All systems reviewed & are unremarkable except as noted in Subjective Physical Exam Physical Exam: Constitutional: No acute distress HEENT: EOMI, PERRLA, positive subcu emphysema Respiratory system: Decreased air entry bilaterally, no wheeze, no rhonchi, positive crackles bilateral lower lobes CVS: S1-S2 positive, no murmurs or gallops Abdomen: Soft, nontender, nondistended, positive bowel sounds x4 Extremities: +2 pulses bilaterally radialis/ dorsalis pedis, no cyanosis, no edema Neuro: Awake alert oriented x3 Psych: Normal mood and affect G/U: Positive Bautista Skin: no rashes, warm and dry Lymphatic: no cervical or axillary lymphadenopathy Results & Data Results & Data ([place]) Vital Signs (Past 12 Hours) Vital Signs Temp Pulse Pulse Pulse Resp BP BP 08/21/20 07:40 36.7 C 54 L 27 H 131/46 L 08/21/20 07:00 37.3 C 52 L 24 118/60 08/21/20 06:00 37.3 C 53 L 24 119/55 L 08/21/20 05:00 37.3 C 51 L 26 H 117/58 L 08/21/20 04:00 37.3 C 54 L 27 H 127/56 L 08/21/20 03:00 37.4 C 55 L 24 127/55 L 08/21/20 02:00 37.6 C H 56 L 27 H 113/55 L 08/21/20 01:00 37.6 C H 59 L 26 H 118/56 L 08/21/20 00:00 37.7 C H 58 L 30 H 107/58 L 08/20/20 23:59 55 L 08/20/20 23:09 36.8 C 75 30 H 08/20/20 23:00 37.5 C 58 L 10 L 120/68 BP Pulse Ox 08/21/20 07:40 96 08/21/20 07:00 95 08/21/20 06:00 95 08/21/20 05:00 95 08/21/20 04:00 95 08/21/20 03:00 94 08/21/20 02:00 93 08/21/20 01:00 92 08/21/20 00:00 90 08/20/20 23:59 08/20/20 23:09 120/68 08/20/20 23:00 93 08/21/20 06:19 08/21/20 06:19 PG Care Time/CCT Total # of Minutes Spent Total Time Spent with Patient: Total time spent is greater than 50% in coordination of care (as documented) at patient's floor/unit and/or counseling patient: Coding Level of Care Code 91237 Subseq Hosp Care Lvl 3 Diagnoses Diastolic CHF, acute on chronic I50.33 Diaphragm dysfunction J98.6 Respiratory failure with hypoxia J96.91 Chronicity: unspecified
[2020-08-21] MEDS: POTASSIUM CHLORIDE 10 MEQ TABCR PO SCH ×2 (14:13→21:02)
[2020-08-21] MEDS: ATORVASTATIN 40 MG TAB PO SCH (21:03)
[2020-08-21] MEDS: MONTELUKAST SODIUM 10 MG TABLET PO SCH (21:04)
[2020-08-21] MEDS: ARIPiprazole 5 MG TAB PO SCH (21:04)
[2020-08-22] MEDS: LEVOTHYROXINE SODIUM 100 MCG TABLET PO SCH (06:46)
[2020-08-22] MEDS: LEVOTHYROXINE SODIUM 50 MCG TABLET PO SCH (06:46)
[2020-08-22 07:56] LABS: BUN Creatinine Ratio 32.3 (10-20); Calcium 8.5 mg/dl (8.5-10.1); Est GFR (African American) 77.8; Est GFR (Non-African American) 67.1; Potassium 3.5 mmol/L (3.5-5.1)
[2020-08-22] MEDS: INSULIN ASPART 100 UNITS/ML 3 ML PEN SC SCH ×4 (08:00→21:06)
--- NOTE | 2020-08-22 08:54 | Hospitalist Progress Note ---
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, had a coughing spell, desaturated quickly placed on BIPAP but could not recover, required emergent intubation intubated for < 12 hours, extubated at noon on 08/20, doing well for past 48 hours down to 4L NC at rest today, lowest she has been all week, no distress, minimal cough, she is a little tachypneic she desaturates with minimal movement, dropped sats to 70's and needed oxymask, took 30 minutes to recover then stable on 4L again will keep her on 2 east for now CTA chest 08/20 showed moderate pneumomediastinum and apical pneumothorax no pulmonary embolism seen anticipate hospitalization through end of this week, rehab would be good option for her updated her over the phone (2) Pneumonia due to 2018 novel coronavirus: patient titrated down to low flow on 08/19 but then rapidly decompensated m orning of 08/20 requiring intubation Decadron 6 mg PO daily, completed 12 days on 08/19 and it was stopped Remdesivir started 08/08/20 -Patient previously has declined convalescent plasma, consented and ordered 08/14/19 responding well to Lasix 40mg IV daily, Cr is stable, continue this until Cr rises or diuresis stops will give Lasix 40mg IV again today, 08/22 (3) Diastolic CHF, acute on chronic: evaluate each day need for Lasix, difficult to tell due to body habitus and laying in bed responding well to Lasix 40mg IV daily, continue again today, 08/22 negative fluid balance each day, Cr continues to be stable at 0.9 this morning check BMP in the morning and check output from today prior to deciding on lasix on 08/23 K is 3.5, will INCREASE KCl to 20mEq TID, check BMP tomorrow, in no Lasix planned then would hold potassium supplement (4) Hypokalemia: stable at 3.5, increase to 20 TID with Lasix 40mg IV use see above, would hold potassium (5) Factor V Leiden mutation: Lovenox 40 twice daily dosing, 0.5mg/kg bid CTA chest on 08/20, NO PULMONARY EMBOLISM (6) Acute kidney injury: Resolved, Cr is 0.9 on Lasix 40mg IV daily (7) Type 2 diabetes mellitus: this is by history without medication sugar stable, not on steroids (8) Depression: continues on citalopram (9) Chronic obstructive pulmonary disease: remains on singulair, was on breo, continues duonebs used prn (10) Diaphragm dysfunction: chronic issue, right sided makes shunt physiology more difficult to manage Admission and Anticipated Discharge Date Admission Date: August 08, 2020 Subjective patient stable today, down to 4L NC, tachypneic but no distress coughing less, good response to Codeine, no adverse reactions seen Cr is 0.9, K is 3.5, negative fluid balance with Lasix 40mg IV yesterday, repeat today discussed that she will likely be here through the week, possible rehab by end of the week she is eating fairly well, not much of a breakfast person but eating lunch and dinner Review of Systems Review of Systems: All systems reviewed & are unremarkable except as noted in Subjective Physical Exam Constitutional: well developed, well nourished and + overweight; no acute distress Neck: trachea midline, no thyromegaly Respiratory: + cough and + tachypneic; no respiratory distress and no labored breathing Auscultation: lungs clear to auscultation bilaterally Cardiovascular: RRR, no murmur, no edema Gastrointestinal (Abdomen): normal bowel sounds, soft, nontender, no hepatosplenomegaly Musculoskeletal: no cyanosis or clubbing, extremities motor strength 5/5 Skin: no rashes, warm and dry Neurologic: patellar DTR's 2+ bilat, sensation intact and PERRL, EOMI, accommodation nl, no face palsy, no dysarthria no focal motor deficits Psychiatric: A+Ox3, euthymic affect Lymphatic: no cervical or axillary lymphadenopathy Results & Data Results & Data ([facility]) Vital Signs (Past 12 Hours) Vital Signs Temp Pulse Pulse Resp BP BP Pulse Ox 08/22/20 07:13 36.9 C 62 27 H 136/54 L 94 08/22/20 06:00 61 28 H 94 08/22/20 05:00 60 27 H 93 08/22/20 04:00 62 25 H 94 08/22/20 03:13 36.5 C 60 20 128/55 L 93 08/22/20 03:12 59 L 23 128/55 L 94 08/22/20 03:00 60 32 H 93 08/22/20 02:00 63 19 92 08/22/20 01:00 59 L 21 94 08/22/20 00:00 59 L 25 H 93 08/21/20 23:59 65 08/21/20 23:00 64 25 H 93 08/21/20 22:00 61 27 H 96 08/21/20 21:00 63 29 H 97 Pulse Ox 08/22/20 07:13 08/22/20 06:00 08/22/20 05:00 08/22/20 04:00 08/22/20 03:13 08/22/20 03:12 08/22/20 03:00 08/22/20 02:00 08/22/20 01:00 08/22/20 00:00 08/21/20 23:59 08/21/20 23:00 08/21/20 22:00 08/21/20 21:00 91 Laboratory Results Laboratory Results - last 24 hr 08/21/20 08/21/20 08/21/20 11:41 16:46 20:18 Sodium Potassium Chloride Carbon Dioxide Anion Gap BUN Creatinine Est Cr Clr Drug Dosing Est GFR ( Amer) Est GFR (Non-Af Amer) BUN/Creatinine Ratio Glucose POC Glucose 153 H 105 H 123 H Calcium 08/22/20 08/22/20 06:38 07:39 Sodium 137 Potassium 3.5 Chloride 104 Carbon Dioxide 27 Anion Gap 6.0 BUN 29 H Creatinine 0.90 Est Cr Clr Drug Dosing 66.0 Est GFR ( Amer) 77.8 Est GFR (Non-Af Amer) 67.1 BUN/Creatinine Ratio 32.3 H Glucose 84 POC Glucose 102 H Calcium 8.5 Medications Administered Current Inpatient Medications Acetaminophen (Acetaminophen 325 Mg Tab) 650 mg PO Q4H PRN PRN Reason: pain/fever Stop: 09/08/20 01:54 Last Admin: 08/20/20 11:41 Dose: 650 mg Documented by: Albuterol (Albuterol 0.083% Nebu Soln 3 Ml Vial) 5 mg INH Q4H PRN PRN Reason: shortness of breath or wheezing Stop: 09/08/20 01:54 Last Admin: 08/11/20 00:33 Dose: 2.5 mg Documented by: Albuterol (Albut/Ipratrop 3mg/0.5mg Neb 3 Ml Vial) 3 ml INH QID PRN PRN Reason: shortness of breath or wheezing Stop: 09/08/20 01:54 Last Admin: 08/18/20 06:37 Dose: 3 ml Documented by: Aripiprazole (Aripiprazole 5 Mg Tab) 2.5 mg PO [facility] Stop: 09/08/20 01:54 Last Admin: 08/21/20 21:04 Dose: 2.5 mg Documented by: Aspirin (Aspirin 81 Mg Chew) 81 mg PO QAM [facility] Stop: 09/20/20 08:59 Last Admin: 08/21/20 08:14 Dose: 81 mg Documented by: Atorvastatin Calcium (Atorvastatin 40 Mg Tab) 80 mg PO [facility] Stop: 09/08/20 01:54 Last Admin: 08/21/20 21:03 Dose: 80 mg Documented by: Benzonatate (Benzonatate 100 Mg Capsule) 100 mg PO TID [facility] Stop: 09/10/20 20:59 Last Admin: 08/21/20 21:08 Dose: 100 mg Documented by: Citalopram Hydrobromide (Citalopram 40 Mg Tab) 40 mg PO QAM [facility] Stop: 09/08/20 08:59 Last Admin: 08/21/20 08:09 Dose: 40 mg Documented by: Dextrose (Dextrose 50% 50 Ml Syringe) 25 - 50 ml IV UD PRN; Protocol PRN Reason: Hypoglycemia Protocol Stop: 09/19/20 14:14 Enoxaparin Sodium (Enoxaparin Inj 40 Mg/0.4 Ml Syr) 40 mg SQ Q12H [facility] Stop: 09/08/20 08:59 Last Admin: 08/21/20 21:03 Dose: 40 mg Documented by: Glucagon (Glucagon For Inj 1 Mg Vial) 1 mg IM UD PRN; Protocol PRN Reason: Hypoglycemia Protocol Stop: 09/19/20 14:14 Glucose (Glucose 40% Gel 15 Gm Tube) 15 - 30 gm PO UD PRN; Protocol PRN Reason: Hypoglycemia Protocol Stop: 09/19/20 14:14 Glucose (Glucose 10 Tabs/Tube) 4 - 8 tabs PO UD PRN; Protocol PRN Reason: Hypoglycemia Protocol Stop: 09/19/20 14:14 Guaifenesin/Codeine Phosphate (Guaifenesin/Codeine 200mg/20mg 10ml Udc) 10 ml PO Q6H PRN PRN Reason: Cough Stop: 09/20/20 09:35 Last Admin: 08/22/20 08:13 Dose: 10 ml Documented by: Guaifenesin/Dextromethorphan (Guaifenesin/Dextrom Syrup 200mg/20mg 10ml Udc) 10 ml PO Q8 PRN PRN Reason: Cough Stop: 09/17/20 15:55 Last Admin: 08/20/20 19:42 Dose: 10 ml Documented by: Insulin Aspart (Insulin Aspart 100 Units/Ml 3 Ml Pen) [address] [facility] Stop: 09/19/20 16:29 Last Admin: 08/21/20 20:58 Dose: Not Given Documented by: Levothyroxine Sodium (Levothyroxine Sodium 100 Mcg Tablet) [facility] Stop: 09/08/20 06:29 Last Admin: 08/22/20 06:46 Dose: 100 mcg Documented by: Levothyroxine Sodium (Levothyroxine Sodium 50 Mcg Tablet) [facility] Stop: 09/08/20 06:29 Last Admin: 08/22/20 06:46 Dose: 50 mcg Documented by: Lorazepam (Lorazepam 0.5 Mg Tab) 0.5 mg PO DAILY PRN PRN Reason: Anxiety Stop: 09/08/20 01:54 Last Admin: 08/12/20 03:26 Dose: 0.5 mg Documented by: Menthol (Cough Drop (Sugar Free) Gucci 24 Gucci/1 Box) 1 gucci BUCCAL Q1H PRN PRN Reason: Sore Throat Stop: 09/10/20 15:17 Last Admin: 08/12/20 01:01 Dose: 1 gucci Documented by: Miscellaneous (Carbohydrates For Hypoglycemia ) 15 - 30 gm PO UD PRN PRN Reason: Hypoglycemia Treatment Stop: 09/19/20 14:14 Montelukast Sodium (Montelukast Sodium 10 Mg Tablet) 10 mg PO [facility] Stop: 09/08/20 01:54 Last Admin: 08/21/20 21:04 Dose: 10 mg Documented by: Ondansetron HCl (Ondansetron 4 Mg Od Tab) 4 mg PO Q6 PRN PRN Reason: Nausea Stop: 09/08/20 02:07 Ondansetron HCl (Ondansetron Inj 2 Mg/Ml 2 Ml Vial) 4 mg IV Q6H PRN PRN Reason: Nausea Stop: 09/08/20 01:54 Polyethylene Glycol (Polyethylene (Miralax) 17 Gm Pack) 17 gm PO DAILY PRN PRN Reason: Constipation Stop: 09/08/20 01:54 Potassium Chloride (Potassium Chloride 10 Meq Tabcr) 10 meq PO TID [facility] Stop: 09/20/20 13:59 Last Admin: 08/21/20 21:02 Dose: 10 meq Documented by: Promethazine HCl (Promethazine Hcl 12.5 Mg/10 Ml Udp) 12.5 mg PO Q6H PRN PRN Reason: Cough Stop: 09/09/20 17:27 Last Admin: 08/11/20 13:35 Dose: 12.5 mg Documented by: Zinc Sulfate (Zinc Sulfate 220 Mg Capsule) 220 mg PO QAM [facility] Stop: 09/07/20 19:14 Last Admin: 08/21/20 08:09 Dose: 220 mg Documented by: Zolpidem Tartrate (Zolpidem Tartrate 5 Mg Tab) 5 mg PO HS PRN PRN Reason: Sleep Stop: 09/08/20 01:54 Last Admin: 08/18/20 21:23 Dose: 5 mg Documented by: Zolpidem Tartrate (Zolpidem Tartrate 10 Mg Tab) 10 mg PO HS PRN PRN Reason: Sleep Stop: 09/12/20 15:14 Zonisamide (Zonisamide) 1 ea PO BID [facility] Stop: 09/09/20 21:29 Last Admin: 08/21/20 21:04 Dose: 1 ea Documented by: PG Care Time/CCT Total # of Minutes Spent Total Time Spent with Patient: Total time spent is greater than 50% in coordination of care (as documented) at patient's floor/unit and/or counseling patient: Coding Level of Care Code 24259 Subseq Hosp Care Lvl 3 Diagnoses Respiratory failure with hypoxia J96.91 Chronicity: unspecified Pneumonia due to 2019 novel coronavirus U07.1; J12.89 Diastolic CHF, acute on chronic I50.33 Hypokalemia E87.6 Factor V Leiden mutation D68.51 Acute kidney injury N17.9 Type 2 diabetes mellitus E11.9 Depression F32.9 Chronic obstructive pulmonary disease J44.9 Diaphragm dysfunction J98.6 (1) Respiratory failure with hypoxia Chronicity: unspecified Qualified Code(s): J96.91 - Respiratory failure, unspecified with hypoxia
[2020-08-22] MEDS ORDERED: FUROSEMIDE 40 MG in SYRINGE 0 ML IV ONE (08:55)
[2020-08-22] MEDS ORDERED: FUROSEMIDE 40 MG/4 ML VIAL IV ONE (09:00)
[2020-08-22] MEDS: POTASSIUM CHLORIDE CRTAB 20 MEQ TABCR PO SCH ×3 (09:20→21:04)
[2020-08-22] MEDS: ENOXAPARIN INJ 40 MG/0.4 ML SYR SQ SCH ×2 (09:21→21:06)
[2020-08-22] MEDS: CITALOPRAM 40 MG TAB PO SCH (09:21)
[2020-08-22] MEDS: ZINC SULFATE 220 MG CAPSULE PO SCH (09:21)
[2020-08-22] MEDS: ZONISAMIDE PO SCH ×2 (09:22→21:04)
[2020-08-22] MEDS: BENZONATATE 100 MG CAPSULE PO SCH ×3 (09:25→21:10)
[2020-08-22] MEDS: ASPIRIN 81 MG CHEW PO SCH (09:25)
[2020-08-22] MEDS: ARIPiprazole 5 MG TAB PO SCH (21:05)
[2020-08-22] MEDS: ATORVASTATIN 40 MG TAB PO SCH (21:05)
[2020-08-22] MEDS: MONTELUKAST SODIUM 10 MG TABLET PO SCH (21:05)
[2020-08-23 04:41] LABS: Creatinine Clr Calc Pharmacy 76.2 ml/min; Est GFR (African American) 92.5; Est GFR (Non-African American) 79.8
[2020-08-23] MEDS: LEVOTHYROXINE SODIUM 50 MCG TABLET PO SCH (06:01)
[2020-08-23] MEDS: LEVOTHYROXINE SODIUM 100 MCG TABLET PO SCH (06:01)
[2020-08-23] MEDS: POTASSIUM CHLORIDE CRTAB 20 MEQ TABCR PO SCH ×3 (08:25→22:22)
[2020-08-23] MEDS: ENOXAPARIN INJ 40 MG/0.4 ML SYR SQ SCH ×2 (08:25→22:27)
[2020-08-23] MEDS: ZONISAMIDE PO SCH ×2 (08:29→22:29)
[2020-08-23] MEDS: BENZONATATE 100 MG CAPSULE PO SCH ×3 (08:36→23:14)
[2020-08-23] MEDS: ASPIRIN 81 MG CHEW PO SCH (08:36)
[2020-08-23] MEDS: CITALOPRAM 40 MG TAB PO SCH (08:37)
[2020-08-23] MEDS: ZINC SULFATE 220 MG CAPSULE PO SCH (08:37)
[2020-08-23] MEDS: INSULIN ASPART 100 UNITS/ML 3 ML PEN SC SCH ×4 (08:38→21:00)
[2020-08-23] MEDS: ACETAMINOPHEN 325 MG TAB PO PRN ×2 (13:37→18:41)
--- NOTE | 2020-08-23 16:53 | Hospitalist Progress Note ---
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, had a coughing spell, desaturated quickly placed on BIPAP but could not recover, required emergent intubation intubated for < 12 hours, extubated at noon on 08/20, doing well for past 48 hours down to 4L NC at rest today, lowest she has been all week, no distress, minimal cough, she is a little tachypneic she desaturates with minimal movement, dropped sats to 70's and needed oxymask, took 30 minutes to recover then stable on 4L again will keep her on 2 east for now CTA chest 08/20 showed moderate pneumomediastinum and apical pneumothorax no pulmonary embolism seen anticipate hospitalization through end of this week, rehab would be good option for her updated her over the phone (2) Pneumonia due to 2019 novel coronavirus: patient titrated down to low flow on 08/19 but then rapidly decompensated morning of 08/20 requiring intubation Decadron 6 mg PO daily, completed 12 days on 08/19 and it was stopped Remdesivir started 08/08/20 -Patient previously has declined convalescent plasma, consented and ordered 08/14/19 responding well to Lasix 40mg IV daily, Cr is stable, continue this until Cr rises or diuresis stops will give Lasix 40mg IV again today, 08/22 no lasix on 08/23 as patient continues to improve. (3) Diastolic CHF, acute on chronic: evaluate each day need for Lasix, difficult to tell due to body habitus and laying in bed responding well to Lasix 40mg IV daily, continue again today, 08/22 negative fluid balance each day, Cr continues to be stable at 0.9 this morning check BMP in the morning and check output from today prior to deciding on lasix on 08/23 K is 3.5, on 08/22, will hold supplement (4) Hypokalemia: stable at 3.5, see above, would hold potassium (5) Factor V Leiden mutation: Lovenox 40 twice daily dosing, 0.5mg/kg bid CTA chest on 08/20, NO PULMONARY EMBOLISM (6) Acute kidney injury: Resolved, Cr is 0.9 on Lasix 40mg IV daily (7) Type 2 diabetes mellitus: this is by history without medication sugar stable, not on steroids (8) Depression: continues on citalopram (9) Chronic obstructive pulmonary disease: remains on singulair, was on breo, continues duonebs used prn (10) Diaphragm dysfunction: chronic issue, right sided makes shunt physiology more difficult to manage Admission and Anticipated Discharge Date Admission Date: August 08, 2020 Subjective Reports breathing better. Was out of bed to chair. Review of Systems Review of Systems: All systems reviewed & are unremarkable except as noted in HPI & below Physical Exam Physical Exam: Constitutional: well developed, well nourished and + overweight; no acute distress Neck: trachea midline, no thyromegaly Respiratory: no respiratory distress and no labored breathing Auscultati on: lungs clear to auscultation bilaterally Cardiovascular: RRR, no murmur, no edema Gastrointestinal (Abdomen): normal bowel sounds, soft, nontender, no hepatosplenomegaly Musculoskeletal: no cyanosis or clubbing, extremities motor strength 5/5 Skin: no rashes, warm and dry Neurologic: patellar DTR's 2+ bilat, sensation intact and PERRL, EOMI, accommodation nl, no face palsy, no dysarthria no focal motor deficits Psychiatric: A+Ox3, euthymic affect Lymphatic: no cervical or axillary lymphadenopathy Results & Data Results & Data ([facility]) Vital Signs (Past 12 Hours) Vital Signs Temp Pulse Pulse Resp BP BP Pulse Ox 08/23/20 15:55 36.4 C L 72 120/56 L 96 08/23/20 12:27 36.3 C L 79 18 131/50 L 91 08/23/20 11:52 94 08/23/20 09:00 71 91 08/23/20 08:00 67 94 08/23/20 07:20 36.5 C 16 08/23/20 07:17 67 124/54 L 93 08/23/20 07:00 67 91 08/23/20 06:00 65 95 08/23/20 05:00 66 93 PG Care Time/CCT Total # of Minutes Spent Total Time Spent with Patient: Total time spent is greater than 50% in coordination of care (as documented) at patient's floor/unit and/or counseling patient: Coding Level of Care Code 82503 Subseq Hosp Care Lvl 3 Diagnoses Respiratory failure with hypoxia J96.91 Chronicity: unspecified Pneumonia due to 2019 novel coronavirus U07.1; J12.89 Diastolic CHF, acute on chronic I50.33 Hypokalemia E87.6 Factor V Leiden mutation D68.51 Acute kidney injury N17.9 Type 2 diabetes mellitus E11.9 Depression F32.9 Chronic obstructive pulmonary disease J44.9 Diaphragm dysfunction J98.6 Time Spent (min) 35 (1) Respiratory failure with hypoxia Chronicity: unspecified Qualified Code(s): J96.91 - Respiratory failure, unspecified with hypoxia
[2020-08-23] MEDS: ARIPiprazole 5 MG TAB PO SCH (22:24)
[2020-08-23] MEDS: ATORVASTATIN 40 MG TAB PO SCH (22:25)
[2020-08-23] MEDS: MONTELUKAST SODIUM 10 MG TABLET PO SCH (22:28)
[2020-08-23] MEDS: guaiFENesin/DEXTROM SYRUP 200MG/20MG 10ML UDC PO PRN (23:15)
[2020-08-24] MEDS: LORazepam 0.5 MG TAB PO PRN (01:46)
[2020-08-24] MEDS: ACETAMINOPHEN 325 MG TAB PO PRN ×3 (01:46→13:07)
[2020-08-24] MEDS: LEVOTHYROXINE SODIUM 50 MCG TABLET PO SCH (05:43)
[2020-08-24] MEDS: LEVOTHYROXINE SODIUM 100 MCG TABLET PO SCH (05:43)
[2020-08-24] MEDS: ZINC SULFATE 220 MG CAPSULE PO SCH (08:45)
[2020-08-24] MEDS: ENOXAPARIN INJ 40 MG/0.4 ML SYR SQ SCH ×2 (08:46→21:18)
[2020-08-24] MEDS: ZONISAMIDE PO SCH ×2 (08:46→21:17)
[2020-08-24] MEDS: CITALOPRAM 40 MG TAB PO SCH (08:47)
[2020-08-24] MEDS: ASPIRIN 81 MG CHEW PO SCH (08:47)
[2020-08-24] MEDS: INSULIN ASPART 100 UNITS/ML 3 ML PEN SC SCH ×4 (08:48→21:01)
[2020-08-24] MEDS: BENZONATATE 100 MG CAPSULE PO SCH ×2 (08:56→12:42)
[2020-08-24 09:28] LABS: BUN Creatinine Ratio 31.5 (10-20); Calcium 8.7 mg/dl (8.5-10.1); Creatinine Clr Calc Pharmacy 90.3 ml/min; Est GFR (African American) 107.4; Est GFR (Non-African American) 92.7; Potassium 4.2 mmol/L (3.5-5.1)
[2020-08-24] MEDS: guaiFENesin/DEXTROM SYRUP 200MG/20MG 10ML UDC PO PRN (13:04)
--- NOTE | 2020-08-24 16:53 | Hospitalist Progress Note ---
Date of Service August 24, 2020 Assessment & Plan (1) Pneumonia due to 2019 novel coronavirus: Patient titrated down to low flow on 08/19 but then rapidly decompensated morning of 08/20 requiring intubation. - Decadron 6 mg PO daily, completed 12 days on 08/19 and it was stopped. - Remdesivir started 08/08/20 - Convalescent plasma, consented and ordered 08/14/19. - Supportive care with O2 PRN (2) Respiratory failure with hypoxia: Was improving each day, on 08/19 she was titrated off of high flow, stable on low flow nasal canula. 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 Required emergent intubation; intubated for < 12 hours, extubated at noon on 08/20, doing well for past 48 hours. - As above (3) Diastolic CHF, acute on chronic: Responded well to Lasix 40mg IV daily. - Evaluate each day need for Lasix - No Lasix on 08/23 or 08/24. - Will get BNP in the AM (4) Type 2 diabetes mellitus: A1c was 6.7% in 07/2020. Sliding scale insulin -> Sugars 80-130 in the last 24 hours. (5) Depression: No overt needs at present. - Continue citalopram (6) Chronic obstructive pulmonary disease: No wheezing on exam today. - Continue Singulair - DuoNebs PRN (7) Hypothyroidism: TSH was 0.12 in 07/2020. No signs/symptoms of hypo-/hyperthyroidism. - Continue home Synthroid 150 mcg - Recheck TSH tomorrow (8) Parkinsonism: Saw Dr. Everett in 07/2020. - Continue zonisamide 25 mg PO BID (9) Factor V Leiden mutation: CTA chest on 08/20 without PE. - Lovenox 40 mg SQ Q12h Admission and Anticipated Discharge Date Admission Date: August 08, 2020 Subjective Feeling some better today. Was able to go off O2 temporarily, but then needed to go back on. Doing better daily. Reports no fevers/chills, chest pain, abdominal pain, nausea, or vomiting. Physical Exam Constitutional: WD/WN, vitals as above Eyes: EOM intact bilaterally; no conjunctival abnormality ENMT: external ear and nose normal, oropharynx normal Neck: trachea midline, no thyromegaly normal visual inspection Respiratory: normal respiratory effort, lungs clear to auscultation no respiratory distress Cardiovascular: RRR, no murmur, no edema Gastrointestinal (Abdomen): Inspection/Auscultation: abdomen normal to inspection; abdomen not distended Musculoskeletal: no cyanosis or clubbing, extremities motor strength 5/5 Skin: no rashes, warm and dry Neurologic: moves all extremities and awake Psychiatric: Orientation: alert, oriented to person and cooperative Results & Data Results & Data ([facility]) Vital Signs (Past 12 Hours) Vital Signs Temp Pulse Pulse Resp BP Pulse Ox Pulse Ox 08/24/20 14:56 36.8 C 74 18 162/79 H 96 08/24/20 11:13 36.6 C 74 18 130/59 L 96 08/24/20 11:00 93 08/24/20 07:25 36.8 C 70 20 138/55 L 93 PG Care Time/CCT Total # of Minutes Spent Total Time Spent with Patient: Total time spent is greater than 50% in coordination of care (as documented) at patient's floor/unit and/or counseling patient: Coding Level of Care Code 04403 Subseq Hosp Care Lvl 3 Diagnoses Pneumonia due to 2019 novel coronavirus U07.1; J12.89 Respiratory failure with hypoxia J96.91 Chronicity: unspecified Diastolic CHF, acute on chronic I50.33 Type 2 diabetes mellitus E11.9 Depression F32.9 Chronic obstructive pulmonary disease J44.9 Hypothyroidism E03.9 Parkinsonism G20 Factor V Leiden mutation D68.51 (1) Respiratory failure with hypoxia Chronicity: unspecified Qualified Code(s): J96.91 - Respiratory failure, unspecified with hypoxia
[2020-08-24] MEDS: traMADol HCL 50 MG TABLET PO PRN (18:29)
[2020-08-24] MEDS: ATORVASTATIN 40 MG TAB PO SCH (21:17)
[2020-08-24] MEDS: MONTELUKAST SODIUM 10 MG TABLET PO SCH (21:18)
[2020-08-24] MEDS: ARIPiprazole 5 MG TAB PO SCH (21:20)
[2020-08-24] MEDS: ZOLPIDEM TARTRATE 10 MG TAB PO PRN (21:24)
[2020-08-25] MEDS: LORazepam 0.5 MG TAB PO PRN ×2 (03:27→20:30)
[2020-08-25] MEDS: traMADol HCL 50 MG TABLET PO PRN ×3 (03:27→20:30)
[2020-08-25] MEDS: LEVOTHYROXINE SODIUM 50 MCG TABLET PO SCH (05:37)
[2020-08-25] MEDS: LEVOTHYROXINE SODIUM 100 MCG TABLET PO SCH (05:37)
[2020-08-25 06:50] LABS: Hematocrit (blood only) 30.7 % (37-47); Hemoglobin 10.1 g/dL (12.0-16.0); Mean Corpuscular Hemoglobin 29.1 pg (25-34); Mean Corpuscular Hgb Conc 32.9 g/dL (32-36); Mean Corpuscular Volume 88.5 fL (80-100); Mean Platelet Volume 12.1 fL (7.4-10.4); Platelet Count 275 K/uL (130-400); RDW Standard Deviation 47.5 fL (36.4-46.3); Red Blood Count 3.47 M/uL (4.2-5.4); White Blood Count 19.67 K/uL (4.8-10.8)
--- NOTE | 2020-08-25 07:14 | Ultrasound Report ---
LEFT LOWER EXTREMITY VENOUS DOPPLER HISTORY: Left Hip pain; concern for DVT COMPARISON STUDY: None. FINDINGS: There is normal compressibility, flow, and augmentation within the left lower extremity merry p venous system. IMPRESSION: No DVT within the left lower extremity. ACT 112: Negative or not required by law. Electronically signed by: Jorge Tompkins M.D. 08/25/2020 7:12 AM
[2020-08-25 07:30] LABS: Albumin Globulin Ratio 0.5 (0.9-2); BUN Creatinine Ratio 21.3 (10-20); Bilirubin,Total 0.8 mg/dl (0.2-1); Calcium 8.2 mg/dl (8.5-10.1); Creatinine Clr Calc Pharmacy 84.6 ml/min; Est GFR (African American) 105.4; Est GFR (Non-African American) 90.9; Globulin 4.3 gm/dl (2.5-4.0); Thyroid Stimulating Hormone 5.49 uIu/ml (0.300-4.500); Total Protein 6.3 gm/dl (6.4-8.2)
[2020-08-25 07:48] LABS: T4 Free Thyroxine 1.03 ng/dl (0.8-1.6)
[2020-08-25 08:47] LABS: Potassium 4.2 mmol/L (3.5-5.1)
[2020-08-25 08:52] LABS: Magnesium 2.1 mg/dl (1.8-2.4)
[2020-08-25] MEDS: INSULIN ASPART 100 UNITS/ML 3 ML PEN SC SCH ×4 (08:57→20:33)
[2020-08-25] MEDS: ASPIRIN 81 MG CHEW PO SCH (09:00)
[2020-08-25] MEDS: CITALOPRAM 40 MG TAB PO SCH (09:00)
[2020-08-25] MEDS: ENOXAPARIN INJ 40 MG/0.4 ML SYR SQ SCH ×2 (09:01→20:31)
[2020-08-25] MEDS: ZONISAMIDE PO SCH ×2 (09:02→20:33)
[2020-08-25] MEDS: BENZONATATE 100 MG CAPSULE PO PRN (11:16)
--- NOTE | 2020-08-25 11:57 | Hospitalist Progress Note ---
Date of Service August 25, 2020 Assessment & Plan (1) Pneumonia due to 2019 novel coronavirus: Patient titrated down to low flow on 08/19 but then rapidly decompensated morning of 08/20 requiring intubation. - Decadron 6 mg PO daily, completed 12 days on 08/19 and it was stopped. - Remdesivir started 08/08/20 - Convalescent plasma, consented and ordered 08/14/19. - Supportive care with O2 PRN - Worsening today. BNP normal this morning. Ordered CXR, procal, vbg, & d-dimer to rule out other causes of increased respiratory work. (2) Respiratory failure with hypoxia: Was improving each day, on 08/19 she was titrated off of high flow, stable on low flow nasal canula. 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 Required emergent intubation; intubated for < 12 hours, extubated at noon on 08/20. - As above (3) Diastolic CHF, acute on chronic: Responded well to Lasix 40mg IV daily. - Evaluate each day need for Lasix - No Lasix on 08/23 or 08/24. - BNP on 08/25 was normal. Hold Lasix for now. (4) Type 2 diabetes mellitus: A1c was 6.7% in 07/2020. Sliding scale insulin -> Sugars 90-150 in the last 24 hours. (5) Depression: No overt needs at present. - Continue citalopram (6) Chronic obstructive pulmonary disease: No wheezing on exam today. - Continue Singulair - DuoNebs PRN (7) Hypothyroidism: TSH was 0.12 in 07/2020. No signs/symptoms of hypo-/hyperthyroidism. - Rechecked TSH on 08/25 -> 5.5 with normal FT4. - Continue home Synthroid 150 mcg (8) Parkinsonism: Saw Dr. Everett in 07/2020. - Continue zonisamide 25 mg PO BID (9) Factor V Leiden mutation: CTA chest on 08/20 without PE. - Lovenox 40 mg SQ Q12h Admission and Anticipated Discharge Date Admission Date: August 08, 2020 Subjective Reports some shortness of breath this morning, but now says she is "fine." Does appear more fatigued this morning. Reports no fevers/chills, chest pain, abdominal pain, nausea, or vomiting. Physical Exam Constitutional: WD/WN, vitals as above Eyes: EOM intact bilaterally; no conjunctival abnormality ENMT: external ear and nose normal, oropharynx normal Neck: trachea midline, no thyromegaly normal visual inspection Respiratory: + labored breathing; no respiratory distress Auscultation: lungs clear to auscultation bilaterally Cardiovascular: RRR, no murmur, no edema Gastrointestinal (Abdomen): Inspection/Auscultation: abdomen normal to inspection; abdomen not distended Musculoskeletal: no cyanosis or clubbing, extremities motor strength 5/5 Skin: no rashes, warm and dry Neurologic: moves all extremities and awake Psychiatric: Orientation: alert, oriented to person and cooperative Results & Data Results & Data ([facility]) Vital Signs (Past 12 Hours) Vital Signs Temp Pulse Pulse Resp BP Pulse Ox 08/25/20 04:06 36.8 C 95 H 22 130/64 89 L 08/25/20 00:00 36.7 C 85 22 137/72 92 08/24/20 23:59 85 PG Care Time/CCT Total # of Minutes Spent Total Time Spent with Patient: Total time spent is greater than 50% in coordination of care (as documented) at patient's floor/unit and/or counseling patient: Coding Level of Care Code 09540 Subseq Hosp Care Lvl 3 Diagnoses Pneumonia due to 2019 novel coronavirus U07.1; J12.89 Respiratory failure with hypoxia J96.91 Chronicity: unspecified Diastolic CHF, acute on chronic I50.33 Type 2 diabetes mellitus E11.9 Depression F32.9 Chronic obstructive pulmonary disease J44.9 Hypothyroidism E03.9 Parkinsonism G20 Factor V Leiden mutation D68.51 (1) Respiratory failure with hypoxia Chronicity: unspecified Qualified Code(s): J96.91 - Respiratory failure, unspecified with hypoxia
[2020-08-25 12:47] LABS: Base Excess VBG 0.2 mEq/L; HCO3 VBG 25 mmol/L; PCO2 VBG 43 mmHg (38-50); PO2 VBG 30 mmHg; pH VBG 7.39 (7.36-7.41)
[2020-08-25 12:48] LABS: Oxygen Saturation VBG < 60.0 %
[2020-08-25 13:24] LABS: D Dimer 630 ug/L FEU (0-500)
--- NOTE | 2020-08-25 14:06 | XRay Report ---
XR chest 1V portable CLINICAL HISTORY: Shortness of breath. Worsening hypoxia. COMPARISON STUDY: 08/21/2020 FINDINGS: The cardiac and mediastinal contours remain stable. There are persistent multifocal airspac e opacities consistent with a multifocal pneumonia. The findings remain similar. There are no large p leural effusions. The left-sided central venous catheter has been removed.[ IMPRESSION: 1. Interval removal of the central venous catheter 2. Persistent multifocal airspace opacities essentially unchanged from the prior study ACT 112: Negative or not required by law. Electronically signed by: Balaji Cheek M.D. 08/25/2020 2:05 PM
[2020-08-25] MEDS: ZOLPIDEM TARTRATE 10 MG TAB PO PRN (20:30)
[2020-08-25] MEDS: ATORVASTATIN 40 MG TAB PO SCH (20:32)
[2020-08-25] MEDS: ARIPiprazole 5 MG TAB PO SCH (20:32)
[2020-08-25] MEDS: MONTELUKAST SODIUM 10 MG TABLET PO SCH (20:33)
[2020-08-26] MEDS: traMADol HCL 50 MG TABLET PO PRN ×5 (01:48→21:13)
[2020-08-26] MEDS: LEVOTHYROXINE SODIUM 100 MCG TABLET PO SCH (05:49)
[2020-08-26] MEDS: LEVOTHYROXINE SODIUM 50 MCG TABLET PO SCH (05:50)
[2020-08-26] MEDS: ACETAMINOPHEN 325 MG TAB PO PRN (08:12)
[2020-08-26] MEDS: ASPIRIN 81 MG CHEW PO SCH (08:14)
[2020-08-26 08:15] LABS: Hematocrit (blood only) 26.1 % (37-47); Hemoglobin 8.8 g/dL (12.0-16.0); Mean Corpuscular Hemoglobin 29.9 pg (25-34); Mean Corpuscular Hgb Conc 33.7 g/dL (32-36); Mean Corpuscular Volume 88.8 fL (80-100); Mean Platelet Volume 10.6 fL (7.4-10.4); Platelet Count 273 K/uL (130-400); RDW Coefficient of Variation 15.1 % (11.5-14.5); RDW Standard Deviation 48.6 fL (36.4-46.3); Red Blood Count 2.94 M/uL (4.2-5.4); White Blood Count 20.74 K/uL (4.8-10.8)
[2020-08-26] MEDS: ENOXAPARIN INJ 40 MG/0.4 ML SYR SQ SCH (08:15)
[2020-08-26] MEDS: ZONISAMIDE PO SCH ×2 (08:15→20:03)
[2020-08-26] MEDS: CITALOPRAM 40 MG TAB PO SCH (08:15)
[2020-08-26 08:52] LABS: BUN Creatinine Ratio 20.7 (10-20); Calcium 8.6 mg/dl (8.5-10.1); Creatinine Clr Calc Pharmacy 81.1 ml/min; Est GFR (African American) 100.2; Est GFR (Non-African American) 86.4; Magnesium 2.1 mg/dl (1.8-2.4); Potassium 4.1 mmol/L (3.5-5.1)
[2020-08-26 08:55] LABS: Albumin Globulin Ratio 0.5 (0.9-2); Bilirubin,Total 0.6 mg/dl (0.2-1); Globulin 4.2 gm/dl (2.5-4.0); Total Protein 6.2 gm/dl (6.4-8.2)
[2020-08-26] MEDS: INSULIN ASPART 100 UNITS/ML 3 ML PEN SC SCH ×4 (09:05→20:11)
--- NOTE | 2020-08-26 14:55 | Hospitalist Progress Note ---
Date of Service August 26, 2020 Assessment & Plan (1) Pneumonia due to 2019 novel coronavirus: Patient titrated down to low flow on 08/19 but then rapidly decompensated morning of 08/20 requiring intubation. - Decadron 6 mg PO daily, completed 12 days on 08/19 and it was stopped. - Remdesivir started 08/08/20 - Convalescent plasma, consented and ordered 08/14/19. - Supportive care with O2 PRN - Stable today. BNP normal on 08/25. Procalcitonin was 0.3. D-dimer lower from prior at 630. VBG stable. - Given continued leukocytosis and procalcitonin, will give levofloxacin x 5- day course. No concern for MRSA and low concern for hospital-acquired pathogens. (2) Respiratory failure with hypoxia: Was improving each day, on 08/19 she was titrated off of high flow, stable on low flow nasal canula. 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 Required emergent intubation; intubated for < 12 hours, extubated at noon on 08/20. - As above (3) Anemia: Baseline hgb was 14 on admission. - Over last 2 days, hgb has trended down to 8.8. No evidence of overt bleeding. - Will get anemia labs tomorrow. (4) Diastolic CHF, acute on chronic: Responded well to Lasix 40mg IV daily. - Evaluate each day need for Lasix - No Lasix on 08/23 or 08/24. - BNP on 08/25 was normal. Hold Lasix for now. (5) Type 2 diabetes mellitus: A1c was 6.7% in 07/2020. Sliding scale insulin -> Sugars 90-150 in the last 24 hours. (6) Depression: No overt needs at present. - Continue citalopram (7) Chronic obstructive pulmonary disease: No wheezing on exam today. - Continue Singulair - DuoNebs PRN (8) Hypothyroidism: TSH was 0.12 in 07/2020. No signs/symptoms of hypo-/hyperthyroidism. - Rechecked TSH on 08/25 -> 5.5 with normal FT4. - Continue home Synthroid 150 mcg (9) Parkinsonism: Saw Dr. Everett in 07/2020. - Continue zonisamide 25 mg PO BID (10) Factor V Leiden mutation: CTA chest on 08/20 without PE. - Lovenox 40 mg SQ Q12h Admission and Anticipated Discharge Date Admission Date: August 08, 2020 Subjective Stable today, though tired. Reports shortness of breath. Reports no fevers/chills, chest pain, abdominal pain, nausea, or vomiting. Physical Exam Constitutional: WD/WN, vitals as above Eyes: EOM intact bilaterally; no conjunctival abnormality ENMT: external ear and nose normal, oropharynx normal Neck: trachea midline, no thyromegaly normal visual inspection Respiratory: + labored breathing; no respiratory distress Auscultation: lungs clear to auscultation bilaterally Cardiovascular: RRR, no murmur, no edema Gastrointestinal (Abdomen): Inspection/Auscultation: abdomen normal to inspection; abdomen not distended Musculoskeletal: no cyanosis or clubbing, extremities motor strength 5/5 Skin: no rashes, warm and dry Neurologic: moves all extremities and awake Psychiatric: Orientation: alert, oriented to person and cooperative Results & Data Results & Data ([facility]) Vital Signs (Past 12 Hours) Vital Signs Temp Pulse Pulse Resp BP BP Pulse Ox 08/26/20 11:22 36.8 C 99 H 136/77 100 08/26/20 11:00 08/26/20 07:29 95 H 08/26/20 05:25 36.6 C 96 H 22 135/76 97 Pulse Ox 08/26/20 11:22 08/26/20 11:00 96 08/26/20 07:29 08/26/20 05:25 PG Care Time/CCT Total # of Minutes Spent Total Time Spent with Patient: Total time spent is greater than 50% in coordination of care (as documented) at patient's floor/unit and/or counseling patient: Coding Level of Care Code 06568 Subseq Hosp Care Lvl 3 Diagnoses Pneumonia due to 2019 novel coronavirus U07.1; J12.89 Respiratory failure with hypoxia J96.91 Chronicity: unspecified Anemia D64.9 Diastolic CHF, acute on chronic I50.33 Type 2 diabetes mellitus E11.9 Depression F32.9 Chronic obstructive pulmonary disease J44.9 Hypothyroidism E03.9 Parkinsonism G20 Factor V Leiden mutation D68.51 (1) Respiratory failure with hypoxia Chronicity: unspecified Qualified Code(s): J96.91 - Respiratory failure, unspecified with hypoxia
--- NOTE | 2020-08-26 16:19 | CT Scan Report ---
CT hip LT wo con CT DOSE: CLINICAL HISTORY: Left hip pain. Anemia. Possible hemorrhage. TECHNIQUE: Helical images were acquired in the transverse plane. A dose lowering technique was utili zed adhering to the principles of ALARA. COMPARISON STUDY: CT scan dated 05/29/2017 FINDINGS: There is sigmoid diverticulosis. There is gas within the bladder, likely iatrogenic. There is mild enlargement of the left iliopsoas, likely secondary to hemorrhage. No hip fractures are visualized. No destructive lesions are visualized. There are moderate osteoarthritic changes within the left hip. IMPRESSION: 1. No evidence of acute fracture 2. Moderate osteoarthritis of the left hip 3. Partial visualization of a left iliopsoas hematoma ACT 112: Negative or not required by law. Electronically signed by: Balaji Cheek M.D. 08/26/2020 4:18 PM
--- NOTE | 2020-08-26 16:30 | CT Scan Report ---
CT pelvis wo con CLINICAL HISTORY: Anemia. Evaluate for retroperitoneal bleed. COMPARISON STUDY: CT of the abdomen and pelvis May 29, 2017. TECHNIQUE: Axial images of the pelvis and hips were obtained without IV contrast. Sagittal and arana l reconstructions were viewed. Automated exposure control was utilized for the study. A dose lowerin g technique was utilized adhering to the principles of ALARA. FINDINGS: Note is made of a partially visualized hematoma within the left psoas and iliopsoas muscles that measures at least 9.5 x 6.5 x 3.5 cm. This contains hyperdense foci. This favors an acute hemat bessie. A small amount of acute hemorrhage lateral to the right psoas muscle is noted. These measure up to 1.5 cm. No additional hematomas are identified. The sacroiliac joints and symphysis pubis are inta ct. There is gas within the bladder likely from recent instrumentation. There is sigmoid diverticulos is without evidence for acute diverticulitis. Multiple subcutaneous injection sites within the lower anterior abdominal wall are noted. IMPRESSION: 1. Moderate sized partially visualized acute intramuscular hematoma within the left psoas and iliopso as muscles that measures at least 9.5 x 6.5 x 3.5 cm. Superior aspect of hematoma not imaged on this exam. Small amount of hemorrhage lateral to the right psoas muscle. 2. Small amount of gas within the bladder presumably from recent instrumentation. 3. No acute fracture within the pelvis or hips. ACT 112: Negative or not required by law. Electronically signed by: Lex Stanton M.D. 08/26/2020 4:28 PM
[2020-08-26] MEDS: levoFLOXacin 750 MG TAB PO SCH (17:56)
[2020-08-26] MEDS: LORazepam 0.5 MG TAB PO PRN (19:48)
[2020-08-26] MEDS: MONTELUKAST SODIUM 10 MG TABLET PO SCH (20:01)
[2020-08-26 20:02] LABS: Hematocrit (blood only) 25.3 % (37-47); Hemoglobin 8.3 g/dL (12.0-16.0)
[2020-08-26] MEDS: ATORVASTATIN 40 MG TAB PO SCH (20:02)
[2020-08-26] MEDS: ARIPiprazole 5 MG TAB PO SCH (20:03)
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
[2020-08-26] MEDS: ZOLPIDEM TARTRATE 10 MG TAB PO PRN (21:13)
[2020-08-27] MEDS: traMADol HCL 50 MG TABLET PO PRN (04:36)
[2020-08-27] MEDS: LEVOTHYROXINE SODIUM 100 MCG TABLET PO SCH (06:28)
[2020-08-27] MEDS: LEVOTHYROXINE SODIUM 50 MCG TABLET PO SCH (06:28)
[2020-08-27 07:37] LABS: Hematocrit (blood only) 22.5 % (37-47); Hemoglobin 7.3 g/dL (12.0-16.0); Mean Corpuscular Hemoglobin 28.6 pg (25-34); Mean Corpuscular Hgb Conc 32.4 g/dL (32-36); Mean Corpuscular Volume 88.2 fL (80-100); Mean Platelet Volume 10.7 fL (7.4-10.4); Nucleated RBC # (auto) 0.16 K/uL (0-0); Nucleated RBC % (auto) 0.7 %; Platelet Count 307 K/uL (130-400); RDW Coefficient of Variation 15.4 % (11.5-14.5); RDW Standard Deviation 47.8 fL (36.4-46.3); Red Blood Count 2.55 M/uL (4.2-5.4); White Blood Count 23.01 K/uL (4.8-10.8)
[2020-08-27 07:54] LABS: BUN Creatinine Ratio 23.7 (10-20); Calcium 8.6 mg/dl (8.5-10.1); Creatinine Clr Calc Pharmacy 72.2 ml/min; Est GFR (Non-African American) 75.1; Magnesium 2.2 mg/dl (1.8-2.4); Potassium 4.5 mmol/L (3.5-5.1)
[2020-08-27 07:58] LABS: Ferritin 301.5 ng/ml (8-388)
[2020-08-27 08:25] LABS: Folate (Folic Acid) 5.4 ng/ml (>5.38)
[2020-08-27 08:31] LABS: Basophils # (auto) 0.01 K/uL (0-0.2); Hypochromasia Present; Immature Granulocytes # (auto) 0.13 K/uL (0.00-0.02); Immature Granulocytes % (auto) 0.6 %; Lymphocytes # (auto) 0.87 K/uL (1.2-3.4); Lymphocytes % (auto) 3.8 %; Monocytes # (auto) 1.93 K/uL (0.11-0.59); Monocytes % (auto) 8.4 %; Neutrophils # (auto) 20.07 K/uL (1.4-6.5); Neutrophils % (auto) 87.2 %
[2020-08-27 08:32] LABS: Polychromasia 1+
[2020-08-27] MEDS ORDERED: SODIUM CHLORIDE 0.9% 250 ML IV PRN (08:33)
[2020-08-27] MEDS: INSULIN ASPART 100 UNITS/ML 3 ML PEN SC SCH ×4 (08:53→20:55)
[2020-08-27] MEDS: CITALOPRAM 40 MG TAB PO SCH (08:54)
[2020-08-27] MEDS: ZONISAMIDE PO SCH ×2 (08:54→20:55)
--- NOTE | 2020-08-27 08:59 | XRay Report ---
XR chest 1V portable HISTORY: 64 years-old Female Shortness of breath, increased work of breathing acute shortness of nafisa ath COMPARISON: Chest radiograph 08/25/2020 TECHNIQUE: Portable AP view of the chest FINDINGS: Cardiomediastinal and hilar silhouettes are unchanged. Chronic right hemidiaphragmatic elevation. Tomás cified plaque of the thoracic aorta. No pneumothorax. Trace pleural effusions are suggested. Patchy b ilateral airspace opacities with interstitial coarsening appears generally stable. Degenerative chong es of the shoulders and spine. IMPRESSION: Stable appearing bilateral multifocal airspace opacities suggestive of multifocal pneumon ia. ACT 112: Negative or not required by law. The above report was generated using voice recognition software. It may contain grammatical, syntax o r spelling errors. Electronically signed by: Nilton Craft M.D. 08/27/2020 8:58 AM
[2020-08-27 09:37] LABS: Base Excess VBG -0.9 mEq/L; HCO3 VBG 25 mmol/L; PCO2 VBG 47 mmHg (38-50); PO2 VBG 30 mmHg; pH VBG 7.35 (7.36-7.41)
[2020-08-27 09:40] LABS: Oxygen Saturation VBG < 60.0 %
--- NOTE | 2020-08-27 13:49 | Hospitalist Progress Note ---
Date of Service August 27, 2020 Assessment & Plan (1) Psoas hematoma, left, secondary to anticoagulant therapy: Baseline hgb of 14 -> 8.8 by 08/26. CT hip and pelvis done, which showed 9.5 x 6.5 x 3.5 cm left iliopsoas hematoma and small amount of hemorrhage on right side. No trauma, no fall in the hospital on any documentation. - Stopped all anticoagulation (Lovenox VTE ppx and ASA) - Discussed with surgery and now following along - Given 1 unit RPBCs on 08/27 for symptomatic anemia. - Close following of hemoglobin. - May need tx if continues to bleed. (2) Pneumonia due to 2019 novel coronavirus: Patient titrated down to low flow on 08/19 but then rapidly decompensated morning of 08/20 requiring intubation. - Decadron 6 mg PO daily, completed 12 days on 08/19 and it was stopped. - Remdesivir started 08/08/20 - Convalescent plasma, consented and ordered 08/14/19. - Supportive care with O2 PRN - Stable today. BNP normal on 08/25. Procalcitonin was 0.3. D-dimer lower from prior at 630. VBG stable. - Given continued leukocytosis and procalcitonin, will give levofloxacin x 5- day course. No concern for MRSA and low concern for hospital-acquired pathogens. (3) Respiratory failure with hypoxia: Was improving each day, on 08/19 she was titrated off of high flow, stable on low flow nasal canula. 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 Required emergent intubation; intubated for < 12 hours, extubated at noon on 08/20. - As above (4) Anemia: Baseline hgb was 14 on admission. - See above psoas hematoma (5) Diastolic CHF, acute on chronic: Responded well to Lasix 40mg IV daily. - Evaluate each day need for Lasix - No Lasix on 08/23 - 08/27. Normal BNP on 08/27. Will monitor closely given she needed blood. (6) Type 2 diabetes mellitus: A1c was 6.7% in 07/2020. Sliding scale insulin -> Sugars 90-150 in the last 24 hours. (7) Depression: No overt needs at present. - Continue citalopram (8) Chronic obstructive pulmonary disease: No wheezing on exam today. - Continue Singulair - DuoNebs PRN (9) Hypothyroidism: TSH was 0.12 in 07/2020. No signs/symptoms of hypo-/hyperthyroidism. - Rechecked TSH on 08/25 -> 5.5 with normal FT4. - Continue home Synthroid 150 mcg (10) Parkinsonism: Saw Dr. Everett in 07/2020. - Continue zonisamide 25 mg PO BID (11) Factor V Leiden mutation: CTA chest on 08/20 without PE. Was on Lovenox 40 mg SQ Q12h until 08/26 when she had bleeding. [facility] Admission and Anticipated Discharge Date Admission Date: August 08, 2020 Subjective Feeling more tired today. Left hip is hurting more. Physical Exam Constitutional: WD/WN, vitals as above Eyes: EOM intact bilaterally; no conjunctival abnormality ENMT: external ear and nose normal, oropharynx normal Neck: trachea midline, no thyromegaly normal visual inspection Respiratory: + labored breathing Auscultation: lungs clear to auscultation bilaterally Cardiovascular: Rate/Rhythm: regular rhythm and + tachycardic Gastrointestinal (Abdomen): Inspection/Auscultation: abdomen normal to inspection; abdomen not distended Musculoskeletal: no cyanosis or clubbing, extremities motor strength 5/5 Hip: hip normal to inspection (No erythema or bruising noted.) Skin: no rashes, warm and dry Neurologic: moves all extremities and awake Psychiatric: Orientation: alert, oriented to person and cooperative Results & Data Results & Data ([facility]) Vital Signs (Past 12 Hours) Vital Signs Temp Pulse Pulse Pulse Resp BP BP 08/27/20 12:45 36.9 C 92 H 28 H 129/58 L 08/27/20 12:15 36.7 C 100 H 28 H 137/77 08/27/20 11:45 37.0 C 97 H 32 H 143/74 H 08/27/20 11:15 37.0 C 99 H 32 H 140/78 08/27/20 10:45 36.8 C 98 H 30 H 126/58 L 08/27/20 10:30 36.6 C 100 H 32 H 130/74 08/27/20 10:15 36.5 C 99 H 28 H 137/82 08/27/20 10:00 36.7 C 109 H 28 H 130/67 08/27/20 09:59 36.7 C 104 H 32 H 127/57 L 08/27/20 09:43 36.9 C 103 H 28 H 137/77 08/27/20 08:00 108 H 08/27/20 07:23 36.6 C 120 H 26 H 118/49 L 08/27/20 04:14 36.5 C 108 H 22 101/53 L Pulse Ox 08/27/20 12:45 95 08/27/20 12:15 98 08/27/20 11:45 100 08/27/20 11:15 98 08/27/20 10:45 99 08/27/20 10:30 99 08/27/20 10:15 99 08/27/20 10:00 97 08/27/20 09:59 98 08/27/20 09:43 100 08/27/20 08:00 08/27/20 07:23 94 08/27/20 04:14 PG Care Time/CCT Total # of Minutes Spent Total Time Spent with Patient: Total time spent is greater than 50% in coordination of care (as documented) at patient's floor/unit and/or counseling patient: Coding Level of Care Code 40478 Subseq Hosp Care Lvl 3 Diagnoses Psoas hematoma, left, secondary to anticoagulant therapy S30.1XXA Pneumonia due to 2019 novel coronavirus U07.1; J12.89 Respiratory failure with hypoxia J96.91 Chronicity: unspecified Anemia D64.9 Diastolic CHF, acute on chronic I50.33 Type 2 diabetes mellitus E11.9 Depression F32.9 Chronic obstructive pulmonary disease J44.9 Hypothyroidism E03.9 Parkinsonism G20 Factor V Leiden mutation D68.51 (1) Respiratory failure with hypoxia Chronicity: unspecified Qualified Code(s): J96.91 - Respiratory failure, unspecified with hypoxia
[2020-08-27 14:06] LABS: Hematocrit (blood only) 25.5 % (37-47); Hemoglobin 8.6 g/dL (12.0-16.0)
--- NOTE | 2020-08-27 15:32 | Surgery Progress Note ---
Date of Service August 27, 2020 Assessment & Plan (1) Psoas hematoma, left, secondary to anticoagulant therapy: Patient found to have a 9.5 x 6.5 x 3.5 cm sized L psoas hematoma Patient with HR's 90-100's overnight and into this AM. BP's stable. Today's Hbg 7.3 from 8.3 Agree with blood transfusion....recheck hbg thereafter was 8.6 Continue to trend vitals and Hbg for signs of ongoing bleeding Continue to hold blood thinners Okay with close monitoring for now, however if continues to bleed would recommend transfer to tertiary center for IR for embolization Admission and Anticipated Discharge Date Admission Date: August 08, 2020 Subjective Patient states she is feeling a little bit better after receiving a blood transfusion. States her leg pain is better than this AM. Physical Exam Physical Exam: awake Respiratory: saturating well on supplemental nasal cannula Results & Data ([facility]) Vital Signs (Past 12 Hours) Vital Signs Temp Pulse Pulse Pulse Resp BP BP 08/27/20 12:45 36.9 C 92 H 28 H 129/58 L 08/27/20 12:15 36.7 C 100 H 28 H 137/77 08/27/20 11:45 37.0 C 97 H 32 H 143/74 H 08/27/20 11:15 37.0 C 99 H 32 H 140/78 08/27/20 10:45 36.8 C 98 H 30 H 126/58 L 08/27/20 10:30 36.6 C 100 H 32 H 130/74 08/27/20 10:15 36.5 C 99 H 28 H 137/82 08/27/20 10:00 36.7 C 109 H 28 H 130/67 08/27/20 09:59 36.7 C 104 H 32 H 127/57 L 08/27/20 09:43 36.9 C 103 H 28 H 137/77 08/27/20 08:00 108 H 08/27/20 07:23 36.6 C 120 H 26 H 118/49 L 08/27/20 04:14 36.5 C 108 H 22 101/53 L Pulse Ox 08/27/20 12:45 95 08/27/20 12:15 98 08/27/20 11:45 100 08/27/20 11:15 98 08/27/20 10:45 99 08/27/20 10:30 99 08/27/20 10:15 99 08/27/20 10:00 97 08/27/20 09:59 98 08/27/20 09:43 100 08/27/20 08:00 08/27/20 07:23 94 08/27/20 04:14 PG Care Time/CCT Total # of Minutes Spent Total Time Spent with Patient: Total time spent is greater than 50% in coordination of care (as documented) at patient's floor/unit and/or counseling patient: Coding Level of Care Code 17065 Subseq Hosp Care Lvl 1 Diagnoses Psoas hematoma, left, secondary to anticoagulant therapy S30.1XXA
[2020-08-27] MEDS: levoFLOXacin 750 MG TAB PO SCH (17:01)
[2020-08-27] MEDS ORDERED: NORMOSOL-R 500 ML IV ONE (17:25)
[2020-08-27] MEDS: MONTELUKAST SODIUM 10 MG TABLET PO SCH (20:54)
[2020-08-27] MEDS: ATORVASTATIN 40 MG TAB PO SCH (20:54)
[2020-08-27] MEDS: ARIPiprazole 5 MG TAB PO SCH (20:54)
[2020-08-27] MEDS: ALBUT/IPRATROP 3MG/0.5MG NEB 3 ML VIAL INH PRN (21:39)
[2020-08-28] MEDS: ALBUT/IPRATROP 3MG/0.5MG NEB 3 ML VIAL INH PRN ×2 (01:16→05:22)
[2020-08-28] MEDS: LORazepam 0.5 MG TAB PO PRN (01:22)
[2020-08-28] MEDS ORDERED: LORazepam 0.5 MG/1 ML VIAL IV STA (04:52)
[2020-08-28] MEDS ORDERED: FUROSEMIDE 40 MG in SYRINGE 0 ML IV ONE (06:00)
[2020-08-28] MEDS: LEVOTHYROXINE SODIUM 100 MCG TABLET PO SCH (07:15)
[2020-08-28] MEDS: LEVOTHYROXINE SODIUM 50 MCG TABLET PO SCH (07:15)
[2020-08-28] MEDS: INSULIN ASPART 100 UNITS/ML 3 ML PEN SC SCH ×4 (08:50→20:56)
[2020-08-28] MEDS: CITALOPRAM 40 MG TAB PO SCH (08:51)
[2020-08-28] MEDS: ZONISAMIDE PO SCH ×2 (08:51→21:18)
[2020-08-28 09:32] LABS: BUN Creatinine Ratio 22.5 (10-20); Calcium 8.2 mg/dl (8.5-10.1); Creatinine Clr Calc Pharmacy 70.3 ml/min; Est GFR (African American) 83.3; Est GFR (Non-African American) 71.9; Potassium 3.5 mmol/L (3.5-5.1)
--- NOTE | 2020-08-28 10:01 | Surgery Progress Note ---
Date of Service August 28, 2020 Assessment & Plan (1) Psoas hematoma, left, secondary to anticoagulant therapy: clinically doing ok Hg came up appropriately after 1 unit of PRBC's. repeat H/H still pending. If evidence of persistent bleeding would recommend transfer for IR eval/tx Admission and Anticipated Discharge Date Admission Date: August 08, 2020 Subjective pt seen. feeling ok/no new complaints. mild left hip discomfort. Physical Exam Physical Exam: alert. nad abd: soft. nt. ext: no c/c/e. Results & Data ([facility]) Vital Signs (Past 12 Hours) Vital Signs Temp Pulse Pulse Pulse Resp BP Pulse Ox 08/28/20 07:56 36.8 C 107 H 25 H 115/49 L 90 08/28/20 05:24 103 H 32 H 08/28/20 03:16 98 H 28 H 94 08/28/20 03:09 36.8 C 97 H 24 110/63 90 08/28/20 01:16 95 H 32 H 08/27/20 23:59 94 H 08/27/20 22:59 36.9 C 93 H 22 119/66 90 Pulse Ox 08/28/20 07:56 08/28/20 05:24 96 08/28/20 03:16 08/28/20 03:09 08/28/20 01:16 95 08/27/20 23:59 08/27/20 22:59 PG Care Time/CCT Total # of Minutes Spent Total Time Spent with Patient: Total time spent is greater than 50% in coordination of care (as documented) at patient's floor/unit and/or counseling patient: Coding Level of Care Code 14309 Subseq Hosp Care Lvl 3 Diagnoses Psoas hematoma, left, secondary to anticoagulant therapy S30.1XXA
[2020-08-28 10:18] LABS: Hematocrit (blood only) 24.2 % (37-47); Hemoglobin 8.1 g/dL (12.0-16.0); Mean Corpuscular Hemoglobin 29.9 pg (25-34); Mean Corpuscular Volume 89.3 fL (80-100); Mean Platelet Volume 9.9 fL (7.4-10.4); Nucleated RBC # (auto) 0.36 K/uL (0-0); Platelet Count 272 K/uL (130-400); RDW Coefficient of Variation 15.2 % (11.5-14.5); RDW Standard Deviation 47.3 fL (36.4-46.3); Red Blood Count 2.71 M/uL (4.2-5.4); White Blood Count 17.72 K/uL (4.8-10.8)
[2020-08-28 10:22] LABS: Mean Corpuscular Hgb Conc 33.5 g/dL (32-36)
--- NOTE | 2020-08-28 14:28 | Hospitalist Progress Note ---
Date of Service August 28, 2020 Assessment & Plan (1) Psoas hematoma, left, secondary to anticoagulant therapy: Baseline hgb of 14 -> 8.8 by 08/26. CT hip and pelvis done, which showed 9.5 x 6.5 x 3.5 cm left iliopsoas hematoma and small amount of hemorrhage on right side. No trauma, no fall in the hospital on any documentation. - Stopped all anticoagulation (Lovenox VTE ppx and ASA) - Discussed with surgery and now following along - Given 1 unit RPBCs on 08/27 for symptomatic anemia & hgb of 7.3. - Close following of hemoglobin. -> Giving IV iron x 3 doses starting on 08/28. Hgb is 8.1 today. If she falls below 8, would probably give another unit for symptomatic anemia, but hopefully iron will help her rebuild RBCs on her own. - If she gets blood, consider Lasix with it as she had some shortness of breath with last transfusion. (2) Pneumonia due to 2019 novel coronavirus: Patient titrated down to low flow on 08/19 but then rapidly decompensated morning of 08/20 requiring intubation. - Decadron 6 mg PO daily, completed 12 days on 08/19 and it was stopped. - Remdesivir started 08/08/20 - Convalescent plasma, consented and ordered 08/14/19. - Supportive care with O2 PRN - Stable today. BNP normal on 08/25. Procalcitonin was 0.3. D-dimer lower from prior at 630. VBG stable. - Given continued leukocytosis and procalcitonin, will give levofloxacin x 5- day course (End date: 08/30). Lower concern for MRSA and low concern for hospital-acquired pathogens given overall stability and improvement with levofloxacin. (3) Respiratory failure with hypoxia: Was improving each day, on 08/19 she was titrated off of high flow, stable on low flow nasal canula. 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 Required emergent intubation; intubated for < 12 hours, extubated at noon on 08/20. - As above (4) Anemia: Baseline hgb was 14 on admission. - See above psoas hematoma (5) Diastolic CHF, acute on chronic: Responded well to Lasix 40mg IV daily. - Evaluate each day need for Lasix - No Lasix on 08/23 - 08/27. Normal BNP on 08/27. Needed Lasix after transfusion on 08/27 at night. (6) Type 2 diabetes mellitus: A1c was 6.7% in 07/2020. Sliding scale insulin -> Sugars 110-150 in the last 24 hours. (7) Depression: No overt needs at present. - Continue citalopram (8) Chronic obstructive pulmonary disease: No wheezing on exam today. - Continue Singulair - DuoNebs PRN (9) Hypothyroidism: TSH was 0.12 in 07/2020. No signs/symptoms of hypo-/hyperthyroidism. - Rechecked TSH on 08/25 -> 5.5 with normal FT4. - Continue home Synthroid 150 mcg (10) Parkinsonism: Saw Dr. Everett in 07/2020. - Continue zonisamide 25 mg PO BID (11) Factor V Leiden mutation: CTA chest on 08/20 without PE. Was on Lovenox 40 mg SQ Q12h until 08/26 when she had bleeding. - SCDs Admission and Anticipated Discharge Date Admission Date: August 08, 2020 Subjective Feeling slightly less short of breath today. Very tired though still. Did not get much sleep. Reports no fevers/chills, chest pain, abdominal pain, nausea, or vomiting. Physical Exam Constitutional: WD/WN, vitals as above Eyes: EOM intact bilaterally; no conjunctival abnormality ENMT: external ear and nose normal, oropharynx normal Neck: trachea midline, no thyromegaly normal visual inspection Respiratory: normal respiratory effort, lungs clear to auscultation + labored breathing Auscultation: lungs clear to auscultation bilaterally Cardiovascular: RRR, no murmur, no edema Rate/Rhythm: regular rhythm and + tachycardic Gastrointestinal (Abdomen): Inspection/Auscultation: abdomen normal to inspection; abdomen not distended Musculoskeletal: no cyanosis or clubbing, extremities motor strength 5/5 Hip: hip normal to inspection (No erythema or bruising noted.) Skin: no rashes, warm and dry Neurologic: moves all extremities and awake Psychiatric: Orientation: alert, oriented to person and cooperative Results & Data Results & Data ([facility]) Vital Signs (Past 12 Hours) Vital Signs Temp Pulse Pulse Resp BP Pulse Ox Pulse Ox 01/16/21 11:22 36.5 C 92 H 17 103/70 98 08/28/20 08:00 102 H 08/28/20 07:56 36.8 C 107 H 25 H 115/49 L 90 08/28/20 05:24 103 H 32 H 96 08/28/20 03:16 98 H 28 H 94 08/28/20 03:09 36.8 C 97 H 24 110/63 90 PG Care Time/CCT Total # of Minutes Spent Total Time Spent with Patient: Total time spent is greater than 50% in coordination of care (as documented) at patient's floor/unit and/or counseling patient: Coding Level of Care Code 24787 Subseq Hosp Care Lvl 3 Diagnoses Psoas hematoma, left, secondary to anticoagulant therapy S30.1XXA Pneumonia due to 2019 novel coronavirus U07.1; J12.89 Respiratory failure with hypoxia J96.91 Chronicity: unspecified Anemia D64.9 Diastolic CHF, acute on chronic I50.33 Type 2 diabetes mellitus E11.9 Depression F32.9 Chronic obstructive pulmonary disease J44.9 Hypothyroidism E03.9 Parkinsonism G20 Factor V Leiden mutation D68.51 (1) Respiratory failure with hypoxia Chronicity: unspecified Qualified Code(s): J96.91 - Respiratory failure, unspecified with hypoxia
[2020-08-28] MEDS: IRON SUCROSE 300 MG in SODIUM CHLORIDE 0.9% 250 ML IV SCH (15:21)
[2020-08-28] MEDS: levoFLOXacin 750 MG TAB PO SCH (16:09)
[2020-08-28] MEDS: ATORVASTATIN 40 MG TAB PO SCH (21:14)
[2020-08-28] MEDS: ARIPiprazole 5 MG TAB PO SCH (21:14)
[2020-08-28] MEDS: NYSTATIN SUSP 500,000 U/5 ML UDC PO SCH (21:15)
[2020-08-28] MEDS: MONTELUKAST SODIUM 10 MG TABLET PO SCH (21:17)
[2020-08-29] MEDS: LEVOTHYROXINE SODIUM 100 MCG TABLET PO SCH (06:11)
[2020-08-29] MEDS: LEVOTHYROXINE SODIUM 50 MCG TABLET PO SCH (06:11)
[2020-08-29 06:20] LABS: Hematocrit (blood only) 22.9 % (37-47); Hemoglobin 7.4 g/dL (12.0-16.0); Mean Corpuscular Hemoglobin 29.4 pg (25-34); Mean Corpuscular Hgb Conc 32.3 g/dL (32-36); Mean Corpuscular Volume 90.9 fL (80-100); Mean Platelet Volume 9.7 fL (7.4-10.4); Nucleated RBC # (auto) 0.21 K/uL (0-0); Nucleated RBC % (auto) 2.3 %; Platelet Count 234 K/uL (130-400); RDW Coefficient of Variation 15.7 % (11.5-14.5); Red Blood Count 2.52 M/uL (4.2-5.4)
[2020-08-29 07:03] LABS: BUN Creatinine Ratio 23.2 (10-20); Creatinine Clr Calc Pharmacy 84.3 ml/min; Est GFR (African American) 103.6; Est GFR (Non-African American) 89.4; Magnesium 2.5 mg/dl (1.8-2.4); Potassium 3.3 mmol/L (3.5-5.1)
[2020-08-29] MEDS: NYSTATIN SUSP 500,000 U/5 ML UDC PO SCH ×4 (07:55→19:55)
[2020-08-29] MEDS: CITALOPRAM 40 MG TAB PO SCH (07:55)
[2020-08-29] MEDS: ZONISAMIDE PO SCH ×2 (07:55→19:54)
[2020-08-29] MEDS: INSULIN ASPART 100 UNITS/ML 3 ML PEN SC SCH ×4 (08:09→21:02)
--- NOTE | 2020-08-29 08:29 | Surgery Progress Note ---
Date of Service August 29, 2020 Assessment & Plan (1) Psoas hematoma, left, secondary to anticoagulant therapy: doing ok clinically may need to transfuse one more unit. if still bleeding it is quite slow. would continue conservative management if bleeding increases would transfer for IR eval Admission and Anticipated Discharge Date Admission Date: August 08, 2020 Subjective no major changes. some groin discomfort. Physical Exam Physical Exam: alert. nad. hemodynamically stable abd: soft. mild left groin discomfort. Results & Data ([facility]) Vital Signs (Past 12 Hours) Vital Signs Temp Pulse Pulse Resp BP Pulse Ox 08/29/20 07:33 36.8 C 86 18 113/62 99 08/29/20 07:30 74 08/29/20 03:15 36.8 C 76 19 113/67 95 08/28/20 23:59 82 08/28/20 23:30 36.4 C L 89 22 118/69 90 PG Care Time/CCT Total # of Minutes Spent Total Time Spent with Patient: Total time spent is greater than 50% in coordination of care (as documented) at patient's floor/unit and/or counseling patient: Coding Level of Care Code 97771 Subseq Hosp Care Lvl 2 Diagnoses Psoas hematoma, left, secondary to anticoagulant therapy S30.1XXA
[2020-08-29] MEDS: IRON SUCROSE 300 MG in SODIUM CHLORIDE 0.9% 250 ML IV SCH (09:25)
[2020-08-29] MEDS: BENZONATATE 100 MG CAPSULE PO PRN (15:00)
[2020-08-29] MEDS: levoFLOXacin 750 MG TAB PO SCH (17:03)
[2020-08-29] MEDS ORDERED: POTASSIUM CHLORIDE CRTAB 20 MEQ TABCR PO STA (18:33)
[2020-08-29] MEDS: ARIPiprazole 5 MG TAB PO SCH (19:51)
[2020-08-29] MEDS: ATORVASTATIN 40 MG TAB PO SCH (19:53)
[2020-08-29] MEDS: MONTELUKAST SODIUM 10 MG TABLET PO SCH (19:54)
--- NOTE | 2020-08-29 21:11 | Hospitalist Progress Note ---
Date of Service August 29, 2020 Assessment & Plan (1) Psoas hematoma, left, secondary to anticoagulant therapy: Baseline hgb of 14 -> 8.8 by 08/26. CT hip and pelvis done, which showed 9.5 x 6.5 x 3.5 cm left iliopsoas hematoma and small amount of hemorrhage on right side. No trauma, no fall in the hospital on any documentation. - Stopped all anticoagulation (Lovenox VTE ppx and ASA) - Discussed with surgery and now following along - Given 1 unit RPBCs on 08/27 for symptomatic anemia & hgb of 7.3. - Close following of hemoglobin. -> Giving IV iron x 3 doses starting on 08/28. Hgb now dropped from 8.1 to 7.4. However, she states she is feeling better. Will hold off transfusion of aditional PRBC for now, unless she becomes symptomatic. will continue to monitor. - If she gets blood, consider Lasix with it as she had some shortness of breath with last transfusion. (2) Pneumonia due to 2019 novel coronavirus: Patient titrated down to low flow on 08/19 but then rapidly decompensated morning of 08/20 requiring intubation. - Decadron 6 mg PO daily, completed 12 days on 08/19 and it was stopped. - Remdesivir started 08/08/20 - Convalescent plasma, consented and ordered 08/14/19. - Supportive care with O2 PRN - Stable today. BNP normal on 08/25. Procalcitonin was 0.3. D-dimer lower from prior at 630. VBG stable. - Given continued leukocytosis and procalcitonin, will give levofloxacin x 5- day course (End date: 08/30). Lower concern for MRSA and low concern for hospital-acquired pathogens given overall stability and improvement with levofloxacin. (3) Respiratory failure with hypoxia: Was improving each day, on 08/19 she was titrated off of high flow, stable on low flow nasal canula. 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 Required emergent intubation; intubated for < 12 hours, extubated at noon on 08/20. - As above She contiues to require 4 liters nasal cannula today. (4) Anemia: Baseline hgb was 14 on admission. - See above psoas hematoma (5) Diastolic CHF, acute on chronic: Responded well to Lasix 40mg IV daily. - Evaluate each day need for Lasix - No Lasix on 08/23 - 08/27. Normal BNP on 08/27. Needed Lasix after transfusion on 08/27 at night. (6) Type 2 diabetes mellitus: A1c was 6.7% in 07/2020. Sliding scale insulin -> Sugars 110-150 in the last 24 hours. (7) Depression: No overt needs at present. - Continue citalopram (8) Chronic obstructive pulmonary disease: No wheezing on exam today. - Continue Singulair - DuoNebs PRN (9) Hypothyroidism: TSH was 0.12 in 07/2020. No signs/symptoms of hypo-/hyperthyroidism. - Rechecked TSH on 08/25 -> 5.5 with normal FT4. - Continue home Synthroid 150 mcg (10) Parkinsonism: Saw Dr. Everett in 07/2020. - Continue zonisamide 25 mg PO BID (11) Factor V Leiden mutation: CTA chest on 08/20 without PE. Was on Lovenox 40 mg SQ Q12h until 08/26 when she had bleeding. - SCDs Admission and Anticipated Discharge Date Admission Date: August 08, 2020 Subjective Patient reports feeling well. She reports she has more energy today. She denies any feeling of SOB. Review of Systems Review of Systems: All systems reviewed & are unremarkable except as noted in HPI & below Physical Exam Physical Exam: Constitutional: well developed, well nourished and + overweight; no acute distress Neck: trachea midline, no thyromegaly Respiratory: no respiratory distress and no labored breathing Auscultation: lungs clear to auscultation bilaterally Cardiovascular: RRR, no murmur, no edema Gastrointestinal (Abdomen): normal bowel sounds, soft, nontender, no hepatosplenomegaly Musculoskeletal: no cyanosis or clubbing, extremities motor strength 5/5 Skin: no rashes, warm and dry Neurologic: patellar DTR's 2+ bilat, sensation intact and PERRL, EOMI, accommodation nl, no face palsy, no dysarthria no focal motor deficits Psychiatric: A+Ox3, euthymic affect Lymphatic: no cervical or axillary lymphadenopathy Results & Data Results & Data ([facility]) Vital Signs (Past 12 Hours) Vital Signs Temp Pulse Pulse Pulse Resp BP Pulse Ox 08/29/20 19:24 36.7 C 81 20 102/66 97 08/29/20 16:00 67 08/29/20 15:15 36.4 C L 75 22 101/58 L 93 08/29/20 12:00 36.6 C 64 18 101/61 92 PG Care Time/CCT Total # of Minutes Spent Total Time Spent with Patient: Total time spent is greater than 50% in coordination of care (as documented) at patient's floor/unit and/or counseling patient: Coding Level of Care Code 75893 Subseq Hosp Care Lvl 3 Diagnoses Psoas hematoma, left, secondary to anticoagulant therapy S30.1XXA Pneumonia due to 2019 novel coronavirus U07.1; J12.89 Respiratory failure with hypoxia J96.91 Chronicity: unspecified Anemia D64.9 Diastolic CHF, acute on chronic I50.33 Type 2 diabetes mellitus E11.9 Depression F32.9 Chronic obstructive pulmonary disease J44.9 Hypothyroidism E03.9 Parkinsonism G20 Factor V Leiden mutation D68.51 Time Spent (min) 35 (1) Respiratory failure with hypoxia Chronicity: unspecified Qualified Code(s): J96.91 - Respiratory failure, unspecified with hypoxia
[2020-08-30] MEDS: LEVOTHYROXINE SODIUM 50 MCG TABLET PO SCH (06:20)
[2020-08-30] MEDS: LEVOTHYROXINE SODIUM 100 MCG TABLET PO SCH (06:20)
[2020-08-30 07:17] LABS: Basophils # (auto) 0.01 K/uL (0-0.2); Basophils % (auto) 0.1 %; Hematocrit (blood only) 23.6 % (37-47); Hemoglobin 7.6 g/dL (12.0-16.0); Immature Granulocytes # (auto) 0.08 K/uL (0.00-0.02); Immature Granulocytes % (auto) 0.9 %; Lymphocytes # (auto) 0.79 K/uL (1.2-3.4); Lymphocytes % (auto) 8.8 %; Mean Corpuscular Hemoglobin 29.7 pg (25-34); Mean Corpuscular Hgb Conc 32.2 g/dL (32-36); Mean Corpuscular Volume 92.2 fL (80-100); Mean Platelet Volume 10.3 fL (7.4-10.4); Monocytes # (auto) 0.67 K/uL (0.11-0.59); Monocytes % (auto) 7.5 %; Neutrophils # (auto) 7.44 K/uL (1.4-6.5); Neutrophils % (auto) 82.7 %; Nucleated RBC # (auto) 0.16 K/uL (0-0); Nucleated RBC % (auto) 1.8 %; Platelet Count 246 K/uL (130-400); RDW Coefficient of Variation 16.5 % (11.5-14.5); RDW Standard Deviation 52.3 fL (36.4-46.3); Red Blood Count 2.56 M/uL (4.2-5.4); White Blood Count 8.99 K/uL (4.8-10.8)
[2020-08-30] MEDS: IRON SUCROSE 300 MG in SODIUM CHLORIDE 0.9% 250 ML IV SCH (08:00)
[2020-08-30] MEDS: CITALOPRAM 40 MG TAB PO SCH (08:02)
[2020-08-30] MEDS: NYSTATIN SUSP 500,000 U/5 ML UDC PO SCH ×4 (08:02→21:59)
[2020-08-30 08:03] LABS: BUN Creatinine Ratio 14.7 (10-20); Calcium 8.3 mg/dl (8.5-10.1); Creatinine Clr Calc Pharmacy 90.8 ml/min; Est GFR (African American) 106.9; Est GFR (Non-African American) 92.2; Potassium 3.4 mmol/L (3.5-5.1)
[2020-08-30] MEDS: ZONISAMIDE PO SCH ×2 (08:03→21:59)
[2020-08-30] MEDS: INSULIN ASPART 100 UNITS/ML 3 ML PEN SC SCH ×4 (08:07→22:01)
[2020-08-30 08:18] LABS: Polychromasia 1+
--- NOTE | 2020-08-30 09:30 | Surgery Progress Note ---
Date of Service August 30, 2020 Assessment & Plan (1) Psoas hematoma, left, secondary to anticoagulant therapy: H&H stable 7.6/23.6 HR 114 this AM, BP stable continue conservative management Admission and Anticipated Discharge Date Admission Date: August 08, 2020 Subjective c/o cough, left groin pain unchanged Physical Exam Constitutional: WD/WN, vitals as above Results & Data ([facility]) Vital Signs (Past 12 Hours) Vital Signs Temp Pulse Pulse Pulse Resp BP Pulse Ox 08/30/20 07:14 36.5 C 114 H 22 104/65 96 08/30/20 04:05 36.4 C L 89 20 122/71 91 08/29/20 23:59 81 08/29/20 23:31 36.4 C L 79 79 16 107/66 96 PG Care Time/CCT Total # of Minutes Spent Total Time Spent with Patient: Total time spent is greater than 50% in coordination of care (as documented) at patient's floor/unit and/or counseling patient: Coding Level of Care Code 19081 Subseq Hosp Care Lvl 1 Diagnoses Psoas hematoma, left, secondary to anticoagulant therapy S30.1XXA
[2020-08-30] MEDS: POTASSIUM CHLORIDE CRTAB 20 MEQ TABCR PO SCH ×2 (11:18→21:58)
[2020-08-30] MEDS: BENZONATATE 100 MG CAPSULE PO PRN ×2 (16:00→23:45)
[2020-08-30] MEDS: levoFLOXacin 750 MG TAB PO SCH (16:01)
--- NOTE | 2020-08-30 20:42 | Hospitalist Progress Note ---
Date of Service August 30, 2020 Assessment & Plan (1) Psoas hematoma, left, secondary to anticoagulant therapy: Baseline hgb of 14 -> 8.8 by 08/26. CT hip and pelvis done, which showed 9.5 x 6.5 x 3.5 cm left iliopsoas hematoma and small amount of hemorrhage on right side. No trauma, no fall in the hospital on any documentation. - Stopped all anticoagulation (Lovenox VTE ppx and ASA) - Discussed with surgery and now following along - Given 1 unit RPBCs on 08/27 for symptomatic anemia & hgb of 7.3. - Close following of hemoglobin. -> Giving IV iron x 3 doses starting on 08/28. Hgb now dropped from 8.1 to 7.4. However, she states she is feeling better. Will hold off transfusion of aditional PRBC for now, unless she becomes symptomatic. will continue to monitor. - If she gets blood, consider Lasix with it as she had some shortness of breath with last transfusion. Hemoglobin has been stable. holding PRBC. (2) Pneumonia due to 2019 novel coronavirus: Patient titrated down to low flow on 08/19 but then rapidly decompensated m orning of 08/20 requiring intubation. - Decadron 6 mg PO daily, completed 12 days on 08/19 and it was stopped. - Remdesivir started 08/08/20 - Convalescent plasma, consented and ordered 08/14/19. - Supportive care with O2 PRN - Stable today. BNP normal on 08/25. Procalcitonin was 0.3. D-dimer lower from prior at 630. VBG stable. - Given continued leukocytosis and procalcitonin, will give levofloxacin x 5- day course (End date: 08/30). -will stop levofloxacin after today's dose. Lower concern for MRSA and low concern for hospital-acquired pathogens given overall stability and improvement with levofloxacin. (3) Respiratory failure with hypoxia: Was improving each day, on 08/19 she was titrated off of high flow, stable on low flow nasal canula. 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 Required emergent intubation; intubated for < 12 hours, extubated at noon on 08/20. - As above She contiues to require 4 liters nasal cannula today. (4) Anemia: Baseline hgb was 14 on admission. - See above psoas hematoma (5) Diastolic CHF, acute on chronic: Responded well to Lasix 40mg IV daily. - Evaluate each day need for Lasix - No Lasix on 08/23 - 08/27. Normal BNP on 08/27. Needed Lasix after transfusion on 08/27 at night. (6) Type 2 diabetes mellitus: A1c was 6.7% in 07/2020. Sliding scale insulin -> Sugars 110-150 in the last 24 hours. (7) Depression: No overt needs at present. - Continue citalopram (8) Chronic obstructive pulmonary disease: No wheezing on exam today. - Continue Singulair - DuoNebs PRN (9) Hypothyroidism: TSH was 0.12 in 07/2020. No signs/symptoms of hypo-/hyperthyroidism. - Rechecked TSH on 08/25 -> 5.5 with normal FT4. - Continue home Synthroid 150 mcg (10) Parkinsonism: Saw Dr. Everett in 07/2020. - Continue zonisamide 25 mg PO BID (11) Factor V Leiden mutation: CTA chest on 08/20 without PE. Was on Lovenox 40 mg SQ Q12h until 08/26 when she had bleeding. [facility] Admission and Anticipated Discharge Date Admission Date: August 08, 2020 Subjective Patient reports no significant change today. She reports feeling well. Review of Systems Review of Systems: All systems reviewed & are unremarkable except as noted in HPI & below Physical Exam Physical Exam: Constitutional: well developed, well nourished and + overweight; no acute distress Neck: trachea midline, no thyromegaly Respiratory: no respiratory distress and no labored breathing Auscultation: lungs clear to auscultation bilaterally Cardiovascular: RRR, no murmur, no edema Gastrointestinal (Abdomen): normal bowel sounds, soft, nontender, no hepatosplenomegaly Musculoskeletal: no cyanosis or clubbing, extremities motor strength 5/5 Skin: no rashes, warm and dry Neurologic: patellar DTR's 2+ bilat, sensation intact and PERRL, EOMI, accommodation nl, no face palsy, no dysarthria no focal motor deficits Psychiatric: A+Ox3, euthymic affect Lymphatic: no cervical or axillary lymphadenopathy Results & Data Results & Data ([facility]) Vital Signs (Past 12 Hours) Vital Signs Temp Pulse Pulse Pulse Resp BP Pulse Ox 08/30/20 19:23 36.4 C L 82 18 99/63 L 92 08/30/20 15:37 72 08/30/20 15:17 36.5 C 76 20 97/63 L 97 08/30/20 11:02 36.6 C 79 20 101/51 L 95 08/30/20 09:50 88 L PG Care Time/CCT Total # of Minutes Spent Total Time Spent with Patient: Total time spent is greater than 50% in coordination of care (as documented) at patient's floor/unit and/or counseling patient: Coding Level of Care Code 50372 Subseq Hosp Care Lvl 2 Diagnoses Psoas hematoma, left, secondary to anticoagulant therapy S30.1XXA Pneumonia due to 2019 novel coronavirus U07.1; J12.89 Respiratory failure with hypoxia J96.91 Chronicity: unspecified Anemia D64.9 Diastolic CHF, acute on chronic I50.33 Type 2 diabetes mellitus E11.9 Depression F32.9 Chronic obstructive pulmonary disease J44.9 Hypothyroidism E03.9 Parkinsonism G20 Factor V Leiden mutation D68.51 Time Spent (min) 25 (1) Respiratory failure with hypoxia Chronicity: unspecified Qualified Code(s): J96.91 - Respiratory failure, unspecified with hypoxia
[2020-08-30] MEDS: ARIPiprazole 5 MG TAB PO SCH (21:57)
[2020-08-30] MEDS: ATORVASTATIN 40 MG TAB PO SCH (21:58)
[2020-08-30] MEDS: MONTELUKAST SODIUM 10 MG TABLET PO SCH (21:59)
[2020-08-31] MEDS: LEVOTHYROXINE SODIUM 50 MCG TABLET PO SCH (06:09)
[2020-08-31] MEDS: LEVOTHYROXINE SODIUM 100 MCG TABLET PO SCH (06:09)
[2020-08-31] MEDS: ZONISAMIDE PO SCH ×2 (08:22→21:10)
[2020-08-31] MEDS: CITALOPRAM 40 MG TAB PO SCH (08:22)
[2020-08-31] MEDS: POTASSIUM CHLORIDE CRTAB 20 MEQ TABCR PO SCH (08:22)
[2020-08-31] MEDS: NYSTATIN SUSP 500,000 U/5 ML UDC PO SCH ×4 (08:23→21:10)
[2020-08-31] MEDS: INSULIN ASPART 100 UNITS/ML 3 ML PEN SC SCH ×4 (08:25→21:30)
[2020-08-31 10:12] LABS: Hematocrit (blood only) 25.5 % (37-47); Hemoglobin 8.1 g/dL (12.0-16.0); Mean Corpuscular Hemoglobin 30.1 pg (25-34); Mean Corpuscular Hgb Conc 31.8 g/dL (32-36); Mean Corpuscular Volume 94.8 fL (80-100); Mean Platelet Volume 9.8 fL (7.4-10.4); Nucleated RBC # (auto) 0.11 K/uL (0-0); Nucleated RBC % (auto) 1.4 %; Platelet Count 251 K/uL (130-400); RDW Coefficient of Variation 18.1 % (11.5-14.5); RDW Standard Deviation 54.2 fL (36.4-46.3); Red Blood Count 2.69 M/uL (4.2-5.4); White Blood Count 8.23 K/uL (4.8-10.8)
--- NOTE | 2020-08-31 10:14 | Surgery Progress Note ---
Date of Service August 31, 2020 Assessment & Plan (1) Psoas hematoma, left, secondary to anticoagulant therapy: labs pending H&H has been stable after transfusion seen with Dr. Gordon Admission and Anticipated Discharge Date Admission Date: August 08, 2020 Subjective still some groin pain, OOB minimally Physical Exam Constitutional: WD/WN, vitals as above Results & Data ([facility]) Vital Signs (Past 12 Hours) Vital Signs Temp Pulse Resp BP Pulse Ox 08/31/20 08:03 36.3 C L 77 18 105/64 95 08/31/20 02:36 36.6 C 80 19 97/59 L 95 08/30/20 23:31 36.7 C 80 17 97/62 L 97 PG Care Time/CCT Total # of Minutes Spent Total Time Spent with Patient: Total time spent is greater than 50% in coordination of care (as documented) at patient's floor/unit and/or counseling patient: Coding Level of Care Code None Diagnoses Psoas hematoma, left, secondary to anticoagulant therapy S30.1XXA
[2020-08-31] MEDS: BENZONATATE 100 MG CAPSULE PO PRN ×3 (10:23→23:44)
[2020-08-31 10:29] LABS: BUN Creatinine Ratio 10.3 (10-20); Calcium 8.3 mg/dl (8.5-10.1); Est GFR (African American) 98.5
[2020-08-31] MEDS: ACETAMINOPHEN 325 MG TAB PO PRN (17:56)
[2020-08-31] MEDS: ATORVASTATIN 40 MG TAB PO SCH (21:09)
[2020-08-31] MEDS: ARIPiprazole 5 MG TAB PO SCH (21:09)
[2020-08-31] MEDS: MONTELUKAST SODIUM 10 MG TABLET PO SCH (21:10)
--- NOTE | 2020-08-31 21:49 | Hospitalist Progress Note ---
Date of Service August 31, 2020 Assessment & Plan (1) Psoas hematoma, left, secondary to anticoagulant therapy: Baseline hgb of 14 -> 8.8 by 08/26. CT hip and pelvis done, which showed 9.5 x 6.5 x 3.5 cm left iliopsoas hematoma and small amount of hemorrhage on right side. No trauma, no fall in the hospital on any documentation. - Stopped all anticoagulation (Lovenox VTE ppx and ASA) - Discussed with surgery and now following along - Given 1 unit RPBCs on 08/27 for symptomatic anemia & hgb of 7.3. - Close following of hemoglobin. -> Giving IV iron x 3 doses starting on 08/28. Hgb now dropped from 8.1 to 7.4. However, she states she is feeling better. Will hold off transfusion of aditional PRBC for now, unless she becomes symptomatic. will continue to monitor. - If she gets blood, consider Lasix with it as she had some shortness of breath with last transfusion. Hemoglobin has been stable. holding PRBC. (2) Pneumonia due to 2019 novel coronavirus: Patient titrated down to low flow on 08/19 but then rapidly decompensated m orning of 08/20 requiring intubation. - Decadron 6 mg PO daily, completed 12 days on 08/19 and it was stopped. - Remdesivir started 08/08/20 - Convalescent plasma, consented and ordered 08/14/19. - Supportive care with O2 PRN - BNP normal on 08/25. Procalcitonin was 0.3. D-dimer lower from prior at 630. VBG stable. - completed course of levofloxacin Lower concern for MRSA and low concern for hospital-acquired pathogens given overall stability and improvement with levofloxacin. will recheck procal and BNP in AM. Patient continues to require 5 liters nasal canula which is concerning. will also repeat chest x ray. (3) Respiratory failure with hypoxia: Was improving each day, on 08/19 she was titrated off of high flow, stable on low flow nasal canula. 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 Required emergent intubation; intubated for < 12 hours, extubated at noon on 08/20. - As above She contiues to require 4-5 liters nasal cannula today. (4) Anemia: Baseline hgb was 14 on admission. - See above psoas hematoma (5) Diastolic CHF, acute on chronic: Responded well to Lasix 40mg IV daily. - Evaluate each day need for Lasix - No Lasix on 08/23 - 08/27. Normal BNP on 08/27. Needed Lasix after transfusion on 08/27 at night. (6) Type 2 diabetes mellitus: A1c was 6.7% in 07/2020. Sliding scale insulin -> Sugars 110-150 in the last 24 hours. (7) Depression: No overt needs at present. - Continue citalopram (8) Chronic obstructive pulmonary disease: No wheezing on exam today. - Continue Singulair - DuoNebs PRN (9) Hypothyroidism: TSH was 0.12 in 07/2020. No signs/symptoms of hypo-/hyperthyroidism. - Rechecked TSH on 08/25 -> 5.5 with normal FT4. - Continue home Synthroid 150 mcg (10) Parkinsonism: Saw Dr. Everett in 07/2020. - Continue zonisamide 25 mg PO BID (11) Factor V Leiden mutation: CTA chest on 08/20 without PE. Was on Lovenox 40 mg SQ Q12h until 08/26 when she had bleeding. - SCDs Admission and Anticipated Discharge Date Admission Date: August 08, 2020 Subjective 64 yo female reports no significant change from yesterday. She was able to sit at the edge of the bed today but felt very short of breath. Review of Systems Review of Systems: All systems reviewed & are unremarkable except as noted in HPI & below Physical Exam Physical Exam: Constitutional: well developed, well nourished and + overweight; no acute distress Neck: trachea midline, no thyromegaly Respiratory: no respiratory distress and no labored breathing Auscultation: rales and rhonchi at bases Cardiovascular: RRR, no murmur, no edema Gastrointestinal (Abdomen): normal bowel sounds, soft, nontender, no hepatosplenomegaly Musculoskeletal: no cyanosis or clubbing, extremities motor strength 5/5 Skin: no rashes, warm and dry Neurologic: patellar DTR's 2+ bilat, sensation intact and PERRL, EOMI, accommodation nl, no face palsy, no dysarthria no focal motor deficits Psychiatric: A+Ox3, euthymic affect Lymphatic: no cervical or axillary lymphadenopathy Results & Data Results & Data ([facility]) Vital Signs (Past 12 Hours) Vital Signs Temp Pulse Resp BP Pulse Ox 08/31/20 19:32 36.7 C 77 20 101/64 100 08/31/20 15:27 36.6 C 84 20 101/65 97 08/31/20 11:46 36.4 C L 88 20 127/69 93 PG Care Time/CCT Total # of Minutes Spent Total Time Spent with Patient: Total time spent is greater than 50% in coordination of care (as documented) at patient's floor/unit and/or counseling patient: Coding Level of Care Code 92535 Subseq Hosp Care Lvl 3 Diagnoses Psoas hematoma, left, secondary to anticoagulant therapy S30.1XXA Pneumonia due to 2019 novel coronavirus U07.1; J12.89 Respiratory failure with hypoxia J96.91 Chronicity: unspecified Anemia D64.9 Diastolic CHF, acute on chronic I50.33 Type 2 diabetes mellitus E11.9 Depression F32.9 Chronic obstructive pulmonary disease J44.9 Hypothyroidism E03.9 Parkinsonism G20 Factor V Leiden mutation D68.51 Time Spent (min) 35 (1) Respiratory failure with hypoxia Chronicity: unspecified Qualified Code(s): J96.91 - Respiratory failure, unspecified with hypoxia
[2020-09-01] MEDS: LEVOTHYROXINE SODIUM 100 MCG TABLET PO SCH (05:02)
[2020-09-01] MEDS: LEVOTHYROXINE SODIUM 50 MCG TABLET PO SCH (05:02)
[2020-09-01 06:45] LABS: Creatinine Clr Calc Pharmacy 110.9 ml/min; Est GFR (African American) 114.8
--- NOTE | 2020-09-01 07:50 | Surgery Progress Note ---
Date of Service September 01, 2020 Assessment & Plan (1) Psoas hematoma, left, secondary to anticoagulant therapy: HR 70-80's Hbg stable yesterday at 8.1, labs pending for today Patient reports some improvement in her leg pain Will take some time for hematoma to resorb Please call with questions/concerns Pt seen and examined with Dr. Gordon Admission and Anticipated Discharge Date Admission Date: August 08, 2020 Subjective Patient says her leg pain is getting better. Feeling a little more tired today. Physical Exam Physical Exam: awake/alert Results & Data ([facility]) Vital Signs (Past 12 Hours) Vital Signs Temp Pulse Resp BP Pulse Ox 09/01/20 06:48 36.6 C 75 17 112/71 94 09/01/20 03:32 36.5 C 74 19 108/58 L 93 08/31/20 23:40 36.6 C 76 20 110/64 98 PG Care Time/CCT Total # of Minutes Spent Total Time Spent with Patient: Total time spent is greater than 50% in coordination of care (as documented) at patient's floor/unit and/or counseling patient: Coding Level of Care Code 37508 Subseq Hosp Care Lvl 1 Diagnoses Psoas hematoma, left, secondary to anticoagulant therapy S30.1XXA
[2020-09-01] MEDS: NYSTATIN SUSP 500,000 U/5 ML UDC PO SCH ×4 (09:00→21:25)
[2020-09-01] MEDS: INSULIN ASPART 100 UNITS/ML 3 ML PEN SC SCH ×4 (09:00→22:00)
[2020-09-01] MEDS: CITALOPRAM 40 MG TAB PO SCH (09:00)
[2020-09-01] MEDS: ZONISAMIDE PO SCH ×2 (09:00→21:26)
[2020-09-01 09:05] LABS: Hematocrit (blood only) 27.2 % (37-47); Hemoglobin 8.4 g/dL (12.0-16.0); Mean Corpuscular Hemoglobin 30.2 pg (25-34); Mean Corpuscular Hgb Conc 30.9 g/dL (32-36); Mean Corpuscular Volume 97.8 fL (80-100); Mean Platelet Volume 9.7 fL (7.4-10.4); Nucleated RBC # (auto) 0.06 K/uL (0-0); Nucleated RBC % (auto) 0.8 %; Platelet Count 245 K/uL (130-400); RDW Standard Deviation 57.3 fL (36.4-46.3); Red Blood Count 2.78 M/uL (4.2-5.4); White Blood Count 7.57 K/uL (4.8-10.8)
[2020-09-01 09:25] LABS: Creatinine Clr Calc Pharmacy 86.9 ml/min; Est GFR (African American) 105.9; Est GFR (Non-African American) 91.4; Potassium 3.9 mmol/L (3.5-5.1)
--- NOTE | 2020-09-01 09:51 | XRay Report ---
XR chest 1V portable HISTORY: 64 years-old Female hypoxia acute hypoxia COMPARISON: Chest radiograph 08/27/2020 TECHNIQUE: Portable AP view of the chest FINDINGS: Cardiac silhouette is enlarged, unchanged. Calcified plaque of the thoracic aorta. Right hemidiaphrag matic elevation. Probable trace pleural effusions. Bilateral mixed interstitial and alveolar opacitie s are redemonstrated and have mildly worsened in the interval. Degenerative changes of the shoulders and spine. IMPRESSION: Mild progression of the bilateral mixed interstitial and alveolar opacities. Findings are suggestive of multifocal pneumonia. ACT 112: Negative or not required by law. The above report was generated using voice recognition software. It may contain grammatical, syntax o r spelling errors. Electronically signed by: Nilton Craft M.D. 09/01/2020 9:50 AM
[2020-09-01] MEDS ORDERED: FUROSEMIDE 20 MG in SYRINGE 0 ML IV ONE (16:30)
--- NOTE | 2020-09-01 19:34 | CT Scan Report ---
CT chest diagnostic wo con CT DOSE: 290.65 mGy.cm HISTORY: bilateral pneumonia TECHNIQUE: Multiaxial CT images of the chest were performed without contrast. A dose lowering techni que was utilized adhering to the principles of ALARA. COMPARISON: Chest 09/01/2020. Chest CT 08/20/2020. FINDINGS: The endotracheal tube has been removed. No pneumothorax. No pleural effusions. Punctate lico cified granuloma within the left lung apex. There is mild paraseptal emphysema at the lung apices. Mu ltifocal scattered irregular densities are again noted throughout the lungs. These are most pronounce d within the periphery and the lung bases. Overall, this has slightly progressed compared to the prio r study. Findings favor an acute on chronic multifocal pneumonia. The central airways are patent. The re is mild elevation of the right hemidiaphragm, unchanged. The pneumomediastinum has resolved. There is a single small gallstone. The visualized liver, spleen, and right adrenal gland are unremarkable. The left adrenal gland is not identified on this study. Mild calcified plaque within the normal sherwin jere thoracic aorta. There is also moderate left coronary artery calcifications. Normal esophagus. Lucia tty mediastinal hilar lymph nodes remain unchanged. This may be reactive. The heart is normal in size . Old, healed right-sided rib fractures. IMPRESSION: 1. Slight progression of the multifocal scattered irregular densities seen throughout the lungs. This is consistent with an acute or chronic multifocal pneumonia. 2. The endotracheal tube has been removed. 3. The pneumomediastinum has resolved. 4. Cholelithiasis. ACT 112: Negative or not required by law. Electronically signed by: Jorge Tompkins M.D. 09/01/2020 7:32 PM
[2020-09-01] MEDS: ATORVASTATIN 40 MG TAB PO SCH (21:25)
[2020-09-01] MEDS: MONTELUKAST SODIUM 10 MG TABLET PO SCH (21:25)
[2020-09-01] MEDS: ARIPiprazole 5 MG TAB PO SCH (21:25)
[2020-09-01] MEDS: ZOLPIDEM TARTRATE 10 MG TAB PO PRN (21:37)
[2020-09-01] MEDS: BENZONATATE 100 MG CAPSULE PO PRN (21:37)
--- NOTE | 2020-09-01 22:22 | Hospitalist Progress Note ---
Date of Service September 01, 2020 Assessment & Plan (1) Psoas hematoma, left, secondary to anticoagulant therapy: Baseline hgb of 14 -> 8.8 by 08/26. CT hip and pelvis done, which showed 9.5 x 6.5 x 3.5 cm left iliopsoas hematoma and small amount of hemorrhage on right side. No trauma, no fall in the hospital on any documentation. - Stopped all anticoagulation (Lovenox VTE ppx and ASA) - Discussed with surgery and now following along - Given 1 unit RPBCs on 08/27 for symptomatic anemia & hgb of 7.3. - Close following of hemoglobin. -> Giving IV iron x 3 doses starting on 08/28. Hgb now dropped from 8.1 to 7.4. However, she states she is feeling better. Will hold off transfusion of aditional PRBC for now, unless she becomes symptomatic. will continue to monitor. - If she gets blood, consider Lasix with it as she had some shortness of breath with last transfusion. Hemoglobin has been stable. holding PRBC. (2) Pneumonia due to 2019 novel coronavirus: Patient titrated down to low flow on 08/19 but then rapidly decompensated m orning of 08/20 requiring intubation. - Decadron 6 mg PO daily, completed 12 days on 08/19 and it was stopped. - Remdesivir started 08/08/20 - Convalescent plasma, consented and ordered 08/14/19. - Supportive care with O2 PRN - BNP normal on 08/25. Procalcitonin was 0.3. D-dimer lower from prior at 630. VBG stable. - completed course of levofloxacin Lower concern for MRSA and low concern for hospital-acquired pathogens given overall stability and improvement with levofloxacin. Procal is negative. BNP is mildly high. Patient continues to require 5 liters nasal canula which is concerning. ordered CT chest. reviewed images. may consider fluter valve. If oxygen requirements improve, patient may be discharged. (3) Respiratory failure with hypoxia: Was improving each day, on 08/19 she was titrated off of high flow, stable on low flow nasal canula. 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 Required emergent intubation; intubated for < 12 hours, extubated at noon on 08/20. - As above She contiues to require 4-5 liters nasal cannula today. (4) Anemia: Baseline hgb was 14 on admission. - See above psoas hematoma (5) Diastolic CHF, acute on chronic: Responded well to Lasix 40mg IV daily. - Evaluate each day need for Lasix - No Lasix on 08/23 - 08/27. Normal BNP on 08/27. Needed Lasix after transfusion on 08/27 at night. (6) Type 2 diabetes mellitus: A1c was 6.7% in 07/2020. Sliding scale insulin -> Sugars 110-150 in the last 24 hours. (7) Depression: No overt needs at present. - Continue citalopram (8) Chronic obstructive pulmonary disease: No wheezing on exam today. - Continue Singulair - DuoNebs PRN (9) Hypothyroidism: TSH was 0.12 in 07/2020. No signs/symptoms of hypo-/hyperthyroidism. - Rechecked TSH on 08/25 -> 5.5 with normal FT4. - Continue home Synthroid 150 mcg (10) Parkinsonism: Saw Dr. Everett in 07/2020. - Continue zonisamide 25 mg PO BID (11) Factor V Leiden mutation: CTA chest on 08/20 without PE. Was on Lovenox 40 mg SQ Q12h until 08/26 when she had bleeding. - SCDs Admission and Anticipated Discharge Date Admission Date: August 08, 2020 Subjective 64 yo female reports feeling about the same. She has no new complaints. Review of Systems Review of Systems: All systems reviewed & are unremarkable except as noted in HPI & below Physical Exam Physical Exam: Constitutional: well developed, well nourished and + overweight; no acute distress Neck: trachea midline, no thyromegaly Respiratory: no respiratory distress and no labored breathing Auscultation: rales and rhonchi at bases Cardiovascular: RRR, no murmur, no edema Gastrointestinal (Abdomen): normal bowel sounds, soft, nontender, no hepatosplenomegaly Musculoskeletal: no cyanosis or clubbing, extremities motor strength 5/5 Skin: no rashes, warm and dry Neurologic: patellar DTR's 2+ bilat, sensation intact and PERRL, EOMI, accommodation nl, no face palsy, no dysarthria no focal motor deficits Psychiatric: A+Ox3, euthymic affect Lymphatic: no cervical or axillary lymphadenopathy Results & Data Results & Data ([facility]) Vital Signs (Past 12 Hours) Vital Signs Temp Pulse Pulse Resp BP Pulse Ox 09/01/20 21:38 96 09/01/20 21:33 95 09/01/20 19:58 36.5 C 80 20 103/65 95 09/01/20 15:45 36.4 C L 72 20 106/65 99 09/01/20 12:10 36.8 C 91 H 20 112/70 90 PG Care Time/CCT Total # of Minutes Spent Total Time Spent with Patient: Total time spent is greater than 50% in coordination of care (as documented) at patient's floor/unit and/or counseling patient: Coding Level of Care Code 84747 Subseq Hosp Care Lvl 3 Diagnoses Psoas hematoma, left, secondary to anticoagulant therapy S30.1XXA Pneumonia due to 2019 novel coronavirus U07.1; J12.89 Respiratory failure with hypoxia J96.91 Chronicity: unspecified Anemia D64.9 Diastolic CHF, acute on chronic I50.33 Type 2 diabetes mellitus E11.9 Depression F32.9 Chronic obstructive pulmonary disease J44.9 Hypothyroidism E03.9 Parkinsonism G20 Factor V Leiden mutation D68.51 Time Spent (min) 35 (1) Respiratory failure with hypoxia Chronicity: unspecified Qualified Code(s): J96.91 - Respiratory failure, unspecified with hypoxia
[2020-09-02] MEDS: LEVOTHYROXINE SODIUM 50 MCG TABLET PO SCH (06:19)
[2020-09-02] MEDS: LEVOTHYROXINE SODIUM 100 MCG TABLET PO SCH (06:19)
[2020-09-02 06:52] LABS: Hematocrit (blood only) 28.4 % (37-47); Hemoglobin 8.8 g/dL (12.0-16.0); Mean Corpuscular Hemoglobin 30.3 pg (25-34); Mean Corpuscular Volume 97.9 fL (80-100); Mean Platelet Volume 9.6 fL (7.4-10.4); Nucleated RBC # (auto) 0.06 K/uL (0-0); Nucleated RBC % (auto) 0.7 %; Platelet Count 282 K/uL (130-400); RDW Standard Deviation 59.4 fL (36.4-46.3); White Blood Count 8.25 K/uL (4.8-10.8)
[2020-09-02] MEDS: ZONISAMIDE PO SCH ×2 (08:03→20:22)
[2020-09-02] MEDS: CITALOPRAM 40 MG TAB PO SCH (08:03)
[2020-09-02] MEDS: NYSTATIN SUSP 500,000 U/5 ML UDC PO SCH ×4 (08:03→20:22)
[2020-09-02] MEDS: INSULIN ASPART 100 UNITS/ML 3 ML PEN SC SCH ×4 (08:04→20:51)
[2020-09-02] MEDS: ACETAMINOPHEN 325 MG TAB PO PRN (08:06)
[2020-09-02] MEDS: LORazepam 0.5 MG TAB PO PRN (10:50)
[2020-09-02] MEDS: ATORVASTATIN 40 MG TAB PO SCH (20:22)
[2020-09-02] MEDS: ARIPiprazole 5 MG TAB PO SCH (20:22)
[2020-09-02] MEDS: MONTELUKAST SODIUM 10 MG TABLET PO SCH (20:22)
[2020-09-02] MEDS: ZOLPIDEM TARTRATE 10 MG TAB PO PRN (20:26)
--- NOTE | 2020-09-02 22:25 | Hospitalist Progress Note ---
Date of Service September 02, 2020 Assessment & Plan (1) Psoas hematoma, left, secondary to anticoagulant therapy: Baseline hgb of 14 -> 8.8 by 08/26. CT hip and pelvis done, which showed 9.5 x 6.5 x 3.5 cm left iliopsoas hematoma and small amount of hemorrhage on right side. No trauma, no fall in the hospital on any documentation. - Stopped all anticoagulation (Lovenox VTE ppx and ASA) - Discussed with surgery and now following along - Given 1 unit RPBCs on 08/27 for symptomatic anemia & hgb of 7.3. - Close following of hemoglobin. -> Giving IV iron x 3 doses starting on 08/28. Hgb now dropped from 8.1 to 7.4. However, she states she is feeling better. Will hold off transfusion of aditional PRBC for now, unless she becomes symptomatic. will continue to monitor. Hemoglobin has been stable. Did not require additional PRBC (2) Pneumonia due to 2019 novel coronavirus: Patient titrated down to low flow on 08/19 but then rapidly decompensated morning of 08/20 requiring intubation. - Decadron 6 mg PO daily, completed 12 days on 08/19 and it was stopped. - Remdesivir started 08/08/20 - Convalescent plasma, consented and ordered 08/14/19. - Supportive care with O2 PRN - BNP normal on 08/25. Procalcitonin was 0.3. D-dimer lower from prior at 630. VBG stable. - completed course of levofloxacin Lower concern for MRSA and low concern for hospital-acquired pathogens given overall stability and improvement with levofloxacin. Procal is negative. BNP is mildly high. Oxygen requirements have decreased from 5 liters nasal canula to 3L NC. This may be attributed to venkata being more active as she spent more time in the chair. ordered CT chest. reviewed images. will order flutter valve in A,. fluter valve. If oxygen requirements remain at this level, will consider dischare. (3) Respiratory failure with hypoxia: Was improving each day, on 08/19 she was titrated off of high flow, stable on low flow nasal canula. 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 Required emergent intubation; intubated for < 12 hours, extubated at noon on 08/20. - As above She contiues to require 3 liters nasal cannula today. (4) Anemia: Baseline hgb was 14 on admission. - See above psoas hematoma (5) Diastolic CHF, acute on chronic: Responded well to Lasix 40mg IV daily. - Evaluate each day need for Lasix - No Lasix on 08/23 - 08/27. Normal BNP on 08/27. Needed Lasix after transfusion on 08/27 at night. -No additional lasix since except for 20 mg of IV lasix on 09/01 (6) Type 2 diabetes mellitus: A1c was 6.7% in 07/2020. Sliding scale insulin -> Sugars 110-150 in the last 24 hours. (7) Depression: No overt needs at present. - Continue citalopram (8) Chronic obstructive pulmonary disease: No wheezing on exam today. - Continue Singulair - DuoNebs PRN (9) Hypothyroidism: TSH was 0.12 in 07/2020. No signs/symptoms of hypo-/hyperthyroidism. - Rechecked TSH on 08/25 -> 5.5 with normal FT4. - Continue home Synthroid 150 mcg (10) Parkinsonism: Saw Dr. Everett in 07/2020. - Continue zonisamide 25 mg PO BID (11) Factor V Leiden mutation: CTA chest on 08/20 without PE. Was on Lovenox 40 mg SQ Q12h until 08/26 when she had bleeding. - [facility] [place]mission and Anticipated Discharge Date Admission Date: August 08, 2020 Subjective Patient reports feeling better. She is coughing up about 2 teaspoons of sputum today. She is happy that she is requiring less oxygen. Review of Systems Review of Systems: All systems reviewed & are unremarkable except as noted in HPI & below Physical Exam Physical Exam: Constitutional: well developed, well nourished and + overweight; no acute distress Neck: trachea midline, no thyromegaly Respiratory: no respiratory distress and no labored breathing Auscultation: mild rhonchi at bases Cardiovascular: RRR, no murmur, no edema Gastrointestinal (Abdomen): normal bowel sounds, soft, nontender, no hepatosplenomegaly Musculoskeletal: no cyanosis or clubbing, extremities motor strength 5/5 Skin: no rashes, warm and dry Neurologic: patellar DTR's 2+ bilat, sensation intact and PERRL, EOMI, accommodation nl, no face palsy, no dysarthria no focal motor deficits Psychiatric: A+Ox3, euthymic affect Lymphatic: no cervical or axillary lymphadenopathy Results & Data Results & Data ([facility]) Vital Signs (Past 12 Hours) Vital Signs Temp Pulse Pulse Resp BP Pulse Ox 09/02/20 19:22 36.4 C L 80 20 105/64 96 09/02/20 15:45 73 09/02/20 15:42 36.4 C L 76 20 110/67 98 09/02/20 12:24 36.4 C L 92 H 18 114/69 94 PG Care Time/CCT Total # of Minutes Spent Total Time Spent with Patient: Total time spent is greater than 50% in coordination of care (as documented) at patient's floor/unit and/or counseling patient: Coding Level of Care Code 56338 Subseq Hosp Care Lvl 3 Diagnoses Psoas hematoma, left, secondary to anticoagulant therapy S30.1XXA Pneumonia due to 2019 novel coronavirus U07.1; J12.89 Respiratory failure with hypoxia J96.91 Chronicity: unspecified Anemia D64.9 Diastolic CHF, acute on chronic I50.33 Type 2 diabetes mellitus E11.9 Depression F32.9 Chronic obstructive pulmonary disease J44.9 Hypothyroidism E03.9 Parkinsonism G20 Factor V Leiden mutation D68.51 Time Spent (min) 35 (1) Respiratory failure with hypoxia Chronicity: unspecified Qualified Code(s): J96.91 - Respiratory failure, unspecified with hypoxia
[2020-09-03] MEDS: traMADol HCL 50 MG TABLET PO PRN (03:07)
[2020-09-03] MEDS: ACETAMINOPHEN 325 MG TAB PO PRN (05:37)
[2020-09-03] MEDS: LEVOTHYROXINE SODIUM 100 MCG TABLET PO SCH (05:37)
[2020-09-03] MEDS: LEVOTHYROXINE SODIUM 50 MCG TABLET PO SCH (05:37)
[2020-09-03 07:16] LABS: Hematocrit (blood only) 26.9 % (37-47); Hemoglobin 8.5 g/dL (12.0-16.0); Mean Corpuscular Hemoglobin 30.9 pg (25-34); Mean Corpuscular Hgb Conc 31.6 g/dL (32-36); Mean Corpuscular Volume 97.8 fL (80-100); Mean Platelet Volume 9.3 fL (7.4-10.4); Nucleated RBC # (auto) 0.03 K/uL (0-0); Nucleated RBC % (auto) 0.4 %; Platelet Count 288 K/uL (130-400); RDW Coefficient of Variation 21.4 % (11.5-14.5); RDW Standard Deviation 71.7 fL (36.4-46.3); Red Blood Count 2.75 M/uL (4.2-5.4); White Blood Count 6.57 K/uL (4.8-10.8)
[2020-09-03 07:39] LABS: BUN Creatinine Ratio 11.3 (10-20); Calcium 8.3 mg/dl (8.5-10.1); Creatinine Clr Calc Pharmacy 108.6 ml/min; Est GFR (African American) 113.4; Est GFR (Non-African American) 97.8; Potassium 3.4 mmol/L (3.5-5.1)
[2020-09-03] MEDS: INSULIN ASPART 100 UNITS/ML 3 ML PEN SC SCH ×2 (08:02→11:53)
[2020-09-03] MEDS: CITALOPRAM 40 MG TAB PO SCH (08:03)
[2020-09-03] MEDS: NYSTATIN SUSP 500,000 U/5 ML UDC PO SCH ×2 (08:03→11:54)
[2020-09-03] MEDS: ZONISAMIDE PO SCH (08:03)
[2020-09-03] MEDS: LORazepam 0.5 MG TAB PO PRN (11:20)
--- NOTE | 2020-09-03 17:51 | Discharge Summary ---
Date of Service September 03, 2020 Admission HPI Per Admitting Provider Patient is a 64-year-old female who has a history of factor V Leiden mutation with diagnosis of COPD who wears CPAP without supplemental oxygen who has had increasing shortness of breath over the last week, she had fevers as high as 101, denies lost his taste or smell and started steroids as prescribed by her patient support associate: Herberth Rose yesterday. We discussed CODE STATUS patient would want heroic measures undertaken in event of cardiac arrest however she is uncertain whether she would want to be intubated in event of worsening hypoxic respiratory failure. We discussed routine course of care in the event of i ntubation, she still was undecided at the time of this dictation. Denies chest pain, positive for shortness of breath, no abdominal pain. Principal Diagnosis Covid-19 pneumonia Iliopsoas hematoma Discharge Exam Constitutional WD/WN, vitals as above Eyes EOM intact bilaterally; no conjunctival abnormality ENMT external ear and nose normal, oropharynx normal Neck trachea midline, no thyromegaly normal visual inspection Respiratory normal respiratory effort, lungs clear to auscultation + labored breathing Auscultation: lungs clear to auscultation bilaterally Cardiovascular RRR, no murmur, no edema Rate/Rhythm: regular rhythm and + tachycardic Gastrointestinal (Abdomen) Inspection/Auscultation: abdomen normal to inspection; abdomen not distended Musculoskeletal no cyanosis or clubbing, extremities motor strength 5/5 Hip: hip normal to inspection (No erythema or bruising noted.) Skin no rashes, warm and dry Neurologic moves all extremities and awake Psychiatric Orientation: alert, oriented to person and cooperative Discharge Data Allergies Allergy/AdvReac Type Severity Reaction Status Date / Time bee venom protein (honey bee) Allergy Severe LOCAL Verified 07/29/20 15:00 SWELLING AT SITE shrimp Allergy Severe EYE Verified 07/29/20 15:00 SWELLING cefuroxime Allergy Intermediate RASH Verified 07/29/20 15:00 clindamycin Allergy Intermediate RASH Verified 07/29/20 15:00 morphine Allergy Intermediate RASH, on Verified 07/29/20 15:00 hycodan from [id number] home med pregabalin Allergy Intermediate FEET AND Verified 07/29/20 15:00 ANKLE SWELLING ketorolac Allergy Mild RASH ON Verified 07/29/20 15:00 ABDOMEN,NAPROXEN ONLY NSAID SHE TOLERATES Sulfa (Sulfonamide Allergy Mild RASH Verified 07/29/20 15:00 Antibiotics) aprepitant Allergy Unknown RASH Verified 07/29/20 15:00 cilastatin [From Primaxin] Allergy Unknown Unknown Verified 07/29/20 15:00 erythromycin base Allergy Unknown RASH Verified 07/29/20 15:00 ibuprofen Allergy Unknown RASH,NAPROXEN Verified 07/29/20 15:00 ONLY NSAID SHE TOLERATES imipenem Allergy Unknown RASH Verified 07/29/20 15:00 iodine Allergy Unknown DIFFICULTY Verified 07/29/20 15:00 BREATHING, COUGHING, SNEEZING, RASH metoclopramide Allergy Unknown RASH Verified 07/29/20 15:00 nickel Allergy Unknown RASH Verified 07/29/20 15:00 psyllium Allergy Unknown RASH Verified 07/29/20 15:00 amoxicillin [From Augmentin] Allergy see comment Verified 07/29/20 15:00 clavulanic acid Allergy see comment Verified 07/29/20 15:00 [From Augmentin] Opioids - Morphine Analogues Allergy Verified 07/29/20 15:00 Consultations 08/14/20 11:05 Consult Pulmonology Routine 08/20/20 06:10 Consult Principal Technical Writer Routine 08/26/20 18:50 Consult General Surgery Routine Ordered Studies 08/20/20 06:08 US point of care ultrasound Urgent 08/20/20 06:43 CT angio chest PE protocol Stat 08/24/20 17:54 US venous doppler LE LT Urgent 08/26/20 15:04 CT hip LT wo con Routine 08/26/20 15:06 CT pelvis wo con Routine 09/01/20 18:45 CT chest diagnostic wo con Routine Hospital Course (1) Psoas hematoma, left, secondary to anticoagulant therapy: Baseline hgb of 14 -> 8.8 by 08/26. CT hip and pelvis done, which showed 9.5 x 6.5 x 3.5 cm left iliopsoas hematoma and small amount of hemorrhage on right side. No trauma, no fall in the hospital on any documentation. - Stopped all anticoagulation (Lovenox VTE ppx and ASA) - Discussed with surgery and now following along - Given 1 unit RPBCs on 08/27 for symptomatic anemia & hgb of 7.3. - Close following of hemoglobin. -> Giving IV iron x 3 doses starting on 08/28. Hgb is 8.1 today. If she falls below 8, would probably give another unit for symptomatic anemia, but hopefully iron will help her rebuild RBCs on her own. - No further blood needed after 08/27. (2) Pneumonia due to 2019 novel coronavirus: Patient titrated down to low flow on 08/19 but then rapidly decompensated morning of 08/20 requiring intubation. - Decadron 6 mg PO daily, completed 12 days on 08/19 and it was stopped. - Remdesivir started 08/08/20 - Convalescent plasma, consented and ordered 08/14/19. - Given levofloxacin x 5-day course (End date: 08/30). Lower concern for MRSA and low concern for hospital-acquired pathogens given overall stability and improvement with levofloxacin. - Discharged on 3L NC. Improving. (3) Respiratory failure with hypoxia: Was improving each day, on 08/19 she was titrated off of high flow, stable on low flow nasal canula. 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 Required emergent intubation; intubated for < 12 hours, extubated at noon on 08/20. - As above (4) Anemia: Baseline hgb was 14 on admission. - See above psoas hematoma (5) Diastolic CHF, acute on chronic: Responded well to Lasix 40mg IV daily. - Evaluate each day need for Lasix - No Lasix on 08/23 - 08/27. Normal BNP on 08/27. Needed Lasix after transfusion on 08/27 at night. (6) Type 2 diabetes mellitus: A1c was 6.7% in 07/2020. Sliding scale insulin -> Sugars 110-150 in the last 24 hours. (7) Depression: No overt needs at present. - Continue citalopram (8) Chronic obstructive pulmonary disease: No wheezing on exam today. - Continue Singulair - DuoNebs PRN (9) Hypothyroidism: TSH was 0.12 in 07/2020. No signs/symptoms of hypo-/hyperthyroidism. - Rechecked TSH on 08/25 -> 5.5 with normal FT4. - Continue home Synthroid 150 mcg (10) Parkinsonism: Saw Dr. Everett in 07/2020. - Continue zonisamide 25 mg PO BID (11) Factor V Leiden mutation: CTA chest on 08/20 without PE. Was on Lovenox 40 mg SQ Q12h until 08/26 when she had bleeding. - SCDs Total Time Total Time Spent Total Time Spent (In Minutes): 35 Discharge Plan Discharge Items Patient Disposition: Transfer Inpatient Rehab Fac Reason For Visit: COVID PNA Discharge Diagnosis: Covid pneumonia Activity: Resume your previous activity Non-emergency contact: Primary Care Provider Call non-emergency contact if: your symptoms worsen Follow-up/Referrals: Gary Renteria MD [Primary Care Provider] - 09/07/20 10:15 am Diet: Regular Addtl Attending Provider Instructions: Ms. Louis was admitted on 08/08/2020 with Covid-19 pneumonia. She finished her dexamethasone and remdesivir and plasma weeks ago. She has had a very slow recovery and is only now on 3L nasal cannula. She is slowly getting stronger and O2 sats are improving. She had a left iliopsoas hematoma due to aspirin and Lovenox DVT prophylaxis. She required 1 unit of PRBCs on 08/27/2020, but her hemoglobin has been stable since that time. Presently hgb is 8.5. Aspirin should probably be held for at least 1-2 more weeks before considering restarting. She had thrush and Nystatin was started on 08/27/2020. She could likely use this another week and see how her thrush is doing before stopping it. She had urinary retention and Bautista was placed on 08/27/2020. This will be left in. Depending on how long she is at [facility], she could have another voiding trial, but may need outpatient urology follow up. Pending Studies at Discharge: No Stand-Alone Forms: [facility] Skilled Items Patient informed of condition?: No DNR: No Discharge Level of Care: Acute rehab Communicable Disease: No Discharge Prognosis: Stable Lines: None Urinary Catheter: Yes Medications and DC Order Prescriptions: New nystatin 100,000 unit/mL Suspension 10 ml PO QID Qty: 1 RF: 0 Continued citalopram [Celexa] 40 mg tablet 40 mg PO QAM RF: 0 potassium chloride 10 mEq tablet extended release 20 meq PO BID Qty: 360 RF: 3 atorvastatin 80 mg tablet 80 mg PO HS Qty: 90 RF: 3 levothyroxine 50 mcg tablet 50 mcg PO DAILY Qty: 30 RF: 2 tramadol 50 mg tablet 50 mg PO Q8H PRN (Reason: pain) Qty: 20 RF: 0 zonisamide 25 mg capsule 25 mg PO .COMPLEX Qty: 60 RF: 2 (DME) CPAP Machine Misc See Rx Instructions .MEDSUPPLY Qty: 1 RF: 0 montelukast [Singulair] 10 mg tablet 10 mg PO HS Qty: 90 RF: 3 Breo Ellipta 200-25 mcg/dose blister with device 1 inh INH QAM Qty: 3 RF: 1 alendronate [Fosamax] 70 mg tablet 70 mg PO .weekly Qty: 30 RF: 3 albuterol sulfate 2.5 mg /3 mL (0.083 %) solution for nebulization 2.5 mg inhalation Q4H PRN (Reason: shortness of breath or wheezing) Qty: 2 RF: 0 mirtazapine 45 mg tablet 45 mg PO HS RF: 0 ondansetron HCl [Zofran] 4 mg tablet 4 mg PO Q6 PRN (Reason: Nausea) Qty: 30 RF: 2 polyethylene glycol 3350 [Miralax] 17 gram Powder In Packet 17 g PO DAILY PRN (Reason: Constipation) RF: 0 lorazepam 0.5 mg Tablet 0.5 mg PO DAILY PRN (Reason: Anxiety) RF: 0 albuterol sulfate [Proventil HFA] 90 mcg/actuation Hfa Aerosol Inhaler 2 puff INHALATION Q4H PRN (Reason: shortness of breath, wheezing) RF: 0 aripiprazole [Abilify] 5 mg tablet 2.5 mg PO HS RF: 0 epinephrine [EpiPen 2-Scout] 0.3 mg/0.3 mL auto-injector 0.3 mg IM UD PRN (Reason: anaphylaxis) RF: 0 ipratropium-albuterol 0.5 mg-3 mg(2.5 mg base)/3 mL solution for nebulization 3 ml INHALATION QID PRN (Reason: shortness of breath or wheezing) RF: 0 levothyroxine 100 mcg tablet 100 mcg PO QAM RF: 0 Discontinued triamterene-hydrochlorothiazid [Dyazide] 37.5-25 mg capsule 1 cap PO QAM Qty: 90 RF: 3 dextromethorphan polistirex [Delsym 12 hour] 30 mg/5 mL suspension,extended rel 12 hr 20 ml PO Q12H PRN (Reason: Congestion) Qty: 89 RF: 1 azithromycin 250 mg tablet See Rx Instructions PO .COMPLEX Qty: 6 RF: 0 prednisone 10 mg tablet See Rx Instructions PO DAILY Qty: 20 RF: 0 aspirin 81 mg Tablet,Delayed Release (Dr/Ec) 81 mg PO QAM RF: 0 doxycycline hyclate 100 mg tablet 100 mg PO BID RF: 0 furosemide [Lasix] 20 mg tablet 20 mg PO QAM RF: 0 Discharge Orders: Discharge Order (Routine); Ordered 09/03/20 Ordered By: Robert Flowers Admission Data Admit Date/Time: 08/08/20 15:37 Attending Provider: Robert Flowers Admit Provider: Jimmy Perales Primary Care Provider: Gary Renteria Other Providers: Yuri Brower ; Jimmy Perales ; [facility] ; Zenon Gordon ; [facility] ; [facility], ; Heart[facility]lyssa brito Other Interventions: Discharge Summary Assessment (RN) Last Done: 09/03/20 15:29 Coding Level of Care Code D/C Day Management >30 mins Diagnoses Psoas hematoma, left, secondary to anticoagulant therapy S30.1XXA Pneumonia due to 2019 novel coronavirus U07.1; J12.89 Respiratory failure with hypoxia J96.91 Chronicity: unspecified Anemia D64.9 Diastolic CHF, acute on chronic I50.33 Type 2 diabetes mellitus E11.9 Depression F32.9 Chronic obstructive pulmonary disease J44.9 Hypothyroidism E03.9 Parkinsonism G20 Factor V Leiden mutation D68.51
== END 2020-09-03 15:59 | DRG 208 ==
LOC: ED 12:15 → 2E 15:37 → SUATTDRO 15:37 → 2E 08-09 00:53 → 2S 08-15 17:37 → 2E 08-20 04:33 → 2S 08-25 23:33

== ENCOUNTER 2022-05-15 05:50 | Inpatient (IN) ==
--- NOTE | 2022-04-21 15:08 | PAT Medication Instructions ---
Medication Instructions Date of Service April 21, 2022 Home Medications Medication Instructions Recorded CPAP Machine #1 ea 04/15/20 albuterol sulfate 90 mcg/actuation 2 puff inhalation Q4H PRN 11/09/21 aerosol inhaler (Proventil HFA) shortness of breath, wheezing #3 Inhalers fluticasone furoate 200 1 inh inhalation QAM #3 Inhalers 11/09/21 mcg-vilanterol 25 mcg/dose inhalation powder (Breo Ellipta) ipratropium 0.5 mg-albuterol 3 mg 3 ml inhalation QID PRN shortness 11/15/21 (2.5 mg base)/3 mL nebulization of breath or wheezing #540 mL soln potassium chloride 20 mEq 20 meq PO BID #180 tabs 11/28/21 tablet,extended release montelukast 10 mg tablet 10 mg PO HS #90 tabs 12/01/21 (Singulair) zonisamide 100 mg capsule 100 mg PO QAM 30 days #30 caps 01/10/22 atorvastatin 80 mg tablet 80 mg PO HS #90 tabs 02/14/22 cyanocobalamin (vitamin B-12) 1,000 mcg IM MONTHLY 30 days #1 ea 03/06/22 1,000 mcg/mL injection kit insulin syringe-needle U-100 1 mL #100 ea 03/06/22 25 gauge x 5/8" (BD Insulin Syringe) alendronate 70 mg tablet (Fosamax) 70 mg PO .weekly #12 tabs 04/19/22 aripiprazole 5 mg tablet (Abilify) 2.5 mg PO HS epinephrine 0.3 mg/0.3 mL injection, auto-injector (EpiPen 2-Scout) 0.3 mg IM UD PRN CPAP Machine aspirin 81 mg chewable tablet 81 mg PO QAM cholecalciferol (vitamin D3) 25 mcg (1,000 unit) capsule 25 mcg PO QAM mirtazapine 30 mg tablet (Remeron) 30 mg PO HS citalopram 40 mg tablet (Celexa) 40 mg PO QAM albuterol sulfate 90 mcg/actuation aerosol inhaler (Proventil HFA) 2 puff inhalation Q4H PRN fluticasone furoate 200 mcg-vilanterol 25 mcg/dose inhalation powder (Breo Ellipta) 1 inh inhalation QAM ipratropium 0.5 mg-albuterol 3 mg (2.5 mg base)/3 mL nebulization soln 3 ml inhalation QID PRN lorazepam 0.5 mg tablet (Ativan) 0.5 mg PO DAILY PRN potassium chloride 20 mEq tablet,extended release 20 meq PO BID montelukast 10 mg tablet (Singulair) 10 mg PO HS zonisamide 100 mg capsule 100 mg PO QAM atorvastatin 80 mg tablet 80 mg PO HS cyanocobalamin (vitamin B-12) 1,000 mcg/mL injection kit 1,000 mcg IM MONTHLY insulin syringe-needle U-100 1 mL 25 gauge x 5/8" (BD Insulin Syringe) alendronate 70 mg tablet (Fosamax) 70 mg PO anastrozole 1 mg tablet 1 mg PO QAM furosemide 20 mg tablet (Lasix) 20 mg PO QAM levothyroxine 112 mcg tablet 112 mcg PO QAM pantoprazole 40 mg tablet,delayed release 40 mg PO QAM triamterene 37.5 mg-hydrochlorothiazide 25 mg capsule 1 cap PO QAM Check if prescriber has recommendations, otherwise continue as normal aripiprazole 5 mg tablet (Abilify) 2.5 mg PO HS Continue as directed epinephrine 0.3 mg/0.3 mL injection, auto-injector (EpiPen 2-Scout) 0.3 mg IM UD PRN(if needed) cyanocobalamin (vitamin B-12) 1,000 mcg/mL injection kit 1,000 mcg IM MONTHLY (not day of surgery) ASK your prescriber and surgeon aspirin 81 mg chewable tablet 81 mg PO QAM anastrozole 1 mg tablet 1 mg PO QAM DO NOT take the morning of surgery cholecalciferol (vitamin D3) 25 mcg (1,000 unit) capsule 25 mcg PO QAM potassium chloride 20 mEq tablet,extended release 20 meq PO BID alendronate 70 mg tablet (Fosamax) 70 mg PO furosemide 20 mg tablet (Lasix) 20 mg PO QAM triamterene 37.5 mg-hydrochlorothiazide 25 mg capsule 1 cap PO QAM Take morning of surgery With a small sip of water, OTHERWISE NOTHING TO EAT OR DRINK AFTER MIDNIGHT: citalopram 40 mg tablet (Celexa) 40 mg PO QAM albuterol sulfate 90 mcg/actuation aerosol inhaler (Proventil HFA) 2 puff inhalation Q4H PRN(use if needed; please bring with you to hospital day of surgery if possible) fluticasone furoate 200 mcg-vilanterol 25 mcg/dose inhalation powder (Breo Ellipta) 1 inh inhalation QAM ipratropium 0.5 mg-albuterol 3 mg (2.5 mg base)/3 mL nebulization soln 3 ml inhalation QID PRN(if needed) lorazepam 0.5 mg tablet (Ativan) 0.5 mg PO DAILY PRN(if needed) zonisamide 100 mg capsule 100 mg PO QAM levothyroxine 112 mcg tablet 112 mcg PO QAM pantoprazole 40 mg tablet,delayed release 40 mg PO QAM Take evening before surgery mirtazapine 30 mg tablet (Remeron) 30 mg PO HS albuterol sulfate 90 mcg/actuation aerosol inhaler (Proventil HFA) 2 puff inhalation Q4H PRN(if needed) ipratropium 0.5 mg-albuterol 3 mg (2.5 mg base)/3 mL nebulization soln 3 ml inhalation QID PRN(if needed) montelukast 10 mg tablet (Singulair) 10 mg PO HS atorvastatin 80 mg tablet 80 mg PO HS Other Notes If you have any questions please call us at [phone] or [phone] or [phone] or [phone]
--- NOTE | 2022-05-01 11:48 | Anesthesiology Consultation ---
Date of Service May 01, 2022 Assessment & Plan (1) Encounter for pre-operative examination: - Patient acceptable risk for surgery pending surgeon-ordered PCP ([facility]; scheduled 05/02) and cardiology ([facility]; scheduled 05/03) preop evaluations. - Vascular office visit (07/19/21): "Surveillance of carotid disease and renal artery disease.. Vascular labs unchanged. Known LCCA disease, appreciated on CTA. Continue daily ASA. Continue statin therapy.. RTC in 1 year with carotid duplex and renal duplex.. Will reserve mesenteric duplex for symptoms." - COVID screening: Per assessment on 05/01: No known COVID-19 positive contacts or current COVID-19 related symptoms. Travel screen negative. Patient vaccinated. At surgeon discretion if preop Covid testing being done. - Possible difficult intubation - Check [facility]G AM DOS Chart Review Chart Review: Patient seen in Pre Admission Testing Teaching & Discussion Pre-Anesthesia Teaching/Discussion Notes: Instructed NPO after midnight before surgery,except medications with 15 cc of water. Medication instructions provided according to the PAT guidelines. History Surgery Operation Date: 05/15/22 10:05 Proposed Procedures p L4-L5 Decompression and Fusion, Spinal Cord Monitoring - Antony Bright, Height/Weight Height: 5 ft 3.5 in Weight: 96.9 kg Allergies Allergy/AdvReac Type Severity Reaction Status Date / Time bee venom protein (honey bee) Allergy Severe LOCAL Verified 05/02/22 08:22 SWELLING AT SITE iodine Allergy Severe DIFFICULTY Verified 05/02/22 08:22 BREATHING, COUGHING, SNEEZING, RASH shrimp Allergy Severe EYE Verified 05/02/22 08:22 SWELLING cefuroxime Allergy Intermediate RASH Verified 05/02/22 08:22 clindamycin Allergy Intermediate RASH Verified 05/02/22 08:22 morphine Allergy Intermediate RASH, on Verified 05/02/22 08:22 hycodan from [id number] home med pregabalin Allergy Intermediate FEET AND Verified 05/02/22 08:22 ANKLE SWELLING aprepitant Allergy Mild RASH Verified 05/02/22 08:22 erythromycin base Allergy Mild RASH Verified 05/02/22 08:22 ibuprofen Allergy Mild RASH,NAPROXEN Verified 05/02/22 08:22 ONLY NSAID SHE TOLERATES imipenem Allergy Mild RASH Verified 05/02/22 08:22 ketorolac Allergy Mild RASH ON Verified 05/02/22 08:22 ABDOMEN,NAPROXEN ONLY NSAID SHE TOLERATES metoclopramide Allergy Mild RASH Verified 05/02/22 08:22 nickel Allergy Mild RASH Verified 05/02/22 08:22 Opioids - Morphine Analogues Allergy Mild Rash Verified 05/02/22 08:22 psyllium Allergy Mild RASH Verified 05/02/22 08:22 Sulfa (Sulfonamide Allergy Mild RASH Verified 05/02/22 08:22 Antibiotics) cilastatin [From Primaxin] Allergy Unknown Unknown Verified 05/02/22 08:22 amoxicillin [From Augmentin] Allergy see comment Verified 05/02/22 08:22 clavulanic acid Allergy see comment Verified 05/02/22 08:22 [From Augmentin] Medications Home Medications Medication Instructions Recorded Confirmed Last Taken aripiprazole 5 mg tablet (Abilify) 2.5 mg PO HS 06/12/19 05/02/22 01/11/21 epinephrine 0.3 mg/0.3 mL 0.3 mg IM UD PRN anaphylaxis 06/12/19 05/02/22 Unknown injection, auto-injector (EpiPen 2-Scout) CPAP Machine #1 ea 04/15/20 05/02/22 Unknown aspirin 81 mg chewable tablet 81 mg PO QAM 10/25/20 05/02/22 01/11/21 08:00 cholecalciferol (vitamin D3) 25 25 mcg PO QAM 10/25/20 05/02/22 01/11/21 mcg (1,000 unit) capsule mirtazapine 30 mg tablet (Remeron) 30 mg PO HS 12/02/20 05/02/22 01/11/21 citalopram 40 mg tablet (Celexa) 40 mg PO QAM 03/01/21 05/02/22 Unknown albuterol sulfate 90 mcg/actuation 2 puff inhalation Q4H PRN 11/09/21 05/02/22 Unknown aerosol inhaler (Proventil HFA) shortness of breath, wheezing #3 Inhalers fluticasone furoate 200 1 inh inhalation QAM #3 Inhalers 11/09/21 05/02/22 Unknown mcg-vilanterol 25 mcg/dose inhalation powder (Breo Ellipta) ipratropium 0.5 mg-albuterol 3 mg 3 ml inhalation QID PRN shortness 11/15/21 05/02/22 Unknown (2.5 mg base)/3 mL nebulization of breath or wheezing #540 mL soln lorazepam 0.5 mg tablet (Ativan) 0.5 mg PO DAILY PRN Anxiety 11/15/21 05/02/22 Unknown potassium chloride 20 mEq 20 meq PO BID #180 tabs 11/28/21 05/02/22 Unknown tablet,extended release montelukast 10 mg tablet 10 mg PO HS #90 tabs 12/01/21 05/02/22 Unknown (Singulair) zonisamide 100 mg capsule 100 mg PO QAM 30 days #30 caps 01/10/22 05/02/22 Unknown atorvastatin 80 mg tablet 80 mg PO HS #90 tabs 02/14/22 05/02/22 Unknown cyanocobalamin (vitamin B-12) 1,000 mcg IM MONTHLY 30 days #1 ea 03/06/22 05/02/22 Unknown 1,000 mcg/mL injection kit insulin syringe-needle U-100 1 mL #100 ea 03/06/22 05/02/22 Unknown 25 gauge x 5/8" (BD Insulin Syringe) alendronate 70 mg tablet (Fosamax) 70 mg PO .weekly #12 tabs 04/19/22 05/02/22 Unknown anastrozole 1 mg tablet 1 mg PO QAM 04/20/22 05/02/22 Unknown furosemide 20 mg tablet (Lasix) 20 mg PO QAM edema 04/20/22 05/02/22 Unknown levothyroxine 112 mcg tablet 112 mcg PO QAM 04/20/22 05/02/22 Unknown pantoprazole 40 mg tablet,delayed 40 mg PO QAM 04/20/22 05/02/22 Unknown release triamterene 37.5 1 cap PO QAM 04/20/22 05/02/22 Unknown mg-hydrochlorothiazide 25 mg capsule Past Medical History Medical History Anxiety and depression Arteriosclerosis of mesenteric artery Asthma Bicuspid aortic valve Carotid artery stenosis Follows with [facility] vascular 50-69% LICA stenosis, < 50% ICA stenosis per 07/2021 carotid doppler Celiac artery stenosis Followed by vascular surgery at [facility] Chronic diastolic CHF (congestive heart failure) follows with Dr. Cornejo COPD (chronic obstructive pulmonary disease) DDD (degenerative disc disease) Depression DM type 2 (diabetes mellitus, type 2) diet controlled Dysphagia Factor V Leiden mutation Gastroparesis GERD (gastroesophageal reflux disease) History of cancer of right breast Dx'd 10/2020; s/p Rt lumpectomy + radiation History of COVID-19 07/2020. 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 (groin) > in setting of Covid PNA History of esophageal dilatation History of migraine History of pulmonary embolism HTN (hypertension) Hyperlipidemia Hypothyroidism Irritable bowel syndrome Osteoporosis PAD (peripheral artery disease) Parkinsonism Peripheral neuropathy PTSD (post-traumatic stress disorder) Renal artery stenosis Followed by vascular surgery at [facility] Sleep apnea CPAP VBI (vertebrobasilar insufficiency) Exercise / Class Metabolic Activity III < 4 Walking/Shop/Light housework (one FS (no CP, + SOB)) Past Family History Family History Brother Myocardial infarction Rheumatic fever Stroke Father Diabetes Hyperlipidemia Myocardial infarction Mother Hyperlipidemia Myocardial infarction Breast cancer Hypertension Ulcerative colitis Other Colorectal cancer No family history of adverse response to anesthesia Denies family history of Ovarian cancer Prostate cancer Past Surgical History Surgical History History of angioplasty left subclavian artery History of bilateral tubal ligation History of bronchoscopy History of colonoscopy History of endoscopic sinus surgery History of esophagogastroduodenoscopy (EGD) History of hand surgery Rt History of hysterectomy History of Santos fundoplication History of percutaneous transluminal coronary angioplasty 10 years ago per pt History of repair of tracheoesophageal fistula History of tonsillectomy Past Anesthesia History No Hx of Anesthesia Complications and No Family Hx of Anesthesia Complications History of PONV No Hx of PONV and No Hx of Motion Sickness Social History Smoking Status: Former smoker tobacco type: cigarettes Do You Dip or Chew Tobacco: No Smoking End Date: Quit 30 years ago (hx 40 cigs/day) Hx Alcohol Use: No Hx Substance Use: No substance use type: does not use Review of Systems Patient denies chest pain, shortness of breath, fever, chills, cough, wheezing, palpitations. Physical Exam Vital Signs VITALS BP 122/82 P 72 TEMP 98.1 SP02 95%RA RESP 20 PHYSICAL Significantly decreased cervical extension range of motion. Full TMJ range of motion. TMD 3 finger breaths Mallampati Score 3 (small oral opening) Dentition: upper partial Lungs: clear throughout to auscultation Cardiac: regular rate and rhythm, II/ systolic murmur Spine: normal Carotid arteries: negative bruit Extremities: no edema Lab Results Anesthesia Preop Results Results Anesthesia Widget: WBC 7.98 K/ul (4.8-10.8) 05/01/22 Hgb 13.7 g/dl (12.0-16.0) 05/01/22 Hct 43.4 % (34.1-44.9) 05/01/22 Plt 271 K/uL (130-400) 05/01/22 Na 140 mmol/L (136-145) 05/01/22 K 3.7 mmol/L (3.5-5.1) 05/01/22 Cl 108 mmol/L (98-107) H 05/01/22 CO2 26 mmol/L (21-32) 05/01/22 BUN 17 mg/dl (6-23) 05/01/22 Creat 1.03 mg/dl (0.6-1.2) 05/01/22 Glucose Level 154 mg/dl (70-99(Fasting)) H 05/01/22 PT 9.9 Seconds (9.0-12.0) 05/01/22 PTT 26.5 Seconds (21.0-31.0) 05/01/22 INR 0.9 (0.9-1.1) 05/01/22 TSH 0.320 uIu/ml (0.300-4.500) 03/23/22 Free T4 1.16 ng/dl (0.61-1.60) 03/23/22 HA1c 6.6 % (4.5-5.6) H 03/23/22 Urine Color Yellow 05/01/22 Urine Appearance Cloudy (Clear) A 05/01/22 Urine pH 5.0 (4.5-7.5) 05/01/22 Urine Specific [place] 1.018 (1.000-1.030) 05/01/22 Urine Protein Negative (Negative) 05/01/22 Urine Glucose (UA) Negative (Negative) 05/01/22 Urine Ketones Negative (Negative) 05/01/22 Urine Blood Trace (Negative) H 05/01/22 Urine Nitrite Positive (Negative) A 05/01/22 Urine Bilirubin Negative (Negative) 05/01/22 Urine Urobilinogen Negative (Negative) 05/01/22 Urine Leukocyte Esterase 3+ (Negative) H 05/01/22 Urine WBC (Auto) >30 /hpf (0-5) H 05/01/22 Urine RBC (Auto) 0-4 /hpf (0-4) 05/01/22 Urine Hyaline Casts (Auto) 0 /lpf (0-5) 05/01/22 Urine Epithelial Cells (Auto) 10-20 /lpf (0-5) H 05/01/22 Urine Bacteria (Auto) 4+ (Negative) H 05/01/22 Blood Type A Positive 05/01/22 Antibody Screen NEGATIVE 05/01/22 Testing Laboratory Results Surgeon's office made aware of abnormal UA. Electrocardiogram Date: 05/01/22 Findings: + NSR @ (69) Chest X-Ray Date: 05/01/22 FINDINGS: No lines and tubes are seen. Cardiomegaly is noted. Calcified aortic knob is noted. Reticular interstitial opacities are seen. No evidence of pleural effusion or pneumothorax. IMPRESSION: Stable interstitial opacities without evidence of acute abnormality. Echocardiogram Date: 01/28/21 EF 60-65%. No regional motion abnormality. No LVH. AV sclerosis. Cannot determine bicuspid versus trileaflet aortic valve. No hemodynamically significant valvular aortic stenosis. No aortic regurgitation present. Top normal RVSP. RVSP 36 mmHg. Grade 1 diastolic dysfunction. No significant change compared to 12/19/2019 per report. Stress Test Date: 10/15/21 Type: DSE Negative DSE for ischemia 96% MPHR. Abnormal dobutamine ECG for ischemia 96% MPHR. No chest pain reported. EF 60 to 65%. No regional motion abnormality on rest echo. AV sclerosis. No significant change compared to prior study from 01/28/2021 per report. Per cardiology workload note (10/15/21): "stress echo was negative. Great news. Normal heart pumping function." Pulmonary Function Test Date: 04/13/22 Moderate restrictive lung disease. No obstructive lung dysfunction, insignificant bronchodilator response. Moderate decrease in DLCO. Decrease in FVC by 110 mL, decrease in FEV1 by 50 mL compared to spirometry 06/2020. Suggest clinical correlation. Spirometry Date: 04/13/22 Nonspecific spirometry. No obstruction. Flattening of inspiratory loop (not seen on upright PFT). Decrease in FEV1 by 2% and No change in FVC compared to upright PFT done on same day. Other Testing Carotid duplex (07/19/21) 50-69% left ICA stenosis. Less than 50% right ICA stenosis. Bilateral vertebral artery antegrade flow. Renal artery duplex (07/19/21) There is greater than 60% stenosis of the renal artery based on renal artery velocities. Renalaortic ratio cannot be calculated. There is no evidence of hemodynamically significant renal artery stenosis. COVID-19 Risk Screen Screening Information COVID-19 Screen Date: 05/01/22 Exposure 21 Days Family/Household +COVID Last 21 Days: No Exposure 10 Days Any COVID Exposure Last 10 Days: No Symptoms Last 10 Days Experienced COVID Sx Last 10 Days: No + COVID 0-90 Days COVID + in Last 0-90 Days: No
[~2022-05-15 05:50] MED LIST changes: -ABL5 PO; -ALBU1.257 NEB; +ALLERGY Noted to ORDERED Medication SCH; -AMB5 PO; -AMLO5TAB2 PO; -ASPI81TA28 PO; -ATOR-26 PO; -CITA20TA9 PO; -EPP3/2 IM; -IPRA-64 NEB; -LEVO75TA5 PO; -LORA-741 PO; -MIRT45TA3 PO; -MONT1TAB3 PO; -NAPR-1264 PO; -ONDA4TAB46 PO; -POLY335019 PO; -TRIATAB3 PO
[2022-05-15] MEDS ORDERED: ACETAMINOPHEN 500 MG TAB PO SCH (06:00)
[2022-05-15] MEDS ORDERED: LR 15ML/HR IV SCH (06:00)
[2022-05-15] MEDS ORDERED: VANCOMYCIN HCL 1,500 MG in SODIUM CHLORIDE 0.9% 500 ML IV SCH (06:00)
[2022-05-15] MEDS ORDERED: BUPIVACAINE/EPINEPHRINE 0.25% 1:200,000 30 ML VIAL ONE (07:00)
[2022-05-15] MEDS ORDERED: MIDAZOLAM HCL 1 MG/ML 2ML VIAL ONE (07:22)
[2022-05-15] MEDS ORDERED: fentaNYL citrate 100 MCG/2 ML VIAL ONE (07:22)
--- NOTE | 2022-05-15 08:39 | History & Physical Bridge Note ---
Date of Service May 15, 2022 History & Physical Bridge Note I have examined the patient, reviewed the History & Physical and in the interval since the performance of the History & Physical I have noted the following changes of clinical significance: no changes noted
--- NOTE | 2022-05-15 08:40 | History & Physical Report ---
Date of Service May 15, 2022 Assessment & Plan (1) Spinal stenosis of lumbar region with radiculopathy: Plan: L4-L5 decompression and fusion History of Present Illness Chief Complaint: Back and bilateral leg pain Primary Care Provider: Gary Renteria MD This is a 66-year-old female who presents with chronic persistent back and bilateral leg pain. After failing course of nonoperative care she is here for surgical invention. Allergies Allergy/AdvReac Type Severity Reaction Status Date / Time bee venom protein (honey bee) Allergy Severe LOCAL Verified 05/15/22 06:22 SWELLING AT SITE iodine Allergy Severe DIFFICULTY Verified 05/15/22 06:22 BREATHING, COUGHING, SNEEZING, RASH shrimp Allergy Severe EYE Verified 05/15/22 06:22 SWELLING cefuroxime Allergy Intermediate RASH Verified 05/15/22 06:22 clindamycin Allergy Intermediate RASH Verified 05/15/22 06:22 morphine Allergy Intermediate RASH, on Verified 05/15/22 06:22 hycodan from [id number] home med pregabalin Allergy Intermediate FEET AND Verified 05/15/22 06:22 ANKLE SWELLING aprepitant Allergy Mild RASH Verified 05/15/22 06:22 erythromycin base Allergy Mild RASH Verified 05/15/22 06:22 ibuprofen Allergy Mild RASH,NAPROXEN Verified 05/15/22 06:22 ONLY NSAID SHE TOLERATES imipenem Allergy Mild RASH Verified 05/15/22 06:22 ketorolac Allergy Mild RASH ON Verified 05/15/22 06:22 ABDOMEN,NAPROXEN ONLY NSAID SHE TOLERATES metoclopramide Allergy Mild RASH Verified 05/15/22 06:22 nickel Allergy Mild RASH Verified 05/15/22 06:22 Opioids - Morphine Analogues Allergy Mild Rash Verified 05/15/22 06:22 psyllium Allergy Mild RASH Verified 05/15/22 06:22 Sulfa (Sulfonamide Allergy Mild RASH Verified 05/15/22 06:22 Antibiotics) cilastatin [From Primaxin] Allergy Unknown Unknown Verified 05/15/22 06:22 amoxicillin [From Augmentin] Allergy see comment Verified 05/15/22 06:22 clavulanic acid Allergy see comment Verified 05/15/22 06:22 [From Augmentin] Home Medications Medication Instructions Recorded Confirmed Type aripiprazole 5 mg tablet (Abilify) 2.5 mg PO HS 06/12/19 05/15/22 History epinephrine 0.3 mg/0.3 mL 0.3 mg IM UD PRN anaphylaxis 06/12/19 05/15/22 History injection, auto-injector (EpiPen 2-Scout) CPAP Machine #1 ea 04/15/20 05/03/22 Rx aspirin 81 mg chewable tablet 81 mg PO QAM 10/25/20 05/15/22 History cholecalciferol (vitamin D3) 25 25 mcg PO QAM 10/25/20 05/15/22 History mcg (1,000 unit) capsule mirtazapine 30 mg tablet (Remeron) 30 mg PO HS 12/02/20 05/15/22 History citalopram 40 mg tablet (Celexa) 40 mg PO QAM 03/01/21 05/15/22 History albuterol sulfate 90 mcg/actuation 2 puff inhalation Q4H PRN 11/09/21 05/15/22 Rx aerosol inhaler (Proventil HFA) shortness of breath, wheezing #3 Inhalers fluticasone furoate 200 1 inh inhalation QAM #3 Inhalers 11/09/21 05/15/22 Rx mcg-vilanterol 25 mcg/dose inhalation powder (Breo Ellipta) ipratropium 0.5 mg-albuterol 3 mg 3 ml inhalation QID PRN shortness 11/15/21 05/15/22 Rx (2.5 mg base)/3 mL nebulization of breath or wheezing #540 mL soln lorazepam 0.5 mg tablet (Ativan) 0.5 mg PO DAILY PRN Anxiety 11/15/21 05/15/22 History potassium chloride 20 mEq 20 meq PO BID #180 tabs 11/28/21 05/15/22 Rx tablet,extended release montelukast 10 mg tablet 10 mg PO HS #90 tabs 12/01/21 05/15/22 Rx (Singulair) zonisamide 100 mg capsule 100 mg PO QAM 30 days #30 caps 01/10/22 05/15/22 Rx atorvastatin 80 mg tablet 80 mg PO HS #90 tabs 02/14/22 05/15/22 Rx cyanocobalamin (vitamin B-12) 1,000 mcg IM MONTHLY 30 days #1 ea 03/06/22 05/15/22 Rx 1,000 mcg/mL injection kit insulin syringe-needle U-100 1 mL #100 ea 03/06/22 05/02/22 Rx 25 gauge x 5/8" (BD Insulin Syringe) alendronate 70 mg tablet (Fosamax) 70 mg PO .weekly #12 tabs 04/19/22 05/15/22 Rx anastrozole 1 mg tablet 1 mg PO QAM 04/20/22 05/15/22 History furosemide 20 mg tablet (Lasix) 20 mg PO QAM edema 04/20/22 05/15/22 History levothyroxine 112 mcg tablet 112 mcg PO QAM 04/20/22 05/15/22 History pantoprazole 40 mg tablet,delayed 40 mg PO QAM 04/20/22 05/15/22 History release triamterene 37.5 1 cap PO QAM 04/20/22 05/15/22 History mg-hydrochlorothiazide 25 mg capsule nitrofurantoin 100 mg PO BID 7 days #14 caps 05/03/22 05/15/22 Rx monohydrate/macrocrystals 100 mg capsule (Macrobid) Past Med/Surg History Medical History Anxiety and depression Arteriosclerosis of mesenteric artery Asthma Bicuspid aortic valve Carotid artery stenosis Follows with [facility] vascular 50-69% LICA stenosis, < 50% ICA stenosis per 07/2021 carotid doppler Celiac artery stenosis Followed by vascular surgery at [facility] Chronic diastolic CHF (congestive heart failure) follows with Dr. Cornejo COPD (chronic obstructive pulmonary disease) DDD (degenerative disc disease) Depression DM type 2 (diabetes mellitus, type 2) diet controlled Dysphagia Factor V Leiden mutation Gastroparesis GERD (gastroesophageal reflux disease) History of cancer of right breast Dx'd 10/2020; s/p Rt lumpectomy + radiation History of COVID-19 07/2020. 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 (groin) > in setting of Covid PNA History of esophageal dilatation History of migraine History of pulmonary embolism HTN (hypertension) Hyperlipidemia Hypothyroidism Irritable bowel syndrome Osteoporosis PAD (peripheral artery disease) Parkinsonism Peripheral neuropathy PTSD (post-traumatic stress disorder) Renal artery stenosis Followed by vascular surgery at [facility] Sleep apnea CPAP VBI (vertebrobasilar insufficiency) Surgical History History of angioplasty left subclavian artery History of bilateral tubal ligation History of bronchoscopy History of colonoscopy History of endoscopic sinus surgery History of esophagogastroduodenoscopy (EGD) History of hand surgery Rt History of hysterectomy History of Santos fundoplication History of percutaneous transluminal coronary angioplasty 10 years ago per pt History of repair of tracheoesophageal fistula History of tonsillectomy Family History Brother Myocardial infarction Rheumatic fever Stroke Father Diabetes Hyperlipidemia Myocardial infarction Mother Hyperlipidemia Myocardial infarction Breast cancer Hypertension Ulcerative colitis Other Colorectal cancer No family history of adverse response to anesthesia Denies family history of Ovarian cancer Prostate cancer Social History Smoking Status: Never smoker Smoking End Date: Quit 30 years ago (hx 40 cigs/day); Second Hand Exposure: No; Do You Dip or Chew Tobacco: No; Tobacco Cessation Education Requested by Patient: No Hx Alcohol Use: No Hx Substance Use: No Preferred Language: Welsh Communication Ability: Effective Embedded Engineer Required: No Beliefs That Will Affect Care: None marital status: Current Living Situation: Spouse current occupational status: retired Feels Safe at Home: Yes Safety Concerns: Feels Safe At This Time Childhood Exposure to Second-Hand Smoke: Yes Dental Care, Regularly: Yes Physical Activity Frequency: Does not Exercise Seatbelt Use: always Sunscreen Use: No Assistive Devices: CPAP, Denture - Upper, Glasses and Nebulizer Physical Exam Physical Exam: Patient is alert and oriented Heart regular rhythm Lungs clear Results & Data Results & Data ([facility]) Vital Signs (Past 12 Hours) Vital Signs Temp Pulse Resp BP Pulse Ox O2 Del Method 05/15/22 06:34 36.6 C 75 20 172/48 H 95 Room Air 05/15/22 06:34 Room Air
[2022-05-15] MEDS ORDERED: fentaNYL citrate 100 MCG/2 ML VIAL IV PRN (08:41)
[2022-05-15] MEDS ORDERED: ONDANSETRON INJ 2 MG/ML 2 ML VIAL IV PRN (08:41)
[2022-05-15] MEDS ORDERED: HYDROmorphone INJ 1 MG/ML SYRINGE IV PRN (08:41)
[2022-05-15] MEDS ORDERED: ATROPINE SULFATE 0.1 MG/ML 10ML SYR IV PRN (08:41)
[2022-05-15] MEDS ORDERED: ePHEDrine sulfate 50 MG/ML AMP IV PRN (08:41)
[2022-05-15] MEDS ORDERED: PROPOFOL IV EMULSION 10 MG/ML 20 ML VIAL IV ONE (09:48)
[2022-05-15] MEDS ORDERED: GLYCOPYRROLATE 0.2 MG/ML VIAL ONE (09:48)
[2022-05-15] MEDS ORDERED: NEOSTIGMINE METHYLSULFATE 1 MG/ML 10ML VIAL ONE (09:48)
[2022-05-15] MEDS ORDERED: ONDANSETRON INJ 2 MG/ML 2 ML VIAL ONE (09:48)
[2022-05-15] MEDS ORDERED: DEXAMETHASONE SOD INJ 4 MG/ML VIAL ONE (09:48)
[2022-05-15] MEDS ORDERED: ePHEDrine sulfate 50 MG/ML SYR ONE (09:48)
[2022-05-15] MEDS ORDERED: PHENYLEPHRINE 100MCG/ML 5ML SYR ONE (09:48)
[2022-05-15] MEDS ORDERED: LIDOCAINE 2% MPF LOCAL 5 ML VIAL INFIL ONE (09:48)
[2022-05-15] MEDS ORDERED: LARYING-O-JET KIT (LTA) ONE (09:48)
[2022-05-15] MEDS ORDERED: ROCURONIUM BROMIDE 10 MG/ML 5 ML VIAL IV ONE (09:48)
[2022-05-15] MEDS ORDERED: FLOSEAL HEMOSTATIC MATRIX 10ML TOP ONE (10:31)
--- NOTE | 2022-05-15 10:37 | Operative Report ---
Post Operative Report Pre & Post Diagnosis Operation Date: 05/15/22 09:05 Pre-Op Diagnosis: Spinal stenosis of lumbar region with radiculopathy Post-Op Diagnosis: Spinal stenosis of lumbar region with radiculopathy Obesity Osteoporosis I identified the patient and participated in the time-out.: Yes Procedure Operation Date: 05/15/22 09:05 Actual Procedures #1 lumbar decompression bilateral facetectomies and foraminotomies L3-L4 L4-5. #2 posterior spinal fusion L4-5. #3 placement of posterior instrumentation L4- L5. #4 interbody fusion L4-5. #5 placement of Spira 12 x 26 mm cage at L4-5. #6 placement locally harvested morselized autograft in the posterior gutters. #7 placement of I factor combined with V toss in the interbody space and po sterior lateral gutters. Surgeon Antony Bright, DO Sketch Maker Minal Alfonso Estimated Blood Loss 100 Findings See Below Patient is 5 foot 4 weighing over 95 kg with a BMI in excess of 36. The patient's body habitus did contribute to significant technical difficulty required deeper retractors and longer instruments in order to perform her procedure. This at least 50% increased operative time. Please note that she did have incredibly soft bone consistent with osteoporosis Specimens None Indications This is a 66-year-old female who presents above-mentioned diagnosis after failed course of nonoperative care is here for surgical intervention. Description of Procedure Patient was met with identified informed consent obtained. Patient was then taken to the operative suite underwent a patient placed in a prone position the [place] table top Eagle frame. All bony prominences well-padded eyes inspected to ensure no external pressure placed upon the. This point #was prepped and draped no sterile fashion. Sharp dissection with assistance of Bovie cautery was performed down to and exposing the lamina and transverse processes of L4 and L5. From caudal to cephalad fashion complete laminectomy of L4 was performed and partial laminectomy of L3 was performed including bilateral medial facet ectomies and foraminotomies. Pedicle screws were then placed in L4-L5 with the assistance of fluoroscopy and the properly sized ken placed. By way of a transforaminal approach and left pleat discectomy of L4-5 was performed endplates curetted to subcortically bone and a 12 x 26 mm spiral cage filled with I factor tapped in position. The rods then locked into final position bilaterally. The transverse processes of L4 and L5 burred to subcortical bleeding bone. I factor bone with V toss and locally harvested morselized autograft was placed in the posterior gutters. 15 round DERRELL drain inserted. The incision was then closed with 1 Vicryl the fascia 2-0 Vicryl subcutaneously and 4 Monocryl for final skin closure. Steri-Strip sterile dressings placed. Patient waken taken back in stable condition. Please note spinal cord monitoring was utilized at the procedure no changes noted. Lastly Minal Alfonso was present out the entire procedure and while the patient positioning complex portions of the surgery and final skin closure. I attest to the content of the Intraoperative Record and any orders documented therein. Any exceptions are noted below.
[2022-05-15] MEDS ORDERED: HYDROmorphone INJ 0.5 MG/0.5 ML SYR IV PRN ×2 (10:45)
[2022-05-15] MEDS ORDERED: oxyCODONE HCL IR 5 MG TAB (IMMEDIATE RELEASE) PO PRN (10:45)
--- NOTE | 2022-05-15 10:58 | Fluoroscopy Report ---
FL lumbar spine 2-3V CLINICAL HISTORY: L4-5 DFI COMPARISON STUDY: None. FLUOROSCOPY TIME: 17 seconds. FINDINGS: 2 fluoroscopic spot images of the lumbar spine demonstrate posterior decompression and fusi on at L4-5 with pedicle screws and rods. The hardware appears intact. A disc spacer is in place. IMPRESSION: Fluoroscopic assistance provided for L4-5 posterior decompression and fusion ACT 112: Negative or not required by law. Electronically signed by: Jorge Tompkins M.D. 05/15/2022 10:57 AM
--- NOTE | 2022-05-15 11:37 | Anesthesiology Progress Note ---
Date of Service May 15, 2022 Anesthesia Post Procedure Vital Signs Vital Signs: Temp Pulse Pulse Resp BP Pulse Ox O2 Del Method 05/15/22 11:10 81 17 152/60 H 98 Oxymask 05/15/22 11:30 37.3 C 77 22 129/61 95 Oxymask 05/15/22 11:20 77 24 135/61 97 Oxymask 05/15/22 11:00 83 18 153/79 H 99 Oxymask 05/15/22 10:53 36.8 C 92 H 14 171/85 H 99 Oxymask 05/15/22 06:34 36.6 C 75 20 172/48 H 95 Room Air 05/15/22 06:34 Room Air O2 Flow Rate 05/15/22 11:10 4 05/15/22 11:30 2 05/15/22 11:20 4 05/15/22 11:00 5 05/15/22 10:53 7 05/15/22 06:34 05/15/22 06:34 Pain Intensity Bilateral Lower Back: Pain Intensity: 1 Transfer of Care Handoff Completed per policy Notes Mental Status: alert / awake / arousable and participated in evaluation Patient Amnestic to Procedure: Yes Nausea / Vomiting: adequately controlled Pain: adequately controlled Airway Patency, RR, SpO2: stable & adequate BP & HR: stable & adequate Hydration State: stable & adequate Anesthetic Complications: no major complications apparent
[2022-05-15] MEDS ORDERED: ALBUT/IPRATROP 3MG/0.5MG NEB 3 ML VIAL INH PRN (13:40)
[2022-05-15] MEDS ORDERED: ALBUTEROL HFA 8 GM INHALER INH PRN (13:40)
[2022-05-15] MEDS ORDERED: PHARMACY GLYCEMIC MGMT CONSULT PRN (13:40)
[2022-05-15] MEDS ORDERED: EPINEPHrine INJ 1 MG/ML AMP IM PRN (14:01)
--- NOTE | 2022-05-15 14:14 | Hospitalist Consultation ---
Date of Consultation May 15, 2022 Assessment & Plan (1) S/P lumbar spinal fusion: -Currently afebrile, hemodynamically stable, and stable on RA -Antibiotics, anticoagulation, pain control per the primary team -No reported complications and patient is currently doing well post-op -AM CBC and BMP already ordered, follow up in the AM (2) Asthma: -Continue home breathing treatments (3) HTN (hypertension): -hold Triamterene/HCTZ today, can restart tomorrow if hemodynamically stable and renal function is stable (4) Chronic obstructive pulmonary disease: -Continue home breathing treatments, incentive spirometry, prn albuterol -Currently stable on RA (5) Diabetes mellitus with neuropathy: -Pharmacy already consulted for glycemic control, continue to follow orders (6) Primary hypothyroidism: -Continue levothyroxine (7) Parkinsonism: -Continue Abilify and remeron (8) LISA (obstructive sleep apnea): -Patient dionne own machine, order placed that it's ok for her to use own machine (9) Diastolic CHF, acute on chronic: -Appears Euvolemic on exam, monitor for volume overload with IV fluids -Continue home lasix tomorrow if BP is stable and renal function is stable (10) GERD (gastroesophageal reflux disease): -Continue protonix (11) Ductal carcinoma in situ of right breast: -Follows with heme/onc outpatient, continue home anastrozole (12) PAD (peripheral artery disease): -continue aspirin as ordered by primary team starting tomorrow (13) Depression: -Continue celexa Plan The patient was discussed with Dr. Lee at the time of the consult Supervising Physician Co-Signing Physician Notes Patient seen and examined, chart reviewed, case discussed with Michael Rangel PA-C and I agree with the assessment and plan as above except as otherwise noted Labs and images reviewed No acute distress, pleasant at bedside. RRR with systolic murmur, lungs are clear. In place with sanguinous drainage. No questions or concerns following discussion with PAM. Some back pain, but overall doing well postop. Continue evening CPAP. He restart Lasix tomorrow, no overt fluid overload/depletion at bedside. History of Present Illness Reason for Consultation: Post-op medical management Requesting Physician: Antony Bright DO Attending Physician: Dr. Arturo Lee History of Present Illness Mandy is a 66 year old female with a PMH significant for possible bicuspid aortic valve, breast cancer currently on anastrozole, chronic HFpEF(LVEF of 60- 65% as of 10/2021), COPD, hypothyroidism, type 2 diabetes, parkinsonism, carotid artery stenosis ([facility] f/u), left subclavian artery angioplasty, factor V Leiden, and PE/DVT(), Santos fundoplication and esophageal stenosis s/p dilation, and LISA on CPAP who presented to the [facility] OR on 05/15/[address] Bright for lumbar decompression and foraminotomies of L3-L4, L4-L5, and posterior spinal fusion of L4-L5. Per the operative report, EBL was approximately 100 mL and no intraoperative complications were reported. At the time of the exam the patient was sitting up in bed in no acute distress eating lunch with her sitting bedside. She states her low back pain is approximately a 5/10 at the present time. She confirms that she does use CPAP at night and uses her own machine. She also confirms that her tremor is currently at baseline. She recently finished a prescription of Macrobid last Sunday for UTI and had been without urinary symptoms, fevers, chills, and abdominal pain since. She has not had any of her medications yet today. She denies using oxygen at home and has no other complaints at this time. Allergies Allergy/AdvReac Type Severity Reaction Status Date / Time bee venom protein (honey bee) Allergy Severe LOCAL Verified 05/15/22 06:22 SWELLING AT SITE iodine Allergy Severe DIFFICULTY Verified 05/15/22 06:22 BREATHING, COUGHING, SNEEZING, RASH shrimp Allergy Severe EYE Verified 05/15/22 06:22 SWELLING cefuroxime Allergy Intermediate RASH Verified 05/15/22 06:22 clindamycin Allergy Intermediate RASH Verified 05/15/22 06:22 morphine Allergy Intermediate RASH, on Verified 05/15/22 06:22 hycodan from [id number] home med pregabalin Allergy Intermediate FEET AND Verified 05/15/22 06:22 ANKLE SWELLING aprepitant Allergy Mild RASH Verified 05/15/22 06:22 erythromycin base Allergy Mild RASH Verified 05/15/22 06:22 ibuprofen Allergy Mild RASH,NAPROXEN Verified 05/15/22 06:22 ONLY NSAID SHE TOLERATES imipenem Allergy Mild RASH Verified 05/15/22 06:22 ketorolac Allergy Mild RASH ON Verified 05/15/22 06:22 ABDOMEN,NAPROXEN ONLY NSAID SHE TOLERATES metoclopramide Allergy Mild RASH Verified 05/15/22 06:22 nickel Allergy Mild RASH Verified 05/15/22 06:22 Opioids - Morphine Analogues Allergy Mild Rash Verified 05/15/22 06:22 psyllium Allergy Mild RASH Verified 05/15/22 06:22 Sulfa (Sulfonamide Allergy Mild RASH Verified 05/15/22 06:22 Antibiotics) cilastatin [From Primaxin] Allergy Unknown Unknown Verified 05/15/22 06:22 amoxicillin [From Augmentin] Allergy see comment Verified 05/15/22 06:22 clavulanic acid Allergy see comment Verified 05/15/22 06:22 [From Augmentin] Home Medications Medication Instructions Recorded Confirmed Type aripiprazole 5 mg tablet (Abilify) 2.5 mg PO HS 06/12/19 05/15/22 History epinephrine 0.3 mg/0.3 mL 0.3 mg IM UD PRN anaphylaxis 06/12/19 05/15/22 History injection, auto-injector (EpiPen 2-Scout) CPAP Machine #1 ea 04/15/20 05/03/22 Rx aspirin 81 mg chewable tablet 81 mg PO QAM 10/25/20 05/15/22 History cholecalciferol (vitamin D3) 25 25 mcg PO QAM 10/25/20 05/15/22 History mcg (1,000 unit) capsule mirtazapine 30 mg tablet (Remeron) 30 mg PO HS 12/02/20 05/15/22 History citalopram 40 mg tablet (Celexa) 40 mg PO QAM 03/01/21 05/15/22 History albuterol sulfate 90 mcg/actuation 2 puff inhalation Q4H PRN 11/09/21 05/15/22 Rx aerosol inhaler (Proventil HFA) shortness of breath, wheezing #3 Inhalers fluticasone furoate 200 1 inh inhalation QAM #3 Inhalers 11/09/21 05/15/22 Rx mcg-vilanterol 25 mcg/dose inhalation powder (Breo Ellipta) ipratropium 0.5 mg-albuterol 3 mg 3 ml inhalation QID PRN shortness 04/05/22 10/03/22 Rx (2.5 mg base)/3 mL nebulization of breath or wheezing #540 mL soln lorazepam 0.5 mg tablet (Ativan) 0.5 mg PO DAILY PRN Anxiety 11/15/21 05/15/22 History potassium chloride 20 mEq 20 meq PO BID #180 tabs 11/28/21 05/15/22 Rx tablet,extended release montelukast 10 mg tablet 10 mg PO HS #90 tabs 12/01/21 05/15/22 Rx (Singulair) zonisamide 100 mg capsule 100 mg PO QAM 30 days #30 caps 01/10/22 05/15/22 Rx atorvastatin 80 mg tablet 80 mg PO HS #90 tabs 02/14/22 05/15/22 Rx cyanocobalamin (vitamin B-12) 1,000 mcg IM MONTHLY 30 days #1 ea 03/06/22 05/15/22 Rx 1,000 mcg/mL injection kit insulin syringe-needle U-100 1 mL #100 ea 03/06/22 05/02/22 Rx 25 gauge x 5/8" (BD Insulin Syringe) alendronate 70 mg tablet (Fosamax) 70 mg PO .weekly #12 tabs 04/19/22 05/15/22 Rx anastrozole 1 mg tablet 1 mg PO QAM 04/20/22 05/15/22 History furosemide 20 mg tablet (Lasix) 20 mg PO QAM edema 04/20/22 05/15/22 History levothyroxine 112 mcg tablet 112 mcg PO QAM 04/20/22 05/15/22 History pantoprazole 40 mg tablet,delayed 40 mg PO QAM 04/20/22 05/15/22 History release triamterene 37.5 1 cap PO QAM 04/20/22 05/15/22 History mg-hydrochlorothiazide 25 mg capsule nitrofurantoin 100 mg PO BID 7 days #14 caps 05/03/22 05/15/22 Rx monohydrate/macrocrystals 100 mg capsule (Macrobid) Patient History Medical History Anxiety and depression Arteriosclerosis of mesenteric artery Asthma Bicuspid aortic valve Carotid artery stenosis Follows with [facility] vascular 50-69% LICA stenosis, < 50% ICA stenosis per 07/2021 carotid doppler Celiac artery stenosis Followed by vascular surgery at [facility] Chronic diastolic CHF (congestive heart failure) follows with Dr. Cornejo COPD (chronic obstructive pulmonary disease) DDD (degenerative disc disease) Depression DM type 2 (diabetes mellitus, type 2) diet controlled Dysphagia Factor V Leiden mutation Gastroparesis GERD (gastroesophageal reflux disease) History of cancer of right breast Dx'd 10/2020; s/p Rt lumpectomy + radiation History of COVID-19 07/2020. 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 (groin) > in setting of Covid PNA History of esophageal dilatation History of migraine History of pulmonary embolism HTN (hypertension) Hyperlipidemia Hypothyroidism Irritable bowel syndrome Osteoporosis PAD (peripheral artery disease) Parkinsonism Peripheral neuropathy PTSD (post-traumatic stress disorder) Renal artery stenosis Followed by vascular surgery at [facility] Sleep apnea CPAP VBI (vertebrobasilar insufficiency) Surgical History History of angioplasty left subclavian artery History of bilateral tubal ligation History of bronchoscopy History of colonoscopy History of endoscopic sinus surgery History of esophagogastroduodenoscopy (EGD) History of hand surgery Rt History of hysterectomy History of Santos fundoplication History of percutaneous transluminal coronary angioplasty 10 years ago per pt History of repair of tracheoesophageal fistula History of tonsillectomy Family History Brother Myocardial infarction Rheumatic fever Stroke Father Diabetes Hyperlipidemia Myocardial infarction Mother Hyperlipidemia Myocardial infarction Breast cancer Hypertension Ulcerative colitis Other Colorectal cancer No family history of adverse response to anesthesia Denies family history of Ovarian cancer Prostate cancer Social History Smoking Status: Never smoker Smoking End Date: Quit 30 years ago (hx 40 cigs/day); Second Hand Exposure: No; Do You Dip or Chew Tobacco: No; Tobacco Cessation Education Requested by Patient: No Hx Alcohol Use: No Hx Substance Use: No Preferred Language: Guatemalan Communication Ability: Effective Mission Planner Required: No Beliefs That Will Affect Care: None marital status: Current Living Situation: Spouse current occupational status: retired Feels Safe at Home: Yes Safety Concerns: Feels Safe At This Time Childhood Exposure to Second-Hand Smoke: Yes Dental Care, Regularly: Yes Physical Activity Frequency: Does not Exercise Seatbelt Use: always Sunscreen Use: No Assistive Devices: CPAP, Denture - Upper, Glasses and Nebulizer Review of Systems Review of Systems: Denies current fever, chills, headache, changes in vision, hearing, taste, and smell, chest pain, SOB, cough, abdominal pain, nausea, vomiting, diarrhea, hematemesis, melena, dysuria, hematuria, and recent falls. All systems have been reviewed and are otherwise negative. Physical Exam Physical Exam: Physical Exam: General: In no acute distress, stated age, chronically ill-appearing HEENT: Normocephalic, atraumatic, masked facies present, no scleral icterus, pupils around round, symmetrical, and reactive to light, moist mucus membranes, trachea midline, no thyromegaly Chest/Pulm: No respiratory distress, symmetrical chest expansion, mild expiratory wheezing throughout Cardiac: RRR, 4/6 systolic murmur noted Abdomen: Negative for ascites and bruising, normoactive bowel sounds, soft, non-tender to palpation throughout Musculoskeletal: Symmetrical and without signs of acute trauma, symmetrical strength in the Bl UE's, patient with drain in place from recent procedure which currently contains bloody drainiage without signs of infection Extremities: Radial, dorsalis pedis, and posterior tibial pulses are intact and symmetrical, currently with BL SCDs in place, cap refill less the 3 seconds on the BL feet Skin: Warm, dry, no rashes , lesions, or scars noted Neuro: Alert and oriented to person, place, month, year, and president, no focal defects, patient with baseline tremor from parkinsons Psych: No acute distress, calm and cooperative during the exam Results & Data Results & Data ([facility]) Vital Signs (Past 12 Hours) Vital Signs Temp Pulse Pulse Resp BP Pulse Ox O2 Del Method 05/15/22 14:00 36.5 C 70 16 122/72 94 Oxymask 05/15/22 13:29 37.2 C 77 18 128/74 96 Oxymask 05/15/22 13:00 71 17 130/52 L 94 Oxymask 05/15/22 12:30 37.3 C 67 17 127/51 L 95 Oxymask 05/15/22 12:15 37.3 C 74 21 119/56 L 95 Oxymask 05/15/22 12:00 37.3 C 75 25 H 133/54 L 95 Oxymask 05/15/22 11:45 37.3 C 73 21 119/52 L 95 Oxymask 05/15/22 11:10 81 17 152/60 H 98 Oxymask 05/15/22 11:30 37.3 C 77 22 129/61 95 Oxymask 05/15/22 11:20 77 24 135/61 97 Oxymask 05/15/22 11:00 83 18 153/79 H 99 Oxymask 05/15/22 10:53 36.8 C 92 H 14 171/85 H 99 Oxymask 05/15/22 06:34 36.6 C 75 20 172/48 H 95 Room Air 05/15/22 06:34 Room Air O2 Flow Rate 05/15/22 14:00 1 05/15/22 13:29 1 05/15/22 13:00 2 05/15/22 12:30 2 05/15/22 12:15 2 05/15/22 12:00 2 05/15/22 11:45 2 05/15/22 11:10 4 05/15/22 11:30 2 05/15/22 11:20 4 05/15/22 11:00 5 05/15/22 10:53 7 05/15/22 06:34 05/15/22 06:34 Laboratory Results Abnormal lab results 05/15/22 05/15/22 Range/Units 06:08 10:49 POC Glucose 117 H 129 H (70-99) mg/dl Diagnostic Findings Lumbar Spine X-Ray 05/15/22 09:05 FL lumbar spine 2-3V CLINICAL HISTORY: L4-5 DFI COMPARISON STUDY: None. FLUOROSCOPY TIME: 17 seconds. FINDINGS: 2 fluoroscopic spot images of the lumbar spine demonstrate posterior decompression and fusion at L4-5 with pedicle screws and rods. The hardware appears intact. A disc spacer is in place. IMPRESSION: Fluoroscopic assistance provided for L4-5 posterior decompression and fusion ACT 112: Negative or not required by law. Electronically signed by: Jorge Tompkins M.D. 05/15/2022 10:57 AM ECG Additional Comments: No current ECG at the time of the consult PG Care Time/CCT Total # of Minutes Spent Total Time Spent with Patient: Total time spent is greater than 50% in coordination of care (as documented) at patient's floor/unit and/or counseling patient: C[place] [address] Office/OBS Consult Lvl 3 Patient Type Established Medical Decision Making High Complexity Diagnoses S/P lumbar spinal fusion Z98.1 Asthma J45.909 HTN (hypertension) I10 Chronic obstructive pulmonary disease J44.9 Diabetes mellitus with neuropathy E11.40 Primary hypothyroidism E03.9 Parkinsonism G20 LISA (obstructive sleep apnea) G47.33 Diastolic CHF, acute on chronic I50.33 GERD (gastroesophageal reflux disease) K21.9 Ductal carcinoma in situ of right breast D05.11 PAD (peripheral artery disease) I73.9 Depression F32.9
[2022-05-15] MEDS ORDERED: GLUCOSE 10 TAB/TUBE PO PRN (14:15)
[2022-05-15] MEDS ORDERED: GLUCAGON FOR INJ 1 MG VIAL IM PRN (14:15)
[2022-05-15] MEDS ORDERED: CARBOHYDRATES FOR HYPOGLYCEMIA PO PRN (14:15)
[2022-05-15] MEDS ORDERED: DEXTROSE 50% 50 ML SYRINGE IV PRN (14:15)
[2022-05-15] MEDS ORDERED: GLUCOSE 40% GEL 15 GM TUBE PO PRN (14:15)
--- NOTE | 2022-05-15 14:21 | Pharmacy Report ---
Pharmacy Glycemic Short Note 2 - Date of Service May 15, 2022 - Glycemic Short BSG Results (Last 24 hours): 05/15/22 05/15/22 06:08 10:49 POC Glucose 117 H 129 H OUTPATIENT ANTIDIABETIC REGIMEN: * N/A - diet-controlled HbA1c: 6.6% (03/23/22) ASSESSMENT: * is a 66 year old female POD #0 s/p L4-5 decompression/fusion * Received 8 mg IV dexamethasone in OR * Ordered dexamethasone 6 mg IV daily ongoing starting tomorrow morning * BSGs of 117 and 129 mg/dL so far today * Ordered clear liquid diet at this time * Will give conservative basal dose today to cover steroids (<0.2 unit/kg since no antidiabetes meds at home and clear liquid diet) PLAN FOR INPATIENT GLYCEMIC CONTROL: * Basal insulin * Lantus 15 units SQ x 1 to cover steroids * Reassess w/ AM steroids * Bolus insulin * NovoLog per scale ACHS or Q6hrs while NPO * Goal Range: Low 110 mg/dL - High 140 mg/dL * Correction Factor: 25 mg/dL/unit * Nutritional / Prandial insulin per carb ratio of 1 unit per 8 grams CHO consumed
[2022-05-15] MEDS ORDERED: LANTUS PER UNIT CHARGE SQ ONE ×2 (14:30)
[2022-05-15] MEDS: INSULIN ASPART PER UNIT SC SCH ×3 (14:50→21:34)
[2022-05-15] MEDS: oxyCODONE HCL IR 5 MG TAB (IMMEDIATE RELEASE) PO PRN (17:35)
[2022-05-15] MEDS: traMADol HCL 50 MG TABLET PO PRN (20:17)
[2022-05-15] MEDS ORDERED: MACROBID 100MG HOME PACK PO SCH (21:00)
[2022-05-15] MEDS: ARIPiprazole 5 MG TAB PO SCH (21:36)
[2022-05-15] MEDS: POTASSIUM CHLORIDE CRTAB 20 MEQ TABCR PO SCH (21:36)
[2022-05-15] MEDS: ATORVASTATIN 40 MG TAB PO SCH (21:37)
[2022-05-15] MEDS: MONTELUKAST SODIUM 10 MG TABLET PO SCH (21:42)
[2022-05-15] MEDS: MIRTAZAPINE TAB 15 MG TAB PO SCH (21:42)
[2022-05-16] MEDS ORDERED: INSULIN ASPART PER UNIT SC SCH
[2022-05-16] MEDS: traMADol HCL 50 MG TABLET PO PRN ×2 (03:51→17:07)
[2022-05-16 06:33] LABS: Basophils # (auto) 0.01 K/uL (0-0.2); Basophils % (auto) 0.1 %; Hematocrit (blood only) 41.4 % (34.1-44.9); Hemoglobin 13.5 g/dl (12.0-16.0); Immature Granulocytes # (auto) 0.05 K/uL (0.00-0.02); Immature Granulocytes % (auto) 0.3 %; Lymphocytes # (auto) 1.48 K/uL (1.2-3.4); Lymphocytes % (auto) 10.3 %; Mean Corpuscular Hemoglobin 30.6 pg (25.0-34.0); Mean Corpuscular Hgb Conc 32.6 g/dL (32.0-36.0); Mean Corpuscular Volume 93.9 fL (80.0-100.0); Mean Platelet Volume 10.3 fL (9.4-12.3); Monocytes # (auto) 1.11 K/uL (0.24-0.82); Monocytes % (auto) 7.7 %; Neutrophils # (auto) 11.78 K/uL (1.4-6.5); Neutrophils % (auto) 81.6 %; Platelet Count 258 K/uL (130-400); RDW Coefficient of Variation 14.1 % (11.5-14.5); RDW Standard Deviation 48.9 fL (36.4-46.3); Red Blood Count 4.41 M/uL (3.93-5.22); White Blood Count 14.43 K/ul (4.8-10.8)
[2022-05-16 06:51] LABS: BUN Creatinine Ratio 13.4 (10-20); Calcium 8.1 mg/dl (8.5-10.1); Creatinine Clr Calc Pharmacy 63.1 ml/min; Est GFR (Non-African American) 60.4 ml/min
[2022-05-16] MEDS: INSULIN ASPART PER UNIT SC SCH ×4 (08:53→21:57)
[2022-05-16] MEDS ORDERED: LANTUS PER UNIT CHARGE SQ SCH (09:00)
[2022-05-16] MEDS: ASPIRIN 81 MG CHEW PO SCH (09:40)
[2022-05-16] MEDS: CHOLECALCIFEROL 1,000 UNITS 25 MCG TAB PO SCH (09:41)
[2022-05-16] MEDS: ANASTROZOLE 1 MG TAB PO SCH (09:41)
[2022-05-16] MEDS: dexAMETHasone 6 MG in SYRINGE 0 ML IV SCH (09:42)
[2022-05-16] MEDS: FLUTICASONE/VILANTEROL 200/25MCG 14 PUFFS/INHALER INH SCH (09:43)
[2022-05-16] MEDS: PANTOprazole 40 MG TAB PO SCH (09:44)
[2022-05-16] MEDS: ZONISAMIDE 100 MG CAPSULE PO SCH (09:45)
[2022-05-16] MEDS: TRIAMTERENE/HCTZ 37.5/25MG CAP PO SCH (09:45)
[2022-05-16] MEDS: LANTUS PER UNIT CHARGE SQ SCH (09:49)
--- NOTE | 2022-05-16 11:42 | Orthopedic Progress Note ---
Date of Service May 16, 2022 Assessment & Plan (1) Spinal stenosis of lumbar region with radiculopathy: Plan: At this time we will continue physical therapy monitor DERRELL output anticipate possible discharge home . Admission and Anticipated Discharge Date Admission Date: May 15, 2022 Subjective Back pain controlled leg pain improved Physical Exam Physical Exam: On exam patient is sitting in the chair at bedside. She is good strength testing. Appears comfortable. Results & Data ([facility]) Vital Signs (Past 12 Hours) Vital Signs Temp Pulse Resp BP Pulse Ox O2 Del Method 05/16/22 07:30 37.0 C 64 22 129/71 93 Room Air 05/16/22 03:48 36.9 C 69 16 123/69 92 Room Air 05/15/22 23:50 36.4 C L 67 16 98/63 L 93 CPAP
[2022-05-16] MEDS: FUROSEMIDE 20 MG TAB PO SCH (12:01)
[2022-05-16] MEDS: CITALOPRAM 40 MG TAB PO SCH (12:01)
[2022-05-16] MEDS: LEVOTHYROXINE SODIUM 112 MCG TABLET PO SCH (12:01)
[2022-05-16] MEDS: POTASSIUM CHLORIDE CRTAB 20 MEQ TABCR PO SCH ×2 (12:02→22:00)
--- NOTE | 2022-05-16 12:37 | Pharmacy Report ---
Pharmacy Glycemic Short Note 2 - Date of Service May 16, 2022 - Glycemic Short BSG Results (Last 24 hours): 05/15/22 05/15/22 05/15/22 14:37 17:23 20:28 Glucose POC Glucose 212 H 135 H 151 H 05/15/22 05/16/22 05/16/22 23:48 06:03 08:00 Glucose 123 H POC Glucose 129 H 104 H 05/16/22 11:41 Glucose POC Glucose 141 H OUTPATIENT ANTIDIABETIC REGIMEN: * N/A - diet-controlled HbA1c: 6.6% (03/23/22) ASSESSMENT: 05/16/22: * POD #1 * BSGs trended down nicely last evening postoperatively * Will continue to give conservative basal with IV dexamethasone * Do not anticipate change to current regimen today 05/15/22: * is a 66 year old female POD #0 s/p L4-5 decompression/fusion * Received 8 mg IV dexamethasone in OR * Ordered dexamethasone 6 mg IV daily ongoing starting tomorrow morning * BSGs of 117 and 129 mg/dL so far today * Ordered clear liquid diet at this time * Will give conservative basal dose today to cover steroids (<0.2 unit/kg since no antidiabetes meds at home and clear liquid diet) PLAN FOR INPATIENT GLYCEMIC CONTROL: * Basal insulin * Lantus 15 units SQ daily with dexamethasone * Bolus insulin * NovoLog per scale ACHS or Q6hrs while NPO * Goal Range: Low 110 mg/dL - High 140 mg/dL * Correction Factor: 20 mg/dL/unit * Nutritional / Prandial insulin per carb ratio of 1 unit per 7 grams CHO consumed
--- NOTE | 2022-05-16 15:13 | Hospitalist Progress Note ---
Date of Service May 16, 2022 Assessment & Plan (1) S/P lumbar spinal fusion: Plan: -Currently afebrile, hemodynamically stable, and stable on RA -Antibiotics, anticoagulation, pain control per the primary team -No reported complications and patient is currently doing well post-op -May continue to trend CMP/BMP (2) Asthma: Plan: -Continue home breathing treatments (3) HTN (hypertension): Plan: -Renal function stable, resume and try material/HCTZ (4) Chronic obstructive pulmonary disease: Plan: -Continue home breathing treatments, incentive spirometry, prn albuterol -Currently stable on RA (5) Diabetes mellitus with neuropathy: Plan: -Pharmacy already consulted for glycemic control, continue to follow orders (6) Primary hypothyroidism: Plan: -Continue levothyroxine (7) Parkinsonism: Plan: -Continue Abilify and remeron (8) LISA (obstructive sleep apnea): Plan: -Patient dionne own machine, order placed that it's ok for her to use own machine (9) Diastolic CHF, acute on chronic: Plan: -Euvolemic on exam, can resume home Lasix tomorrow (10) GERD (gastroesophageal reflux disease): Plan: -Continue protonix (11) Ductal carcinoma in situ of right breast: Plan: -Follows with heme/onc outpatient, continue home anastrozole (12) PAD (peripheral artery disease): Plan: -continue aspirin as ordered by primary team starting tomorrow (13) Depression: Plan: -Continue celexa Admission and Anticipated Discharge Date Admission Date: May 15, 2022 Subjective Seen at bedside. Has not noticed an improvement in her left leg yet, reports this seems similar to prior. Is able to wiggle her toes bilaterally. Endorses diminished sensation of soft touch on left side. No fever, chills, sweats. No pain at time of assessment. Sitting up comfortably in chair. No questions or concerns at bedside Review of Systems Review of Systems: All systems reviewed & are unremarkable except as noted in Subjective Physical Exam Physical Exam: General: A&Ox3. NAD. Cooperative. HEENT: Atraumatic, normocephalic. Pulm: CTAB A&P. -wheezes, -rales, -rhonchi. Symmetrical chest rise. No increase in work of breathing. No respiratory distress. Cardiac: RRR,+sm. Radial pulses intact and symmetrical. Abdominal: Nontender, nondistended, soft. BS present. Extremities: Bilateral hallux cap refill brisk. Diminished sensation to soft touch in left lower extremity. Able to wiggle toes bilaterally. PT pulse intact bilaterally. Skin/back: Lumbar surgical dressing intact C/D/I. DERRELL drain draining about 50 cc of serosanguineous material. Results & Data Results & Data ([facility]) Vital Signs (Past 12 Hours) Vital Signs Temp Pulse Resp BP Pulse Ox O2 Del Method 05/16/22 07:30 37.0 C 64 22 129/71 93 Room Air 05/16/22 03:48 36.9 C 69 16 123/69 92 Room Air PG Care Time/CCT Total # of Minutes Spent Total Time Spent with Patient: Total time spent is greater than 50% in coordination of care (as documented) at patient's floor/unit and/or counseling patient: Coding Level of Care Code 67916 Subseq Hosp Care Lvl 2 Diagnoses S/P lumbar spinal fusion Z98.1 Asthma J45.909 HTN (hypertension) I10 Chronic obstructive pulmonary disease J44.9 Diabetes mellitus with neuropathy E11.40 Primary hypothyroidism E03.9 Parkinsonism G20 LISA (obstructive sleep apnea) G47.33 Diastolic CHF, acute on chronic I50.33 GERD (gastroesophageal reflux disease) K21.9 Ductal carcinoma in situ of right breast D05.11 PAD (peripheral artery disease) I73.9 Depression F32.9
[2022-05-16] MEDS: ARIPiprazole 5 MG TAB PO SCH (21:59)
[2022-05-16] MEDS: MIRTAZAPINE TAB 15 MG TAB PO SCH (22:00)
[2022-05-16] MEDS: MONTELUKAST SODIUM 10 MG TABLET PO SCH (22:00)
[2022-05-16] MEDS: ATORVASTATIN 40 MG TAB PO SCH (22:00)
[2022-05-17] MEDS: traMADol HCL 50 MG TABLET PO PRN (07:17)
[2022-05-17] MEDS: ASPIRIN 81 MG CHEW PO SCH (08:07)
[2022-05-17] MEDS: ANASTROZOLE 1 MG TAB PO SCH (08:07)
[2022-05-17] MEDS: CITALOPRAM 40 MG TAB PO SCH (08:08)
[2022-05-17] MEDS: dexAMETHasone 6 MG in SYRINGE 0 ML IV SCH (08:08)
[2022-05-17] MEDS: CHOLECALCIFEROL 1,000 UNITS 25 MCG TAB PO SCH (08:08)
[2022-05-17] MEDS: FLUTICASONE/VILANTEROL 200/25MCG 14 PUFFS/INHALER INH SCH (08:09)
[2022-05-17] MEDS: FUROSEMIDE 20 MG TAB PO SCH (08:09)
[2022-05-17] MEDS: PANTOprazole 40 MG TAB PO SCH (08:10)
[2022-05-17] MEDS: POTASSIUM CHLORIDE CRTAB 20 MEQ TABCR PO SCH ×2 (08:10→20:12)
[2022-05-17] MEDS: LEVOTHYROXINE SODIUM 112 MCG TABLET PO SCH (08:10)
[2022-05-17] MEDS: TRIAMTERENE/HCTZ 37.5/25MG CAP PO SCH (08:11)
[2022-05-17] MEDS: ZONISAMIDE 100 MG CAPSULE PO SCH (08:11)
[2022-05-17] MEDS: INSULIN ASPART PER UNIT SC SCH ×4 (08:20→21:24)
[2022-05-17] MEDS: LANTUS PER UNIT CHARGE SQ SCH (08:21)
--- NOTE | 2022-05-17 08:49 | Hospitalist Progress Note ---
Date of Service May 17, 2022 Assessment & Plan (1) S/P lumbar spinal fusion: Plan: -Currently afebrile, hemodynamically stable, and stable on RA -Antibiotics, anticoagulation, pain control per the primary team (2) Asthma: Plan: -stable not in exacerbation, Continue home breathing treatments (3) HTN (hypertension): Plan: -Renal function stable, resumed triamterene l/HCTZ (4) Chronic obstructive pulmonary disease: Plan: -Continue home breathing treatments, incentive spirometry, prn albuterol -Currently stable on RA (5) Diabetes mellitus with neuropathy: Plan: -Pharmacy already consulted for glycemic control, continue to follow orders (6) Primary hypothyroidism: Plan: -Continue levothyroxine (7) Parkinsonism: Plan: -Continue Abilify and remeron (8) LISA (obstructive sleep apnea): Plan: -Patient dionne own machine, order placed that it's ok for her to use own machine (9) Diastolic CHF, acute on chronic: Plan: -Euvolemic on exam, can resume home Lasix tomorrow (10) GERD (gastroesophageal reflux disease): Plan: -Continue protonix (11) Ductal carcinoma in situ of right breast: Plan: -Follows with heme/onc outpatient, continue home anastrozole (12) PAD (peripheral artery disease): Plan: -continue aspirin as ordered by primary team starting tomorrow (13) Depression: Plan: -Continue celexa Admission and Anticipated Discharge Date Admission Date: May 15, 2022 Subjective this pt is doing well after wtih good pain control and drain in place for likely discharge on 05/18/22 Review of Systems Review of Systems: Mild distress and fatigue no headache, no visual changes no speech or swallowing issues no chest pain, pressure or palpitations no shortness of breath, cough or wheezes no abdominal pain, nausea or vomiting, diarrhea or constipation no dysuria, hematuria or frequency no focal joint pain or swelling Typical postoperative back pain with drain in place no bruising, bleeding or rashes no focal signs of weakness or numbness or altered sensation no complaints of anxiety or depression.. Physical Exam Physical Exam: The patient appeared stable Vital signs as documented. Lungs are clear to auscultation and appear unlabored Cardiac exam, Rhythm is regular.. No murmurs, rubs or gallops. Abdominal exam reveals normal bowel sounds, soft non tender, no masses Extremities are nonedematous and both pedal pulses are normal. Neurologic exam is alert and oriented, no focal loss of strength or sensation Skin is without bruises or rashes Psychologically is without concerns for anxiety or depression. Results & Data Results & Data ([facility]) Vital Signs (Past 12 Hours) Vital Signs Temp Pulse Resp BP Pulse Ox O2 Del Method 05/17/22 07:11 97.5 F L 66 18 131/75 94 Room Air PG Care Time/CCT Total # of Minutes Spent Total Time Spent with Patient: Total time spent is greater than 50% in coordination of care (as documented) at patient's floor/unit and/or counseling patient: Coding Level of Care Code 26800 Subseq Hosp Care Lvl 1 Diagnoses S/P lumbar spinal fusion Z98.1 Asthma J45.909 HTN (hypertension) I10 Chronic obstructive pulmonary disease J44.9 Diabetes mellitus with neuropathy E11.40 Primary hypothyroidism E03.9 Parkinsonism G20 LISA (obstructive sleep apnea) G47.33 Diastolic CHF, acute on chronic I50.33 GERD (gastroesophageal reflux disease) K21.9 Ductal carcinoma in situ of right breast D05.11 PAD (peripheral artery disease) I73.9 Depression F32.9
--- NOTE | 2022-05-17 09:16 | Pharmacy Report ---
Pharmacy Glycemic Short Note 2 - Date of Service May 17, 2022 - Glycemic Short BSG Results (Last 24 hours): 05/16/22 05/16/22 05/16/22 11:41 16:44 20:45 POC Glucose 141 H 158 H 153 H 05/17/22 08:02 POC Glucose 91 OUTPATIENT ANTIDIABETIC REGIMEN: * N/A - diet-controlled HbA1c: 6.6% (03/23/22) ASSESSMENT: 05/17/22: * POD #2 * BSGs well controlled, fasting 91mg/dl this AM, will reduced Lantus slightly for tomorrow's dose to prevent hypoglycemia, last dose tomorrow w/ last dose of IV Dexamethasone * No further changes at this time, possible discharge tomorrow 05/16/22: * POD #1 * BSGs trended down nicely last evening postoperatively * Will continue to give conservative basal with IV dexamethasone * Do not anticipate change to current regimen today 05/15/22: * is a 66 year old female POD #0 s/p L4-5 decompression/fusion * Received 8 mg IV dexamethasone in OR * Ordered dexamethasone 6 mg IV daily ongoing starting tomorrow morning * BSGs of 117 and 129 mg/dL so far today * Ordered clear liquid diet at this time * Will give conservative basal dose today to cover steroids (<0.2 unit/kg since no antidiabetes meds at home and clear liquid diet) PLAN FOR INPATIENT GLYCEMIC CONTROL: * Basal insulin * Lantus 15 units SQ daily with dexamethasone, reduced to 12 units x 1 tomorrow with last dose of Dexamethasone * Bolus insulin * NovoLog per scale ACHS or Q6hrs while NPO * Goal Range: Low 110 mg/dL - High 140 mg/dL * Correction Factor: 20 mg/dL/unit * Nutritional / Prandial insulin per carb ratio of 1 unit per 7 grams CHO consumed
--- NOTE | 2022-05-17 10:20 | Orthopedic Progress Note ---
Date of Service May 17, 2022 Assessment & Plan (1) Spinal stenosis of lumbar region with radiculopathy: Plan: At this time continue physical therapy monitor DERRELL output anticipate discharge home tomorrow. Admission and Anticipated Discharge Date Admission Date: May 15, 2022 Subjective Patient's back pain is controlled leg pain markedly improved Physical Exam Physical Exam: Patient is in bed. She is comfortable. Is constricted testing. Results & Data ([facility]) Vital Signs (Past 12 Hours) Vital Signs Temp Pulse Resp BP Pulse Ox O2 Del Method 05/17/22 07:11 36.4 C L 66 18 131/75 94 Room Air
[2022-05-17] MEDS: oxyCODONE HCL IR 5 MG TAB (IMMEDIATE RELEASE) PO PRN ×2 (14:32→20:16)
[2022-05-17] MEDS: ATORVASTATIN 40 MG TAB PO SCH (20:11)
[2022-05-17] MEDS: MIRTAZAPINE TAB 15 MG TAB PO SCH (20:12)
[2022-05-17] MEDS: MONTELUKAST SODIUM 10 MG TABLET PO SCH (20:13)
[2022-05-17] MEDS: ARIPiprazole 5 MG TAB PO SCH (20:13)
[2022-05-18] MEDS: traMADol HCL 50 MG TABLET PO PRN (06:41)
[2022-05-18] MEDS: oxyCODONE HCL IR 5 MG TAB (IMMEDIATE RELEASE) PO PRN (08:15)
[2022-05-18] MEDS: CHOLECALCIFEROL 1,000 UNITS 25 MCG TAB PO SCH (08:18)
[2022-05-18] MEDS: PANTOprazole 40 MG TAB PO SCH (08:18)
[2022-05-18] MEDS: TRIAMTERENE/HCTZ 37.5/25MG CAP PO SCH (08:18)
[2022-05-18] MEDS: POTASSIUM CHLORIDE CRTAB 20 MEQ TABCR PO SCH (08:18)
[2022-05-18] MEDS: CITALOPRAM 40 MG TAB PO SCH (08:18)
[2022-05-18] MEDS: ZONISAMIDE 100 MG CAPSULE PO SCH (08:18)
[2022-05-18] MEDS: FUROSEMIDE 20 MG TAB PO SCH (08:18)
[2022-05-18] MEDS: FLUTICASONE/VILANTEROL 200/25MCG 14 PUFFS/INHALER INH SCH (08:19)
[2022-05-18] MEDS: ASPIRIN 81 MG CHEW PO SCH (08:19)
[2022-05-18] MEDS: LEVOTHYROXINE SODIUM 112 MCG TABLET PO SCH (08:19)
[2022-05-18] MEDS: dexAMETHasone 6 MG in SYRINGE 0 ML IV SCH (08:19)
--- NOTE | 2022-05-18 08:20 | Discharge Summary ---
Date of Service May 18, 2022 Admission HPI Per Admitting Provider This is a 66-year-old female who presents with chronic persistent back and bilateral leg pain. After failing course of nonoperative care she is here for surgical invention. Principal Diagnosis Lumbar spinal stenosis with neurogenic claudication Discharge Data Allergies Allergy/AdvReac Type Severity Reaction Status Date / Time bee venom protein (honey bee) Allergy Severe LOCAL Verified 05/15/22 06:22 SWELLING AT SITE iodine Allergy Severe DIFFICULTY Verified 05/15/22 06:22 BREATHING, COUGHING, SNEEZING, RASH shrimp Allergy Severe EYE Verified 05/15/22 06:22 SWELLING cefuroxime Allergy Intermediate RASH Verified 05/15/22 06:22 clindamycin Allergy Intermediate RASH Verified 05/15/22 06:22 morphine Allergy Intermediate RASH, on Verified 05/15/22 06:22 hycodan from [id number] home med pregabalin Allergy Intermediate FEET AND Verified 05/15/22 06:22 ANKLE SWELLING aprepitant Allergy Mild RASH Verified 05/15/22 06:22 erythromycin base Allergy Mild RASH Verified 05/15/22 06:22 ibuprofen Allergy Mild RASH,NAPROXEN Verified 05/15/22 06:22 ONLY NSAID SHE TOLERATES imipenem Allergy Mild RASH Verified 05/15/22 06:22 ketorolac Allergy Mild RASH ON Verified 05/15/22 06:22 ABDOMEN,NAPROXEN ONLY NSAID SHE TOLERATES metoclopramide Allergy Mild RASH Verified 05/15/22 06:22 nickel Allergy Mild RASH Verified 05/15/22 06:22 Opioids - Morphine Analogues Allergy Mild Rash Verified 05/15/22 06:22 psyllium Allergy Mild RASH Verified 05/15/22 06:22 Sulfa (Sulfonamide Allergy Mild RASH Verified 05/15/22 06:22 Antibiotics) cilastatin [From Primaxin] Allergy Unknown Unknown Verified 05/15/22 06:22 amoxicillin [From Augmentin] Allergy see comment Verified 05/15/22 06:22 clavulanic acid Allergy see comment Verified 05/15/22 06:22 [From Augmentin] Consultations 05/15/22 13:40 Consult Hospitalist Routine Procedures Performed Operation Date: 05/15/22 09:05 Actual Procedures p L4-L5 Decompression and Fusion, Spinal Cord Monitoring(Not Applicable) - Antony Bright DO Ordered Studies 05/15/22 09:05 FL lumbar spine 2-3V Routine Hospital Course (1) Spinal stenosis of lumbar region with radiculopathy: Patient with lumbar decompression fusion tolerated this well was taken to orthopedic for postoperative. Postop day 1 she was up and ambulating progress postoperative day 2 postop day 3 DERRELL drain decreased appropriate extra strength testing. Pain well controlled. Subsequently discharged home. Discharge orders instructions from the chart for further review. Total Time Total Time Spent Total Time Spent (In Minutes): 20 minutes Discharge Plan Discharge Items Patient Disposition: Home - Self-Care Reason For Visit: Spinal Stenosis, Lumbar Region without Neurogenica Discharge Diagnosis: Lumbar spinal stenosis with neurogenic claudication Activity: As commented below Non-emergency contact: Primary Care Provider Call non-emergency contact if: you have any medication questions Follow-up/Referrals: ProGary MD [Primary Care Provider] - Diet: Regular Addtl Attending Provider Instructions: ACTIVITY RECOMMENDATIONS: SELF CARE INSTRUCTIONS AFTER THORACIC/LUMBAR FUSIONS 1. You may walk to your tolerance. It is good exercise for your legs and back. Expect some back and intermittent leg aches and pains. 2. You may perform "counter-top" level activities (make a sandwich, marky with a project, etc.). 3. No bending or lifting of more than 10 pounds or back twisting of any nature (roll like a log when turning in bed). 4. You may ride in a car for 20-30 minutes at a time. No driving until after your first visit with your doctor. 5. Frequent changes of position and restricting sitting to 30 minutes at a time will help limit the amount of back spasms and stiffness you may experience. 6. You may discontinue the use of ambulatory aids (cane, crutches, etc.) once your strength and confidence allow. 7. You may medical billing assistant the shower and let water strike your incision when you arrive home at least once daily. Do not take a tub bath, sit in a hot tub or go into a swimming pool until after your first recheck in the office. SPECIAL CARE INSTRUCTIONS: VERY IMPORTANT TO READ AND REVIEW A. Your surgical incision has been closed with a cosmetic suture under the skin that will dissolve in about 6 weeks. In 14 days, you can use a pair of clean scissors and cut the suture that is left outside of the skin at the ends of your incision. 1. The small skin tapes can be removed 7 days after surgery if they have not fallen off by that point. 2. You may keep the wound open to air as much as possible to promote healing after post-op day number 5 unless told otherwise by your doctor. 3. If you think the wound looks like it is becoming infected (redness or worsening drainage) and/or you are experiencing fever, chill or worsening back pain and muscle spasms, contact the office so that we may evaluate you as soon as possible. B. Complications are uncommon, but please contact us if you have any signs or symptoms of: 1. wound infection (fever higher than 102.5 degrees F, redness, separation of wound, drainage, or increasing pain from the incision) 2. blood clots in legs (pain, swelling, redness and warmth in legs) 3. urinary tract infection (fever higher than 102.5 degrees F, burning upon urination or increased frequency of urination) 4. nerve problems (inability to walk on your toes or heels, numbness, loss of bowel or bladder control) 5. any other symptoms that concern you C. Please call the office at if you have any concerns or questions about your operation or recovery. D. No smoking! Smoking drastically decreases the chance of a solid fusion. E. Do not take any anti-inflammatory medications (Indocin, Advil, Motrin, Aspirin, Naprosyn, etc.) as these may inhibit the chance of a solid fusion. Tylenol is okay to take for pain. MANAGING PAIN AFTER SPINAL SURGERY 1. Narcotic medication is intended for short-term use and will be provided for surgical pain. Surgical pain usually lasts for a period of 4-6 weeks. Narcotic medication includes Percocet, Vicodin, Darvocet, Tylenol #3 or Lortab. 2. Longer-term pain is more appropriately treated with non-narcotic medication such as Tylenol ES. 3. Muscle spasm is not appropriately treated with narcotics. Muscle relaxers such as Soma, Flexeril or Skelaxin can be used along with Tylenol ES. 4. Remember that we all live with some "aches and pains". This is not unusual or uncommon after an injury or as we get older. a. Back pain is expected and may include muscle spasms for 4 to 6 weeks after surgery. The pain should gradually improve. If the pain worsens for no apparent reason, please contact the office. b. Intermittent leg pain may also be experienced and should not be concerned about unless it worsens for no apparent reason. If so, please contact the office. 5. We will provide appropriate medication within the normal guidelines of their prescribed use. We will also be very cautious and aware of potential abuse and extended duration of patients' medication needs. a. Pain medications are for your comfort and to assist with sleep and rest so that the tissue can heal. They are not provided in order to return to normal activity and should not be used through the day. To do so or worsening pain at night can result from ongoing tissue damage and development of tolerance to the prescribed medicine. 6. Please allow 2-3 days to process refills. Prescriptions will not be mailed but must be picked up at the office. FOLLOW UP VISIT: Keep your scheduled follow-up appointment. Any questions, please call the office at . Pending Studies at Discharge: No Stand-Alone Forms: [facility], Smoking Cessation Medications and DC Order Prescriptions: New oxycodone 5 mg tablet 5 mg PO Q6H PRN (Reason: pain, severe) Qty: 30 0RF tramadol 50 mg tablet 50 mg PO Q6H PRN (Reason: pain, moderate) Qty: 30 0RF Continued ipratropium-albuterol 0.5 mg-3 mg(2.5 mg base)/3 mL solution for nebulization 3 ml INHALATION QID PRN (Reason: shortness of breath or wheezing) Qty: 540 1RF potassium chloride 20 mEq tablet extended release 20 meq PO BID Qty: 180 1RF montelukast [Singulair] 10 mg tablet 10 mg PO HS Qty: 90 3RF zonisamide 100 mg capsule 100 mg PO QAM 30 Days Qty: 30 5RF atorvastatin 80 mg tablet 80 mg PO HS Qty: 90 3RF alendronate [Fosamax] 70 mg tablet 70 mg PO .weekly Qty: 12 3RF nitrofurantoin monohyd/m-cryst [Macrobid] 100 mg capsule 100 mg PO BID 7 Days Qty: 14 0RF Rx Instructions: must administer with a meal/food (DME) CPAP Machine Misc See Rx Instructions .MEDSUPPLY Qty: 1 0RF Rx Instructions: Auto-titration PAP with pressure of 6-18 cm H2O with humidification. Lifetime need. Newly diagnosed. albuterol sulfate [Proventil HFA] 90 mcg/actuation HFA aerosol inhaler 2 puff INHALATION Q4H PRN (Reason: shortness of breath, wheezing) Qty: 3 1RF Breo Ellipta 200-25 mcg/dose blister with device 1 inh INH QAM Qty: 3 1RF citalopram [Celexa] 40 mg tablet 40 mg PO QAM cholecalciferol (vitamin D3) 25 mcg (1,000 unit) capsule 25 mcg PO QAM aspirin 81 mg tablet,chewable 81 mg PO QAM (DME) BD Insulin Syringe 1 mL 25 gauge x 5/8" syringe See Rx Instructions .Route Qty: 100 4RF Rx Instructions: As directed cyanocobalamin (vitamin B-12) 1,000 mcg/mL kit 1,000 mcg IM MONTHLY 30 Days Qty: 1 11RF lorazepam [Ativan] 0.5 mg tablet 0.5 mg PO DAILY PRN (Reason: Anxiety) Rx Instructions: psy gives aripiprazole [Abilify] 5 mg tablet 2.5 mg PO HS epinephrine [EpiPen 2-Scout] 0.3 mg/0.3 mL auto-injector 0.3 mg IM UD PRN (Reason: anaphylaxis) mirtazapine [Remeron] 30 mg Tablet 30 mg PO HS anastrozole 1 mg tablet 1 mg PO QAM triamterene-hydrochlorothiazid 37.5-25 mg capsule 1 cap PO QAM pantoprazole 40 mg tablet,delayed release (DR/EC) 40 mg PO QAM furosemide [Lasix] 20 mg tablet 20 mg PO QAM levothyroxine 112 mcg tablet 112 mcg PO QAM Discharge Orders: Discharge Order (Routine); Ordered 05/18/22 Ordered By: Antoyn Bright Admission Data Admit Date/Time: 05/15/22 10:44 Attending Provider: Antony Bright Admit Provider: Antony Bright Primary Care Provider: Gary Renteria Other Providers: Andreas Hale ; Galindo Kessler
[2022-05-18] MEDS: INSULIN ASPART PER UNIT SC SCH ×2 (08:27→12:36)
[2022-05-18] MEDS: ANASTROZOLE 1 MG TAB PO SCH (08:28)
[2022-05-18] MEDS ORDERED: LANTUS PER UNIT CHARGE SQ SCH (09:00)
== END 2022-05-18 13:50 | disposition home or self-care (01) | DRG 453 ==
LOC: ASU 05:50 → PACUINP 10:44 → 3E 13:35

== ENCOUNTER 2022-06-16 07:19 | Observation (INO) ==
[2022-06-16 07:46] LABS: Basophils # (auto) 0.06 K/uL (0-0.2); Basophils % (auto) 0.4 %; Eosinophils # (auto) 0.19 K/uL (0-0.50); Eosinophils % (auto) 1.3 %; Hematocrit (blood only) 42.2 % (34.1-44.9); Hemoglobin 14.2 g/dl (12.0-16.0); Immature Granulocytes # (auto) 0.09 K/uL (0.00-0.02); Immature Granulocytes % (auto) 0.6 %; Lymphocytes # (auto) 2.08 K/uL (1.2-3.4); Lymphocytes % (auto) 14.2 %; Mean Corpuscular Hemoglobin 30.5 pg (25.0-34.0); Mean Corpuscular Hgb Conc 33.6 g/dL (32.0-36.0); Mean Corpuscular Volume 90.8 fL (80.0-100.0); Mean Platelet Volume 10.2 fL (9.4-12.3); Monocytes # (auto) 1.18 K/uL (0.24-0.82); Neutrophils # (auto) 11.09 K/uL (1.4-6.5); Neutrophils % (auto) 75.5 %; Platelet Count 371 K/uL (130-400); RDW Standard Deviation 46.7 fL (36.4-46.3); Red Blood Count 4.65 M/uL (3.93-5.22); White Blood Count 14.69 K/ul (4.8-10.8)
[2022-06-16] MEDS ORDERED: ACETAMINOPHEN 1,000 MG/100 ML VIAL IV STA (07:46)
--- NOTE | 2022-06-16 07:46 | Emergency Department Note ---
History of Present Illness General Chief complaint: Chest Pain Stated complaint: CHEST PAIN Time Seen by Provider: 06/16/22 07:33 History of Present Illness Maximum Pain Intensity: 8 66-year-old female presents to the ED with a chief complaint of left-sided sharp chest pain that started overnight. She states that it seems to be worse with deep breathing and certain movements. She otherwise reports it is a constant pain. She has had a cough for the past couple of days. Nonproductive. Little shortness of breath secondary to the increased pain with deep breathing. Denies any recent trauma or injury. Denies any pain or swelling in the legs. No fevers. No similar previous symptoms. Home Medications Medication Instructions Recorded Confirmed Type aripiprazole 5 mg tablet (Abilify) 2.5 mg PO HS 06/12/19 06/15/22 History epinephrine 0.3 mg/0.3 mL 0.3 mg IM UD PRN anaphylaxis 06/12/19 06/15/22 History injection, auto-injector (EpiPen 2-Scout) CPAP Machine #1 ea 04/15/20 06/15/22 Rx aspirin 81 mg chewable tablet 81 mg PO QAM 10/25/20 06/15/22 History cholecalciferol (vitamin D3) 25 25 mcg PO QAM 10/25/20 06/15/22 History mcg (1,000 unit) capsule mirtazapine 30 mg tablet (Remeron) 30 mg PO HS 12/02/20 06/15/22 History citalopram 40 mg tablet (Celexa) 40 mg PO QAM 03/01/21 06/15/22 History albuterol sulfate 90 mcg/actuation 2 puff inhalation Q4H PRN 11/09/21 06/15/22 R x aerosol inhaler (Proventil HFA) shortness of breath, wheezing #3 Inhalers fluticasone furoate 200 1 inh inhalation QAM #3 Inhalers 11/09/21 06/15/22 Rx mcg-vilanterol 25 mcg/dose inhalation powder (Breo Ellipta) ipratropium 0.5 mg-albuterol 3 mg 3 ml inhalation QID PRN shortness 11/15/21 06/15/22 Rx (2.5 mg base)/3 mL nebulization of breath or wheezing #540 mL soln lorazepam 0.5 mg tablet (Ativan) 0.5 mg PO DAILY PRN Anxiety 11/15/21 06/15/22 History montelukast 10 mg tablet 10 mg PO HS #90 tabs 12/01/21 06/15/22 Rx (Singulair) atorvastatin 80 mg tablet 80 mg PO HS #90 tabs 02/14/22 06/15/22 Rx cyanocobalamin (vitamin B-12) 1,000 mcg IM MONTHLY 30 days #1 ea 03/06/22 06/15/22 Rx 1,000 mcg/mL injection kit insulin syringe-needle U-100 1 mL #100 ea 03/06/22 06/15/22 Rx 25 gauge x 5/8" (BD Insulin Syringe) alendronate 70 mg tablet (Fosamax) 70 mg PO .weekly #12 tabs 04/19/22 06/15/22 Rx anastrozole 1 mg tablet 1 mg PO QAM 04/20/22 06/15/22 History furosemide 20 mg tablet (Lasix) 20 mg PO QAM edema 04/20/22 06/15/22 History levothyroxine 112 mcg tablet 112 mcg PO QAM 04/20/22 06/15/22 History pantoprazole 40 mg tablet,delayed 40 mg PO QAM 04/20/22 06/15/22 History release nitrofurantoin 100 mg PO BID 7 days #14 caps 05/03/22 06/15/22 Rx monohydrate/macrocrystals 100 mg capsule (Macrobid) tramadol 50 mg tablet 50 mg PO Q6H PRN pain, moderate 05/18/22 06/15/22 Rx #30 tabs triamterene 37.5 1 cap PO QAM #90 caps 06/02/22 06/15/22 Rx mg-hydrochlorothiazide 25 mg capsule potassium chloride 20 mEq 20 meq PO BID #180 tabs 06/15/22 06/15/22 Rx tablet,extended release zonisamide 100 mg capsule 100 mg PO QAM 90 days #90 caps 06/15/22 06/15/22 Rx Allergies Allergy/AdvReac Type Severity Reaction Status Date / Time bee venom protein (honey bee) Allergy Severe LOCAL Verified 06/15/22 13:42 SWELLING AT SITE iodine Allergy Severe DIFFICULTY Verified 06/15/22 13:42 BREATHING, COUGHING, SNEEZING, RASH shrimp Allergy Severe EYE Verified 06/15/22 13:42 SWELLING cefuroxime Allergy Intermediate RASH Verified 06/15/22 13:42 clindamycin Allergy Intermediate RASH Verified 06/15/22 13:42 morphine Allergy Intermediate RASH, on Verified 06/15/22 13:42 hycodan from [id number] home med pregabalin Allergy Intermediate FEET AND Verified 06/15/22 13:42 ANKLE SWELLING aprepitant Allergy Mild RASH Verified 06/15/22 13:42 erythromycin base Allergy Mild RASH Verified 06/15/22 13:42 ibuprofen Allergy Mild RASH,NAPROXEN Verified 06/15/22 13:42 ONLY NSAID SHE TOLERATES imipenem Allergy Mild RASH Verified 06/15/22 13:42 ketorolac Allergy Mild RASH ON Verified 06/15/22 13:42 ABDOMEN,NAPROXEN ONLY NSAID SHE TOLERATES metoclopramide Allergy Mild RASH Verified 06/15/22 13:42 nickel Allergy Mild RASH Verified 06/15/22 13:42 Opioids - Morphine Analogues Allergy Mild Rash Verified 06/15/22 13:42 psyllium Allergy Mild RASH Verified 06/15/22 13:42 Sulfa (Sulfonamide Allergy Mild RASH Verified 06/15/22 13:42 Antibiotics) cilastatin [From Primaxin] Allergy Unknown Unknown Verified 06/15/22 13:42 amoxicillin [From Augmentin] Allergy see comment Verified 06/15/22 13:42 clavulanic acid Allergy see comment Verified 06/15/22 13:42 [From Augmentin] Past Med/Surg History Medical History Anxiety and depression Arteriosclerosis of mesenteric artery Asthma Bicuspid aortic valve Carotid artery stenosis Follows with [facility] vascular 50-69% LICA stenosis, < 50% ICA stenosis per 07/2021 carotid doppler Celiac artery stenosis Followed by vascular surgery at [facility] Chronic diastolic CHF (congestive heart failure) follows with Dr. Cornejo COPD (chronic obstructive pulmonary disease) DDD (degenerative disc disease) Depression DM type 2 (diabetes mellitus, type 2) diet controlled Dysphagia Factor V Leiden mutation Gastroparesis GERD (gastroesophageal reflux disease) History of cancer of right breast Dx'd 10/2020; s/p Rt lumpectomy + radiation History of COVID-19 07/2020. 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 (groin) > in setting of Covid PNA History of esophageal dilatation History of migraine History of pulmonary embolism HTN (hypertension) Hyperlipidemia Hypothyroidism Irritable bowel syndrome Osteoporosis PAD (peripheral artery disease) Parkinsonism Peripheral neuropathy PTSD (post-traumatic stress disorder) Renal artery stenosis Followed by vascular surgery at [facility] Sleep apnea CPAP VBI (vertebrobasilar insufficiency) Surgical History History of angioplasty left subclavian artery History of bilateral tubal ligation History of bronchoscopy History of colonoscopy History of endoscopic sinus surgery History of esophagogastroduodenoscopy (EGD) History of hand surgery Rt History of hysterectomy History of [place] fundoplication History of percutaneous transluminal coronary angioplasty 10 years ago per pt History of repair of tracheoesophageal fistula History of tonsillectomy Family History Brother Myocardial infarction Rheumatic fever Stroke Father Diabetes Hyperlipidemia Myocardial infarction Mother Hyperlipidemia Myocardial infarction Breast cancer Hypertension Ulcerative colitis Other Colorectal cancer No family history of adverse response to anesthesia Denies family history of Ovarian cancer Prostate cancer Social History Smoking Status: Former smoker Tobacco Type: Cigarettes Second Hand Exposure: No; Hx Alcohol Use: No Hx Substance Use: No Preferred Language: Gabonese Communication Ability: Effective Reservation Clerk Required: No Beliefs That Will Affect Care: None marital status: Current Living Situation: Spouse current occupational status: retired Feels Safe at Home: Yes Childhood Exposure to Second-Hand Smoke: Yes Dental Care, Regularly: Yes Physical Activity Frequency: Does not Exercise Seatbelt Use: always Sunscreen Use: No Assistive Devices: CPAP and Walker Review of Systems A total of 10 systems reviewed and were otherwise negative Physical Exam Vital Signs Vital Signs - 24 hr 06/16/22 07:24 06/16/22 07:33 06/16/22 08:10 Temperature 36.6 C Temperature Source Temporal Artery Scan Pulse Rate 93 H Pulse Rate [Finger] 77 Respiratory Rate 18 24 Respiratory Effort / Characteristics Short of Breath Blood Pressure 149/73 H Blood Pressure [Left Arm] 133/53 L Blood Pressure Mean 98 Blood Pressure Mean [Left Arm] 79 Blood Pressure Position Sitting Pulse Oximetry 92 96 96 Oxygen Delivery Method Room Air Room Air Room Air Sepsis Recent Fever Within 48 Hours No Sepsis New/Unexplained Change in Mental Status N/A Sepsis Action Taken by Nursing No Action Required CONSTITUTIONAL/VITAL SIGNS: Reviewed / noted above. GENERAL: Non-toxic in appearance. INTEGUMENTARY: Warm, dry, and [place]. HEAD: Normocephalic. EYES: without scleral icterus or trauma. ENT/OROPHARYNX: clear and moist. LYMPHADENOPATHY/NECK: Is supple without lymphadenopathy or meningismus. RESPIRATORY: Clear to auscultation bilaterally. No increased work of breathing. There is some mild tenderness to the left chest wall with AP compression. CARDIOVASCULAR: Regular rate and rhythm. GI/ABDOMEN: Soft and nontender. No organomegaly or pulsatile mass. EXTREMITIES: Warm and well perfused. BACK: No CVA tenderness. NEUROLOGICAL: Intact without focal deficits. PSYCHIATRIC: normal affect. MUSCULOSKELETAL: Normally developed with good muscle tone. TRIAGE NURSING DOCUMENTATION REVIEWED. Course Administered Medications Discontinued Medications Acetaminophen (Ofirmev) 1,000 mg in 100 mls @ 400 mls/hr IV NOW STA Stop: 06/16/22 08:00 Last Infusion: 06/16/22 08:34 Dose: 0 mls/hr Documented By: Admin: 06/16/22 08:09 Dose: 400 mls/hr Documented By: IVETTE Medical Decision Making Differential Diagnosis The differential that was considered includes acute myocardial infarction, acute coronary syndrome, myocarditis, pericarditis, pericardial effusions /tamponade, esophageal perforation, thoracic aortic dissection, pulmonary embolism, pneumonia, pneumothorax, pancreatitis, shingles, acute cholecystitis, perforated abdominal viscus. Medical Records Attestation: I reviewed the patient's medical records. Home Medications Current Medication List: was personally reviewed by me Laboratory Data Attestation: I reviewed the patient's lab results. Result diagrams: 06/16/22 07:36 06/16/22 07:36 Lab Results 06/16/22 06/16/22 Range/Units 07:36 07:36 WBC 14.69 H (4.8-10.8) K/ul RBC 4.65 (3.93-5.22) M/uL Hgb 14.2 (12.0-16.0) g/dl Hct 42.2 (34.1-44.9) % MCV 90.8 (80.0-100.0) fL MCH 30.5 (25.0-34.0) pg MCHC 33.6 (32.0-36.0) g/dL RDW Std Deviation 46.7 H (36.4-46.3) fL RDW Coeff of Ernesto 14.0 (11.5-14.5) % Plt Count 371 (130-400) K/uL MPV 10.2 (9.4-12.3) fL Immature Gran % (Auto) 0.6 % Neut % (Auto) 75.5 % Lymph % (Auto) 14.2 % [place] % (Auto) 8.0 % Eos % (Auto) 1.3 % Baso % (Auto) 0.4 % Neut # (Auto) 11.09 H (1.4-6.5) K/uL Lymph # (Auto) 2.08 (1.2-3.4) K/uL [place] # (Auto) 1.18 H (0.24-0.82) K/uL Eos # (Auto) 0.19 (0-0.50) K/uL Baso # (Auto) 0.06 (0-0.2) K/uL Immature Gran # (Auto) 0.09 H (0.00-0.02) K/uL Sodium 139 (136-145) mmol/L Potassium 3.5 (3.5-5.1) mmol/L Chloride 101 (98-107) mmol/L Carbon Dioxide 29 (21-32) mmol/L Anion Gap 9 (3-11) BUN 19 (6-23) mg/dl Creatinine 0.99 (0.6-1.2) mg/dl Est Cr Clr Drug Dosing 61.1 ml/min Est GFR ( Amer) 68.3 ml/min Est GFR (Non-Af Amer) 59.0 ml/min BUN/Creatinine Ratio 19.2 (10-20) Glucose 113 H (70-99(Fasting)) mg/dl Calcium 9.6 (8.5-10.1) mg/dl Total Bilirubin 0.8 (0.2-1.0) mg/dl AST 13 (13-39) U/L ALT 14 (7-52) U/L Alkaline Phosphatase 164 H (34-104) U/L Troponin I High Sens 29.2 H (0-14) pg/ml Total Protein 7.4 (6.0-8.3) gm/dl Albumin 3.8 (3.4-5.0) gm/dl Globulin 3.6 (2.5-4.0) gm/dl Albumin/Globulin Ratio 1.1 (0.9-2) Lipase 15 (11-82) U/L Imaging Data Radiologist's Impression: Chest X-Ray 06/16/22 07:37 XR chest 1V portable HISTORY: 66 years-old Female Chest Pain acute chest pain COMPARISON: Chest radiograph 05/01/2022 TECHNIQUE: AP view of the chest FINDINGS: Cardiac silhouette is enlarged. Atherosclerosis of the aorta. No pneumothorax, large pleural effusion or overt pulmonary edema. Chronic right hemidiaphragm elevation. There are new airspace opacities of the left lung base. Degenerative changes of the shoulders and spine. IMPRESSION: Left basilar opacities are suspicious for pneumonia. Follow-up imaging after treatment course recommended to document resolution. ACT 112: Negative or not required by law. The above report was generated using voice recognition software. It may contain grammatical, syntax or spelling errors. Electronically signed by: Navin Craft M.D. 06/16/2022 8:04 AM ECG Data Attestation: I personally reviewed and interpreted this ECG as follows: Additional Comments: Twelve-lead EKG: Per my interpretation shows a sinus rhythm at a rate of 90. No ST elevation. No PVCs. Normal QTC. Flattening of T waves in the inferior leads. MDM Narrative 66-year-old female presents with a sharp constant left-sided chest pain is worse with deep breathing in the setting of a recent cough for 2 days. Exam reveals possible mechanical cause for the pain. Vital signs reveal mild hypertension. Oxygen saturation 96% on room air. Chest x-ray suggested left lower lobe pneumonia. White blood cell count is 14.69. Troponin was mildly elevated 29.2. An EKG shows normal sinus rhythm without acute ischemic changes. The patient was told the results of the test. She was treated with IV Levaquin. She was also given IV Tylenol for her chest discomfort. She was given aspirin p.o. for her mildly elevated troponin. She will be seen by the hospitalist for further evaluation and care. Impression & Plan Left lower lobe pneumonia, Elevated troponin Discharge Plan Visit Data Chief Complaint: Chest Pain Stated Complaint: CHEST PAIN ED Provider: Michael Cash Discharge Problem: Left lower lobe pneumonia, Elevated troponin Patient Disposition: Being Evaluated by Hospitalist Forms Stand Alone Forms: My [facility] Prescriptions Prescriptions: No Action ipratropium-albuterol 0.5 mg-3 mg(2.5 mg base)/3 mL solution for nebulization 3 ml INHALATION QID PRN (Reason: shortness of breath or wheezing) Qty: 540 1RF montelukast [Singulair] 10 mg tablet 10 mg PO HS Qty: 90 3RF atorvastatin 80 mg tablet 80 mg PO HS Qty: 90 3RF alendronate [Fosamax] 70 mg tablet 70 mg PO .weekly Qty: 12 3RF nitrofurantoin monohyd/m-cryst [Macrobid] 100 mg capsule 100 mg PO BID 7 Days Qty: 14 0RF Rx Instructions: must administer with a meal/food triamterene-hydrochlorothiazid 37.5-25 mg capsule 1 cap PO QAM Qty: 90 3RF potassium chloride 20 mEq tablet extended release 20 meq PO BID Qty: 180 1RF (DME) CPAP Machine Misc See Rx Instructions .MEDSUPPLY Qty: 1 0RF Rx Instructions: Auto-titration PAP with pressure of 6-18 cm H2O with humidification. Lifetime need. Newly diagnosed. albuterol sulfate [Proventil HFA] 90 mcg/actuation HFA aerosol inhaler 2 puff INHALATION Q4H PRN (Reason: shortness of breath, wheezing) Qty: 3 1RF Breo Ellipta 200-25 mcg/dose blister with device 1 inh INH QAM Qty: 3 1RF citalopram [Celexa] 40 mg tablet 40 mg PO QAM cholecalciferol (vitamin D3) 25 mcg (1,000 unit) capsule 25 mcg PO QAM aspirin 81 mg tablet,chewable 81 mg PO QAM (DME) BD Insulin Syringe 1 mL 25 gauge x 5/8" syringe See Rx Instructions .Route Qty: 100 4RF Rx Instructions: As directed cyanocobalamin (vitamin B-12) 1,000 mcg/mL kit 1,000 mcg IM MONTHLY 30 Days Qty: 1 11RF lorazepam [Ativan] 0.5 mg tablet 0.5 mg PO DAILY PRN (Reason: Anxiety) Rx Instructions: psy gives zonisamide 100 mg capsule 100 mg PO QAM 90 Days Qty: 90 5RF aripiprazole [Abilify] 5 mg tablet 2.5 mg PO HS epinephrine [EpiPen 2-Scout] 0.3 mg/0.3 mL auto-injector 0.3 mg IM UD PRN (Reason: anaphylaxis) mirtazapine [Remeron] 30 mg Tablet 30 mg PO HS anastrozole 1 mg tablet 1 mg PO QAM pantoprazole 40 mg tablet,delayed release (DR/EC) 40 mg PO QAM furosemide [Lasix] 20 mg tablet 20 mg PO QAM levothyroxine 112 mcg tablet 112 mcg PO QAM tramadol 50 mg tablet 50 mg PO Q6H PRN (Reason: pain, moderate) Qty: 30 0RF Referrals Referrals: Pro,Gary Sy MD [Primary Care Provider] -
[2022-06-16 08:06] LABS: Albumin Globulin Ratio 1.1 (0.9-2); Albumin Level 3.8 gm/dl (3.4-5.0); BUN Creatinine Ratio 19.2 (10-20); Bilirubin,Total 0.8 mg/dl (0.2-1.0); Calcium 9.6 mg/dl (8.5-10.1); Creatinine Clr Calc Pharmacy 61.1 ml/min; Est GFR (African American) 68.3 ml/min; Globulin 3.6 gm/dl (2.5-4.0); Potassium 3.5 mmol/L (3.5-5.1); Total Protein 7.4 gm/dl (6.0-8.3)
--- NOTE | 2022-06-16 08:07 | XRay Report ---
XR chest 1V portable HISTORY: 66 years-old Female Chest Pain acute chest pain COMPARISON: Chest radiograph 05/01/2022 TECHNIQUE: AP view of the chest FINDINGS: Cardiac silhouette is enlarged. Atherosclerosis of the aorta. No pneumothorax, large pleural effusion or overt pulmonary edema. Chronic right hemidiaphragm elevation. There are new airspace opacities of the left lung base. Degenerative changes of the shoulders and spine. IMPRESSION: Left basilar opacities are suspicious for pneumonia. Follow-up imaging after treatment co ru recommended to document resolution. ACT 112: Negative or not required by law. The above report was generated using voice recognition software. It may contain grammatical, syntax o r spelling errors. Electronically signed by: Navin Craft M.D. 06/16/2022 8:04 AM
[2022-06-16 08:13] LABS: Troponin I High Sensitivity 29.2 pg/ml (0-14)
[2022-06-16] MEDS ORDERED: levoFLOXacin/D5W 750 MG/150 ML BAG IV STA (08:42)
[2022-06-16] MEDS ORDERED: ASPIRIN CHEW 324 MG PO STA (09:06)
--- NOTE | 2022-06-16 10:14 | History & Physical Report ---
Date of Service June 16, 2022 Assessment & Plan (1) Left lower lobe pneumonia: Plan: -Admit to med/tele -Patient is currently afebrile, hemodynamically stable and stable on RA -CXR clearly showing LLB consolidation consistent with Pneumonia -Mild leukocytosis and left shift, patient non-toxic appearing -Was given one dose of IV Levaquin in the ED, will continue with PO Levaquin starting tomorrow as patient was recently hospitalized for back surgery and repo rts to me that she gets a rash when taking Penicillins -Patient has history of previous Aspergillosis infection, will obtain sputum culture and gram stain, monitor for improvement on antibiotics -Will start pulm hygiene with incentive spirometry and prn albuterol -Prn O2 ordered to keep SpO2 between 88-92% with her hx of COPD -Monitor on tele and pulse oximetry -Follow blood cultures -AM CBC and BMP (2) Chest pain: Plan: -At this time the patient's chest pain is most likely caused by her LLL pneumonia, but can't entirely rule out ACS or PE at this time -Pain is in the same area as her pneumonia, no rash noted over the area on exam, patient is without lower extremity swelling/erythema/pain, not hypoxic or tachycardic (not on beta claudia therapy) to suggest possible PE at this time -Will hold off on CTA of the chest at this time as patient is currently hemodynamically stable and stable on RA. She is higher risk for PE with her history of Factor V Leiden mutation and history of DVT's/PE's. If she were to become unstable or vitals indicate higher suspicion for PE would obtain CTA of the chest -No significant ECG changes compared to previous ECGs. First high sensitivity troponin elevated at 29, will repeat another now and obtain a BNP (3) Elevated troponin: Plan: -See chest pain (4) Dysuria: Plan: -Patient is reporting dysuria and increased urinary frequency over the past week -Will obtain UA with reflex culture -Continue Levaquin for now as it will also cover a UTI (5) S/P lumbar spinal fusion: Plan: -No post-op complications, back pain well-controlled (6) HTN (hypertension): Plan: -Continue triamterene-HCTZ and Lasix (7) Anxiety: Plan: -Continue prn ativan -Continue Celexa (8) Chronic obstructive pulmonary disease: Plan: -Continue home breathing treatments (9) Diabetes mellitus with neuropathy: Plan: -Patient states she is not currently on medication for her blood glucose, currently controlling with diet and exercise -Will obtain A1C, last one in March was 6.6 -Monitor BSG ACHS and will start with SSI with correction factor of 45 ACHS -Consistent carb diet (10) Insomnia: Plan: -Continue remeron (11) Primary hypothyroidism: Plan: -Continue levothyroxine (12) Parkinsonism: Plan: -Continue Zonisamide (13) LISA (obstructive sleep apnea): Plan: -HS Cpap ordered (14) GERD (gastroesophageal reflux disease): Plan: -Continue Pantoprazole (15) Chronic diastolic CHF (congestive heart failure): Plan: -Continue diuretics -Currently Euvolemic (16) PAD (peripheral artery disease): Plan: -Continue aspirin and atorvastatin (17) Hyperlipidemia: Plan: -Continue atorvastatin (18) DVT prophylaxis: Plan: -SCDs and Lovenox Plan The patient was discussed with Dr. Singleton at the time of the admission History of Present Illness Chief Complaint: Left-sided chest pain Primary Care Provider: Gary Renteria MD Mandy is a 66 year old female with a PMH significant for COPD, HTN, previous DMII (not currently on insuling or oral medications),CAD, PAD, Factor 5 Leiden mutation, previous DVT's and PE's, hypothyroidism, hyperlipidemia, LISA on CPAP, Depression, Parkinson's disease, anxiety, PTSD, GERD, gastroparesis, and hx of breast cancer S/P right lumpectomy and radiation in 2020 who presented to the [facility] ED on 06/16/22 with a chief complaint of left-sided pleuritic chest pain. Per chart review, the patient was recently admitted to [facility] from 05/15/22- 05/18/22 for L4-L5 Decompression and Fusion with Dr. Bright. Per the discharge summary, the patient tolerated the procedure well and there were no reported complications during her admission. In the ED the patient was found to be afebrile, hemodynamically stable, stable on RA and HR WNLs. Labs were remarkable for a leukocytosis of 14.69 with left shift of 11.09, renal function and electrolytes WNL, alk phos of 164, high sensitivity troponin of 29.2, negative lipase and negative covid screen. Chest xray showed "Left basilar opacities are suspicious for pneumonia.". Prior to admission the patient was given one dose of Levaquin, 1g IV tylenol, and 324 mg of aspirin. Due to the patient's multiple comorbidities and mildly elevated troponin we were asked to admit the patient for observation. At the time of the exam the patient was resting comfortably in bed in no acute distress, she is stable on RA at the time of my exam. She states that she was woken up early this morning with sudden left-sided chest pain. The pain is pleuritic in nature, exacerbated with inspiration, currently a 6/10, and constant. She notes fever and chills over the past week but did not take her temperature. She has a non-productive cough and has not had to use her rescue inhaler during this time. She denies SOB, abdominal pain, has had some nausea but no vomiting, hematuria, melena, and bloody bowel movements. When asked, she is experiencing dysuria and increased urinary frequency over the past week. She states the last time she had these symptoms she has a UTI and was treated with Bactrim. She has no complaints regarding her recent back surgery and says her back pain is improved compared to before the procedure. I spoke to her regarding code status, she would like to be a Full Code. Her would make decisions for her if she could not make decisions herself. Please refer to Dr. Singleton's attestation for any changes to the treatment plan Allergies Allergy/AdvReac Type Severity Reaction Status Date / Time bee venom protein (honey bee) Allergy Severe LOCAL Verified 06/15/22 13:42 SWELLING AT SITE iodine Allergy Severe DIFFICULTY Verified 06/15/22 13:42 BREATHING, COUGHING, SNEEZING, RASH shrimp Allergy Severe EYE Verified 06/15/22 13:42 SWELLING cefuroxime Allergy Intermediate RASH Verified 06/15/22 13:42 clindamycin Allergy Intermediate RASH Verified 06/15/22 13:42 morphine Allergy Intermediate RASH, on Verified 06/15/22 13:42 hycodan from [id number] home med pregabalin Allergy Intermediate FEET AND Verified 06/15/22 13:42 ANKLE SWELLING aprepitant Allergy Mild RASH Verified 06/15/22 13:42 erythromycin base Allergy Mild RASH Verified 06/15/22 13:42 ibuprofen Allergy Mild RASH,NAPROXEN Verified 06/15/22 13:42 ONLY NSAID SHE TOLERATES imipenem Allergy Mild RASH Verified 06/15/22 13:42 ketorolac Allergy Mild RASH ON Verified 06/15/22 13:42 ABDOMEN,NAPROXEN ONLY NSAID SHE TOLERATES metoclopramide Allergy Mild RASH Verified 06/15/22 13:42 nickel Allergy Mild RASH Verified 06/15/22 13:42 Opioids - Morphine Analogues Allergy Mild Rash Verified 06/15/22 13:42 psyllium Allergy Mild RASH Verified 06/15/22 13:42 Sulfa (Sulfonamide Allergy Mild RASH Verified 06/15/22 13:42 Antibiotics) cilastatin [From Primaxin] Allergy Unknown Unknown Verified 06/15/22 13:42 amoxicillin [From Augmentin] Allergy see comment Verified 06/15/22 13:42 clavulanic acid Allergy see comment Verified 06/15/22 13:42 [From Augmentin] Home Medications Medication Instructions Recorded Confirmed Type aripiprazole 5 mg tablet (Abilify) 2.5 mg PO HS 06/12/19 06/16/22 History epinephrine 0.3 mg/0.3 mL 0.3 mg IM UD PRN anaphylaxis 06/12/19 06/16/22 History injection, auto-injector (EpiPen 2-Scout) CPAP Machine #1 ea 04/15/20 06/15/22 Rx aspirin 81 mg chewable tablet 81 mg PO QAM 10/25/20 06/16/22 History cholecalciferol (vitamin D3) 25 25 mcg PO QAM 10/25/20 06/16/22 History mcg (1,000 unit) capsule mirtazapine 30 mg tablet (Remeron) 30 mg PO HS 12/02/20 06/16/22 History citalopram 40 mg tablet (Celexa) 40 mg PO QAM 03/01/21 06/16/22 History albuterol sulfate 90 mcg/actuation 2 puff inhalation Q4H PRN 11/09/21 06/16/22 Rx aerosol inhaler (Proventil HFA) shortness of breath, wheezing #3 Inhalers fluticasone furoate 200 1 inh inhalation QAM #3 Inhalers 11/09/21 06/15/22 Rx mcg-vilanterol 25 mcg/dose inhalation powder (Breo Ellipta) ipratropium 0.5 mg-albuterol 3 mg 3 ml inhalation QID PRN shortness 11/15/21 06/16/22 Rx (2.5 mg base)/3 mL nebulization of breath or wheezing #540 mL soln lorazepam 0.5 mg tablet (Ativan) 0.5 mg PO DAILY PRN Anxiety 11/15/21 06/16/22 History montelukast 10 mg tablet 10 mg PO HS #90 tabs 12/01/21 06/16/22 Rx (Singulair) atorvastatin 80 mg tablet 80 mg PO HS #90 tabs 02/14/22 06/16/22 Rx cyanocobalamin (vitamin B-12) 1,000 mcg IM MONTHLY 30 days #1 ea 03/06/22 06/16/22 Rx 1,000 mcg/mL injection kit insulin syringe-needle U-100 1 mL #100 ea 03/06/22 06/15/22 Rx 25 gauge x 5/8" (BD Insulin Syringe) alendronate 70 mg tablet (Fosamax) 70 mg PO .weekly #12 tabs 04/19/22 06/16/22 Rx anastrozole 1 mg tablet 1 mg PO QAM 04/20/22 06/16/22 History furosemide 20 mg tablet (Lasix) 20 mg PO QAM edema 04/20/22 06/16/22 History levothyroxine 112 mcg tablet 112 mcg PO QAM 04/20/22 06/16/22 History pantoprazole 40 mg tablet,delayed 40 mg PO QAM 04/20/22 06/15/22 History release tramadol 50 mg tablet 50 mg PO Q6H PRN pain, moderate 05/18/22 06/15/22 Rx #30 tabs triamterene 37.5 1 cap PO QAM #90 caps 06/02/22 06/16/22 Rx mg-hydrochlorothiazide 25 mg capsule potassium chloride 20 mEq 20 meq PO BID #180 tabs 06/15/22 06/16/22 Rx tablet,extended release zonisamide 100 mg capsule 100 mg PO QAM 90 days #90 caps 06/15/22 06/16/22 Rx levofloxacin 750 mg tablet 750 mg PO DAILY #4 tabs 06/18/22 Rx Past Med/Surg History Medical History Anxiety and depression Arteriosclerosis of mesenteric artery Asthma Bicuspid aortic valve Carotid artery stenosis Follows with [facility] vascular 50-69% LICA stenosis, < 50% ICA stenosis per 07/2021 carotid doppler Celiac artery stenosis Followed by vascular surgery at [facility] Chronic diastolic CHF (congestive heart failure) follows with Dr. Cornejo COPD (chronic obstructive pulmonary disease) DDD (degenerative disc disease) Depression DM type 2 (diabetes mellitus, type 2) diet controlled Dysphagia Factor V Leiden mutation Gastroparesis GERD (gastroesophageal reflux disease) History of cancer of right breast Dx'd 10/2020; s/p Rt lumpectomy + radiation History of COVID-19 07/2020. 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 (groin) > in setting of Covid PNA History of esophageal dilatation History of migraine History of pulmonary embolism HTN (hypertension) Hyperlipidemia Hypothyroidism Irritable bowel syndrome Osteoporosis PAD (peripheral artery disease) Parkinsonism Peripheral neuropathy PTSD (post-traumatic stress disorder) Renal artery stenosis Followed by vascular surgery at [facility] Sleep apnea CPAP VBI (vertebrobasilar insufficiency) Surgical History History of angioplasty left subclavian artery History of bilateral tubal ligation History of bronchoscopy History of colonoscopy History of endoscopic sinus surgery History of esophagogastroduodenoscopy (EGD) History of hand surgery Rt History of hysterectomy History of Santos fundoplication History of percutaneous transluminal coronary angioplasty 10 years ago per pt History of repair of tracheoesophageal fistula History of tonsillectomy Family History Brother Myocardial infarction Rheumatic fever Stroke Father Diabetes Hyperlipidemia Myocardial infarction Mother Hyperlipidemia Myocardial infarction Breast cancer Hypertension Ulcerative colitis Other Colorectal cancer No family history of adverse response to anesthesia Denies family history of Ovarian cancer Prostate cancer Social History Smoking Status: Former smoker Tobacco Type: Cigarettes Second Hand Exposure: No; Hx Alcohol Use: No Hx Substance Use: No Preferred Language: Turkish Communication Ability: Effective 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 All systems have been reviewed and are otherwise negative. Physical Exam Physical Exam: Physical Exam: General: In no acute distress, stated age, well-nourished, good hygiene HEENT: Normocephalic, atraumatic, no scleral icterus, pupils around round, symmetrical, and reactive to light, moist mucus membranes, No JVD, trachea midline, no thyromegaly Chest/Pulm: No respiratory distress, symmetrical chest expansion, rhonchi noted in the left lower lobe Cardiac: RRR, systolic murmur noted, no tenderness to palpation over the left chest Abdomen: Negative for ascites and bruising, normoactive bowel sounds, soft, non-tender to palpation throughout Musculoskeletal: Symmetrical and without signs of acute trauma, upper and lower extremities with full ROM, no atrophy, spasticity, or flaccidity Extremities: Radial, dorsalis pedis, and posterior tibial pulses are intact and symmetrical, no edema noted in the BL LE's Skin: Warm, dry, no rashes , lesions, or scars noted; in particular, no rashes or lesions along the left chest at the site of her pain Neuro: Alert and oriented to person, place, month, year, and president, masked facies present, no focal defects, CN II-XII tested and intact, patient with baseline tremor from Parkinson's disease Psych: No acute distress, calm and cooperative during the exam Results & Data Results & Data ([facility]) Vital Signs (Past 12 Hours) Vital Signs Temp Pulse Pulse Resp BP BP Pulse Ox 06/16/22 09:38 74 20 151/46 H 94 06/16/22 08:10 77 24 133/53 L 96 06/16/22 07:33 96 06/16/22 07:24 36.6 C 93 H 18 149/73 H 92 O2 Del Method 06/16/22 09:38 Room Air 06/16/22 08:10 Room Air 06/16/22 07:33 Room Air 06/16/22 07:24 Room Air Laboratory Results Abnormal lab results 06/16/22 06/16/22 Range/Units 07:36 07:36 WBC 14.69 H (4.8-10.8) K/ul RDW Std Deviation 46.7 H (36.4-46.3) fL Neut # (Auto) 11.09 H (1.4-6.5) K/uL [place] # (Auto) 1.18 H (0.24-0.82) K/uL Immature Gran # (Auto) 0.09 H (0.00-0.02) K/uL Glucose 113 H (70-99(Fasting)) mg/dl Alkaline Phosphatase 164 H (34-104) U/L Troponin I High Sens 29.2 H (0-14) pg/ml Diagnostic Findings Chest X-Ray 06/16/22 07:37 XR chest 1V portable HISTORY: 66 years-old Female Chest Pain acute chest pain COMPARISON: Chest radiograph 05/01/2022 TECHNIQUE: AP view of the chest FINDINGS: Cardiac silhouette is enlarged. Atherosclerosis of the aorta. No pneumothorax, large pleural effusion or overt pulmonary edema. Chronic right hemidiaphragm elevation. There are new airspace opacities of the left lung base. Degenerative changes of the shoulders and spine. IMPRESSION: Left basilar opacities are suspicious for pneumonia. Follow-up imaging after treatment course recommended to document resolution. ACT 112: Negative or not required by law. The above report was generated using voice recognition software. It may contain grammatical, syntax or spelling errors. Electronically signed by: Navin Craft M.D. 06/16/2022 8:04 AM ECG Additional Comments: Poor data quality, interpretation may be adversely affected Normal sinus rhythm ST & T wave abnormality, consider inferior ischemia Abnormal ECG When compared with ECG of 01-MAY-2022 12:08, Inverted T waves have replaced nonspecific T wave abnormality in Inferior leads Nonspecific T wave abnormality now evident in Anterolateral leads Code Status & VTE Plan Code Status Full code Supervising Physician Co-Signing Physician Notes Patient seen and examined at bedside. During face to face encounter, I obtained a history and physical examination. I reviewed above note and agree with it. I discussed plan of care with patient and APC Peno. Patient admitted with pneumonia and will be placed on levaquin. PG Care Time/CCT Total # of Minutes Spent Total Time Spent with Patient: Total time spent is greater than 50% in coordination of care (as documented) at patient's floor/unit and/or counseling patient: Coding Level of Care Code Established Pt INT OBSERVATION CARE 50M LVL 2 Patient Type Established Medical Decision Making Moderate Complexity Diagnoses Left lower lobe pneumonia J18.9 Chest pain R07.9 Elevated troponin R77.8 Dysuria R30.0 S/P lumbar spinal fusion Z98.1 HTN (hypertension) I10 Anxiety F41.9 Chronic obstructive pulmonary disease J44.9 Diabetes mellitus with neuropathy E11.40 Insomnia G47.00 Primary hypothyroidism E03.9 Parkinsonism G20 LISA (obstructive sleep apnea) G47.33 GERD (gastroesophageal reflux disease) K21.9 Chronic diastolic CHF (congestive heart failure) I50.32 PAD (peripheral artery disease) I73.9 Hyperlipidemia E78.5 DVT prophylaxis Z29.9
[2022-06-16] MEDS ORDERED: guaiFENesin SUGAR FREE 200 MG/10 ML UDC PO PRN (10:49)
--- NOTE | 2022-06-16 11:00 | Electrocardiogram Report ---
Test Reason : Blood Pressure : / mmHG Vent. Rate : 091 BPM Atrial Rate : 091 BPM P-R Int : 144 ms QRS Dur : 078 ms QT Int : 356 ms P-R-T Axes : 037 025 -09 degrees QTc Int : 437 ms Poor data quality, interpretation may be adversely affected Normal sinus rhythm Abnormal ECG When compared with ECG of 01-MAY-2022 12:08, Inverted T waves have replaced nonspecific T wave abnormality in Inferior leads Nonspecific T wave abnormality now evident in Anterolateral leads Confirmed by Rei Villalobos ([id number]) on 06/16/2022 11:00:14 AM Referred By: REFERRED SELF Confirmed By:Giorgio Villalobos
[2022-06-16] MEDS ORDERED: GLUCOSE 10 TAB/TUBE PO PRN (11:09)
[2022-06-16] MEDS ORDERED: DEXTROSE 50% 50 ML SYRINGE IV PRN (11:09)
[2022-06-16] MEDS ORDERED: GLUCAGON FOR INJ 1 MG VIAL SQ PRN (11:09)
[2022-06-16] MEDS ORDERED: ALBUT/IPRATROP 3MG/0.5MG NEB 3 ML VIAL INH PRN (11:09)
[2022-06-16] MEDS ORDERED: CARBOHYDRATES FOR HYPOGLYCEMIA PO PRN (11:09)
[2022-06-16] MEDS ORDERED: GLUCOSE 40% GEL 15 GM TUBE PO PRN (11:09)
[2022-06-16] MEDS ORDERED: LORazepam 0.5 MG TAB PO PRN (11:09)
[2022-06-16] MEDS ORDERED: ACETAMINOPHEN 325 MG TAB PO PRN (11:09)
[2022-06-16 11:32] LABS: Appearance Urine Clear (Clear); Bacteria Urine Automated 4+ (Negative); Bilirubin Urine Negative (Negative); Blood Urine Negative (Negative); Color Urine Yellow; Epithelial Cell Urine Auto >30 /lpf (0-5); Glucose Urine UA Negative (Negative); Ketones Urine Negative (Negative); Leukocyte Esterase Urine 1+ (Negative); Nitrite Urine Positive (Negative); Protein Urine Negative (Negative); RBC Urine Automated 0-4 /hpf (0-4); Specific Gravity Urine 1.018 (1.000-1.030); Urobilinogen Urine Negative (Negative)
[2022-06-16] MEDS: INSULIN ASPART PER UNIT SC SCH ×3 (12:03→20:11)
[2022-06-16] MEDS: ALBUTEROL 0.5% NEB SOLN 2.5 MG/0.5 ML VIAL NEB SCH ×2 (12:29→19:04)
[2022-06-16] MEDS: ENOXAPARIN INJ 40 MG/0.4 ML SYR SQ SCH (13:06)
[2022-06-16] MEDS ORDERED: traMADol HCL 50 MG TABLET PO STA (13:11)
[2022-06-16] MEDS ORDERED: oxyCODONE HCL IR 5 MG TAB (IMMEDIATE RELEASE) PO STA (18:11)
[2022-06-16] MEDS: ARIPiprazole 5 MG TAB PO SCH (20:12)
[2022-06-16] MEDS: ATORVASTATIN 40 MG TAB PO SCH (20:13)
[2022-06-16] MEDS: MONTELUKAST SODIUM 10 MG TABLET PO SCH (20:14)
[2022-06-16] MEDS: MIRTAZAPINE TAB 15 MG TAB PO SCH (20:14)
[2022-06-16] MEDS: POTASSIUM CHLORIDE CRTAB 20 MEQ TABCR PO SCH (20:17)
[2022-06-17] MEDS ORDERED: LIDOCAINE 5% OINT 30 GM TUBE EXT PRN (03:53)
[2022-06-17] MEDS: LEVOTHYROXINE SODIUM 112 MCG TABLET PO SCH (05:32)
[2022-06-17] MEDS: ALBUTEROL 0.5% NEB SOLN 2.5 MG/0.5 ML VIAL NEB SCH ×4 (06:47→20:03)
[2022-06-17 07:11] LABS: Hematocrit (blood only) 36.8 % (34.1-44.9); Hemoglobin 12.3 g/dl (12.0-16.0); Mean Corpuscular Hemoglobin 29.9 pg (25.0-34.0); Mean Corpuscular Hgb Conc 33.4 g/dL (32.0-36.0); Mean Corpuscular Volume 89.5 fL (80.0-100.0); Mean Platelet Volume 10.3 fL (9.4-12.3); Platelet Count 300 K/uL (130-400); RDW Coefficient of Variation 14.3 % (11.5-14.5); RDW Standard Deviation 46.6 fL (36.4-46.3); Red Blood Count 4.11 M/uL (3.93-5.22); White Blood Count 9.77 K/ul (4.8-10.8)
[2022-06-17] MEDS: CITALOPRAM 40 MG TAB PO SCH (07:11)
[2022-06-17] MEDS: TRIAMTERENE/HCTZ 37.5/25MG CAP PO SCH (07:11)
[2022-06-17] MEDS: PANTOprazole 40 MG TAB PO SCH (07:11)
[2022-06-17] MEDS: CHOLECALCIFEROL 1,000 UNITS 25 MCG TAB PO SCH (07:11)
[2022-06-17] MEDS: levoFLOXacin 750 MG TAB PO SCH (07:11)
[2022-06-17] MEDS: ANASTROZOLE 1 MG TAB PO SCH (07:11)
[2022-06-17] MEDS: ZONISAMIDE 100 MG CAPSULE PO SCH (07:12)
[2022-06-17] MEDS: ASPIRIN 81 MG ECTAB PO SCH (07:12)
[2022-06-17] MEDS: FLUTICASONE/VILANTEROL 200/25MCG 14 PUFFS/INHALER INH SCH (07:12)
[2022-06-17] MEDS: FUROSEMIDE 20 MG TAB PO SCH (07:12)
[2022-06-17 07:39] LABS: BUN Creatinine Ratio 14.9 (10-20); Calcium 8.8 mg/dl (8.5-10.1); Creatinine Clr Calc Pharmacy 59.8 ml/min; Est GFR (African American) 66.7 ml/min; Est GFR (Non-African American) 57.6 ml/min; Potassium 3.3 mmol/L (3.5-5.1)
[2022-06-17] MEDS: INSULIN ASPART PER UNIT SC SCH ×4 (08:14→20:45)
[2022-06-17] MEDS ORDERED: diphenhydrAMINE 50 MG/ML VIAL IV SCH (08:30)
[2022-06-17] MEDS: POTASSIUM CHLORIDE CRTAB 20 MEQ TABCR PO SCH ×2 (08:42→20:11)
[2022-06-17] MEDS ORDERED: methylPREDNISolone 40 MG in SYRINGE 0 ML IV SCH (09:00)
[2022-06-17] MEDS ORDERED: OPTIRAY 320 500ml IV ONE (09:47)
--- NOTE | 2022-06-17 10:08 | CT Scan Report ---
CT angio chest PE protocol CLINICAL HISTORY: pleuritic chest pain,hypoxia,h/o clotting disorder TECHNIQUE: Multidetector row helical CT of the chest was performed with angiographic protocol. Perdomo l and sagittal reformations were obtained. Coronal and sagittal MIPS were obtained from the axial bhanu a set and were submitted for review. Automated dose lowering techniques and/or adjustment according to patient size were utilized for this exam. CT DOSE: 499.40 mGy.cm Comparison: Comparison is made to CT chest 04/12/2021 FINDINGS: Lungs and pleura: Trace left pleural effusion. Atelectasis versus scarring is seen which is more exte nsive than in the prior exam. There is focal consolidation in the lingula. Heart and pericardium: Heart size is normal. No pericardial effusion. Vessels: No evidence of pulmonary embolism. Mediastinum and usman: Numerous enlarged lymph nodes are seen including a 13 mm aortopulmonary node an d 15 mm left hilar lymph nodes. A subcarinal node measures 13 mm. Chest wall and lower neck: Partial visualization of abnormal thickening in the right breast, unchange d from prior exam. Abdomen: Cholelithiasis is seen without evidence of cholecystitis. Bones: Degenerative changes in the thoracic spine. IMPRESSION: 1. No evidence of pulmonary embolism. 2. Airspace opacity in the lingula compatible with pneumonia and/or aspiration. 3. Left hilar and mediastinal lymphadenopathy, likely reactive. 4. Extensive atelectatic/scarring changes. ACT 112: Negative or not required by law. Electronically signed by: Naresh Oviedo M.D. 06/17/2022 10:05 AM
[2022-06-17] MEDS ORDERED: traMADol HCL 50 MG TABLET PO PRN (12:16)
--- NOTE | 2022-06-17 12:22 | Hospitalist Progress Note ---
Date of Service June 17, 2022 Assessment & Plan (1) Left lower lobe pneumonia: Plan: Presents with left sided pleuritic chest pain With leukocytosis now resolved, afebrile -CXR clearly showing LLL consolidation consistent with Pneumonia -continue PO Levaquin x 7 day course -Patient has history of previous Aspergillosis infection, will obtain sputum culture and gram stain, monitor for improvement on antibiotics -continue incentive spirometry and prn albuterol -Prn O2 ordered to keep SpO2 between 88-92% with her hx of COPD -Monitor on tele and pulse oximetry -Follow blood cultures -NGTD -AM CBC and BMP -follow CXR to resolution as outpt in 4-6 weeks (2) Chest pain: Plan: -left sided pleuritic CP most likely caused by her LLL pneumonia, but can't entirely rule out PE especially in light of recent back surgery 4 weeks ago and h/o Factor V Leiden -check CTA chest with premedication of SoluMedrol and bendryl--> no PE but does have Left lingula PNA -Pain is in the same area as her pneumonia, no rash noted over the area on exam, patient is without lower extremity swelling/erythema/pain, not hypoxic or tachycardic (not on beta claudia therapy) to suggest possible PE at this time -ECG with nonspecific TW changes inferior leads. High sensitivity troponin mildly elevated at 29 and then down to 25, BNP normal -ECHO without WMAs -pain improved through the AM after receiving IV SOlu Medrol-consider redosing in AM if pain returns -continue tramadol prn (3) Elevated troponin: Plan: -See chest pain (4) Dysuria: Plan: -Patient is reporting dysuria and increased urinary frequency over the past week - UA c/w infection, Urine culture pending -Continue Levaquin for now as it will also cover a UTI (5) S/P lumbar spinal fusion: Plan: -No post-op complications, back pain well-controlled ensure PT/OT evals ordered (6) HTN (hypertension): Plan: -Continue triamterene-HCTZ and Lasix (7) Anxiety: Plan: -Continue prn ativan -Continue Celexa (8) Chronic obstructive pulmonary disease: Plan: -Continue home inhalers (9) Diabetes mellitus with neuropathy: Plan: -Patient states she is not currently on medication for her blood glucose, currently controlling with diet and exercise - A1C in March was 6.6% which is well controlled Hyperglycemia 2/2 steroids today -Monitor BSG ACHS and will increase SSI CF and CR today -Consistent carb diet (10) Insomnia: Plan: -Continue remeron abilifboris (11) Primary hypothyroidism: Plan: -Continue levothyroxine TSH normal in 03/2022 (12) Parkinsonism: Plan: -Continue Zonisamide (13) LISA (obstructive sleep apnea): Plan: -HS Cpap ordered (14) GERD (gastroesophageal reflux disease): Plan: -Continue Pantoprazole (15) Chronic diastolic CHF (congestive heart failure): Plan: -Continue daily lasix, HCTZ/triamterene, KCl for hypokalemia associated with diuretics -Currently Euvolemic (16) PAD (peripheral artery disease): Plan: -Continue aspirin and atorvastatin (17) Hyperlipidemia: Plan: -Continue atorvastatin (18) DVT prophylaxis: Plan: -SCDs and Lovenox Dispo-continued stay Admission and Anticipated Discharge Date Admission Date: June 16, 2022 Subjective Pt was having a lot of left sided pain worse with deep inspiration this AM and POx 90-91% on RA. Coughing some but nonproductive, no hemoptysis. Denies N/V, SOB. She reported being able to do CT contrast with premedication. Tele with NSR rates 70s Review of Systems Review of Systems: All systems reviewed & are unremarkable except as noted in HPI & below Physical Exam Constitutional: WD/WN, vitals as above Eyes: PERRL, conjunctivae normal, anicteric sclerae ENMT: external ear and nose normal, oropharynx normal Neck: trachea midline, no thyromegaly Respiratory: normal respiratory effort; no cough Auscultation: + crackles (left lower and middle lung barillas,right upper field); no rhonchi and no wheezes Cardiovascular: RRR, no murmur, no edema Chest (Breasts): Chest: normal inspection of chest Gastrointestinal (Abdomen): normal bowel sounds, soft, nontender, no hepatosplenomegaly Musculoskeletal: Extremities: extremities normal to inspection; no cyanosis an d no clubbing Skin: no rashes, warm and dry Neurologic: moves all extremities and awake; no focal motor deficits Motor/Sensory: + tremor (resting tremor in arms/hands) Psychiatric: A+Ox3, euthymic affect Lymphatic: no lymphedema Results & Data Results & Data ([facility]) Vital Signs (Past 12 Hours) Vital Signs Temp Pulse Resp BP BP Pulse Ox O2 Del Method 06/17/22 11:25 36.7 C 85 20 104/67 93 Room Air 06/17/22 11:07 71 18 91 Room Air 06/17/22 07:27 36.8 C 79 18 120/63 91 Room Air 06/17/22 06:48 80 17 95 Room Air 06/17/22 04:00 36.8 C 73 18 131/70 92 CPAP Laboratory Results 06/17/22 06/17/22 06/17/22 Range/Units 20:36 16:44 12:05 WBC (4.8-10.8) K/ul RBC (3.93-5.22) M/uL Hgb (12.0-16.0) g/dl Hct (34.1-44.9) % MCV (80.0-100.0) fL MCH (25.0-34.0) pg MCHC (32.0-36.0) g/dL RDW Std Deviation (36.4-46.3) fL RDW Coeff of Ernesto (11.5-14.5) % Plt Count (130-400) K/uL MPV (9.4-12.3) fL Sodium (136-145) mmol/L Potassium (3.5-5.1) mmol/L Chloride (98-107) mmol/L Carbon Dioxide (21-32) mmol/L Anion Gap (3-11) BUN (6-23) mg/dl Creatinine (0.6-1.2) mg/dl Est Cr Clr Drug Dosing ml/min Est GFR ( Amer) ml/min Est GFR (Non-Af Amer) ml/min BUN/Creatinine Ratio (10-20) Glucose (70-99(Fasting)) mg/dl POC Glucose 198 H 276 H 205 H (70-99) mg/dl Calcium (8.5-10.1) mg/dl Hepatitis C Ab (EIA) (NON-REACTIVE) Hep C Ab Signal/Cutoff (<1.00) 06/17/22 06/17/22 06/17/22 Range/Units 07:42 06:53 06:53 WBC 9.77 (4.8-10.8) K/ul RBC 4.11 (3.93-5.22) M/uL Hgb 12.3 (12.0-16.0) g/dl Hct 36.8 (34.1-44.9) % MCV 89.5 (80.0-100.0) fL MCH 29.9 (25.0-34.0) pg MCHC 33.4 (32.0-36.0) g/dL RDW Std Deviation 46.6 H (36.4-46.3) fL RDW Coeff of Ernesto 14.3 (11.5-14.5) % Plt Count 300 (130-400) K/uL MPV 10.3 (9.4-12.3) fL Sodium 139 (136-145) mmol/L Potassium 3.3 L (3.5-5.1) mmol/L Chloride 102 (98-107) mmol/L Carbon Dioxide 29 (21-32) mmol/L Anion Gap 8 (3-11) BUN 15 (6-23) mg/dl Creatinine 1.01 (0.6-1.2) mg/dl Est Cr Clr Drug Dosing 59.8 ml/min Est GFR ( Amer) 66.7 ml/min Est GFR (Non-Af Amer) 57.6 ml/min BUN/Creatinine Ratio 14.9 (10-20) Glucose 104 H (70-99(Fasting)) mg/dl POC Glucose 136 H (70-99) mg/dl Calcium 8.8 (8.5-10.1) mg/dl Hepatitis C Ab (EIA) (NON-REACTIVE) Hep C Ab Signal/Cutoff (<1.00) 06/16/22 Range/Units 07:36 WBC (4.8-10.8) K/ul RBC (3.93-5.22) M/uL Hgb (12.0-16.0) g/dl Hct (34.1-44.9) % MCV (80.0-100.0) fL MCH (25.0-34.0) pg MCHC (32.0-36.0) g/dL RDW Std Deviation (36.4-46.3) fL RDW Coeff of Ernesto (11.5-14.5) % Plt Count (130-400) K/uL MPV (9.4-12.3) fL Sodium (136-145) mmol/L Potassium (3.5-5.1) mmol/L Chloride (98-107) mmol/L Carbon Dioxide (21-32) mmol/L Anion Gap (3-11) BUN (6-23) mg/dl Creatinine (0.6-1.2) mg/dl Est Cr Clr Drug Dosing ml/min Est GFR ( Amer) ml/min Est GFR (Non-Af Amer) ml/min BUN/Creatinine Ratio (10-20) Glucose (70-99(Fasting)) mg/dl POC Glucose (70-99) mg/dl Calcium (8.5-10.1) mg/dl Hepatitis C Ab (EIA) NON-REACTIVE (NON-REACTIVE) Hep C Ab Signal/Cutoff 0.04 (<1.00) PG Care Time/CCT Total # of Minutes Spent Total Time Spent with Patient: Total time spent is greater than 50% in coordination of care (as documented) at patient's floor/unit and/or counseling patient: Coding Level of Care Code 84943 Subseq Hosp Care Lvl 3 Diagnoses Left lower lobe pneumonia J18.9 Chest pain R07.9 Elevated troponin R77.8 Dysuria R30.0 S/P lumbar spinal fusion Z98.1 HTN (hypertension) I10 Anxiety F41.9 Chronic obstructive pulmonary disease J44.9 Diabetes mellitus with neuropathy E11.40 Insomnia G47.00 Primary hypothyroidism E03.9 Parkinsonism G20 LISA (obstructive sleep apnea) G47.33 GERD (gastroesophageal reflux disease) K21.9 Chronic diastolic CHF (congestive heart failure) I50.32 PAD (peripheral artery disease) I73.9 Hyperlipidemia E78.5 DVT prophylaxis Z29.9
[2022-06-17] MEDS: ENOXAPARIN INJ 40 MG/0.4 ML SYR SQ SCH (12:24)
--- NOTE | 2022-06-17 13:32 | Electrocardiogram Report ---
Test Reason : Blood Pressure : / mmHG Vent. Rate : 076 BPM Atrial Rate : 076 BPM P-R Int : 154 ms QRS Dur : 088 ms QT Int : 402 ms P-R-T Axes : 032 032 036 degrees QTc Int : 452 ms Normal sinus rhythm Nonspecific ST and T wave abnormality Abnormal ECG When compared with ECG of 16-JUN-2022 07:32, No significant change was found Confirmed by Tyler Owen ([id number]) on 06/17/2022 1:32:32 PM Referred By: REFERRED SELF Confirmed By:Tyler Owen
[2022-06-17] MEDS: ARIPiprazole 5 MG TAB PO SCH (20:07)
[2022-06-17] MEDS: ATORVASTATIN 40 MG TAB PO SCH (20:08)
[2022-06-17] MEDS: MIRTAZAPINE TAB 15 MG TAB PO SCH (20:09)
[2022-06-17] MEDS: MONTELUKAST SODIUM 10 MG TABLET PO SCH (20:10)
[2022-06-17] MEDS ORDERED: ALBUTEROL 0.083% NEBU SOLN 3 ML VIAL NEB PRN (21:54)
[2022-06-18 05:08] LABS: Hematocrit (blood only) 37.3 % (34.1-44.9); Hemoglobin 12.2 g/dl (12.0-16.0); Mean Corpuscular Hemoglobin 29.7 pg (25.0-34.0); Mean Corpuscular Hgb Conc 32.7 g/dL (32.0-36.0); Mean Corpuscular Volume 90.8 fL (80.0-100.0); Mean Platelet Volume 10.4 fL (9.4-12.3); Platelet Count 291 K/uL (130-400); RDW Standard Deviation 46.4 fL (36.4-46.3); Red Blood Count 4.11 M/uL (3.93-5.22); White Blood Count 13.08 K/ul (4.8-10.8)
[2022-06-18] MEDS: LEVOTHYROXINE SODIUM 112 MCG TABLET PO SCH (05:41)
[2022-06-18 05:55] LABS: BUN Creatinine Ratio 18.3 (10-20); Creatinine Clr Calc Pharmacy 64.9 ml/min; Est GFR (African American) 73.7 ml/min; Est GFR (Non-African American) 63.6 ml/min; Potassium 3.4 mmol/L (3.5-5.1)
[2022-06-18] MEDS: CITALOPRAM 40 MG TAB PO SCH (07:52)
[2022-06-18] MEDS: ZONISAMIDE 100 MG CAPSULE PO SCH (07:52)
[2022-06-18] MEDS: PANTOprazole 40 MG TAB PO SCH (07:52)
[2022-06-18] MEDS: FUROSEMIDE 20 MG TAB PO SCH (07:52)
[2022-06-18] MEDS: CHOLECALCIFEROL 1,000 UNITS 25 MCG TAB PO SCH (07:53)
[2022-06-18] MEDS: levoFLOXacin 750 MG TAB PO SCH (07:53)
[2022-06-18] MEDS: TRIAMTERENE/HCTZ 37.5/25MG CAP PO SCH (07:53)
[2022-06-18] MEDS: ASPIRIN 81 MG ECTAB PO SCH (07:53)
[2022-06-18] MEDS: FLUTICASONE/VILANTEROL 200/25MCG 14 PUFFS/INHALER INH SCH (07:54)
[2022-06-18] MEDS: POTASSIUM CHLORIDE CRTAB 20 MEQ TABCR PO SCH (07:58)
[2022-06-18] MEDS: INSULIN ASPART PER UNIT SC SCH ×2 (08:10→12:02)
[2022-06-18] MEDS: ANASTROZOLE 1 MG TAB PO SCH (08:21)
[2022-06-18] MEDS ORDERED: ONDANSETRON INJ 2 MG/ML 2 ML VIAL IV SCH (11:15)
[2022-06-18] MEDS ORDERED: ONDANSETRON INJ 2 MG/ML 2 ML VIAL IV PRN (12:02)
[2022-06-18] MEDS: ENOXAPARIN INJ 40 MG/0.4 ML SYR SQ SCH (12:20)
--- NOTE | 2022-06-18 14:33 | Discharge Summary ---
Date of Service June 18, 2022 Admission HPI Per Admitting Provider Mandy is a 66 year old female with a PMH significant for COPD, HTN, previous DMII (not currently on insuling or oral medications),CAD, PAD, Factor 5 Leiden mutation, previous DVT's and PE's, hypothyroidism, hyperlipidemia, LISA on CPAP, Depression, Parkinson's disease, anxiety, PTSD, GERD, gastroparesis, and hx of breast cancer S/P right lumpectomy and radiation in 2020 who presented to the [facility] ED on 06/16/22 with a chief complaint of left-sided pleuritic chest pain. Per chart review, the patient was recently admitted to [facility] from 05/15/22- 05/18/22 for L4-L5 Decompression and Fusion with Dr. Bright. Per the discharge summary, the patient tolerated the procedure well and there were no reported complications during her admission. In the ED the patient was found to be afebrile, hemodynamically stable, stabl e on RA and HR WNLs. Labs were remarkable for a leukocytosis of 14.69 with left shift of 11.09, renal function and electrolytes WNL, alk phos of 164, high sensitivity troponin of 29.2, negative lipase and negative covid screen. Chest xray showed "Left basilar opacities are suspicious for pneumonia.". Prior to admission the patient was given one dose of Levaquin, 1g IV tylenol, and 324 mg of aspirin. Due to the patient's multiple comorbidities and mildly elevated troponin we were asked to admit the patient for observation. At the time of the exam the patient was resting comfortably in bed in no acute distress, she is stable on RA at the time of my exam. She states that she was woken up early this morning with sudden left-sided chest pain. The pain is pleuritic in nature, exacerbated with inspiration, currently a 6/10, and constant. She notes fever and chills over the past week but did not take her temperature. She has a non-productive cough and has not had to use her rescue inhaler during this time. She denies SOB, abdominal pain, has had some nausea but no vomiting, hematuria, melena, and bloody bowel movements. When asked, she is experiencing dysuria and increased urinary frequency over the past week. She states the last time she had these symptoms she has a UTI and was treated with Bactrim. She has no complaints regarding her recent back surgery and says her back pain is improved compared to before the procedure. I spoke to her regarding code status, she would like to be a Full Code. Her would make decisions for her if she could not make decisions herself. Please refer to Dr. Singleton's attestation for any changes to the treatment plan Principal Diagnosis Pneumonia, Pleuritic chest pain Demand ischemia Discharge Exam Constitutional WD/WN, vitals as above Eyes + anicteric sclerae Neck trachea midline, no thyromegaly Respiratory normal respiratory effort; no cough Auscultation: + crackles (left lower and middle lung barillas,right upper field); no rhonchi and no wheezes Cardiovascular RRR, no murmur, no edema Chest (Breasts) Chest: normal inspection of chest Gastrointestinal (Abdomen) normal bowel sounds, soft, nontender, no hepatosplenomegaly Musculoskeletal Extremities: extremities normal to inspection; no cyanosis and no clubbing Skin no rashes, warm and dry Neurologic moves all extremities and awake; no focal motor deficits Motor/Sensory: + tremor (resting tremor in arms/hands) Psychiatric A+Ox3, euthymic affect Lymphatic no lymphedema Discharge Data Allergies Allergy/AdvReac Type Severity Reaction Status Date / Time bee venom protein (honey bee) Allergy Severe LOCAL Verified 06/15/22 13:42 SWELLING AT SITE iodine Allergy Severe DIFFICULTY Verified 06/15/22 13:42 BREATHING, COUGHING, SNEEZING, RASH shrimp Allergy Severe EYE Verified 06/15/22 13:42 SWELLING cefuroxime Allergy Intermediate RASH Verified 06/15/22 13:42 clindamycin Allergy Intermediate RASH Verified 06/15/22 13:42 morphine Allergy Intermediate RASH, on Verified 06/15/22 13:42 hycodan from [id number] home med pregabalin Allergy Intermediate FEET AND Verified 06/15/22 13:42 ANKLE SWELLING aprepitant Allergy Mild RASH Verified 06/15/22 13:42 erythromycin base Allergy Mild RASH Verified 06/15/22 13:42 ibuprofen Allergy Mild RASH,NAPROXEN Verified 06/15/22 13:42 ONLY NSAID SHE TOLERATES imipenem Allergy Mild RASH Verified 06/15/22 13:42 ketorolac Allergy Mild RASH ON Verified 06/15/22 13:42 ABDOMEN,NAPROXEN ONLY NSAID SHE TOLERATES metoclopramide Allergy Mild RASH Verified 06/15/22 13:42 nickel Allergy Mild RASH Verified 06/15/22 13:42 Opioids - Morphine Analogues Allergy Mild Rash Verified 06/15/22 13:42 psyllium Allergy Mild RASH Verified 06/15/22 13:42 Sulfa (Sulfonamide Allergy Mild RASH Verified 06/15/22 13:42 Antibiotics) cilastatin [From Primaxin] Allergy Unknown Unknown Verified 06/15/22 13:42 amoxicillin [From Augmentin] Allergy see comment Verified 06/15/22 13:42 clavulanic acid Allergy see comment Verified 06/15/22 13:42 [From Augmentin] Consultations 06/16/22 08:44 ED Decision to Admit Stat Ordered Studies 06/17/22 08:12 CT angio chest PE protocol Stat ECHO Hospital Course (1) Left lower lobe pneumonia: Presents with left sided pleuritic chest pain With leukocytosis now resolved (then back up slightly from steroids), afebrile -CXR clearly showing Left sided consolidation consistent with Pneumonia CTA Chest to r/o PE performed and neg for PE but shows left lingula PNA -continue PO Levaquin x 7 day course -continue incentive spirometry and prn albuterol -no supplemental O2 needed -Follow blood cultures -NGTD Much improved overall, pleuritic chest pain greatly improved. Did receive one dose IV Solu Medrol for pre-treat for CTA idoine allergy -follow CXR to resolution as outpt in 4-6 weeks (2) Chest pain: -left sided pleuritic CP most likely caused by her LLL pneumonia, but can't entirely rule out PE especially in light of recent back surgery 4 weeks ago and h/o Factor V Leiden -check CTA chest with premedication of SoluMedrol and bendryl--> no PE but does have Left lingula PNA -Pain is in the same area as her pneumonia, no rash noted over the area on exam -ECG with nonspecific TW changes inferior leads. High sensitivity troponin mildly elevated at 29 and then down to 25, BNP normal-demand ischemia -ECHO without WMAs -pain improved through the AM after receiving IV SOlu Medrol as well as tramadol prn -continue tramadol prn on discharge, no further steroids given considering bacterial PNA (3) Elevated troponin: -See chest pain (4) Dysuria: -Patient is reporting dysuria and increased urinary frequency over the past week - UA c/w infection, Urine culture negative -Continue Levaquin for now as it will also cover a UTI (5) S/P lumbar spinal fusion: -No post-op complications, back pain well-controlled f/u with Ortho as outpt (6) HTN (hypertension): -Continue triamterene-HCTZ and Lasix replace KCL (7) Anxiety: -Continue prn ativan -Continue Celexa (8) Chronic obstructive pulmonary disease: -Continue home inhalers (9) Diabetes mellitus with neuropathy: -Patient states she is not currently on medication for her blood glucose, currently controlling with diet and exercise - A1C in March was 6.6% which is well controlled Hyperglycemia 2/2 steroids here now resolved (10) Insomnia: -Continue remeron abilify (11) Primary hypothyroidism: -Continue levothyroxine TSH normal in 03/2022 (12) Parkinsonism: -Continue Zonisamide (13) LISA (obstructive sleep apnea): -HS Cpap ordered (14) GERD (gastroesophageal reflux disease): -Continue Pantoprazole (15) Chronic diastolic CHF (congestive heart failure): -Continue daily lasix, HCTZ/triamterene, KCl for hypokalemia associated with diuretics -Currently Euvolemic (16) PAD (peripheral artery disease): -Continue aspirin and atorvastatin (17) Hyperlipidemia: -Continue atorvastatin (18) DVT prophylaxis: -SCDs and Lovenox Dispo-dc to home Total Time Total Time Spent Total Time Spent (In Minutes): 35 min Discharge Plan Discharge Items Patient Disposition: Home - Self-Care Reason For Visit: CHEST PAIN Discharge Diagnosis: Pneumonia Condition on Discharge: Good Activity: Resume your previous activity Non-emergency contact: Primary Care Provider Call non-emergency contact if: you have any medication questions, your symptoms worsen, your pain is not controlled and you have a fever Follow-up/Referrals: ProGary MD [Primary Care Provider] - (Please follow up within 1-2 weeks.) Diet: Carb Consistent or DM2 and Heart Healthy Addtl Attending Provider Instructions: Please finish out 4 more days of the antibiotic called Levaquin once daily. You can take tramadol or oxycodone that you have at home as needed for the pain from your pneumonia. You can take OTC cough syrup as needed. You should have a follow up chest xray in 4 weeks to ensure your pneumonia is completely cleared up. Pending Studies at Discharge: Yes (Final blood cultures-no growth to date) Stand-Alone Forms: My [facility], Smoking Cessation Medications and DC Order Prescriptions: New levofloxacin 750 mg Tablet 750 mg PO DAILY Qty: 4 0RF Continued ipratropium-albuterol 0.5 mg-3 mg(2.5 mg base)/3 mL solution for nebulization 3 ml INHALATION QID PRN (Reason: shortness of breath or wheezing) Qty: 540 1RF montelukast [Singulair] 10 mg tablet 10 mg PO HS Qty: 90 3RF atorvastatin 80 mg tablet 80 mg PO HS Qty: 90 3RF alendronate [Fosamax] 70 mg tablet 70 mg PO .weekly Qty: 12 3RF triamterene-hydrochlorothiazid 37.5-25 mg capsule 1 cap PO QAM Qty: 90 3RF potassium chloride 20 mEq tablet extended release 20 meq PO BID Qty: 180 1RF (DME) CPAP Machine Misc See Rx Instructions .MEDSUPPLY Qty: 1 0RF Rx Instructions: Auto-titration PAP with pressure of 6-18 cm H2O with humidification. Lifetime need. Newly diagnosed. albuterol sulfate [Proventil HFA] 90 mcg/actuation HFA aerosol inhaler 2 puff INHALATION Q4H PRN (Reason: shortness of breath, wheezing) Qty: 3 1RF Breo Ellipta 200-25 mcg/dose blister with device 1 inh INH QAM Qty: 3 1RF citalopram [Celexa] 40 mg tablet 40 mg PO QAM cholecalciferol (vitamin D3) 25 mcg (1,000 unit) capsule 25 mcg PO QAM aspirin 81 mg tablet,chewable 81 mg PO QAM (DME) BD Insulin Syringe 1 mL 25 gauge x 5/8" syringe See Rx Instructions .Route Qty: 100 4RF Rx Instructions: As directed cyanocobalamin (vitamin B-12) 1,000 mcg/mL kit 1,000 mcg IM MONTHLY 30 Days Qty: 1 11RF lorazepam [Ativan] 0.5 mg tablet 0.5 mg PO DAILY PRN (Reason: Anxiety) Rx Instructions: psy gives zonisamide 100 mg capsule 100 mg PO QAM 90 Days Qty: 90 5RF aripiprazole [Abilify] 5 mg tablet 2.5 mg PO HS epinephrine [EpiPen 2-Scout] 0.3 mg/0.3 mL auto-injector 0.3 mg IM UD PRN (Reason: anaphylaxis) mirtazapine [Remeron] 30 mg Tablet 30 mg PO HS anastrozole 1 mg tablet 1 mg PO QAM pantoprazole 40 mg tablet,delayed release (DR/EC) 40 mg PO QAM furosemide [Lasix] 20 mg tablet 20 mg PO QAM levothyroxine 112 mcg tablet 112 mcg PO QAM tramadol 50 mg tablet 50 mg PO Q6H PRN (Reason: pain, moderate) Qty: 30 0RF Discontinued nitrofurantoin monohyd/m-cryst [Macrobid] 100 mg capsule 100 mg PO BID 7 Days Qty: 14 0RF Rx Instructions: must administer with a meal/food Discharge Orders: Discharge Order (Routine); Ordered 06/18/22 Ordered By: Echo Brown Admission Data Admit Date/Time: 06/16/22 10:16 Attending Provider: Echo Brown Admit Provider: Melo Singleton Primary Care Provider: Gary Renteria Other Providers: Echo Brown Coding Level of Care Code D/C DAY MANAGEMENT >30 MINS Diagnoses Left lower lobe pneumonia J18.9 Chest pain R07.9 Elevated troponin R77.8 Dysuria R30.0 S/P lumbar spinal fusion Z98.1 HTN (hypertension) I10 Anxiety F41.9 Chronic obstructive pulmonary disease J44.9 Diabetes mellitus with neuropathy E11.40 Insomnia G47.00 Primary hypothyroidism E03.9 Parkinsonism G20 LISA (obstructive sleep apnea) G47.33 GERD (gastroesophageal reflux disease) K21.9 Chronic diastolic CHF (congestive heart failure) I50.32 PAD (peripheral artery disease) I73.9 Hyperlipidemia E78.5 DVT prophylaxis Z29.9
[2022-06-18] MEDS ORDERED: POTASSIUM CHLORIDE CRTAB 20 MEQ TABCR PO SCH (21:00)
== END 2022-06-18 15:23 | disposition home or self-care (01) ==
LOC: 2N 07:19 → ED 07:19 → SUATTDRO 10:16 → 2N 10:53
DX: K21.9 Gastro-esophageal reflux disease without esophagitis; R07.9 Chest pain, unspecified; Z88.8 Allergy status to other drugs, medicaments and biological substances; I50.32 Chronic diastolic (congestive) heart failure; J44.9 Chronic obstructive pulmonary disease, unspecified; G20 Parkinson's disease; Z91.030 Bee allergy status; Z98.1 Arthrodesis status; Z79.82 Long term (current) use of aspirin; E78.5 Hyperlipidemia, unspecified; J18.9 Pneumonia, unspecified organism; Z88.1 Allergy status to other antibiotic agents; Z88.5 Allergy status to narcotic agent; Z88.2 Allergy status to sulfonamides; R30.0 Dysuria; I11.0 Hypertensive heart disease with heart failure; Z91.013 Allergy to seafood; I73.9 Peripheral vascular disease, unspecified; E03.9 Hypothyroidism, unspecified; Z79.899 Other long term (current) drug therapy; E11.40 Type 2 diabetes mellitus with diabetic neuropathy, unspecified; R77.8 Other specified abnormalities of plasma proteins; Z87.891 Personal history of nicotine dependence; G47.33 Obstructive sleep apnea (adult) (pediatric)

== ENCOUNTER 2023-12-21 19:32 | Inpatient (IN) ==
[2023-12-21 20:17] LABS: Basophils # (auto) 0.03 K/uL (0.00-0.20); Basophils % (auto) 0.2 %; Eosinophils # (auto) 0.01 K/uL (0.00-0.50); Eosinophils % (auto) 0.1 %; Hematocrit (blood only) 43.4 % (37.0-47.0); Hemoglobin 14.2 g/dl (12.0-16.0); Immature Granulocytes # (auto) 0.06 K/uL (0.01-0.20); Immature Granulocytes % (auto) 0.3 %; Lymphocytes # (auto) 1.24 K/uL (1.20-3.40); Mean Corpuscular Hemoglobin 28.1 pg (25.0-34.0); Mean Corpuscular Hgb Conc 32.7 g/dL (32.0-36.0); Mean Corpuscular Volume 85.9 fL (80.0-100.0); Mean Platelet Volume 10.5 fL (9.4-12.4); Monocytes # (auto) 0.52 K/uL (0.11-0.59); Monocytes % (auto) 2.9 %; Neutrophils # (auto) 15.77 K/uL (1.40-6.50); Neutrophils % (auto) 89.5 %; Platelet Count 320 K/uL (130-400); RDW Coefficient of Variation 15.2 % (11.5-14.5); Red Blood Count 5.05 M/uL (4.20-5.40); White Blood Count 17.63 K/ul (4.8-10.8)
[2023-12-21 20:25] LABS: INR 0.9 (0.9-1.1); Partial Thromboplastin Ratio 0.9; Partial Thromboplastin Time 25 Seconds (21-31); Prothrombin Time 9.9 Seconds (9.0-12.0)
[2023-12-21 20:38] LABS: Albumin Globulin Ratio 1.1 (0.9-2); Albumin Level 4.1 gm/dl (3.4-5.0); BUN Creatinine Ratio 22.5 (10-20); Bilirubin,Total 0.4 mg/dl (0.2-1.0); Calcium 9.8 mg/dl (8.6-10.3); Creatinine Clr Calc Pharmacy 54.1 ml/min; Est GFR (Non-African American) 56.1 ml/min; Globulin 3.8 gm/dl (2.5-4.0); Potassium 3.5 mmol/L (3.5-5.1); Total Protein 7.9 gm/dl (6.0-8.3)
[2023-12-21 20:44] LABS: Troponin I High Sensitivity 23.9 pg/ml (0-14)
[2023-12-21 21:01] LABS: Adenovirus PCR Not Detected (NotDetected); Bordetella parapertussis PCR Not Detected (NotDetected); Bordetella pertussis PCR Not Detected (NotDetected); Chlamydia pneumoniae PCR Not Detected (NotDetected); Coronavirus 229E PCR Not Detected (NotDetected); Coronavirus CoV-2 (COVID19)PCR Not Detected (NotDetected); Coronavirus HKU1 PCR Not Detected (NotDetected); Coronavirus NL63 PCR Not Detected (NotDetected); Coronavirus OC43PCR Not Detected (NotDetected); Human Metapneumovirus PCR Not Detected (NotDetected); Influenza A PCR Not Detected (NotDetected); Influenza B PCR Not Detected (NotDetected); Mycoplasma pneumoniae PCR Not Detected (NotDetected); Parainfluenza Virus 1 PCR Not Detected (NotDetected); Parainfluenza Virus 2 PCR Not Detected (NotDetected); Parainfluenza Virus 3 PCR Not Detected (NotDetected); Parainfluenza Virus 4 PCR Not Detected (NotDetected); Respiratory Syncytial VirusPCR Not Detected (NotDetected); Rhinovirus/Enterovirus PCR Not Detected (NotDetected)
[2023-12-21] MEDS: ALBUT/IPRATROP 3MG/0.5MG NEB 3 ML VIAL NEB STA (21:02)
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
[2023-12-21] MEDS: methylPREDNISolone 125 MG/2 ML VIAL IV STA (22:09)
[2023-12-21] MEDS: diphenhydrAMINE 50 MG/ML VIAL IV STA (22:09)
[2023-12-21] MEDS: OPTIRAY 320 125ml IV ONE (22:43)
[2023-12-21] MEDS: ALBUT/IPRATROP 3MG/0.5MG NEB 3 ML VIAL NEB ONE (23:00)
--- NOTE | 2023-12-21 23:02 | CT Scan Report ---
Exam(s): CTA CHEST IV Amt: 76 ml opti 320 EXAM: CT Angiography Chest With Intravenous Contrast CLINICAL HISTORY: Reason for exam: PE. TECHNIQUE: Axial computed tomographic angiography images of the chest with intravenous contrast. CTDI is 23.78 mGy and DLP is 752.78 mGy-cm. Automated exposure control was utilized for the study. A dose lowering technique was utilized adhering to the principles of ALARA. MIP reconstructed images were created and reviewed. COMPARISON: No relevant prior studies available. FINDINGS: Pulmonary arteries: Unremarkable. No pulmonary embolism. Aorta: Diffuse atherosclerotic disease of the thoracic aorta. No thoracic aortic aneurysm. Lungs: Perihilar and bibasilar atelectasis. No mass. Pleural space: Unremarkable. No significant effusion. No pneumothorax. Heart: The heart is enlarged. No pericardial effusion. No evidence of RV dysfunction. Mediastinum: Scattered mediastinal lymph nodes measuring up to 9 mm, likely reactive. Bones/joints: Moderate degenerative changes of the thoracic spine with kyphosis. No acute fracture. No dislocation. Soft tissues: Calcification within the right breast with a small fat attenuating right breast lesion measuring 11 mm, correlate with patient's most recent mammogram. Lymph nodes: See above. Gallbladder and bile ducts: Cholelithiasis. IMPRESSION: No acute findings in the visualized arteries of the chest. No pulmonary embolus Electronically signed by: Kala Rodriguez MD 12/21/23 23:01 PM
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
[2023-12-22] MEDS: DOXYCYCLINE HYCLATE 100 MG in DEXTROSE 5% MINI-B 100 ML IV STA (00:38)
[2023-12-22] MEDS: POTASSIUM CHLORIDE CRTAB 20 MEQ TABCR PO STA ×2 (00:48→05:29)
[2023-12-22] MEDS: ARIPiprazole 5 MG TAB PO STA (00:49)
[2023-12-22] MEDS: MIRTAZAPINE TAB 15 MG TAB PO ONE (00:49)
[2023-12-22] MEDS: ROSUVASTATIN CALCIUM 20 MG TAB PO STA (00:49)
[2023-12-22] MEDS: BENZONATATE 100 MG CAPSULE PO STA (01:09)
[2023-12-22] MEDS: ACETAMINOPHEN 325 MG TAB PO STA (01:09)
[2023-12-22] MEDS ORDERED: LORazepam 0.5 MG TAB PO PRN (01:50)
[2023-12-22] MEDS ORDERED: GLUCOSE 40% GEL 15 GM TUBE PO PRN (01:50)
[2023-12-22] MEDS ORDERED: GLUCOSE 10 TAB/TUBE PO PRN (01:50)
[2023-12-22] MEDS ORDERED: ONDANSETRON 4 MG OD TAB PO PRN (01:50)
[2023-12-22] MEDS ORDERED: ONDANSETRON INJ 2 MG/ML 2 ML VIAL IV PRN (01:50)
[2023-12-22] MEDS ORDERED: GLUCAGON FOR INJ 1 MG VIAL SQ PRN (01:50)
[2023-12-22] MEDS ORDERED: CARBOHYDRATES FOR HYPOGLYCEMIA PO PRN (01:50)
[2023-12-22] MEDS ORDERED: DEXTROSE 50% 50 ML SYRINGE IV PRN (01:50)
[2023-12-22] MEDS: guaiFENesin/DEXTROM SYRUP 100MG/10MG 5ML UDC PO PRN (02:52)
[2023-12-22] MEDS: SODIUM CHLORIDE 0.9% 1,000 ML IV ONE (05:29)
[2023-12-22] MEDS: LEVOTHYROXINE SODIUM 112 MCG TABLET PO SCH (06:21)
[2023-12-22] MEDS: ACETAMINOPHEN 325 MG TAB PO PRN (06:23)
--- NOTE | 2023-12-22 07:00 | Electrocardiogram Report ---
Test Reason : Blood Pressure : / mmHG Vent. Rate : 100 BPM Atrial Rate : 093 BPM P-R Int : 246 ms QRS Dur : 084 ms QT Int : 296 ms P-R-T Axes : 034 025 -24 degrees QTc Int : 381 ms Sinus rhythm with PACs Nonspecific ST and T wave abnormality Abnormal ECG When compared with ECG of 26-JUL-2023 13:53, Inverted T waves have replaced nonspecific T wave abnormality in Inferior leads Nonspecific T wave abnormality now evident in Lateral leads QT has shortened Confirmed by Rei Villalobos ([id number]) on 12/22/2023 7:00:39 AM Referred By: Faith Smith Confirmed By:Giorgio Villalobos
[2023-12-22] MEDS: ALBUT/IPRATROP 3MG/0.5MG NEB 3 ML VIAL NEB SCH (07:18)
[2023-12-22 07:22] LABS: Estimated Average Glucose 148 mg/dl; Hemoglobin A1C 6.8 % (4.5-5.6)
--- NOTE | 2023-12-22 07:24 | XRay Report ---
XR chest 1V not portable CLINICAL HISTORY: Chest pain, nonspecific TECHNIQUE: Single frontal radiograph of the chest was obtained. Comparison: Comparison is made to chest radiograph 264 FINDINGS: No lines and tubes are seen. Calcified aortic knob is seen. Reticular interstitial opacities are seen . No evidence of pleural effusion or pneumothorax. IMPRESSION: No acute chest disease. ACT 112: Negative or not required by law. Electronically signed by: Naresh Oviedo M.D. 12/22/2023 7:23 AM
[2023-12-22] MEDS: INSULIN ASPART PER UNIT CHARGE SC SCH (08:00)
[2023-12-22] MEDS: CITALOPRAM 40 MG TAB PO SCH (08:18)
[2023-12-22] MEDS: CARBIDOPA/LEVODOPA 25/100MG TAB PO SCH (08:18)
[2023-12-22] MEDS: FLUTICASONE/VILANTEROL 200/25MCG 14 PUFFS/INHALER INH SCH (08:18)
[2023-12-22] MEDS: guaiFENesin 600 MG TABCR PO SCH (08:18)
[2023-12-22] MEDS: POTASSIUM CHLORIDE CRTAB 20 MEQ TABCR PO SCH (08:18)
[2023-12-22] MEDS: PANTOprazole 40 MG TAB PO SCH (08:18)
[2023-12-22] MEDS: CHOLECALCIFEROL 25 MCG (1000 UNITS) TAB PO SCH (08:18)
[2023-12-22] MEDS: ASPIRIN 81 MG CHEW PO SCH (08:18)
[2023-12-22] MEDS: methylPREDNISolone 40 MG in SYRINGE 0 ML IV SCH (08:18)
[2023-12-22] MEDS: ANASTROZOLE 1 MG TAB PO SCH (08:19)
[2023-12-22] MEDS: ROSUVASTATIN CALCIUM 20 MG TAB PO SCH ×2 (09:44→20:43)
[2023-12-22] MEDS: SODIUM CHLORIDE 0.9% 1,000 ML IV SCH (09:46)
--- OUTSIDE RECORDS SUMMARY | 2023-12-22 10:15 | External Medical Summary | Summary of Care ---
Author Name Unknown Organization [facility] Address [address] [place] [address] Phone [phone] Care Team Providers Care Personal Carer Name Role Phone Gary Renteria MD Primary Care Provider [phone]- [phone] Reason for Visit * Reason Comments Follow Up R breast Encounter Details Date Type Department Care Team ([facility] st Contact Info) Description 12/20/2023 9:00 AM EDT Office Visit Radiation Oncology, [facility] [address], [place] [id number] Bean Bajwa MD [address], [place] [phone] Breast cancer, stage 0, right* Allergies Active Allergy Reactions Criticality Noted Date Comments Azithromycin Rash 01/08/2018 Bee Venom Edema Other 12/01/2013 Localized reaction at sting site. Carbapenems 12/11/2000 Cefuroxime Axetil 11/13/2013 Rash Clavulanic Acid 05/09/2004 rash Clindamycin Hcl Rash 03/29/2014 Deleted in error Ibuprofen 06/01/2003 rash Iodinated Contrast Media Edema airway High 7 Iodine Edema airway High 12/11/2000 Pregabalin 02/07/2010 Swelling legs Macrolides And Ketolides 12/11/2000 Rash Metoclopramide 05/30/2004 rash Morphine Sulfate-Nacl Rash Medium 03/11/2008 Nickel Other (Please comment),Rash 10/04/2013 welts Psyllium 05/30/2004 Rash Shrimp Flavor Edema Other 12/09/2014 Shrimp, the smell makes her eyes swell. Sulfa Antibiotics 12/11/2000 rash documented as of this encounter (statuses as of 12/20/2023) Medications Medication Sig Dispensed Refills Start Date End Date Status ASPIRIN 81 MG PO TABS one tab every day 0 Active DEVILBISS NEBULIZER MISCIndications:As thma, mild persistent use as directed for as needed albuterol treaments 1 Unit(s) Not Specified 0 11/13/2013 Active EPIPEN 2-MAYCO 0.3 MG/0.3ML IJ SOAJIndications:Hi story of insect sting allergy Inject for life threatening allergy symptoms and go immediately to the emergency room. 1 Package 4 12/11/2013 Active albuterol-ipratrop ium (DUONEB) 2.5-0.5 MG/3ML nebulizer solution Inhale 3 mL via nebulizer every 4 hours as needed for Shortness of Breath or Wheezing (and with respiratory infections). 20 Vial 4 05/31/2015 Active montelukast (SINGULAIR) 10 MG Tablet Take 1 Tab by mouth every evening. 90 Tab 3 05/31/2015 Active albuterol (PROVENTIL HFA) 108 (90 BASE) MCG/ACT inhaler Inhale 2 Puffs by mouth every 4 hours as needed for Cough, Shortness of Breath or Wheezing (and at onset of respiratory infections). 1 Inhaler 3 05/31/2015 Active ondansetron ODT (ZOFRAN ODT) [address] 1 Tab on tongue every 6 hours as needed for Nausea. dissolve on tongue. 30 Tab 0 01/03/2017 Active CPAP every night at bedtime. 0 Active traMADol HCl 50 MG Oral Tablet (Ultram) Take 1 Tab by mouth every 6 hours as needed (postoperative pain). 5 Tab 0 01/21/2021 Active traMADol HCl 50 MG Oral Tablet (Ultram) Take 1 Tablet by mouth every 6 hours as needed. 0 Active Acetaminophen 325 MG Oral Tablet (Tylenol) Take 1 Tablet by mouth every 6 hours as needed. 0 Active Docusate Sodium 100 MG Oral Capsule (Colace) Take 1 Capsule by mouth in the morning and 1 Capsule before bedtime. 0 Active Potassium Chloride ER 20 MEQ Oral Tablet Extended Release TAKE ONE TABLET BY MOUTH TWICE A DAY 180 Tablet 1 12/25/2022 4 Active Carbidopa-Levodopa 25-100 MG Oral Tablet (Sinemet) TAKE ONE TABLET BY MOUTH TWICE A DAY IN THE MORNING AND IN THE AFTERNOON 180 Tablet 1 12/25/2022 4 Active Furosemide 20 MG Oral Tablet (Lasix) TAKE ONE TABLET BY MOUTH EVERY MORNING FOR EDEMA 90 Tablet 3 12/25/2022 4 Active Pantoprazole Sodium 40 MG Oral Tablet Delayed Release (Protonix) TAKE ONE TABLET BY MOUTH EVERY DAY 90 Tablet 3 12/25/2022 4 Active Montelukast Sodium 10 MG Oral Tablet (Singulair) Take one tablet by mouth at bedtime 90 Tablet 2 08/30/2022 Active Alendronate Sodium 70 MG Oral Tablet (Fosamax) Take 1 tablet by mouth once weekly. 12 Tablet 3 04/03/2023 Active Albuterol Sulfate HFA 108 (90 Base) MCG/ACT Inhalation Aerosol Solution Inhale 2 puffs by mouth every 4 hours As Needed for shortness of breath, wheezing 54 g 1 04/12/2023 Active Carbidopa-Levodopa 25-100 MG Oral Tablet (Sinemet) Take one and one half tablets by mouth twice a day for one week, then increase to two tablets by mouth twice a day. 360 Tablet 3 04/12/2023 Active Fluticasone Furoate-Vilanterol 200-25 MCG/ACT Inhalation Aerosol Powder Breath Activated (BREO ellipta) Inhale 1 Puff by mouth in the morning. 180 Each 4 04/24/2023 Active Mirtazapine 30 MG Oral Tablet (Remeron) Take 1 Tablet By mouth nightly at bedtime 90 Tablet 1 05/22/2023 Active Levothyroxine Sodium 112 MCG Oral Tablet (Levoxyl) 112 mcg orally daily in the morning 90 Tablet 3 07/11/2023 Active Rosuvastatin Calcium 40 MG Oral Tablet (Crestor) Take 1 tablet by mouth daily 90 Tablet 3 07/30/2023 Active Mirtazapine 30 MG Oral Tablet (Remeron) Take 1 Tablet By mouth at bedtime 90 Tablet 0 08/14/2023 Active Triamterene-HCTZ 37.5-25 MG Oral Capsule (Dyazide) 1 cap orally daily in the morning 90 Capsule 3 08/27/2023 Active ARIPiprazole 5 MG Oral Tablet (Abilify) take one-half tablet by mouth at bedtime 45 Tablet 0 11/06/2023 Active Citalopram Hydrobromide 40 MG Oral Tablet (CeleXA) take one tablet by mouth every morning 90 Tablet 0 11/06/2023 Active LORazepam 0.5 MG Oral Tablet (Ativan) Take 1 Tablet By Mouth once daily as needed for episodes of anxiety/agitation 30 Tablet 0 11/06/2023 Active Mirtazapine 30 MG Oral Tablet (Remeron) Take 1 Tablet By Mouth nightly at bedtime 90 Tablet 0 11/06/2023 Active Potassium Chloride ER 20 MEQ Oral Tablet Extended Release Take 1 tablet by mouth twice a day 180 Tablet 1 11/28/2023 Active Montelukast Sodium 10 MG Oral Tablet (Singulair) take one tablet by mouth at bedtime 90 Tablet 2 11/30/2023 Active Anastrozole 1 MG Oral Tablet (Arimidex)Indicati ons:Ductal carcinoma in situ (DCIS) of right breast Take 1 Tablet by mouth in the morning. 90 Tablet 3 12/12/2023 Active documented as of this encounter (statuses as of 12/20/2023) Active Problems Problem Noted Date Diagnosed Date Ductal carcinoma in situ (DCIS) of right breast 03/04/2021 Multiple rib fractures 01/04/2017 Chronic mesenteric ischemia 12/13/2016 ADE (renal artery stenosis) 12/13/2016 Carotid stenosis, non-symptomatic 12/09/2014 Subclavian artery stenosis, left 12/09/2014 Constipation 03/29/2014 Overview: ICD-10 update of inactive term DVT prophylaxis 03/29/2014 Pruritus 03/29/2014 Rash and nonspecific skin eruption 03/27/2014 Aortic valve, bicuspid 11/25/2012 Shortness of breath 11/18/2012 Asthma, mild persistent 10/02/2011 Overview: Meralgia paresthetica 11/08/2009 OBESITY, BMI 30-34 (SEE ACTUAL BMI) 11/04/2009 Overview: Per Obesity Taxonomy Need for prophylactic vaccin ation and inoculation against other viral diseases(V04.89) 08/16/2009 Enthesopathy of hip 06/22/2009 Rotator cuff syndrome 05/18/2009 Shoulder joint pain 04/27/2009 Gastroparesis 04/14/2009 Vitamin D deficiency 04/07/2009 Hypothyroidism 04/07/2009 ADVANCE DIRECTIVE INFORMATION 11/28/2008 Overview: Yes, Copy scanned at patient level in the electronic medical record.(Go to Action, Patient File to view) Patient aware they must notify their healthcare provider of changes. 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 Examination following surgery 05/14/2008 Factor V Leiden mutation 11/16/2005 Major depressive disorder 06/19/2005 Overview: ICD-10 update of inactive term ABDOMINAL PAIN, LEFT UPPER QUADRANT 06/19/2005 Chronic constipation 06/19/2005 Reflux esophagitis 06/19/2005 Early satiety 06/19/2005 Mitchell's esophagus 06/19/2005 Intractable migraine 03/28/2004 Overview: ICD-10 update of inactive term Allergic rhinitis 12/01/2002 CHR ALLRG CONJUNCTIV NEC 12/01/2002 Chronic sinusitis 12/01/2002 History of pulmonary embolism Abdominal pain, generalized Edema Major depression, single episode INHIBITED SEX EXCITEMENT ABDOMINAL PAIN, OTHER SPECIFIED SITE DM type 2, not at goal documented as of this encounter (statuses as of 12/20/2023) Resolved Problems Problem Noted Date Diagnosed Date Resolved Date Cervical transverse process fracture 01/04/2017 09/21/2023 Lumbar transverse process fracture 01/04/2017 09/21/2023 Knee laceration 01/04/2017 09/21/2023 Cellulitis of hand 03/27/2014 7 Edema 07/28/2004 09/10/2008 Overview: Resolved per Duplicate Protocol #2. Ulcer of lower limb 07/21/2004 08/02/20 22 Asthma with severity to be determined 12/01/2002 10/02/2011 Overview: ICD-10 update of inactive term OBESITY, UNSPECIFIED 010 Overview: Per Obesity Taxonomy documented as of this encounter (statuses as of 12/20/2023) Immunizations Name Administration Dates Next Due Covid-19, Mrna, Lnp-s, Pf, B ivalent, 30 Mcg, IM, 12 yrs and above (Pfizer) 05/02/2022 H1N1 2009 Influenza, IM 08/16/2009 Pneumococcal Polysaccharide PPV23 (Pneumovax) 11/30/2008 Seasonal Influenza, Quadriva lent Hd (Fluzone Hd) 05/02/2022 Seasonal Influenza, Quadriva lent, No Preserve, IM 05/18/2022 Seasonal Influenza, Quadriva lent, No Preserve, Mdck 05/17/2019 Seasonal Influenza, Split, I IV3, With Preserve, Inj 05/04/2015,05/18/2014,07/07/2013,03/2012,04/24/2011,05/16/2010,05/13/20 09 05/20/2013 TDAP (age 10 and older)(Boostrix) 10/24/2019 TDAP (age 11 and older)(Adacel) 04/20/2010 documented as of this encounter Social History Tobacco Use Types Packs/Day Years Used Date Smoking Tobacco: Former Cigarettes 2 25 1 - 05/13/1992 Smokeless Tobacco: Never Tobacco Cessation:Counseling Given: Not Answered Comments:Occasional passive smoke exposure at bingo Alcohol Use Standard Drinks/Week Comments No 0 (1 standard drink = 0.6 oz pur e alcohol) Sex and Gender Information Value Date Recorded Sex Assigned at Not on file Gender Identity Not on file Sexual Orientation Not on file Job Start Date Occupation Industry Not on file Not on file Not on file documented as of this encounter Last Filed Vital Signs Vital Sign Reading Time Taken Comments Blood Pressure 131/74 12/20/2023 9:03 AM EDT Pulse 74 12/20/2023 9:03 AM EDT Temperature 36.5 C (97.7 F) 12/20/2023 9:03 AM ED T Respiratory Rate 18 12/20/2023 9:03 AM EDT Oxygen Saturation 94% 12/20/2023 9:03 AM EDT Inhaled Oxygen Concentration - - Weight 89.3 kg (196 lb 12.8 oz) 12/20/2023 9:03 AM EDT Height - - Body Mass Index 33.78 10/11/2023 8:48 AM EST documented in this encounter Functional Status Functional Status Response Date of Assess ment Are you deaf or do you have serious difficulty h earing? No 12/31/2016 Are you blind or do you have serious difficulty seeing, even when wearing glasses? No 12/31/2016 Do you have serious difficul ty walking or climbing stairs? (5 years old or older) No 12/31/2016 Do you have difficulty dress ing or bathing? (5 years old or older) No 12/31/2016 Because of a physical, menta l, or emotional condition, do you have difficulty doing errands alone such as visiting a doctor s office or shopping? (15 years old or older) No 01/01/20 17 Cognitive Status Response Date of Assessm ent Because of a physical, menta l, or emotional condition, do you have serious difficulty concentrating, remembering, or making decisions? (5 years old or older) No 12/31/2016 documented as of this encounter Progress Notes * Bean Bajwa MD - 12/20/2023 9:09 AM EDT RADIATION ONCOLOGY FOLLOW-UP NOTE KYLAH DEAN Mandy Louis [id number] 68 year old Mandy Louis was seen in follow-up in Radiation Oncology on 12/20/2023. SITE OF MALIGNANCY: Right breast HISTOPATHOLOGY: Ductal carcinoma in situ. Two sites immediately adjacent STAGE: Stage 0 CURRENT THERAPY: S/p RUBÉN localized segmental mastectomy x2 with sentinel lymphadenectomy on Jan 21 2021 S/p adjuvant radiation therapy to right breast completed 04/07/2021. See radiation summary below for details Continues on adjuvant anastrozole, started 03/04/2021, supervised by Dr. Didi Perdomo PRIOR THERAPY: Nil Excerpt from consult visit note 02/07/[address] Trejo: HISTORY OF PRESENT ILLNESS: The patient is a 65-year-old who on screening mammogram had grouped calcifications within the upperouter right breast and lower Center right breast lower inner right breast . Biopsies from medial right breast demonstrated ductal carcinoma in situ grade 2 ER and KS receptors positive; lateral calcifications were negative for disease. The patient underwent needle localization to right breast 3:00 o'clock and 6:00 a.m. areasg. She was subsequently underwent excision of those areas with findings at the right breast 3:00 a.m. of ductal carcinoma in situ intermediate grade with necrosis this than 1 mm to incomplete medial margin and ink inferior margins and the other margins 2 mm or more away. Right breast at 6:00 a.m. showed ductal carcinoma in situ high-grade 2 mm to the inked margin anteriorly in greater than 2 mm at other sites. Multiple axillary nodes were all negative for tumor. It is felt that the tumors were completely resected as biopsy sites are would contiguous to 1 another and enough tissue was resected. This is by surgeon history. The patient is healing well now. RADIATION SUMMARY: Course: c1 Treatment Site Ref. ID Energy Dose/Fx (cGy) #Fx Dose Correction (cGy) Total Dose (cGy) Start Date End Date Elapsed Days 11_R Brst Bst PTV2 6X-SRS 250 4 / 4 0 1,000 04/04/2021 04/07/2021 3 10_R Breast Rt Breast 15X/6X 267 15 / 15 0 4,005 03/14/2021 04/01/2021 18 Total: 5,005 03/14/2021 04/07/2021 24 Radiation treatment site: Right breast Radiation completion date: 04/07/2021 Radiation treatment planninD conformal radiation therapy (3D FOOT WORKER) Positioning verification and target localization: orthogonal images and/or portal images and clinical set-up check Concurrent chemotherapy: No ----- ----- ----- ----- ----- ----- ----- ----- ----- ----- The total radiation dose was 5005 cGy in 19 fractions. (4005 cGy/15fx to right breast + 1000 cGy/4fx boost for a total dose of 5005 cGy to boost volume) The patient tolerated radiation therapy well. Energy same as baseline. At the end treatment course there is moderate erythema with dryness and itching but no areas of skin breakdown, no moist desquamation. She is using hydrocortisone cream, calamine lotion, aloe gel. INTERVAL HISTORY: Seen today in Radiation Oncology Clinic for routine follow-up visit of her DCIS right breast, s/pt lumpectomy and seninelt lymph node biopsy followed by adjuvant radiation therapy to the right breastcompleted 04/07/2021. She tolerated treatments well. Since her last visit here a year ago on 12/19/2022, she reports she is well, good energy, appetite, weight stable,no new health related issues. As far her breasts, she performs regular BSEs, has noted no new lumps or bumps, no suspicious findings. She denies nipple pain, discharge nor bleeding, no arm swelling. She continues on adjuvant anastrozole, started 03/04/2021, tolerating it well, now following with Dr Perdomo for this. She sees her breast surgeon, yearly in November, who has been ordering her mammograms. Her last bilateral mammogram 12/12/2023 showed no suspicious findings, BI-RADS category 2- benign. Medications were reviewed and updated. ZUBROD PERFORMANCE SCALE: 0 fully active, able to carry out all pre-disease activities without restriction PHYSICAL EXAMINATION: BP 131/74 (BP Site: Left Arm, BP Position: Sitting, BP Cuff Size: Large) | Pulse 74 | Temp 36.5 C(97.7 F) (Infrared ) | Resp 18 | Wt 89.3 kg (196 lb 12.8 oz) | SpO2 94% | BMI 33.78 kg/m | BSA 2.01 m Wt Readings from Last 4 Encounters: 12/20/23 89.3 kg (196 lb 12.8 oz) 12/12/23 90.3 kg (199 lb 1.6 oz) 10/11/23 90.7 kg (199 lb 14.4 oz) 09/03/23 90.6 kg (199 lb 11.2 oz) Weight: weight recently stable General: alert and oriented, no apparent distress, cognition normal, speech normal and swallow normal Lymphatics: no pre-auricular or post-auricular adenopathy, no cervical adenopathy, no supraclavicular adenopathy, no infravicular adenopathy and no axillary adenopathy Lungs: air entry good, no clubbing, trachea central, clear to percussion, auscultation and no adventitial breath sounds Cardiovascular: regular rate and rhythm grade 2/6 soft Mid systolic murmur Breast: no dominant breast masses bilaterally, no visibly or palpably suspicious findings bilaterally. The treated right breast shows mild residual hyperpigmentation. Some scarring with skin thickening around the lumpectomy site, no suspicious findings, no tenderness Lower extremities: non-edematous bilaterally Upper extremities: non-edematous bilaterally and normal range of motion Neurologic: Grossly no focal deficits RECENT LABS: Results for orders placed or performed in visit on 01/18/21 CBC Result Value Ref Range WBC 8.28 4.00 - 10.80 K/uL RBC 4.91 3.85 - 5.15 M/uL HGB 14.1 12.0 - 15.3 g/dL HCT 44.3 36.0 - 45.2 % MCV 90.2 81.5 - 97.5 fL MCH 28.7 27.0 - 34.0 pg MCHC 31.8 (L) 32.0 - 36.0 g/dL RDW 14.7 11.5 - 15.5 % MPV 11.8 (H) 6.6 - 11.1 fL nRBCs 0 <=0 /100 WBCs PLT 234 140 - 400 K/uL Results for orders placed or performed in visit on 01/18/21 AUTOMATED ANALYZER WBC DIFFERENTIAL Result Value Ref Range WBC 8.28 4.00 - 10.80 K/uL Neutrophils % 67.5 40.0 - 75.0 % Lymphocytes % 20.0 18.0 - 42.0 % Monocytes % 7.5 1.0 - 11.0 % Eosinophils % 4.0 0.0 - 6.0 % Basophils % 0.5 0.0 - 2.0 % Immature Granulocytes % 0.5 0.0 - 2.0 % Absolute Neutrophils 5.59 1.80 - 7.70 K/uL Absolute Lymphocytes 1.66 1.00 - 4.80 K/ul Absolute Monocytes 0.62 0.00 - 1.10 K/uL Absolute Eosinophils 0.33 0.00 - 0.70 K/uL Absolute Basophils 0.04 0.00 - 0.20 K/uL Absolute Immature Granulocytes 0.04 0.00 - 0.20 K/uL CBC Result Value Ref Range WBC 8.28 4.00 - 10.80 K/uL RBC 4.91 3.85 - 5.15 M/uL HGB 14.1 12.0 - 15.3 g/dL HCT 44.3 36.0 - 45.2 % MCV 90.2 81.5 - 97.5 fL MCH 28.7 27.0 - 34.0 pg MCHC 31.8 (L) 32.0 - 36.0 g/dL RDW 14.7 11.5 - 15.5 % MPV 11.8 (H) 6.6 - 11.1 fL nRBCs 0 <=0 /100 WBCs PLT 234 140 - 400 K/uL Results for orders placed or performed during the hospital encounter of 04/26/17 CBC/DIFF Result Value Ref Range WBC 8.33 4.00 - 10.80 K/uL RBC 4.45 3.85 - 5.15 M/uL HGB 13.1 12.0 - 15.3 g/dL HCT 39.8 36.0 - 45.2 % MCV 89.4 81.5 - 97.5 fL MCH 29.4 27.0 - 34.0 pg MCHC 32.9 32.0 - 36.0 g/dL RDW 14.3 11.5 - 15.5 % PLT 208 140 - 400 K/uL MPV 11.1 6.6 - 11.1 fL Neutrophils % 79.2 (H) 40 - 75 % Lymphocytes % 12.7 (L) 18 - 42 % Monocytes % 5.4 1 - 11 % Eosinophils % 1.9 0 - 6 % Basophils % 0.6 0 - 2 % IMMATURE GRANULOCYTE 0.2 0 - 2 % Absolute Neutrophils 6.59 1.8 - 7.7 K/uL Absolute Lymphocytes 1.06 1.0 - 4.8 K/uL Absolute Monocytes 0.45 0.0 - 1.1 K/uL Absolute Eosinophils 0.16 0.0 - 0.7 K/uL Absolute Basophils 0.05 0.0 - 0.2 K/uL Absolute Immature Granulocytes 0.02 0.0 - 0.2 K/uL Results for orders placed or performed during the hospital encounter of 07/07/14 COMPR METAB PANEL Result Value Ref Range BUN 12 6 - 20 mg/dL Creatinine 0.9 0.5 - 1.1 mg/dL Sodium 140 135 - 146 mmol/L Potassium 3.3 (L) 3.5 - 5.1 mmol/L Chloride 101 98 - 107 mmol/L CO2 26 22 - 32 mmol/L Anion Gap 13 7 - 15 mmol/L Glucose 90 70 - 120 mg/dL Albumin 4.0 3.8 - 5.0 g/dL AST 17 10 - 35 U/L Alkaline Phosphatase 89 0 - 153 U/L Bilirubin, Total 0.6 0.3 - 1.3 mg/dL Calcium 9.5 8.3 - 10.5 mg/dL Protein 6.9 6.0 - 8.3 g/dL ALT 11 10 - 35 U/L Estimated Glomerular Filtration Rate >60.0 >60 RECENT RADIOGRAPHIC IMAGING: As above ASSESSMENT: 68-year-old female with DCIS, high-grade with 2 separate foci and close margins in 2020. S/p[ lumpectomy and sentinel lymph node biopsy 01/21/2021. S/p adjuvant radiation therapy to right breast completed 04/07/2021. Continues on adjuvant anastrozole, started February 2021. Follow-up bilateral mammograms 12/12/2023 reported no suspicious findings, BI- RADS category 2-benign. Status: Clinically doing well, clinically SCARLET PLAN: The patient will follow-up in Radiation Oncology in 1 year. Follow-up with other physicians is as already scheduled. The patient will contact us in the meantime with questions or concerns. Thank you for having asked us to take part in this patient's care. I spent a total of 30-39 minutes (exact time 30 mins) on the date of service in preparation, delivery, and documentation of the care provided to Mandy Louis excluding any time spent in the performance of separately billed services. Bean Bajwa MD 12/20/2023 documented in this encounter Nursing Notes * Blanca Trevino LPN - 12/20/2023 9:07 AM EDT Chief Complaint Patient presents with Follow Up R breast Patient presents alone for yearly return today. She was last seen in our office on 12/19/22. She completed 19 fractions to the R breast on 04/07/21. Patient denies any pain or recent falls. Patient follows with Dr. Perdomo at medical oncology, she was last to see her on 12/12/23. She is scheduled to follow up with medical oncology on 12/11/24. Hematology/Oncology is administering the Anastrozole and pt reports she I tolerating this without any adverse/side effects. She is to remain on the medication for a total of 7 years. Her last mammogram completed on 12/12/23 did not reveal any evidence of malignancy. Dr. Bajwa was in to see patient and completed a breast exam. [employer] Documentation Provider requested medicaid analyst. Name of medicaid analyst: Blanca Trevino LPN Patient will continue to follow with medical oncology and will return to the clinic in 1 year. documented in this encounter Plan of Treatment Upcoming Encounters Date Type Department Care Team (Late st Contact Info) Description 12/11/2024 1:00 PM EDT Office Visit Hematology Oncology, [address] [place] [phone] Yolanda Rocha PA-C [address] [place] [address] [place] [phone] 12/16/2024 9:00 AM EDT Imaging Radiology [facility] [address] [place] [id number] 12/16/2024 9:30 AM EDT Office Visit General Surgery [facility] [address] [facility] [address] [place] [address] Karma Fitch CRNP [address], [place] [id number] 12/19/2024 9:00 AM EDT Office Visit Radiation Oncology, [facility] [address] [place], [place] [id number] Bean Bajwa MD [address], [place] [phone] Scheduled Procedures Name Priority Associated Diagnoses Date/Ti me COLONOSCOPY FLEXIBLE PROXIMA L DIAGNOSTIC Recall Encounter for screening colonoscopy Health Maintenance Due Date Last Done Comments Hepatitis C Screening 1972 Cologuard 11/10/1999 Fecal Occult Blood Test 11/10/1999 Sigmoidoscopy 11/10/1999 Zoster Vaccines (1 of 2) 2004 Pneumococcal Vaccine: 65+ Years (2 of 2 - PCV) 11/30/2009 11/30/2008 Albumin/Creatinine Ratio 01/17/2011 01/17/2010, 03/14 Diabetic Foot Exam 01/17/2011 01/17/2010 Diabetic Eye Exam 01/25/2011 01/25/2010, 01/17/2010 TSH 07/15/2011 07/15/2010, 02/10, 01/17/2010, Additional history exists HbA1c 09/29/2014 03/29/2014, 10/2009, 04/12/2010, Additional history exists Mitchell's Esophagus Surveilance 07/01/2015 07/01/2012, 11/25/2008, 01/17/2006, Additional history exists GFR 09/15/2021 09/15/2020, 08/2020, 04/26/2017, Additional history exists COVID-19 Vaccine ( season) 2023 05/02/2022 Influenza Vaccine (FLU shot) (Season Ended) 2024 05/18/2022, 05/02/2022, 05/17/2019, Additional history exists Mammogram 12/11/2024 12/12/2023, 11/11, 11/22/2022, Additional history exists Colonoscopy 12/29/2026 12/29/2016, 08/2009, 01/02/2007 Colorectal Cancer Screening 12/29/2026 DTaP,Tdap,and Td Vaccines (3 - Td or Tdap) 10/23/2029 10/24/2019, 04/20/2010, 02/24/2000 DXA Scan 01/09/2030 01/09/2023, 12/13, 05/20/2005, Additional history exists GARDASIL-HPV IMMUNIZATION SERIES Aged Out No longer eligible based on patient's age to complete this topic Hepatitis B Aged Out No longer eligi ble based on patient's age to complete this topic MENINGOCOCCAL (MENACTRA/MENVEO) Aged Out No longer eligible based on patient's age to complete this topic documented as of this encounter Medical Devices Implanted Type Area Web Content Director Device Identifier Shelf Expiration Date Model / Serial / Lot Endobutton Ultra 50mm [id number] - [id number] Implanted:Qty: 1 on 03/27/2014 at [place] [facility] [employer] : [place]OS[place] [id number] / / documented as of this encounter Visit Diagnoses Diagnosis Breast cancer, stage 0, right- Primary documented in this encounter Advance Directives Latest Code Status on File Code Status Date Activated Date Inactivated Comments Full Code 01/21/2021 6:11 AM 01/21/2021 6:27 PM Question Answer Comments Discussion of Advance Direct lucrecia occurred with: Not Discussed Does the patient have a Living Will? No Does the patient have Health Care Power of Manager Environmental Affairs? No Code Status History Code Status Date Activated Date Inactivated Comments Full Code 12/31/2016 7:56 PM 01/04/2017 6:01 PM This order reflects the patients wishes and were consensually agreed upon. Question Answer Comments Discussion of Advance Directives occurred with: Not Discussed Full Code 03/27/2014 6:55 PM 04/01/2014 10:04 PM Thi s order reflects the patients wishes and were consensually agreed upon. Question Answer Comments Discussion of Advance Directives occurred with: Patient/Family Does the patient have a Living Will? No Does the patient have Health Care Power of Manager Environmental Affairs? No Full Code 05/14/2008 12:04 PM 05/15/2008 6:59 PM Care Teams Personal Carer Relationship Specialty Start Date End Date ProGary MD [address] [place] [address] PCP - General Internal Medicine 05/30/19 documented as of this encounter"
--- OUTSIDE RECORDS SUMMARY | 2023-12-22 10:15 | External Medical Summary | Summary of Care ---
Author Name Unknown Organization [facility] Address [address] [place] [address] Phone [phone] Care Team Providers Care Recording Studio Set Up Worker Name Role Phone Gary Renteria MD Primary Care Provider [phone] Reason for Visit * Reason Onset Date Comments FYI 09/19/2023 Spouse, Yousuf sandoval alled on 09/19/23 and stated that he needed to cancel this appointment for 09/20/23 and he is requesting an appointment on 10/11/23 or 12/12/23. return Perdomo 1 year-new [id number] [place]. Encounter Details Date Type Department Care Team (Late st Contact Info) Description 09/19/2023 Telephone Access Center, [place] [address] [facility] *DO NOT REMOVE THIS DEPARTMENT* [place] [address] Gary Renteria MD [address] [place] [address] FYI (Spouse, Yousuf called on 09/19/23 and... Allergies Active Allergy Reactions Criticality Noted Date [...] as of this encounter (statuses as of 12/19/2023) Medications Medication Sig Dispensed Refills Start Date End Date Status ASPIRIN 81 MG PO TABS one tab every day 0 Active DEVILBISS NEBULIZER MISCIndications:A sthma, mild persistent use as directed for as needed albuterol treaments 1 Unit(s) Not Specified 0 11/13/2013 Active EPIPEN 2-MAYCO 0.3 MG/0.3ML IJ SOAJIndications:H istory of insect sting allergy Inject for life threatening allergy symptoms and go immediately to the emergency room. 1 Package 4 12/11/2013 Active albuterol-ipratro pium (DUONEB) 2.5-0.5 MG/3ML nebulizer solution Inhale 3 [...] TWICE A DAY 180 Tablet 1 12/25/2022 12/25/2023 Active Carbidopa-Levodop a 25-100 MG Oral Tablet (Sinemet) TAKE ONE TABLET BY MOUTH TWICE A DAY IN THE MORNING AND IN THE AFTERNOON 180 Tablet 1 12/25/2022 12/25/2023 Active Furosemide 20 MG Oral Tablet (Lasix) TAKE ONE TABLET BY MOUTH EVERY MORNING FOR EDEMA 90 Tablet 3 12/25/2022 01/20/2024 Active Pantoprazole Sodium 40 MG Oral Tablet Delayed Release (Protonix) TAKE ONE TABLET BY MOUTH EVERY DAY 90 Tablet 3 12/25/2022 01/19/2024 Active Montelukast Sodium 10 MG Oral Tablet [...] breath, wheezing 54 g 1 04/12/2023 Active Carbidopa-Levodop a 25-100 MG Oral Tablet (Sinemet) Take one and one half tablets by mouth twice a day for one week, then increase to two tablets by mouth twice a day. 360 Tablet 3 04/12/2023 Active Fluticasone Furoate-Vilantero l 200-25 MCG/ACT Inhalation Aerosol Powder Breath Activated [...] the morning 90 Capsule 3 08/27/2023 Active documented as of this encounter (statuses as of 12/19/2023) Active Problems Problem Noted Date Diagnosed Date [...] as of this encounter (statuses as of 12/19/2023) Resolved Problems Problem Noted Date Diagnosed Date [...] as of this encounter (statuses as of 12/19/2023) Immunizations Name Administration Dates Next Due Covid-19, Mrna, Lnp-s, Pf, B ivalent, 30 Mcg, IM, 12 yrs and above ([employer]) 05/02/2022 H1N1 2009 Influenza, IM 08/16/2009 Pneumococcal Polysaccharide PPV23 (Pneumovax) 11/30/2008 Seasonal Influenza, Quadriva lent Hd (Fluzone Hd) 05/02/2022 Seasonal Influenza, Quadriva lent, No Preserve, IM 05/18/2022 Seasonal Influenza, Quadriva lent, No Preserve, Mdck 05/17/2019 Seasonal Influenza, Split, I IV3, With Preserve, Inj 05/04/2015,05/18/2014,07/07/2013,10/0 03/2012,04/24/2011,05/16/2010,05/13/20 09 05/20/2013 TDAP (age 10 and older)(Boostrix) 10/24/2019 TDAP (age 11 and older)(Adacel) 04/20/2010 documented as of this encounter Social History Tobacco Use Types Packs/Day Years Used Date Smoking Tobacco: Former Cigarettes 2 25 1 - 05/13/1992 Smokeless Tobacco: Never Comments:Occasional passive smoke exposure at bingo Alcohol [...] on file documented as of this encounter Functional Status Functional Status Response [...] No 12/31/2016 documented as of this encounter Miscellaneous Notes * Telephone Encounter - Salvador Burton OSA - 09/19/2023 12:[address] Perdomo Spouse, Yousuf called on 09/19/23 and stated that he needed to cancel this appointment for 09/20/23and he is requesting an appointment on 10/11/23 or 12/12/23. return Perdomo 1 year-new [id number] [place]. Just a heads up. documented in this encounter Plan of Treatment Upcoming Encounters Date Type Department Care Team (Late st Contact Info) Description 12/20/2023 9:00 AM EDT Office Visit Radiation Oncology, [facility] [address] [place] [address] Bean Bajwa MD [address] [place] [address] 12/11/2024 1:00 PM EDT Office Visit Hematology Oncology, [address] [place] [address] Yolanda Rocha PA-C [address] [place] [address] [place] [phone] 12/16/2024 9:00 AM EDT Imaging Radiology [facility] [address] [place] [id number] 12/16/2024 9:30 AM EDT Office Visit General Surgery [address] [address] Karma Fitch CRNP [address] [place] [address] Scheduled Procedures Name Priority Associated Diagnoses Date/Ti [...] 01/17/2010, Additional history exists HbA1c 09/29/2014 03/29/2014, 12/0 10/2009, 04/12/2010, Additional history exists Mitchell's Esophagus [...] this encounter Medical Devices Implanted Type Area Audit Machine Operator Device Identifier Shelf Expiration Date Model / Serial / Lot Endobutton Ultra 50mm [id number] - [id number] Implanted:Qty: 1 on 03/27/2014 at OR [facility] [place] [employer] : ENDOSCOPY [id number] / / documented as of this encounter Advance Directives Latest Code Status on File Code Status Date Activated Date Inactivated Comments Full Code 01/21/2021 6:11 AM 01/21/2021 6:27 PM Question Answer Comments Discussion of Advance Direct lucrecia occurred with: Not Discussed Does the patient have a Living Will? No Does the patient have Health Care Power of Electronics Processing Supervisor? No Code Status History Code Status Date Activated Date Inactivated Comments Full Code 12/31/2016 7:56 PM 01/04/2017 6:01 PM This order reflects the patients wishes and were consensually agreed upon. Question Answer Comments Discussion of Advance Directives occurred with: Not Discussed Full Code 03/27/2014 6:55 PM 04/01/2014 10:04 PM This order reflects the patients wishes and were consensually agreed upon. Question Answer Comments Discussion of Advance Directives occurred with: Patient/Family Does the patient have a Living Will? No Does the patient have Health Care Power of Electronics Processing Supervisor? No Full Code 05/14/2008 12:04 PM 05/15/2008 6:59 PM Care Teams Recording Studio Set Up Worker Relationship Specialty Start Date End Date Pro, Gary Correa MD [address] [place] [address] PCP - General Internal Medicine 05/30/19 documented as of this encounter
[2023-12-22] MEDS: DOXYCYCLINE HYCLATE 100 MG in DEXTROSE 5% MINI-B 100 ML IV SCH (11:44)
--- NOTE | 2023-12-22 15:26 | Communication Note ---
Date of Service: December 22, 2023 Patient continues to endorse coughing, shortness of breath, chest discomfort, and abdominal pain even in relation to the coughing Generally ill but nontoxic-appearing, lungs with diffuse wheezing and significant coughing, mild epigastric tenderness to palpation without rebound tenderness, heart regular rate and rhythm Labs notable for lactic acidosis that peaked with a lactate of 4.6 and down trended to 3.6 before rechecks discontinued, Hemoglobin A1c 6.8, troponin levels mildly elevated and peaked at 29.7 before downtrending COPD exacerbation/asthma/LISA: Continue Solu-Medrol, DuoNebs, guaifenesin, doxycycline, montelukast all as prescribed with CPAP at bedtime Elevated troponin in setting of HFpEF, HTN, : likely supply/demand mismatch; continue aspirin, hold triamterene/HCTZ for now, check echo
[2023-12-22] MEDS: ARIPiprazole 5 MG TAB PO SCH (20:42)
[2023-12-22] MEDS: MIRTAZAPINE TAB 15 MG TAB PO SCH (20:43)
[2023-12-22] MEDS: MONTELUKAST SODIUM 10 MG TABLET PO SCH (20:44)
[2023-12-23 06:43] LABS: Hemoglobin 14.1 g/dl (12.0-16.0); Mean Corpuscular Hemoglobin 28.2 pg (25.0-34.0); Mean Corpuscular Hgb Conc 32.8 g/dL (32.0-36.0); Mean Platelet Volume 11.1 fL (9.4-12.4); Platelet Count 240 K/uL (130-400); RDW Coefficient of Variation 15.7 % (11.5-14.5); RDW Standard Deviation 49.1 fL (36.4-46.3); White Blood Count 12.57 K/ul (4.8-10.8)
[2023-12-23 07:04] LABS: Anion Gap 10 (3-11); BUN Creatinine Ratio 22.8 (10-20); Blood Urea Nitrogen 21 mg/dl (6-23); Calcium 9.1 mg/dl (8.6-10.3); Carbon Dioxide 24 mmol/L (21-32); Chloride 107 mmol/L (98-107); Est GFR (African American) 73.6 ml/min; Est GFR (Non-African American) 63.5 ml/min; Glucose 133 mg/dl (70-99(Fasting)); Sodium 141 mmol/L (136-145)
--- NOTE | 2023-12-23 09:54 | XCELERA ---
[id number]
--- NOTE | 2023-12-23 12:20 | Electrocardiogram Report ---
Test Reason : Blood Pressure : / mmHG Vent. Rate : 070 BPM Atrial Rate : 070 BPM P-R Int : 140 ms QRS Dur : 078 ms QT Int : 402 ms P-R-T Axes : 041 040 043 degrees QTc Int : 434 ms Normal sinus rhythm Normal ECG When compared with ECG of 21-DEC-2023 19:47, Previous ECG has undetermined rhythm, needs review Nonspecific T wave abnormality has replaced inverted T waves in Inferior leads Nonspecific T wave abnormality no longer evident in Lateral leads Confirmed by Rei Villalobos ([id number]) on 12/23/2023 12:19:44 PM Referred By: Faith Smith Confirmed By:Giorgio Villalobos
--- NOTE | 2023-12-23 13:28 | Hospitalist Progress Note ---
Date of Service December 23, 2023 Assessment & Plan (1) Acute exacerbation of chronic obstructive pulmonary disease: (2) Aortic stenosis: (3) Chronic heart failure with preserved ejection fraction: (4) HTN (hypertension): (5) Bicuspid aortic valve: (6) Diabetes mellitus with neuropathy: (7) Non-ST elevation CO (NSTEMI): Plan COPD exacerbation/asthma/ILSA- Ongoing symptoms over the past 5 days prior to admission, with productive cough Received Solu-Medrol 40 mg IV, Benadryl 25 mg IV and DuoNeb treatment from the ED Solu-Medrol 40 mg IV every 12 hours Duonebs every 4 hours while awake and every 2 hours when necessary. Guaifenesin extended release 600 mg p.o. twice daily Doxycycline 100 mg IV every 12 hours Continue montelukast CPAP at bedtime as needed Elevated troponin in setting of HFpEF, HTN, - Likely type II supply/demand mismatch Continue aspirin Holding triamterene/HCTZ for now due to low potassium - resumed 12/22. Continue potassium supplement for now Home lasix on hold TTE 12/23/2023: normal LV function with EF 55 to 60%, grade 1 diastolic dysfunction, mild aortic valve sclerosis without significant stenosis, right ventricular systolic pressure elevated Parkinsonism/anxiety- Continue carbidopa-levodopa, mirtazapine, lorazepam Avoid hour-long DuoNebs as a significant worsening of baseline tremor Admission and Anticipated Discharge Date Admission Date: December 22, 2023 Subjective Reports shortness of breath now primarily with coughing spasms but otherwise when at rest no significant shortness of breath. Still having significant on going coughing that causes chest discomfort and abdominal discomfort. She states that she does not feel she was quite ready for discharge home today. Review of Systems Review of Systems: Per subjective Physical Exam Physical Exam: General: Ill but nontoxic-appearing, NAD Cardiovascular: RRR, no M/R/G Pulmonary: Diffuse wheezing and significant coughing Abdomen: Soft, mild TTP epigastric region, ND, no guarding Extremities: Moving all extremities Integumentary: No suspicious rash or lesion on exposed skin Neurologic: AAOx3, no focal deficits Psychiatric: Appropriate mood/affect Results & Data Results & Data Vital Signs (Past 12 Hours) Vital Signs Temp Pulse Resp BP Pulse Ox O2 Del Method 12/23/23 11:50 36.6 C 82 20 145/76 H 91 Room Air 12/23/23 11:29 70 20 97 Room Air 12/23/23 08:00 Room Air 12/23/23 07:46 36.7 C 75 18 147/79 H 94 Room Air 12/23/23 07:42 70 18 94 Room Air 12/23/23 02:46 36.9 C 74 19 124/75 90 CPAP Laboratory Results Reviewed CBC and BMPmost notable for mild leukocytosis and otherwise unremarkable. Reviewed waxkl-yv-keyt glucoses Diagnostic Findings Transthoracic echocardiogram from 12/23/2023 reviewed demonstrates normal LV function with EF 55 to 60%, grade 1 diastolic dysfunction, mild aortic valve sclerosis without significant stenosis, right ventricular systolic pressure elevated PG Care Time/CCT Total # of Minutes Spent Total Time Spent with Patient: Total time spent is greater than 50% in coordination of care (as documented) at patient's floor/unit and/or counseling patient: Coding Level of Care Code 90028 SUB INP/OBS CARE 3/50MIN Diagnoses Acute exacerbation of chronic obstructive pulmonary disease J44.1 Aortic stenosis I35.0 Chronic heart failure with preserved ejection fraction I50.32 HTN (hypertension) I10 Bicuspid aortic valve Q23.1 Diabetes mellitus with neuropathy E11.40 Non-ST elevation CO (NSTEMI) I21.4
[2023-12-23] MEDS: TRIAMTERENE/HCTZ 37.5/25MG TAB PO SCH (13:55)
[2023-12-24 07:24] LABS: Hematocrit (blood only) 42.5 % (37.0-47.0); Mean Corpuscular Hemoglobin 28.5 pg (25.0-34.0); Mean Corpuscular Hgb Conc 32.9 g/dL (32.0-36.0); Mean Corpuscular Volume 86.4 fL (80.0-100.0); Mean Platelet Volume 11.5 fL (9.4-12.4); Platelet Count 276 K/uL (130-400); RDW Coefficient of Variation 15.4 % (11.5-14.5); RDW Standard Deviation 48.9 fL (36.4-46.3); Red Blood Count 4.92 M/uL (4.20-5.40); White Blood Count 14.16 K/ul (4.8-10.8)
[2023-12-24 08:20] LABS: BUN Creatinine Ratio 30.9 (10-20); Calcium 9.6 mg/dl (8.6-10.3); Creatinine Clr Calc Pharmacy 60.6 ml/min; Est GFR (African American) 71.7 ml/min; Est GFR (Non-African American) 61.9 ml/min; Potassium 4.5 mmol/L (3.5-5.1)
--- NOTE | 2023-12-24 08:36 | Electrocardiogram Report ---
Test Reason : Blood Pressure : / mmHG Vent. Rate : 074 BPM Atrial Rate : 074 BPM P-R Int : 150 ms QRS Dur : 082 ms QT Int : 372 ms P-R-T Axes : 060 043 031 degrees QTc Int : 412 ms Normal sinus rhythm with sinus arrhythmia Normal ECG When compared with ECG of 23-DEC-2023 05:59, No significant change was found Confirmed by Rei Villalobos ([id number]) on 12/24/2023 8:36:17 AM Referred By: Faith Smith Confirmed By:Giorgio Villalobos
--- NOTE | 2023-12-24 12:17 | Hospitalist Progress Note ---
Date of Service December 24, 2023 Assessment & Plan (1) Acute exacerbation of chronic obstructive pulmonary disease: Plan: Treat underlying bronchitis. Parenteral steroid therapy. Scheduled nebulizer treatments. (2) Acute bronchitis: Plan: Obtain sputum culture if sputum is produced. Continue doxycycline, day 3. (3) Demand ischemia: Plan: Troponin is elevated without evidence of acute coronary syndrome. Telemetry (4) Chronic heart failure with preserved ejection fraction: Plan: Stable. Monitor intake and output. Telemetry (5) HTN (hypertension): Plan: Stable. Continue current medical management (6) Diabetes mellitus with neuropathy: Plan: ADA diet. Continue current medical management. Sliding scale insulin as needed Plan Hopeful discharge to home tomorrow, December 24 Admission and Anticipated Discharge Date Admission Date: December 22, 2023 Subjective Alert and oriented. She is still coughing however and wheezy. Will continue treatment another day. Hopefully she can go home tomorrow, December 24 Review of Systems 2 Review of Systems: Constitutional-no fever or chills ENT-no blurred vision, no double vision, no epistaxis, no sore throat Respiratory-coughing and wheezing. No sputum production. No hemoptysis. Short of breath with minimal exertion Cardiac-no palpitations, no chest pain, no syncope GI-no nausea, vomiting, diarrhea, melena, hematochezia -no urinary retention, no urinary incontinence, no dysuria, no hematuria Musculoskeletal-no joint pain, no muscle tenderness Skin-no bruising, no rashes, no pruritus Neuro-no isolated weakness, no paresthesia, no weakness Psych-no depression, no anxiety Physical Exam 2 Physical Exam: General-alert and oriented x3, no fever, no chills HEENT-head atraumatic and normocephalic, pupils equal and reactive to light, extraocular muscles intact Neck-no lymphadenopathy or thyromegaly, trachea midline Chest-diminished breath sounds bilaterally. Bilateral end expiratory wheezes. Midline rhonchi. Cardiac-regular rate and rhythm, normal S1 and S2 Abdomen-normal bowel sounds, no hepatosplenomegaly Extremities-no cyanosis, clubbing, or edema Neuro-cranial nerves II through XII intact, motor and sensory function within normal limits, strength symmetrical, no focal deficits Psych-normal affect, normal mood Results & Data Results & Data Vital Signs (Past 12 Hours) Vital Signs Temp Pulse Pulse Resp BP Pulse Ox O2 Del Method 12/24/23 11:07 36.5 C 80 18 149/73 H 90 Room Air 12/24/23 10:24 71 18 92 Room Air 12/24/23 09:33 59 L 12/24/23 08:01 Room Air 12/24/23 07:34 65 18 92 Room Air 12/24/23 07:19 36.7 C 71 18 144/68 H 95 Room Air 12/24/23 03:09 36.7 C 70 18 146/73 H 90 CPAP Laboratory Results 12/24/23 06:22 12/24/23 06:22 PG Care Time/CCT Total # of Minutes Spent Total Time Spent with Patient: Total time spent is greater than 50% in coordination of care (as documented) at patient's floor/unit and/or counseling patient: Coding Level of Care Code 09966 SUB INP/OBS CARE 3/50MIN Diagnoses Acute exacerbation of chronic obstructive pulmonary disease J44.1 Acute bronchitis J20.9 Demand ischemia I24.89 Chronic heart failure with preserved ejection fraction I50.32 HTN (hypertension) I10 Diabetes mellitus with neuropathy E11.40
[2023-12-25 07:08] LABS: Hematocrit (blood only) 44.6 % (37.0-47.0); Hemoglobin 14.7 g/dl (12.0-16.0); Mean Platelet Volume 11.4 fL (9.4-12.4); Platelet Count 289 K/uL (130-400); RDW Coefficient of Variation 15.3 % (11.5-14.5); RDW Standard Deviation 47.2 fL (36.4-46.3); Red Blood Count 5.25 M/uL (4.20-5.40)
[2023-12-25 08:51] LABS: BUN Creatinine Ratio 29.9 (10-20); Calcium 9.8 mg/dl (8.6-10.3); Creatinine Clr Calc Pharmacy 58.8 ml/min; Est GFR (African American) 69.1 ml/min; Est GFR (Non-African American) 59.6 ml/min; Potassium 4.2 mmol/L (3.5-5.1)
--- NOTE | 2023-12-25 10:42 | Discharge Summary ---
Date of Service December 25, 2023 Admission HPI Per Admitting Provider The patient presents to the emergency department with a past medical history including LISA, COPD, asthma, hypertension, GERD, aortic stenosis, HFpEF, DVT, PE, bicuspid aortic valve, diabetes mellitus with neuropathy, PAD, mesenteric ischemia, VBI, parkinsonism, left psoas hematoma secondary to anticoagulation. She presents to the emergency department with 5 days of worsening shortness of breath, productive cough and dyspnea on exertion. Principal Diagnosis Acute bronchitis, acute exacerbation COPD, demand ischemia Discharge Exam General-alert and oriented x3, no fever, no chills HEENT-head atraumatic and normocephalic, pupils equal and reactive to light, extraocular muscles intact Neck-no lymphadenopathy or thyromegaly, trachea midline Chest-diminished breath sounds bilaterally. Bilateral end expiratory wheezes have resolved. Midline rhonchi present on admission have nearly resolved. Cardiac-regular rate and rhythm, normal S1 and S2 Abdomen-normal bowel sounds, no hepatosplenomegaly Extremities-no cyanosis, clubbing, or edema Neuro-cranial nerves II through XII intact, motor and sensory function within normal limits, strength symmetrical, no focal deficits Psych-normal affect, normal mood Discharge Data Allergies Allergy/AdvReac Type Severity Reaction Status Date / Time bee venom protein (honey bee) Allergy Severe LOCAL Verified 12/21/23 21:20 SWELLING AT SITE iodine Allergy Severe DIFFICULTY Verified 12/21/23 21:20 BREATHING, COUGHING, SNEEZING, RASH shrimp Allergy Severe EYE Verified 12/21/23 21:20 SWELLING amoxicillin [From Augmentin] Allergy Intermediate see comment Verified 12/21/23 21:20 cefuroxime Allergy Intermediate RASH Verified 12/21/23 21:20 clavulanic acid Allergy Intermediate see comment Verified 12/21/23 21:20 [From Augmentin] clindamycin Allergy Intermediate RASH Verified 12/21/23 21:20 morphine Allergy Intermediate RASH, on Verified 12/21/23 21:20 hycodan from [id number] home med pregabalin Allergy Intermediate FEET AND Verified 12/21/23 21:20 ANKLE SWELLING aprepitant Allergy Mild RASH Verified 12/21/23 21:20 erythromycin base Allergy Mild RASH Verified 12/21/23 21:20 ibuprofen Allergy Mild RASH,NAPROXEN Verified 12/21/23 21:20 ONLY NSAID SHE TOLERATES imipenem Allergy Mild RASH Verified 12/21/23 21:20 ketorolac Allergy Mild RASH ON Verified 12/21/23 21:20 ABDOMEN,NAPROXEN ONLY NSAID SHE TOLERATES metoclopramide Allergy Mild RASH Verified 12/21/23 21:20 nickel Allergy Mild RASH Verified 12/21/23 21:20 Opioids - Morphine Analogues Allergy Mild Rash Verified 12/21/23 21:20 psyllium Allergy Mild RASH Verified 12/21/23 21:20 Sulfa (Sulfonamide Allergy Mild RASH Verified 12/21/23 21:20 Antibiotics) cilastatin [From Primaxin] Allergy Unknown Unknown Verified 12/21/23 21:20 Consultations 12/21/23 23:39 ED Decision to Admit Stat Ordered Studies 12/21/23 21:57 CT for pulmonary embolism PE [CT angio chest PE protocol] Stat Hospital Course (1) Acute exacerbation of chronic obstructive pulmonary disease: Much improved with treatment of underlying bronchitis. Treated while hospitalized with parenteral steroid therapy and scheduled nebulizer treatments. (2) Acute bronchitis: Obtain sputum culture if sputum is produced. Treated while hospitalized with doxycycline, day 3. (3) Demand ischemia: Troponin is elevated without evidence of acute coronary syndrome. Telemetry (4) Chronic heart failure with preserved ejection fraction: Stable. Monitor intake and output. Telemetry (5) HTN (hypertension): Stable. Continue current medical management (6) Diabetes mellitus with neuropathy: ADA diet. Continue current medical management. Sliding scale insulin as needed Plan Home today, December 24, on doxycycline for another 5 days along with a prednisone tapering dose. Total Time Total Time Spent Total Time Spent (In Minutes): 45 minutes Discharge Plan Discharge Items Patient Disposition: Home - Self-Care Reason For Visit: COPD EX, NSTEMI Discharge Diagnosis: Acute bronchitis, acute exacerbation COPD, demand ischemia Activity: Resume your previous activity Non-emergency contact: Primary Care Provider Call non-emergency contact if: your symptoms worsen Follow-up/Referrals: ProGary MD [Primary Care Provider] - Diet: Carb Consistent or DM2 and Heart Healthy Addtl Attending Provider Instructions: Take doxycycline antibiotic for 5 more days. Take prednisone in a tapering dose fashion as directed Pending Studies at Discharge: No Stand-Alone Forms: My [facility], Smoking Cessation Medications and DC Order Prescriptions: New doxycycline hyclate 100 mg capsule 100 mg PO BID Qty: 10 0RF prednisone 10 mg tablet See Rx Instructions .ROUTE .COMPLEX Qty: 12 0RF Rx Instructions: 10 mg orally 3 times a day for 2 days, then 10 mg twice a day for 2 days, then 10 mg once a day for 2 days, then stop Continued furosemide [Lasix] 20 mg tablet 20 mg PO QAM Qty: 90 3RF Breo Ellipta 200-25 mcg/dose blister with device 1 inh INH QAM Qty: 3 4RF levothyroxine 112 mcg tablet 112 mcg PO QAM Qty: 90 3RF triamterene-hydrochlorothiazid 37.5-25 mg capsule 1 cap PO QAM Qty: 90 3RF (DME) CPAP Supplies Misc See Rx Instructions .MEDSUPPLY Qty: 1 0RF Rx Instructions: Refitting of the mask. G47.33 potassium chloride 20 mEq tablet extended release 20 meq PO BID Qty: 180 1RF montelukast [Singulair] 10 mg tablet 10 mg PO HS Qty: 90 2RF prednisone 20 mg tablet 40 mg PO DAILY 5 Days Qty: 10 0RF Rx Instructions: STARTED 12/19/23 FOR 5 DAYS ipratropium-albuterol 0.5 mg-3 mg(2.5 mg base)/3 mL solution for nebulization 3 ml INHALATION QID PRN (Reason: shortness of breath or wheezing) Qty: 540 1RF (DME) CPAP Machine Misc See Rx Instructions .MEDSUPPLY Qty: 1 0RF Rx Instructions: Auto-titration PAP with pressure of 6-18 cm H2O with humidification. Lifetime need. Newly diagnosed. epinephrine [EpiPen 2-Scout] 0.3 mg/0.3 mL auto-injector 0.3 mg IM UD PRN (Reason: anaphylaxis) Qty: 2 1RF citalopram [Celexa] 40 mg tablet 40 mg PO QAM cholecalciferol (vitamin D3) 25 mcg (1,000 unit) capsule 25 mcg PO QAM aspirin 81 mg tablet,chewable 81 mg PO QAM albuterol sulfate [Proventil HFA] 90 mcg/actuation HFA aerosol inhaler 2 puff INHALATION Q4H PRN (Reason: shortness of breath, wheezing) Qty: 3 1RF rosuvastatin 40 mg tablet 40 mg PO DAILY Qty: 90 3RF lorazepam [Ativan] 0.5 mg tablet 0.5 mg PO DAILY PRN (Reason: Anxiety) Rx Instructions: psy gives ondansetron HCl 8 mg tablet 8 mg PO Q8H PRN (Reason: nausea and vomiting) Qty: 10 0RF aripiprazole [Abilify] 5 mg tablet 2.5 mg PO HS mirtazapine [Remeron] 30 mg Tablet 30 mg PO HS anastrozole 1 mg tablet 1 mg PO QAM pantoprazole 40 mg tablet,delayed release (DR/EC) 40 mg PO QAM carbidopa-levodopa 25-100 mg tablet 2 tab PO BID alendronate [Fosamax] 70 mg tablet 70 mg PO WK Rx Instructions: Discharge Orders: Discharge Order (Routine); Ordered 12/25/23 Ordered By: Rodriguez Leon/Other Patient Handouts: Managing Type 2 Diabetes Admission Data Admit Date/Time: 12/22/23 00:11 Attending Provider: Rodriguez Chambers Admit Provider: William Liu Primary Care Provider: Gary Renteria Other Providers: William Liu Coding Level of Care Code 42158 INP/OBS DISCH >30 MIN Diagnoses Acute exacerbation of chronic obstructive pulmonary disease J44.1 Acute bronchitis J20.9 Demand ischemia I24.89 Chronic heart failure with preserved ejection fraction I50.32 HTN (hypertension) I10 Diabetes mellitus with neuropathy E11.40
== END 2023-12-25 13:45 | disposition home or self-care (01) | DRG 191 ==
LOC: ED 19:32 → SUATTDRO 12-22 00:11 → 2S 12-22 00:11

== ENCOUNTER 2024-08-16 15:16 | Inpatient (IN) ==
[2024-08-16 15:52] LABS: Hematocrit (blood only) 44.2 % (37.0-47.0); Hemoglobin 14.6 g/dl (12.0-16.0); Mean Corpuscular Hemoglobin 28.7 pg (25.0-34.0); Mean Corpuscular Volume 86.8 fL (80.0-100.0); Mean Platelet Volume 10.3 fL (9.4-12.4); Platelet Count 296 K/uL (130-400); RDW Coefficient of Variation 15.6 % (11.5-14.5); RDW Standard Deviation 49.1 fL (36.4-46.3); Red Blood Count 5.09 M/uL (4.20-5.40); White Blood Count 13.59 K/ul (4.8-10.8)
[2024-08-16 16:09] LABS: Albumin Globulin Ratio 1.3 (0.9-2); Albumin Level 4.1 gm/dl (3.4-5.0); BUN Creatinine Ratio 22.3 (10-20); Basophils # (auto) 0.02 K/uL (0.00-0.20); Basophils % (auto) 0.1 %; Bilirubin,Total 0.4 mg/dl (0.2-1.0); Calcium 9.8 mg/dl (8.6-10.3); Creatinine Clr Calc Pharmacy 48.1 ml/min; Globulin 3.1 gm/dl (2.5-4.0); Immature Granulocytes # (auto) 0.09 K/uL (0.01-0.20); Immature Granulocytes % (auto) 0.7 %; Lymphocytes # (auto) 0.75 K/uL (1.20-3.40); Lymphocytes % (auto) 5.5 %; Monocytes # (auto) 0.27 K/uL (0.11-0.59); Neutrophils # (auto) 12.46 K/uL (1.40-6.50); Neutrophils % (auto) 91.7 %; Potassium 4.3 mmol/L (3.5-5.1); Total Protein 7.2 gm/dl (6.0-8.3)
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
[2024-08-16 16:35] LABS: Adenovirus PCR Not Detected (NotDetected); Bordetella parapertussis PCR Not Detected (NotDetected); Bordetella pertussis PCR Not Detected (NotDetected); Chlamydia pneumoniae PCR Not Detected (NotDetected); Coronavirus 229E PCR Not Detected (NotDetected); Coronavirus CoV-2 (COVID19)PCR Not Detected (NotDetected); Coronavirus HKU1 PCR Not Detected (NotDetected); Coronavirus NL63 PCR Not Detected (NotDetected); Coronavirus OC43PCR Not Detected (NotDetected); Human Metapneumovirus PCR Not Detected (NotDetected); Influenza A PCR Not Detected (NotDetected); Influenza B PCR Not Detected (NotDetected); Mycoplasma pneumoniae PCR Not Detected (NotDetected); Parainfluenza Virus 1 PCR Not Detected (NotDetected); Parainfluenza Virus 2 PCR Not Detected (NotDetected); Parainfluenza Virus 3 PCR Not Detected (NotDetected); Parainfluenza Virus 4 PCR Not Detected (NotDetected); Respiratory Syncytial VirusPCR Not Detected (NotDetected); Rhinovirus/Enterovirus PCR DETECTED (NotDetected)
[2024-08-16 16:37] LABS: Magnesium 1.8 mg/dl (1.7-2.4)
[2024-08-16] MEDS: ALBUT/IPRATROP 3MG/0.5MG NEB 3 ML VIAL NEB STA (16:40)
[2024-08-16] MEDS: diphenhydrAMINE 50 MG/ML VIAL IV STA (16:42)
[2024-08-16] MEDS: methylPREDNISolone 125 MG/2 ML VIAL IV STA ×2 (16:46→20:05)
--- NOTE | 2024-08-16 16:51 | XRay Report ---
Chest radiograph, one view History: Cough Comparison: 06/12/2021 Findings: Single AP view of the chest performed. No focal consolidation or pleural effusion. No pneumothorax. The cardiomediastinal silhouette is within normal limits. Normal pulmonary vascularity. No evidence for lymphadenopathy. No visualized bony or soft tissue abnormality. Impression: Normal chest radiograph Electronically signed by Rei Rose 08-16-2024 4:51 PM
[2024-08-16] MEDS: SODIUM CHLORIDE 0.9% 500 ML IV ONE (17:33)
[2024-08-16] MEDS: OPTIRAY 320 125ml IV ONE (18:08)
--- NOTE | 2024-08-16 18:13 | CT Scan Report ---
CT pulmonary angiogram with IV contrast History: Shortness of breath COMPARISON: None TECHNIQUE: CT angiography of the chest was performed without IV contrast followed by IV contrast, including 3D post processing CTA image reconstruction. Dose reduction techniques were achieved by using automatic exposure control and/or adjustment of mA and/or kV according to patient size and/or use of iterative reconstruction technique. FINDINGS: Diagnostic quality: Adequate There is no evidence for pulmonary embolism. The heart is not enlarged. There is no pericardial effusion. There are no abnormally enlarged hilar or mediastinal lymph nodes. The central tracheobronchial tree is clear. The lungs are clear. There is no pleural effusion. Elevation of the right hemidiaphragm, resulting in mild subjacent compressive atelectasis of the right lower and right middle lobe. Mild streaky atelectasis in the periphery of the left lower lobe is also seen. Limited visualized upper abdomen. There is a calcified gallstone. No destructive osseous changes are seen. IMPRESSION: No evidence for pulmonary embolism. Electronically signed by Rei Rose 08-16-2024 6:13 PM
[2024-08-16] MEDS: cefTRIAXone SODIUM 2,000 MG/50 ML BAG IV STA (19:31)
[2024-08-16] MEDS: BENZONATATE 100 MG CAPSULE PO ONE (20:00)
[2024-08-16] MEDS: HYDROcodone/HOMATROPINE SYRUP 5MG/1.5MG 5ML UDP PO PRN (20:00)
[2024-08-16] MEDS: diphenhydrAMINE Capsule 25 MG CAP PO PRN (20:00)
[2024-08-16] MEDS ORDERED: LORazepam 0.5 MG TAB PO PRN (20:01)
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
[2024-08-16] MEDS: ARIPiprazole 5 MG TAB PO SCH (21:30)
[2024-08-16] MEDS: CARBIDOPA/LEVODOPA 25/100MG TAB PO SCH (21:30)
[2024-08-16] MEDS: MONTELUKAST SODIUM 10 MG TABLET PO SCH (21:30)
[2024-08-16] MEDS: MIRTAZAPINE TAB 15 MG TAB PO SCH (21:30)
[2024-08-16] MEDS: DOXYCYCLINE HYCLATE 100 MG in DEXTROSE 5% MINI-B 100 ML IV SCH (21:32)
[2024-08-16] MEDS ORDERED: ACETAMINOPHEN 325 MG TAB PO PRN (21:47)
[2024-08-16] MEDS: guaiFENesin 600 MG TABCR PO SCH (22:28)
[2024-08-16] MEDS: HEPARIN SOD 5,000 UNIT/0.5 ML VIAL SQ SCH (22:29)
[2024-08-17] MEDS: LEVOTHYROXINE SODIUM 112 MCG TABLET PO SCH (07:11)
[2024-08-17 07:15] LABS: Albumin Level 3.8 gm/dl (3.4-5.0); BUN Creatinine Ratio 29.8 (10-20); Calcium 9.3 mg/dl (8.6-10.3); Creatinine Clr Calc Pharmacy 61.9 ml/min; Phosphorus 4.7 mg/dl (2.5-4.9)
--- NOTE | 2024-08-17 07:17 | Hospitalist Progress Note ---
Date of Service August 17, 2024 Assessment & Plan (1) Acute on chronic respiratory failure with hypoxia: (2) Failure of outpatient treatment: (3) Rhinovirus infection: (4) COPD exacerbation: (5) SOB (shortness of breath): (6) Acute exacerbation of chronic obstructive pulmonary disease: Plan Plan The patient is a 68-year-old female with a past medical history including COPD, incomplete bladder emptying, urinary incontinence, DVT, hyperlipidemia, asthma- COPD overlap syndrome, PAD, factor V Leiden, hypothyroidism, diabetes mellitus type 2, Vertebrobasilar insufficiency, Parkinson Disease ,Anxiety, B12 deficiency, LISA on CPAP at bedtime, left psoas hematoma, ductal carcinoma in situ of right breast, restrictive lung disease, and history of pneumonia. Patient has been seen in the outpatient setting and being treated for upper respiratory type symptoms since 08/12/2024. Most recently has been on azithromycin plus doxycycline and prednisone. She presented to ED yesterday due to worsening of symptoms . She had increase in SOB, more cough and wheezing. Acute on chronic respiratory failure with hypoxia/failure of outpatient treatment- -Maintaining O2 Saturation at 94 In RA( 7:30 AM) Rhinovirus infection/COPD exacerbation/asthma-COPD overlap syndrome Respiratory Biofire panel- detected Rhino virus Chest Xray: Normal CT Chest: No evidence of Pulmonary embolism or pneumonia Sputum Gram stain and culture- pending reports Blood culture- pending reports CBC: 13.59 >12.25 Creatinine: 1.21> 0.94 Given additional Solu-Medrol 60 mg IV for total of 100 mg IV in ED, and then 40 mg IV q8h Mucinex 600 mg PO q12h DuoNebs 4 times daily, and every 2 hours as needed Pulmicort Respules 0.5 mg inhaled twice daily Hycodan syrup 5 mL p.o. every 4 hours PRN for severe cough. This cough is her worst symptom. She does get a rash with Hycodan, but would be acceptable taking Benadryl to deal with the rash. Benadryl 25mg PO PRN. Doxycycline 100 mg IV every 12 hours Patient experiencing significant discomfort due to cough. Added Tessalon Perles 100mg PO TID. Obstructive sleep apnea- On CPAP at bedtime auto titrating 6-18 Consult respiratory therapy Elevated Blood Pressure -8:00 AM today: 178/84 -Patient also complains of headache in frontal region since a week. Also some dizziness since a week. No blurry vision, flushing or confusion. Headache is more likely due to persistent cough. -Monitor BP. Chronic medical issues: Parkinson's Anxiety depression Hypothyroidism GERD Continue all usual medications Admission and Anticipated Discharge Date Admission Date: August 16, 2024 Supervising Physician Co-Signing Physician Notes I personally examined the patient and verified all lloyd points of history and exam, discussed case, and agree with decision making with Dr Shah Feeling better. Breathing easier. Vitals noted, in general she is awake and alert pleasant no distress. HEENT normocephalic atraumatic mucous membranes moist. Lungs show faint expiratory wheezes and slightly coarse breath sounds no accessory muscle use no rales good effort. COPD exacerbationcontinue current care, seems to be improving due to higher dose of steroids. Hopefully home soon. DVT prophylaxisheparin subcu othewrise as above Subjective Alert and oriented. But somewhat uncomfortable. Still coughing, wheezing and has SOB. Patient says her symptoms aren't better from yesterday. Similar to yesterday. Couldn't sleep well due to cough. Review of Systems Review of Systems: As per HPI Physical Exam Physical Exam: The patient is awake, alert and oriented 3, well developed and well nourished, normocephalic and atraumatic, lying in bed and in no acute distress. HEENT--PERRL, EOMI, mucous membranes and oropharynx dry. Neck--supple. No JVD. No bruits. Thyroid normal, trachea midline, no adenopathy. Heart--normal S1 and S2. No murmurs, rubs or gallops. Lungs- Bilateral diffuse wheeze+, decreased breath sound b/l Abdomen--normal bowel sounds and soft. Nontender. Nondistended, no hernias or masses, no organomegaly. Extremities--no cyanosis or clubbing. No edema. There are good distal pulses b/l. Dermatologic--normal skin turgor, normal color, no abnormal lymph nodes, no rash. Neurologic--cranial nerves II through XII grossly intact. Rheumatologic--normal range of motion. Psychiatric--normal affect. Results & Data Results & Data Vital Signs (Past 12 Hours) Vital Signs Temp Pulse Pulse Resp BP Pulse Ox Pulse Ox 08/17/24 04:07 36.2 C L 70 18 165/72 H 96 08/17/24 01:30 162/82 H 08/17/24 01:17 36.2 C L 82 18 99 08/17/24 01:16 78 08/17/24 00:55 08/16/24 23:33 36.5 C 72 24 160/74 H 95 08/16/24 22:56 72 08/16/24 22:27 75 24 153/77 H 97 08/16/24 22:27 96 08/16/24 21:23 79 24 146/76 H 93 08/16/24 20:48 87 08/16/24 20:22 88 L 08/16/24 19:37 84 26 H 158/123 H 94 O2 Del Method O2 Del Method O2 Flow Rate O2 Flow Rate 08/17/24 04:07 Nasal Cannula 2 08/17/24 01:30 08/17/24 01:17 Room Air 2 08/17/24 01:16 08/17/24 00:55 Nasal Cannula 2 08/16/24 23:33 Nasal Cannula 2 08/16/24 22:56 08/16/24 22:27 Nasal Cannula 2 08/16/24 22:27 Nasal Cannula 2 08/16/24 21:23 Nasal Cannula 2 08/16/24 20:48 08/16/24 20:22 Room Air 0 08/16/24 19:37 Room Air
[2024-08-17] MEDS: BUDESONIDE 0.5 MG/2 ML VIAL (PULMICORT) NEB SCH (07:29)
[2024-08-17] MEDS: ALBUT/IPRATROP 3MG/0.5MG NEB 3 ML VIAL NEB SCH (07:29)
[2024-08-17 07:43] LABS: Basophils # (auto) 0.01 K/uL (0.00-0.20); Basophils % (auto) 0.1 %; Hematocrit (blood only) 44.4 % (37.0-47.0); Hemoglobin 14.5 g/dl (12.0-16.0); Immature Granulocytes # (auto) 0.06 K/uL (0.01-0.20); Immature Granulocytes % (auto) 0.5 %; Lymphocytes # (auto) 1.08 K/uL (1.20-3.40); Lymphocytes % (auto) 8.8 %; Mean Corpuscular Hemoglobin 28.2 pg (25.0-34.0); Mean Corpuscular Hgb Conc 32.7 g/dL (32.0-36.0); Mean Corpuscular Volume 86.2 fL (80.0-100.0); Mean Platelet Volume 10.4 fL (9.4-12.4); Monocytes # (auto) 0.26 K/uL (0.11-0.59); Monocytes % (auto) 2.1 %; Neutrophils # (auto) 10.84 K/uL (1.40-6.50); Neutrophils % (auto) 88.5 %; Platelet Count 283 K/uL (130-400); RDW Coefficient of Variation 15.2 % (11.5-14.5); RDW Standard Deviation 47.9 fL (36.4-46.3); Red Blood Count 5.15 M/uL (4.20-5.40); White Blood Count 12.25 K/ul (4.8-10.8)
[2024-08-17] MEDS ORDERED: methylPREDNISolone 10 mg/mL (For Ped Dose < 7mg) IV SCH (08:00)
[2024-08-17] MEDS: ANASTROZOLE 1 MG TAB PO SCH (08:44)
[2024-08-17] MEDS: PANTOprazole 40 MG TAB PO SCH (08:44)
[2024-08-17] MEDS: ROSUVASTATIN CALCIUM 20 MG TAB PO SCH (08:44)
[2024-08-17] MEDS: methylPREDNISolone 40 MG in SYRINGE 0 ML IV SCH (08:44)
[2024-08-17] MEDS: FLUTICASONE/VILANTEROL 200/25MCG 14 PUFFS/INHALER INH SCH (08:45)
[2024-08-17] MEDS: CITALOPRAM 40 MG TAB PO SCH (08:45)
[2024-08-17] MEDS: CHOLECALCIFEROL 25 MCG (1000 UNITS) TAB PO SCH (08:45)
[2024-08-17] MEDS: ASPIRIN 81 MG ECTAB PO SCH (08:45)
[2024-08-17] MEDS: POLYETHYLENE (MIRALAX) 17 GM PACK PO PRN (10:13)
[2024-08-17] MEDS: BENZONATATE 100 MG CAPSULE PO SCH (12:43)
--- NOTE | 2024-08-17 16:57 | Billing Data ---
Date of Service August 17, 2024 Coding Level of Care Code 73496 SUB INP/OBS CARE MIN
--- NOTE | 2024-08-18 06:54 | Hospitalist Progress Note ---
Date of Service August 18, 2024 Assessment & Plan (1) Acute on chronic respiratory failure with hypoxia: (2) Failure of outpatient treatment: (3) Rhinovirus infection: (4) COPD exacerbation: (5) SOB (shortness of breath): Plan Mrs Louis is a 68-year-old female with a past medical history including COPD, incomplete bladder emptying, urinary incontinence, DVT, hyperlipidemia, asthma- COPD overlap syndrome, PAD, factor V Leiden, hypothyroidism, diabetes mellitus type 2, Vertebrobasilar insufficiency, Parkinson Disease ,Anxiety, B12 deficiency, LISA on CPAP at bedtime, left psoas hematoma, ductal carcinoma in situ of right breast, restrictive lung disease, and history of pneumonia. #Acute on chronic respiratory failure with hypoxia/failure of outpatient treatment- -Maintaining O2 Saturation at 92 In RA. # Rhinovirus infection/COPD exacerbation/asthma-COPD overlap syndrome Improving symptoms/ Biofire Rhino virus Chest X-ray: No acute PNE or any pathology. CT Chest: No evidence of Pulmonary embolism or pneumonia Sputum Gram stain and culture- pending reports Blood culture- No growth Recent PFT: No obstruction, Mild restrictive changes. CBC: 14.83( on steroids) Creatinine: 1.11 Meds: Solu-Medrol 40 mg IV q 12 hour/ Mucinex 600 mg PO q12h/ DuoNebs 4 times daily, and every 2 hours as needed Pulmicort Respules 0.5 mg inhaled twice daily Hycodan syrup 5 mL p.o. every 4 hours PRN for severe cough. Benadryl 25mg PO PRN. Doxycycline 100 PO BID Tessalon Perles 100mg PO TID. #Obstructive sleep apnea On CPAP at bedtime auto titrating 6-18 Consult respiratory therapy #Elevated Blood Pressure -145/71 today( 133-145/ 67-77) She is on high dose steroids, will monitor her BP trend. Recommend home BP monitor as well. #Chronic medical issues: Parkinson's Anxiety depression Hypothyroidism GERD Continue all usual medications. Admission and Anticipated Discharge Date Admission Date: August 16, 2024 Supervising Physician Co-Signing Physician Notes Attending Physician Supervision Note: I independently interviewed and examined the patient and verified the lloyd history and physical, reviewed labs and image studies and agree with findings and care plan noted above. Doing well except cough. Vomited due to coughing after lunch. Nursing report severe cough with ambulation. Vitals noted, in general she is awake and alert pleasant no distress. Lung clear bilaterally Asthma/COPD overlap with exacerbationcontinue current care, wean steroids. Anticipate home in am. DVT prophylaxisheparin subcu othewrise as above Subjective Mrs. Louis feels much better this AM. Her cough is improving compared to yesterday but still there. Mostly dry and he does have some CP, which she feels because of coughing. No fever, SOB, blood while coughing. Review of Systems Review of Systems: As per HPI Physical Exam Physical Exam: Constitutional: Well appearing, No acute distress, PILCCOD: Negative HEENT: Atraumatic, Normocephalic, No conjunctival injection CVS: S1 S2 no murmur, Regular Rhythm, no LE edema Respiratory: BL equal air entry with NVBS.Coarse breath sound with some wheezes BL. No focal crackles. No increased work of breathing GI: Soft, Nondistended, Nontender, Normal Bowel sounds + MSK: No gross deformities noted Skin: Warm, Dry, No rashes Neuro: Alert, Oriented to TPP, No Focal deficit Psych: Mood and Affect congruent, Cooperative on exam Results & Data Results & Data Vital Signs (Past 12 Hours) Vital Signs Temp Pulse Resp BP Pulse Ox Pulse Ox O2 Del Method 08/18/24 05:00 86 17 92 Room Air 08/17/24 23:52 94 08/17/24 20:15 BiPAP, CPAP 08/17/24 20:11 36.6 C 16 137/67 94 Room Air 08/17/24 19:44 90 18 94 Room Air O2 Del Method 08/18/24 05:00 08/17/24 23:52 Room Air 08/17/24 20:15 08/17/24 20:11 08/17/24 19:44 Resident Activity Tracking Resident Involvement: Resident Care Provided Care Provided: Adult Hospital Medicine
[2024-08-18 07:45] LABS: Hematocrit (blood only) 42.6 % (37.0-47.0); Mean Corpuscular Hemoglobin 28.4 pg (25.0-34.0); Mean Corpuscular Hgb Conc 32.9 g/dL (32.0-36.0); Mean Corpuscular Volume 86.4 fL (80.0-100.0); Mean Platelet Volume 11.8 fL (9.4-12.4); Platelet Count 218 K/uL (130-400); RDW Coefficient of Variation 15.1 % (11.5-14.5); RDW Standard Deviation 47.8 fL (36.4-46.3); Red Blood Count 4.93 M/uL (4.20-5.40); White Blood Count 14.83 K/ul (4.8-10.8)
[2024-08-18 08:03] LABS: BUN Creatinine Ratio 28.8 (10-20); Calcium 8.8 mg/dl (8.6-10.3); Creatinine Clr Calc Pharmacy 52.5 ml/min; Potassium 3.6 mmol/L (3.5-5.1)
[2024-08-18 08:07] LABS: Basophils # (auto) 0.01 K/uL (0.00-0.20); Basophils % (auto) 0.1 %; Eosinophils # (auto) 0.01 K/uL (0.00-0.50); Eosinophils % (auto) 0.1 %; Immature Granulocytes # (auto) 0.07 K/uL (0.01-0.20); Immature Granulocytes % (auto) 0.5 %; Lymphocytes # (auto) 0.81 K/uL (1.20-3.40); Lymphocytes % (auto) 5.5 %; Neutrophils # (auto) 13.63 K/uL (1.40-6.50); Neutrophils % (auto) 91.8 %
--- NOTE | 2024-08-18 16:14 | Electrocardiogram Report ---
Test Reason : Blood Pressure : */* mmHG Vent. Rate : 102 BPM Atrial Rate : 102 BPM P-R Int : 138 ms QRS Dur : 72 ms QT Int : 318 ms P-R-T Axes : 49 32 21 degrees QTcB Int : 414 ms Poor data quality, interpretation may be adversely affected Sinus tachycardia Nonspecific ST and T wave abnormality Abnormal ECG When compared with ECG of 01-Jan-2024 11:56, Nonspecific T wave abnormality, worse in Lateral leads QT has shortened Confirmed by Donovan Steven ([id number]) on 08/18/2024 4:14:20 PM Referred By: Confirmed By: Donovan Steven
[2024-08-18] MEDS: DOXYCYCLINE HYCLATE 100 MG CAP PO SCH (20:14)
[2024-08-18] MEDS: methylPREDNISolone 40 MG in SYRINGE 0 ML IV SCH (20:16)
[2024-08-19 08:24] LABS: Basophils # (auto) 0.02 K/uL (0.00-0.20); Basophils % (auto) 0.1 %; Hematocrit (blood only) 41.7 % (37.0-47.0); Hemoglobin 13.7 g/dl (12.0-16.0); Immature Granulocytes # (auto) 0.15 K/uL (0.01-0.20); Immature Granulocytes % (auto) 0.9 %; Lymphocytes # (auto) 1.02 K/uL (1.20-3.40); Lymphocytes % (auto) 6.3 %; Mean Corpuscular Hemoglobin 28.4 pg (25.0-34.0); Mean Corpuscular Hgb Conc 32.9 g/dL (32.0-36.0); Mean Corpuscular Volume 86.3 fL (80.0-100.0); Monocytes # (auto) 0.65 K/uL (0.11-0.59); Neutrophils # (auto) 14.34 K/uL (1.40-6.50); Neutrophils % (auto) 88.7 %; Platelet Count 264 K/uL (130-400); RDW Coefficient of Variation 15.5 % (11.5-14.5); RDW Standard Deviation 48.9 fL (36.4-46.3); Red Blood Count 4.83 M/uL (4.20-5.40); White Blood Count 16.18 K/ul (4.8-10.8)
[2024-08-19 08:32] VITALS: BP 144/71; RESP 18; TEMP 97.7
[2024-08-19 08:35] LABS: BUN Creatinine Ratio 26.7 (10-20); Calcium 8.5 mg/dl (8.6-10.3); Creatinine Clr Calc Pharmacy 55.4 ml/min; Potassium 3.9 mmol/L (3.5-5.1)
--- NOTE | 2024-08-19 09:48 | Hospitalist Progress Note ---
Date of Service August 19, 2024 Assessment & Plan (1) Acute on chronic respiratory failure with hypoxia: (2) Failure of outpatient treatment: (3) Rhinovirus infection: (4) COPD exacerbation: (5) SOB (shortness of breath): Plan Mrs Louis is a 68-year-old female with a past medical history including COPD, incomplete bladder emptying, urinary incontinence, DVT, hyperlipidemia, asthma- COPD overlap syndrome, PAD, factor V Leiden, hypothyroidism, diabetes mellitus type 2, Vertebrobasilar insufficiency, Parkinson Disease ,Anxiety, B12 deficiency, LISA on CPAP at bedtime, left psoas hematoma, ductal carcinoma in situ of right breast, restrictive lung disease, and history of pneumonia. #Acute on chronic respiratory failure with hypoxia/failure of outpatient treatment- -Maintaining O2 Saturation at 92 In RA. # Rhinovirus infection/COPD exacerbation/asthma-COPD overlap syndrome Improving symptoms/ Biofire Rhino virus Chest X-ray: No acute PNE or any pathology. CT Chest: No evidence of Pulmonary embolism or pneumonia Sputum Gram stain and culture- pending reports Blood culture- No growth Recent PFT: No obstruction, Mild restrictive changes. CBC: 14.83( on steroids) Creatinine: 1.11 Meds: Solu-Medrol 40 mg IV q 12 hour/ Mucinex 600 mg PO q12h/ DuoNebs 4 times daily, and every 2 hours as needed Pulmicort Respules 0.5 mg inhaled twice daily Hycodan syrup 5 mL p.o. every 4 hours PRN for severe cough. Benadryl 25mg PO PRN. Doxycycline 100 PO BID Tessalon Perles 100mg PO TID. #Obstructive sleep apnea On CPAP at bedtime auto titrating 6-18 Consult respiratory therapy #Elevated Blood Pressure -145/71 today( 133-145/ 67-77) She is on high dose steroids, will monitor her BP trend. Recommend home BP monitor as well. #Chronic medical issues: Parkinson's Anxiety depression Hypothyroidism GERD Continue all usual medications. Admission and Anticipated Discharge Date Admission Date: August 16, 2024 Review of Systems Review of Systems: As per HPI Physical Exam Physical Exam: Constitutional: Well appearing, No acute distress, PILCCOD: Negative HEENT: Atraumatic, Normocephalic, No conjunctival injection CVS: S1 S2 no murmur, Regular Rhythm, no LE edema Respiratory: BL equal air entry with NVBS.Coarse breath sound with some wheezes BL. No focal crackles. No increased work of breathing GI: Soft, Nondistended, Nontender, Normal Bowel sounds + MSK: No gross deformities noted Skin: Warm, Dry, No rashes Neuro: Alert, Oriented to TPP, No Focal deficit Psych: Mood and Affect congruent, Cooperative on exam Results & Data Results & Data Vital Signs (Past 12 Hours) Vital Signs Temp Pulse Resp BP Pulse Ox O2 Del Method 08/19/24 08:31 36.5 C 69 18 144/71 H 98 Room Air 08/19/24 07:47 69 16 96 Room Air
[2024-08-19] MEDS: predniSONE 50 MG TAB PO SCH (10:36)
[2024-08-19 11:09] VITALS: PULSE 72; O2SAT 95
--- NOTE | 2024-08-19 18:12 | Discharge Summary ---
Date of Service August 19, 2024 Admission HPI Per Admitting Provider The patient is a 68-year-old female with a past medical history including COPD, incomplete bladder emptying, urinary incontinence, DVT, hyperlipidemia, asthma- COPD overlap syndrome, PAD, factor V Leiden, hypothyroidism, diabetes mellitus type 2, VBI, B12 deficiency, LISA on CPAP at bedtime, left psoas hematoma, ductal carcinoma in situ of right breast, restrictive lung disease, and history of pneumonia. Patient has been seen in the outpatient setting and being treated for upper respiratory type symptoms since 08/12/2024. Most recently has been on azithromycin plus doxycycline and prednisone, with worsening of symptoms as noted above. She presents to the ED this evening due to worsening symptoms Admission Exam Per Admitting Provider The patient is awake, alert and oriented 3, well developed and well nourished, normocephalic and atraumatic, lying in bed and in no acute distress. HEENT--PERRL, EOMI, mucous membranes and oropharynx dry. Neck--supple. No JVD. No bruits. Thyroid normal, trachea midline, no adenopathy. Heart--normal S1 and S2. No murmurs, rubs or gallops. Lungs--coarse breath sounds bilaterally with scattered wheezes. No respiratory distress, no accessory muscle use. Abdomen--normal bowel sounds and soft. Nontender. Nondistended, no hernias or masses, no organomegaly. Extremities--no cyanosis or clubbing. No edema. There are good distal pulses b/l. Dermatologic--normal skin turgor, normal color, no abnormal lymph nodes, no rash. Neurologic--cranial nerves II through XII grossly intact. Rheumatologic--normal range of motion. Psychiatric--normal affect. Principal Diagnosis Acute on Chronic respiratory failure Rhino Virus URTI Discharge Exam Constitutional: Well appearing, No acute distress, PILCCOD: Negative HEENT: Atraumatic, Normocephalic, No conjunctival injection CVS: S1 S2 no murmur, Regular Rhythm, no LE edema Respiratory: BL equal air entry with NVBS.Coarse breath sound with some wheezes BL. No focal crackles. No increased work of breathing GI: Soft, Nondistended, Nontender, Normal Bowel sounds + MSK: No gross deformities noted Skin: Warm, Dry, No rashes Neuro: Alert, Oriented to TPP, No Focal deficit Psych: Mood and Affect congruent, Cooperative on exam Discharge Data Allergies Allergy/AdvReac Type Severity Reaction Status Date / Time bee venom protein (honey bee) Allergy Severe LOCAL Verified 08/14/24 09:19 SWELLING AT SITE iodine Allergy Severe DIFFICULTY Verified 08/14/24 09:19 BREATHING, COUGHING, SNEEZING, RASH shrimp Allergy Severe EYE Verified 08/14/24 09:19 SWELLING amoxicillin [From Augmentin] Allergy Intermediate see comment Verified 08/14/24 09:19 cefuroxime Allergy Intermediate RASH Verified 08/14/24 09:19 clavulanic acid Allergy Intermediate see comment Verified 08/14/24 09:19 [From Augmentin] clindamycin Allergy Intermediate RASH Verified 08/14/24 09:19 morphine Allergy Intermediate RASH, on Verified 08/14/24 09:19 hycodan from [id number] home med pregabalin Allergy Intermediate FEET AND Verified 08/14/24 09:19 ANKLE SWELLING aprepitant Allergy Mild RASH Verified 08/14/24 09:19 erythromycin base Allergy Mild RASH Verified 08/14/24 09:19 ibuprofen Allergy Mild RASH,NAPROXEN Verified 08/14/24 09:19 ONLY NSAID SHE TOLERATES imipenem Allergy Mild RASH Verified 08/14/24 09:19 ketorolac Allergy Mild RASH ON Verified 08/14/24 09:19 ABDOMEN,NAPROXEN ONLY NSAID SHE TOLERATES metoclopramide Allergy Mild RASH Verified 08/14/24 09:19 nickel Allergy Mild RASH Verified 08/14/24 09:19 Opioids - Morphine Analogues Allergy Mild Rash Verified 08/14/24 09:19 psyllium Allergy Mild RASH Verified 08/14/24 09:19 Sulfa (Sulfonamide Allergy Mild RASH Verified 08/14/24 09:19 Antibiotics) cilastatin [From Primaxin] Allergy Unknown Unknown Verified 08/14/24 09:19 Consultations 08/16/24 19:56 ED Decision to Admit Stat Ordered Studies 08/16/24 16:15 CT angio chest PE protocol Stat Hospital Course (1) Acute on chronic respiratory failure with hypoxia: (2) Failure of outpatient treatment: (3) Rhinovirus infection: (4) COPD exacerbation: (5) SOB (shortness of breath): Plan Mrs Louis is a 68-year-old female with a past medical history including COPD, incomplete bladder emptying, urinary incontinence, DVT, hyperlipidemia, asthma- COPD overlap syndrome, PAD, factor V Leiden, hypothyroidism, diabetes mellitus type 2, Vertebrobasilar insufficiency, Parkinson Disease ,Anxiety, B12 deficiency, LISA on CPAP at bedtime, left psoas hematoma, ductal carcinoma in situ of right breast, restrictive lung disease, and history of pneumonia. #Acute on chronic respiratory failure with hypoxia/failure of outpatient treatment- -Maintaining O2 Saturation at 92 In RA since admission. # Rhinovirus infection/COPD exacerbation/asthma-COPD overlap syndrome Improving cough on discharge Biofire Rhino virus Chest X-ray: No acute PNE or any pathology. CT Chest: No evidence of Pulmonary embolism or pneumonia Sputum Gram stain and culture-No growth Blood culture- No growth DCed on: Benadryl 25mg PO PRN Tessalon Perles 100mg PO TID for 7 days. Mucinex 600 BID for 7 days. Prednisone 50 mg once daily for 3 more days. #Chronic medical issues: Stable Total Time Total Time Spent Total Time Spent (In Minutes): See attending's attestation. Discharge Plan Discharge Items Patient Disposition: Home - Self-Care Reason For Visit: ACUTE ON CHRONIC RESP FAILURE WITH HYPOXIA, RHINOV Discharge Diagnosis: Acute on chronic respiratory failure. Condition on Discharge: Fair Activity: Resume your previous activity Non-emergency contact: Primary Care Provider Call non-emergency contact if: your symptoms worsen and your temperature is above 101 Follow-up/Referrals: Gary Renteria MD [Primary Care Provider] - 08/22/24 9:00 am Diet: Regular Addtl Attending Provider Instructions: You were admitted to the hospital for Acute in chronic respiratory failure. You were treated with Intravenous Steroids, Antibiotics and Cough medicine. You felt better and you chest x-ray is fair with no Pneumonia. A discharge summary will be sent to your primary care physician to ensure continuity of care. Please bring this discharge summary with you to your next office appointment so that your provider can review it at that time. Medications: Your medication list has been reviewed and reconciled upon discharge to ensure accuracy and continuity of care. An updated list of all your medications is included with your hospital discharge paperwork. Please review this list closely and make note of any changes to your medications. We have sent your prescription for Prednisone, Tessalon pearls, Mucinex. Follow up appointments: - Make a follow up appointment with your PCP within the next week. It is very important that you follow up with them shortly after discharge from the hospital. - Keep all of your follow up appointments as already scheduled. If you cannot make an appointment, notify your provider. CONTACT YOUR PRIMARY CARE PROVIDER if you experience any of the following: - , Gary Lagunas MD - Difficulty following your treatment plan - Difficulty taking any of your medications. CALL 911 OR GO TO THE EMERGENCY DEPARTMENT if you experience any of the following: - Acute shortness of breath, Bloody sputum, difficulty in breathing. - Sudden, severe abdominal pain or nausea/vomiting - Severe chest pain or chest pain that radiates to your jaw or arm - Sudden, severe shortness of breath or difficulty breathing Pending Studies at Discharge: No Stand-Alone Forms: My [employer], Smoking Cessation Medications and DC Order Prescriptions: New cyanocobalamin (vitamin B-12) 1,000 mcg tablet 1,000 mcg PO DAILY Qty: 30 4RF prednisone 50 mg tablet 50 mg PO DAILY 3 Days Qty: 3 0RF benzonatate 100 mg capsule 100 mg PO TID 10 Days Qty: 30 0RF guaifenesin [Mucinex] 600 mg tablet extended release 12hr 600 mg PO BID PRN (Reason: cough) 7 Days Qty: 14 0RF Continued triamterene-hydrochlorothiazid 37.5-25 mg capsule 1 cap PO QAM Qty: 90 3RF alendronate [Fosamax] 70 mg tablet 70 mg PO WK Qty: 12 3RF Rx Instructions: potassium chloride 20 mEq tablet extended release 20 meq PO BID Qty: 180 1RF Breo Ellipta 200-25 mcg/dose blister with device 1 inh INH QAM Qty: 3 4RF rosuvastatin 40 mg tablet 40 mg PO DAILY Qty: 90 3RF levothyroxine 112 mcg tablet 112 mcg PO QAM Qty: 90 3RF ipratropium-albuterol 0.5 mg-3 mg(2.5 mg base)/3 mL solution for nebulization 3 ml INHALATION QID PRN (Reason: shortness of breath or wheezing) Qty: 540 1RF (DME) CPAP Machine Misc See Rx Instructions .MEDSUPPLY Qty: 1 0RF Rx Instructions: Auto-titration PAP with pressure of 6-18 cm H2O with humidification. Lifetime need. Newly diagnosed. epinephrine [EpiPen 2-Scout] 0.3 mg/0.3 mL auto-injector 0.3 mg IM UD PRN (Reason: anaphylaxis) Qty: 2 1RF citalopram [Celexa] 40 mg tablet 40 mg PO QAM cholecalciferol (vitamin D3) 25 mcg (1,000 unit) capsule 25 mcg PO QAM aspirin 81 mg tablet,chewable 81 mg PO QAM (DME) CPAP Supplies Misc See Rx Instructions .MEDSUPPLY Qty: 1 0RF Rx Instructions: please fit patient for chinstrap G47.33 montelukast [Singulair] 10 mg tablet 10 mg PO HS Qty: 90 3RF Spiriva Respimat 2.5 mcg/actuation mist 2 puff inhalation DAILY Qty: 3 3RF lorazepam [Ativan] 0.5 mg tablet 0.5 mg PO DAILY PRN (Reason: Anxiety) Rx Instructions: psy gives levalbuterol tartrate 45 mcg/actuation HFA aerosol inhaler 2 inh inhalation Q6H PRN (Reason: shortness of breath or wheezing) Qty: 15 2RF prednisone 20 mg tablet 20 mg PO .COMPLEX Qty: 30 0RF Rx Instructions: 3 tabs PO daily x 5 days, then 2 tabs PO daily x 5 days, then 1 tab PO daily x 5d, then STOP; clotrimazole-betameth dip-zinc 1-0.05-20 % combo pack See Rx Instructions topical .COMPLEX Qty: 135 0RF Rx Instructions: apply CLOTRIMAZOLE/BETAMETHASONE CREAM twice daily: use ZINC OXIDE PASTE as needed/as directed topical for rash doxycycline hyclate 100 mg tablet 100 mg PO BID 5 Days Qty: 10 0RF ondansetron HCl 8 mg tablet 8 mg PO Q8H PRN (Reason: nausea and vomiting) Qty: 10 0RF carbidopa-levodopa 25-100 mg tablet 2 tab PO BID 90 Days Qty: 360 3RF aripiprazole [Abilify] 5 mg tablet 2.5 mg PO HS mirtazapine [Remeron] 30 mg Tablet 30 mg PO HS anastrozole 1 mg tablet 1 mg PO QAM pantoprazole 40 mg tablet,delayed release (DR/EC) 40 mg PO QAM Discontinued azithromycin 250 mg tablet See Rx Instructions PO .COMPLEX Qty: 6 0RF Rx Instructions: For 250 mg dose pack: take 500 mg today (day 1), then 250 mg for 4 days (days 2-5) PO Discharge Orders: Discharge Order (Routine); Ordered 08/19/24 Ordered By: Marcia Leon/Other Patient Handouts: Asthma COPD Trigger Control, 5 Steps for Eating Healthier Admission Data Admit Date/Time: 08/16/24 21:17 Attending Provider: Kerri Mcdaniels Admit Provider: William Liu Primary Care Provider: Gary Retneria Other Interventions: Discharge Summary Assessment (RN) Last Done: 08/19/24 12:42 Supervising Physician Co-Signing Physician Notes Attending Physician Supervision Note: I independently interviewed and examined the patient and verified the lloyd history and physical, reviewed labs and image studies and agree with findings and care plan noted above. [place] much better this am. Ambulating well. Cough better. Vitals noted, in general she is awake and alert pleasant no distress. No cough during with visit. Lung clear bilaterally Asthma/COPD overlap with exacerbation much improved. finish steroid course at home. othewrise as above
== END 2024-08-19 13:11 | disposition home or self-care (01) | DRG 189 ==
LOC: ED 15:16 → EDINP 21:17 → SUATTDRO 21:17 → 2E 21:49 → 3W 08-17 18:29